=== PATIENT | male | born 1935 | race Caucasian/White ===

== ENCOUNTER 2023-11-13 06:24 | Inpatient (IN) | payer OTHER, SELFPAY ==
--- NOTE | 2023-07-17 09:32 | CM ---
Addendum entered by Connie Yan 10/09/23 09:57:
Patient's surgery date has been changed to 11/13/23. Spoke with patient via telephone. Reintroduced role of Orthopedic Navigator and confirmed information previously obtained for case management assessment. Also discussed orthopedic program and post
surgical plans. Reviewed anticipated length of stay and that goal is for him to return home at discharge. Patient is in agreement with tentative plan and states that his daughter will stay with him when he goes home. He continues to state that he
will need VN services.
Original Note:
Patient is scheduled for an elective L TKR on 08/21/23. Spoke with patient prior to surgery via telephone. Patient had a R TKR at in 2019. Reintroduced role of Orthopedic Navigator. Patient reports that he lives alone in a two story home. There
are four steps to enter (bilateral rails) and a flight of steps to the second floor (bilateral rails also). There is a powder room on the data entry representative. He currently functions independently and uses a cane. He also has a rolling walker and shower
seat. He has had VN services through VN. PCP is Dr. Reymundo Nichols.
Discussed orthopedic program and post surgical plans. Reviewed anticipated length of stay and that goal is for him to return home at discharge. Also reviewed outpatient PT. Patient is in agreement with tentative plan but will not have transportation
for outpatient PT and will need VN services. He states that his daughter will likely stay with him initially.
Patient will complete online education.
Plan: Orthopedic Navigator will remain available to assist with the care of patient and will reassess discharge needs after surgery.
[2023-07-30 11:04] VITALS: BMI 32.6
[2023-07-30 12:11] LABS: Hematocrit 34.6 % (39.0-52.0); Hemoglobin 11.6 g/dL (13.0-18.0); Mean Corp Hgb Conc. 33.5 g/dL (33.0-37.0); Mean Corpuscular Volume 104.5 fL (80.0-94.0); Mean Platelet Volume 8.9 fL (7.4-10.4); Platelet Count 119 10^3/uL (130-400); Red Blood Cell Count 3.31 10^6/uL (4.70-6.10); Red Cell Dist. Width 14.4 % (11.5-14.5); White Blood Cell Count 4.4 10^3/uL (4.8-10.8)
[2023-07-30 12:13] LABS: ALT (SGPT) 22 U/L (0-50); AST (SGOT) 30 U/L (17-59); Albumin 4.2 g/dl (3.5-5.0); Alkaline Phosphatase 46 U/L (38-126); Blood Urea Nitrogen 20 mg/dl (9-20); Calcium 9.5 mg/dl (8.4-10.2); Carbon Dioxide 26 mmol/L (22-30); Chloride 106 mmol/L (98-107); Estimated Creatinine Clearance 60 ml/min; Glomerular Filtration Rate 57.4; Glucose 89 mg/dl (70-99); Potassium 5.1 mmol/L (3.5-5.1); Sodium 140 mmol/L (135-145); Total Bilirubin 1.5 mg/dl (0.2-1.3); Total Protein 7.5 g/dl (6.3-8.2)
[2023-07-30 12:56] LABS: Glycohemoglobin (HgbA1c) 5.4 % (4.0-5.6)
[2023-07-30 13:26] VITALS: BMI 32.6
[2023-10-21 13:33] VITALS: BMI 32.9
[2023-10-21 14:32] LABS: Hematocrit 36.9 % (39.0-52.0); Hemoglobin 12.3 g/dL (13.0-18.0); Mean Corp Hgb Conc. 33.3 g/dL (33.0-37.0); Mean Corpuscular Hgb 34.3 pg (27.0-31.0); Mean Corpuscular Volume 102.8 fL (80.0-94.0); Mean Platelet Volume 9.1 fL (7.4-10.4); Platelet Count 142 10^3/uL (130-400); Red Blood Cell Count 3.59 10^6/uL (4.70-6.10); Red Cell Dist. Width 13.9 % (11.5-14.5); White Blood Cell Count 5.4 10^3/uL (4.8-10.8)
[2023-10-21 14:45] LABS: ALT (SGPT) 23 U/L (0-50); AST (SGOT) 34 U/L (17-59); Albumin 4.3 g/dl (3.5-5.0); Alkaline Phosphatase 49 U/L (38-126); Blood Urea Nitrogen 25 mg/dl (9-20); Calcium 10.3 mg/dl (8.4-10.2); Carbon Dioxide 25 mmol/L (22-30); Chloride 103 mmol/L (98-107); Estimated Creatinine Clearance 60 ml/min; Glucose 87 mg/dl (70-99); Sodium 134 mmol/L (135-145); Total Protein 7.5 g/dl (6.3-8.2); eGFR 58.89
--- NOTE | 2023-10-21 15:28 | HPS.HSE ---
Family Physician
-
Family Physician: Reymundo Nichols
Chief Complaint
-
Advanced primary osteoarthritis of the left knee.
History of Present Illness
The patient is an 88-year-old male presenting today for advanced primary osteoarthritis of the left knee. The patient previously underwent a rather uncomplicated right total knee arthroplasty in September [address] Christos Danielson. He
returns to [facility] today with complaints of significant left knee pain associated with his osteoarthritis. He notes that his current left knee pain is greatly interfering with his activities of daily living and is overall impacting his
quality of life. He has tried and failed multiple conservative treatment measures in the past for his left knee pain. These conservative treatment measures include physical therapy, self therapeutic exercises, activity modification, attempted weight
loss, medical management with Tylenol, bracing, and the application of ice and/or heat. Recent x-ray findings of the left knee demonstrated [id number] medial compartment osteoarthritis. He was determined to be in need of a left total knee
arthroplasty. He was originally scheduled to undergo this procedure in late July 2023; however, it was postponed due to aspiration pneumonia. He has been cleared by pulmonology at this time. He denies any current complaints today such as chest
pain, shortness of breath, palpitations, nausea, vomiting, diarrhea, lightheadedness, dizziness, cough, sore throat, or fever.
Medical History
Past Medical History
Past Medical History: Reports Other
Additional Past Medical History:
1. Osteoarthritis, status post right total knee arthroplasty, 09/2018, by Dr. Christos Danielson.
2. Hypertension.
3. Hyperlipidemia.
4. Coronary artery calcifications on chest CT.
5. Aorta atherosclerosis.
6. Paroxysmal atrial fibrillation/atrial flutter, oral anticoagulation with Eliquis.
7. First degree AV block.
8. Mild-moderate valvular disease.
9. Mild pulmonary hypertension.
10. Venous varicosities, status post remote bilateral vein stripping.
11. Chronic peripheral edema.
12. Chronic interstitial fibrosis.
13. Right lower lobe pulmonary nodule, stable on serial imaging.
14. Aspiration pneumonia 08/20/2023.
15. Chronic dyspnea on exertion.
16. Chronic kidney disease stage 3.
17. GERD.
18. Mild dysphagia secondary to esophageal stricture.
19. Redundant colon.
20. Colon polyps.
21. Bilateral renal cysts.
22. Pancreatic cyst.
23. 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
24. Balance difficulties.
25. Peripheral neuropathy.
26. Multilevel degenerative disc disease.
27. BPH with difficult urination.
28. Multifactorial anemia.
29. Psoriatic arthritis.
30. Primary hyperparathyroidism.
31. Gout.
32. Anxiety.
33. Depression.
34. Chronic postnasal drip.
35. Bilateral dry eyes.
36. Osteopenia.
37. Hearing impairment bilaterally.
38. MRSA positive nasal screen pre-operatively.
39. Mild hyponatremia.
40. Mild hypercalcemia.
41. Prediabetes, A1c 5.8.
42. Obesity, BMI 32.9.
Past Surgical History: Reports Other
Additional Past Surgical History:
1. Right total knee arthroplasty, 09/2018, by Dr. Christos Danielson.
2. Right elbow surgery.
3. Left foot 4th metatarsal shaving.
4. Left foot excision of bone and soft tissue.
5. Varicose vein stripping bilaterally.
6. Umbilical hernia repair.
7. Laparoscopic cholecystectomy.
8. ERCP, bile stone extraction, and sphincterotomy.
9. Varicocele surgery.
10. Sinus surgery.
11. Bilateral cataract extraction.
12. Tonsillectomy.
13. Colonoscopy.
14. Endoscopy.
Social History
Tobacco: Non-smoker
Alcohol: Occasional
Living: Alone (in a 2 story home. His daughter, Estephanie, will be staying with him post-operatively. )
Family History
Family History: Not pertinent
Allergies / Home Medications
Allergy/Medication List:
Home medications:
1. Acetaminophen 650 mg p.o. twice a day as needed.
2. Allopurinol 100 mg p.o. daily.
3. Ascorbic Acid 1000 mg p.o. daily.
4. Atorvastatin 80 mg p.o. every evening.
5. Cholecalciferol 1000 units p.o. daily.
6. Vitamin B12 500 mcg p.o. daily.
7. Eliquis 5 mg p.o. twice a day.
8. Escitalopram Oxalate 10 mg p.o. every evening.
9. Ferrous Sulfate 325 mg p.o. every evening.
10. Finasteride 5 mg p.o. every evening.
11. Flonase 1 spray intranasal daily as needed.
12. Lisinopril 10 mg p.o. daily.
13. Loratadine 10 mg p.o. daily.
14. Montelukast 10 mg p.o. every evening.
15. Pantoprazole 40 mg p.o. daily.
16. Prolia 1 injection every 6 months.
17. Tamsulosin 0.4 mg p.o. twice a day.
18. Super B complex 1 tab p.o. daily.
�
Allergies: Meperidine.
Review of Systems
-
A 12 point ROS was completed and negative except as noted: Yes
Physical Exam
Vital Signs
Blood pressure 118/77. Heart rate 94. Respirations 18. Pulse ox 96% on room air.
Height 6 feet, 2 inches. Weight 116.1 kg. BMI 32.9.
Physical Exam
General: Well Developed, Well Nourished and No Apparent Distress
HEENT: NormoCephalic, Moist mucous membranes, Atraumatic and PERRLA
Respiratory: Crackles (Chronic, bibasilar)
Cardiac: Irregular Rhythm and Murmur (2/6 systolic )
GI: Soft, Non Tender, Non Distended and Other (Obese. )
Musculoskeletal: Normal Gait & Station (Left knee: positive effusion. Range of motion 0-120. Varus alignment. Severe pain with flexion. Tenderness along the medial joint line. Right knee: range of motion 0-130. Well-healed incision. No pain with
passive motion of bilateral hips.) and Other
Skin: Warm, Dry and Other (Psoriatic plaque noted at right ankle. )
Neuro: AO x 3 and Nonfocal/grossly intact
Laboratory Results
-
10/21/23 13:39
10/21/23 13:39
Laboratory Results
Total Bilirubin 1.5 mg/dl (0.2-1.3) H 07/30/23 10:40
AST 34 U/L (17-59) 10/21/23 13:39
ALT 23 U/L (0-50) 10/21/23 13:39
Alkaline Phosphatase 49 U/L (38-126) 10/21/23 13:39
Hemoglobin A1c 5.8.
MRSA nasal screen positive. The patient was started on nasal Mupirocin ointment pre-operatively.
EKG provided by Cardiology.
Echocardiogram 08/21/2023: Normal left ventricular chamber size. Mild concentric left ventricular hypertrophy. Normal left ventricular systolic function. Normal regional wall motion. Left ventricular ejection fraction is 60-65% by Sanchez's method
of discs. Diastolic function not assessed. Moderately dilated right ventricle. Probably normal right ventricular function. Focally calcified anterior mitral leaflet. Mitral valve opens normally. Mild to moderate mitral regurgitation. Trileaflet
aortic valve. Aortic valve opens normally. Mild aortic regurgitation. Moderate tricuspid regurgitation.� Estimated pulmonary artery pressure of 35 mmHg, assuming a right atrial pressure of 8 mmHg. Ascending aorta is mildly dilated, 4.0 cm.
Impression/Plan
-
CLEARANCES:
1. Primary Medical, Dr. Reymundo Nichols - cleared.
� � Primary medical phone number: [phone].
2. Cardiology, Dr. Sandra Shields - cleared at moderate risk.
3. Pulmonary, DAVID Moore - cleared at moderate risk.
4. Dental - cleared.
�
IMPRESSION/PLAN:
1. Advanced primary osteoarthritis of the left knee in need of a left total knee arthroplasty by Dr. Christos Danielson on 11/13/2023. The benefits and risks of the procedure have been explained to the patient. The patient understands these risks and
wishes to proceed.
2. DVT prophylaxis: Eliquis at modified dosing with bilateral venous compression devices. The patient was made aware to hold his home Eliquis three days prior to his upcoming procedure. We will resume his home dosing of Eliquis on post-operative day
3 as long as he remains hemodynamically stable. Plasma flow devices were highly encouraged to be used in the outpatient setting upon discharge.
3. Paroxysmal atrial fibrillation/atrial flutter: The patient will be monitored on telemetry post-operatively.
4. Balance difficulties: The patient will be placed on fall precautions post-surgery.
5. BPH with difficult urination: We will monitor voiding after his procedure. He was advised to continue his home Flomax and Finasteride lucia-operatively.
6. Multifactorial anemia: We will monitor the patient's hemoglobin during admission. His home Ferrous Sulfate and Vitamin B12 will be continued lucia-operatively.
7. MRSA positive nasal screen - We will include IV Vancomycin in addition to IV Ancef lucia-operatively for joint prophylaxis. Nasal Mupirocin has been started pre-operatively. We will advise the patient to continue Mupirocin twice a day for 2 weeks
post-surgery as his incision heals.
Patient's home phone number: [phone].
Patient's cell phone number: [phone].
Patient's contact (Estephanie Jim - Daughter): [phone].
[2023-10-21 15:35] LABS: Total Bilirubin 1.2 mg/dl (0.2-1.3)
[2023-10-21 16:42] VITALS: BMI 32.9
[2023-10-22 10:20] LABS: Glycohemoglobin (HgbA1c) 5.8 % (4.0-5.6)
[2023-11-13] VITALS (12 sets, daily range): BP systolic 99–157; BP diastolic 64–103; PULSE 104–139; O2SAT 98; BMI 32.9
[2023-11-13] MEDS: CELEBREX 200 MG PO (09:14)
[2023-11-13] MEDS: TYLENOL 650 MG PO ×3 (09:15→21:41)
--- NOTE | 2023-11-13 09:34 | PTCARENOTE ---
Patient has CKD stage 3 per H & P. IVF changed to NSS per Dr. Danielson order. Will monitor patient.
[2023-11-13] MEDS: VANCOCIN 300 ML IV (11:30)
[2023-11-13] MEDS: VANCOCIN 300 MG IV (11:30)
[2023-11-13] MEDS: NSS 1000 IV ×2 (11:32→14:36)
[2023-11-13] MEDS: DILAUDID 0.25 MG IV ×3 (14:21→14:42)
--- NOTE | 2023-11-13 14:38 | W.PN.UPDATE ---
Update Note
Progress Note Update
L knee OA s/p L TKA w/ Dr Danielson 11/13/23
- status post right total knee arthroplasty, 09/2018, by Dr. Christos Danielson.
DVT prophylaxis - Eliquis at modified dosing, b/l venous foot pumps
- Eliquis home dosing to be resumed POD 3 if hemodynamically stable
HTN - + parameters - monitor BP
PAF/a flutter and 1st degree AV block - monitor on tele
- Resume Eliquis as stated above
Chronic interstitial fibrosis
Right lower lobe pulmonary nodule, stable on serial imaging
Aspiration pneumonia 08/20/2023
Chronic dyspnea on exertion
- Monitor O2
- IS
- Start Prednisone taper
- Aspiration precautions
Chronic kidney disease stage 3 - minimize nephrotoxins as able
GERD - resume Protonix
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
Balance difficulties - on fall precautions
Peripheral neuropathy - consider Gabapentin or Lyrica
BPH with difficult urination - monitor voids
- Continue home Flomax BID and Finasteride
- Bladder scans/straight cath as needed
Multifactorial anemia - continue iron, vit B12
- Non-invasive hgb in AM
MRSA positive nasal screen pre-operatively - added IV Vanco in addition to IV Ancef lucia-op for joint prophylaxis
- Continue nasal Mupirocin for 2 weeks as incision heals
Hyperlipidemia
Coronary artery calcifications on chest CT
Aorta atherosclerosis
Mild-moderate valvular disease
Mild pulmonary hypertension
Venous varicosities, status post remote bilateral vein stripping
Chronic peripheral edema
Mild dysphagia secondary to esophageal stricture
Redundant colon
Colon polyps
Bilateral renal cysts
Pancreatic cyst
Multilevel degenerative disc disease
Psoriatic arthritis
Primary hyperparathyroidism
Gout
Anxiety
Depression
Chronic postnasal drip
Bilateral dry eyes
Osteopenia
Hearing impairment bilaterally
Mild hyponatremia
Mild hypercalcemia
Prediabetes, A1c 5.8.
Obesity, BMI 32.9
[2023-11-13] MEDS: PROTONIX PO (17:46)
[2023-11-13] MEDS: VITAMIN B-12 500 MCG PO (18:08)
[2023-11-13] MEDS: SINGULAIR 10 MG PO (18:10)
[2023-11-13] MEDS: ZYLOPRIM 100 MG PO (18:10)
[2023-11-13] MEDS: FEOSOL 325 MG PO (18:10)
[2023-11-13] MEDS: LIPITOR 80 MG PO (18:10)
[2023-11-13] MEDS: LEXAPRO 10 MG PO (18:10)
[2023-11-13] MEDS: PROSCAR 5 MG PO (18:10)
[2023-11-13] MEDS: ROXICODONE 10 MG PO (18:20)
[2023-11-13] MEDS: SENOKOT 17.1999999999999993 MG PO (21:39)
[2023-11-13] MEDS: ELIQUIS 2.5 MG PO (21:40)
[2023-11-13] MEDS: ANCEF 5 IV (21:44)
[2023-11-13] MEDS: ROXICODONE 5 MG PO (22:03)
[2023-11-13] MEDS: COLACE 100 MG PO (22:05)
[2023-11-13] MEDS: VANCOCIN 200 IV (22:11)
[2023-11-13] MEDS: FLOMAX 0.400000000000000022 MG PO (22:17)
[2023-11-13] MEDS: BACTROBAN 2% OINTMENT 1 APPLIC NASAL (22:26)
[2023-11-14] VITALS (9 sets, daily range): BP systolic 97–116; BP diastolic 56–79; PULSE 99–150; O2SAT 91–95; BMI 33.0
[2023-11-14] MEDS: TYLENOL 650 MG PO ×5 (00:02→20:42)
[2023-11-14] MEDS: ANCEF 5 IV (03:34)
[2023-11-14] MEDS: ROXICODONE 5 MG PO ×3 (03:44→15:01)
--- NOTE | 2023-11-14 04:25 | PTCARENOTE ---
Addendum entered by Nini Acosta RN 11/14/23 04:34:
Patient unable to void more than 150cc, bladder scanner +for 775cc, st cath done for 900cc at 0030.
Original Note:
Patient AAOX3, patient OOB to standing position, assist x2. Patient weak and slightly unsteady after standing for 5-10mins in attempt to void. patient moving Lt leg appropriately after receiving pain medication.
[2023-11-14] MEDS: NSS 1000 IV (06:15)
[2023-11-14] MEDS: BACTROBAN 2% OINTMENT 1 APPLIC NASAL ×2 (08:00→20:43)
[2023-11-14] MEDS: COLACE 100 MG PO ×2 (08:01→20:42)
[2023-11-14] MEDS: DELTASONE 40 MG PO (08:01)
[2023-11-14] MEDS: FLOMAX 0.400000000000000022 MG PO ×2 (08:03→20:42)
[2023-11-14] MEDS: PROTONIX 40 MG PO (08:03)
[2023-11-14] MEDS: ELIQUIS 2.5 MG PO ×2 (08:03→20:41)
[2023-11-14] MEDS: VITAMIN B-12 500 MCG PO (08:04)
[2023-11-14] MEDS: SENOKOT 17.1999999999999993 MG PO ×2 (08:04→20:42)
[2023-11-14] MEDS: ZYLOPRIM 100 MG PO (08:07)
--- NOTE | 2023-11-14 08:51 | CM ---
Addendum entered by Connie Yan 11/14/23 13:43:
Met with patient and daughter at bedside. Explained that patient will not be discharged today. Reviewed VN services and daughter confirms that she and her will be staying with patient.
Addendum entered by Connie Yan 11/14/23 11:10:
Patient is not medically cleared for discharge. VN updated and start of care changed to 11/16.
Original Note:
Reviewed chart and held rounds with PT, OT and nursing. Patient admitted as planned for elective L TKR. Met with patient at bedside. Confirmed information previously obtained for assessment. Also discussed discharge plans. The plan is for patient to
return home at discharge. His daughter will be staying with him upon discharge. Reviewed VN services including start of care (tentatively 11/15), services to be ordered (PT, SN) and frequency/duration of services. Options list provided and PAC data
reviewed. Patient selects VN.
Patient has a rolling walker, shower seat and a cane at home.
VN referral was completed and sent to [facility] through [employer] with request for start of care on 11/15. Confirmation received of their ability to accept case. repair clerk to fax discharge instructions to [facility] when complete.
Patient will use [facility] for discharge prescriptions
--- NOTE | 2023-11-14 12:25 | W.PN.ORTHO ---
Today's Communication / Plan
-
D/c when clinically stable.
Assessment
.
Distal Motor Intact: Yes
Dressing:
Clean, dry and intact.
Assessment:
L knee OA s/p L TKA w/ Dr Danielson 11/13/23
- status post right total knee arthroplasty, 09/2018, by Dr. Christos Danielson.
DVT prophylaxis - Eliquis at modified dosing, b/l venous foot pumps
- Eliquis home dosing to be resumed POD 3 if hemodynamically stable
PAF/a flutter and 1st degree AV block - monitor on tele
- HRs 90s at rest - 140s w/ ambulation/therapy
- Per review of records, previous Amiodarone stopped in 2019 d/t fear of pulmonary toxicity. Pt also has a h/o sinus bradycardia, making me cautious to order a BB right away
- Consult cardio for further recs
- Continue Eliquis as stated above
BPH with difficult urination - urinary retention post-op requiring straight cath
- Continue home Flomax BID and Finasteride
- Continue bladder scans/straight cath as needed
- Consider burkett w/ voiding trial upon d/c should pt not urinate by later today
HTN - + parameters - monitor BP
Chronic interstitial fibrosis
Right lower lobe pulmonary nodule, stable on serial imaging
Aspiration pneumonia 08/20/2023
Chronic dyspnea on exertion
- Monitor O2
- IS
- Continue Prednisone taper (just started POD 1)
- Aspiration precautions
Chronic kidney disease stage 3 - minimize nephrotoxins as able
GERD - resume Protonix
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
Balance difficulties - on fall precautions
Peripheral neuropathy - consider Gabapentin or Lyrica
Multifactorial anemia - continue iron, vit B12
- Non-invasive hgb 12.1 POD 1
- Dressing C/D/I
MRSA positive nasal screen pre-operatively - added IV Vanco in addition to IV Ancef lucia-op for joint prophylaxis
- Continue nasal Mupirocin for 2 weeks as incision heals
Hyperlipidemia
Coronary artery calcifications on chest CT
Aorta atherosclerosis
Mild-moderate valvular disease
Mild pulmonary hypertension
Venous varicosities, status post remote bilateral vein stripping
Chronic peripheral edema
Mild dysphagia secondary to esophageal stricture
Redundant colon
Colon polyps
Bilateral renal cysts
Pancreatic cyst
Multilevel degenerative disc disease
Psoriatic arthritis
Primary hyperparathyroidism
Gout
Anxiety
Depression
Chronic postnasal drip
Bilateral dry eyes
Osteopenia
Hearing impairment bilaterally
Mild hyponatremia
Mild hypercalcemia
Prediabetes, A1c 5.8.
Obesity, BMI 32.9
Plan
.
Surgery / Date: Michelle GONG w/ Dr Danielson 11/13/23
DVT Prophylaxis: Other (Xarelto at modified dosing )
Activity:
Out of bed.
PT/OT
Discharge Plan: Home w/ VN
Subjective
.
.:
Patient resting comfortably in bed this AM.
Acute on chronic urinary retention from underlying BPH.
Notably in a fib/a flutter w/ HR ranging from 90s-140s w/ therapy.
Vital Signs and Labs
.
Vital Signs and Labs:
Lab Results
10/21/23 13:39
10/21/23 13:39
Temp Pulse Resp BP Pulse Ox
97.5 F 96 14 113/65 94
11/14/23 07:07 11/14/23 08:07 11/14/23 07:07 11/14/23 08:07 11/14/23 08:10
Non-invasive Hgb result: 12.1
Physical Exam
-
HEENT: No pallor, cyanosis, or jaundice. Throat clear. Extremely RAMONA.
NECK: Supple. No JVD.
RESPIRATORY: Lungs clear to auscultation.
CVS: Irregular irregular.
ABDOMEN: Soft, non-tender. No distension. Obese.
EXTREMITIES: Mild post-op L knee edema. Strength equal, no calf pain with palpation/dorsiflexion. Calves soft.
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 No focal deficits. testing director grossly intact
[2023-11-14] MEDS: TOPROL XL 25 MG PO (12:43)
--- NOTE | 2023-11-14 14:48 | W.PN.CARDCBS ---
Addendum entered and electronically signed by Aaron Kwan DO 11/14/23 18:10:
I saw and examined the patient.
The Certified Adapted Physical Educator's note was reviewed and I agree with the note.
Comment:
Plan:
Add low dose Toprol for better rate control
He had been on amiodarone in the past for rate control but was current concerned about potential side effects.
Monitor blood pressures. Hold outpatient lisinopril to give room for blood pressure.
Continue Eliquis per Ortho 2.5 twice daily with increase to 5 mg twice daily once okay with Ortho. Would resume Eliquis at 5 mg twice daily as soon as possible given history of CVA.
Continue postoperative orthopedic care.
Discussed with nursing
Outpatient cardiac follow-up
Original Note:
Today's Communication / Plan
-
Add low-dose Toprol and IV Lopressor as needed
Follow on telemetry
Hold outpatient lisinopril
Follow blood pressures
Eliquis 2.5 mg twice daily per Ortho for now
Continue postop care
Impression / Plan
-
*Please refer to office note dated 09/09/23 with addendums 10/10/23 and 11/07/23*
Primary Manager Of Revenue: Dr. Shields
Assessment:
Status post left TKA 11/13/2023
Postoperative pain
Persistent atrial fibrillation, now with transient elevation in HR
History of atrial flutter
Chronic anticoagulation with Eliquis
History of stroke in 2018
Interstitial lung disease
Chronic mild anemia
GERD
BPH
Primary hyperparathyroidism
Coronary artery calcifications noted by imaging
08/21/2023: EF 60 to 65%, mild concentric LVH, moderately dilated right ventricle, mild to moderate MR, mild AR, moderate TR, PAP 35 mmHg mild dilation of ascending aorta, 4.0 cm
Plan:
-Status post left TKA 11/13/2023
-Cardiology consulted as patient with history of persistent atrial fibrillation, noted to have some transient elevation in heart rates particularly with ambulation today, however at times also at rest. Patient complaining of significant pain, and
appears to be very anxious about this.
-He was not on rate controlling medications as an outpatient, and is noted to have a history of first-degree AV block and bradycardia in the past.
-Will add low-dose Toprol 25 mg daily and follow closely on telemetry. IV Lopressor as needed also ordered
-due to low BPs, hold OP lisinopril for now
-Continue postoperative care
-Half dose Eliquis 2.5mg BID for now per Ortho
-d/w nursing
Progress Note - Manager Of Revenue
Subjective
Date of Service: November 14, 2023
Patient reports significant left knee pain. Denies chest pain, shortness of breath, palpitations
Objective
Labs:
10/21/23 13:39
10/21/23 13:39
Labs
Hgb 12.3 g/dL (13.0-18.0) L 10/21/23 13:39
Hct 36.9 % (39.0-52.0) L 10/21/23 13:39
Plt Count 142 10^3/uL (130-400) 10/21/23 13:39
Sodium 134 mmol/L (135-145) L 10/21/23 13:39
Potassium 5.0 mmol/L (3.5-5.1) 10/21/23 13:39
BUN 25 mg/dl (9-20) H 10/21/23 13:39
Creatinine 1.2 mg/dL (0.7-1.3) 10/21/23 13:39
Glucose 87 mg/dl (70-99) 10/21/23 13:39
Vital Signs and I&O:
Vital Signs
Temp Pulse Resp BP Pulse Ox
98.3 F 143 14 96/62 94
11/14/23 12:13 11/14/23 12:43 11/14/23 12:13 11/14/23 12:43 11/14/23 12:13
Vital Signs
Temp Pulse Resp BP Pulse Ox
98.3 F 143 14 96/62 94
11/14/23 12:13 11/14/23 12:43 11/14/23 12:13 11/14/23 12:43 11/14/23 12:13
Intake & Output
11/12/23 11/13/23 11/14/23 11/15/23
07:59 07:59 07:59 07:59
Intake Total 2820 / 2820
Output Total 1060 / 1060
Balance 1760 / 1760
Physical Exam
Physical Exam
GEN: No distress, awake, alert, oriented x3. sitting in chair
HEENT: supple, anicteric, mmm, eomi
LUNGS: CTA b/L, no wheezes/rales
CV: Irreg, S1/S2, no murmur
ABD: soft, BS+, NT/ND
EXT: No cyanosis, clubbing. 1+ edema of LLE with dressing c/d/i. CINTIA stocking in place. no evidence of acute bleeding at knee site
NEURO: Gross non-focal
SKIN: Warm, pink, dry. No rash
[2023-11-14] MEDS: TYLENOL PO (16:52)
[2023-11-14] MEDS: LIPITOR 80 MG PO (17:50)
[2023-11-14] MEDS: FEOSOL 325 MG PO (17:50)
[2023-11-14] MEDS: PROSCAR 5 MG PO (17:50)
[2023-11-14] MEDS: SINGULAIR 10 MG PO (17:50)
[2023-11-14] MEDS: LEXAPRO 10 MG PO (17:51)
--- NOTE | 2023-11-14 20:45 | PTCARENOTE ---
Pt sitting in chair, pt weak and needing assist of 2 with walker to ambulate to bed. Upon sitting on side of bed pt became dizzy and lightheaded. Pt assisted to laying position. PT briefly unresponsive, BP 83/57, HR 68 on the monitor. Within 2
minutes pt back to talking a mile a minute and BP117/73, HR in the 80's-90's in Afib on the monitor. PT denies any further dizziness/lightheadedness at this time. Will continue to monitor.
[2023-11-15] VITALS (10 sets, daily range): BP systolic 87–125; BP diastolic 53–87; PULSE 71–104; O2SAT 95–99; BMI 32.8
[2023-11-15] MEDS: TYLENOL PO (00:05)
[2023-11-15] MEDS: TYLENOL 650 MG PO ×6 (04:38→23:37)
--- NOTE | 2023-11-15 08:24 | CM ---
Addendum entered by Connie Yan 11/15/23 15:06:
Beds also offered at [facility] and [facility].
Addendum entered by Connie Yan 11/15/23 12:44:
Spoke with Mallory at [facility]. They will have a bed for patient on Saturday, 11/17 if he needs SNF. Patient updated and confirms that this is his facility of choice. He will update his daughter.
Addendum entered by Connie Yan 11/15/23 12:16:
Call placed to daughter. Update provided. Discussed possible need for SNF. Also discussed options and PAC data. She confirms that [facility] is first choice. But is also agreeable to referrals being sent to other [place] SNF's: [facility]
and [facility]. Updated patient as to conversation with his daughter and he agrees with referrals to these facilities.
Referral and PASRR sent to [facility] and [facility].
Addendum entered by Connie Yan 11/15/23 11:49:
Patient is not medically cleared for discharge. He was unable to fully participate with PT today due to blood pressure issues. Met with patient at bedside. Explained that he will not be discharged today and discussed possible need for SNF. If SNF is
needed, patient is agreeable and would like to go to [facility] (he has been there in the past). Told patient that his functional status will continue to be monitored to determine most appropriate discharge plan.
Referral and completed PASRR were sent through [facility] to [facility]. Will await response with availability.
Precert will be required if SNF is needed when patient is medically cleared and able to participate with therapy.
Original Note:
Reviewed chart and held rounds with PT, OT and nursing. Met with patient at bedside. Discussed discharge plans. The plan is for patient to return home at discharge. His daughter and son-in-law will be staying with him upon discharge. Reviewed [facility]N
services including start of care (currently 11/16), services ordered (PT, SN) and frequency/duration of services. Patient continues to select [facility].
Patient has a rolling walker, shower seat and a cane at home.
message clerk to fax discharge instructions to [facility] when complete.
Patient will use [place] pharmacy for discharge prescriptions
[2023-11-15 08:33] LABS: Hematocrit 29.6 % (39.0-52.0)
[2023-11-15] MEDS: BACTROBAN 2% OINTMENT 1 APPLIC NASAL ×2 (08:46→20:56)
[2023-11-15] MEDS: VITAMIN D3 (cholecalciferol) 25 MCG PO (08:47)
[2023-11-15] MEDS: COLACE 100 MG PO ×2 (08:47→20:55)
[2023-11-15] MEDS: PROTONIX 40 MG PO (08:47)
[2023-11-15] MEDS: VITAMIN B-12 500 MCG PO (08:47)
[2023-11-15] MEDS: SENOKOT 17.1999999999999993 MG PO ×2 (08:47→20:56)
[2023-11-15] MEDS: FLOMAX 0.400000000000000022 MG PO ×2 (08:48→20:55)
[2023-11-15] MEDS: TOPROL XL 25 MG PO (08:48)
[2023-11-15] MEDS: ELIQUIS 2.5 MG PO ×2 (08:48→20:56)
[2023-11-15] MEDS: ZYLOPRIM 100 MG PO (08:49)
[2023-11-15] MEDS: DELTASONE 40 MG PO (08:49)
[2023-11-15] MEDS: ROXICODONE 5 MG PO (08:53)
--- NOTE | 2023-11-15 09:08 | W.PN.ORTHO ---
Today's Communication / Plan
-
Monitor orthostatics.
Await further cardio recs re: a fib.
Work w/ PT and OT as able.
D/c possible for later today if clinically stable.
Assessment
.
Distal Motor Intact: Yes
Dressing:
Small area of old incisional bleeding towards top of dressing.
Assessment:
L knee OA s/p L TKA w/ Dr Danielson 11/13/23
- status post right total knee arthroplasty, 09/2018, by Dr. Christos Danielson.
DVT prophylaxis - Eliquis at modified dosing, b/l venous foot pumps
- Eliquis home dosing to be resumed POD 3 if hemodynamically stable
Symptomatic orthostasis - will give small NSS bolus/1 hr and reassess orthostatics
- Minimize narcotics as able to prevent further BP drops
PAF/a flutter and 1st degree AV block - monitor on tele
- HRs 90s at rest - 140s w/ ambulation/therapy POD 1
- Per review of records, previous Amiodarone stopped in 2019 d/t fear of pulmonary toxicity. Pt also has a h/o sinus bradycardia.
- Appreciate cardio for further recs. Did start on daily Toprol Xl 25 mg. Thankfully Lopressor prn not needed. Await finalized recs.
- Continue Eliquis as stated above
BPH with difficult urination - urinary retention POD 1 requiring straight cath
- Continue home Flomax BID and Finasteride
- Continue bladder scans/straight cath as needed
- Voiding w/ measures above by POD 2
HTN - + parameters/Lisinopril stopped d/t newly added Toprol Xl - continue to monitor BP
Chronic interstitial fibrosis
Right lower lobe pulmonary nodule, stable on serial imaging
Aspiration pneumonia 08/20/2023
Chronic dyspnea on exertion
- O2 stable on RA
- Continue IS
- Continue Prednisone taper (just started POD 1)
- Aspiration precautions
Chronic kidney disease stage 3 - continue to minimize nephrotoxins as able
GERD - resumed Protonix
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
Balance difficulties - on fall precautions
Peripheral neuropathy - consider Gabapentin or Lyrica
Multifactorial anemia - continue iron, vit B12
- H&H 10.0 POD 1 (pre-op 12.3)
MRSA positive nasal screen pre-operatively - added IV Vanco in addition to IV Ancef lucia-op for joint prophylaxis
- Continue nasal Mupirocin for 2 weeks as incision heals
Hyperlipidemia
Coronary artery calcifications on chest CT
Aorta atherosclerosis
Mild-moderate valvular disease
Mild pulmonary hypertension
Venous varicosities, status post remote bilateral vein stripping
Chronic peripheral edema
Mild dysphagia secondary to esophageal stricture
Redundant colon
Colon polyps
Bilateral renal cysts
Pancreatic cyst
Multilevel degenerative disc disease
Psoriatic arthritis
Primary hyperparathyroidism
Gout
Anxiety
Depression
Chronic postnasal drip
Bilateral dry eyes
Osteopenia
Hearing impairment bilaterally
Mild hyponatremia
Mild hypercalcemia
Prediabetes, A1c 5.8.
Obesity, BMI 32.9
Plan
.
Surgery / Date: L TKA w/ Dr Danielson 11/13/23
DVT Prophylaxis: Other (Eliquis at modified dosing )
Activity:
Out of bed.
PT/OT
Discharge Plan: Home w/ VN
Subjective
.
.:
Patient resting comfortably in bed this AM.
Symptomatic orthostasis noted overnight and into this AM.
Urinary retention resolved.
HRs notably improved w/ addition of low dose Toprol Xl yesterday.
Vital Signs and Labs
.
Vital Signs and Labs:
Lab Results
11/15/23 08:07
10/21/23 13:39
Temp Pulse Resp BP Pulse Ox
98.2 F 91 18 122/71 98
11/15/23 07:36 11/15/23 08:48 11/15/23 07:36 11/15/23 08:48 11/15/23 07:36
Non-invasive Hgb result: 12.1
Physical Exam
-
HEENT: No pallor, cyanosis, or jaundice. Throat clear.
NECK: Supple. No JVD.
RESPIRATORY: Lungs clear to auscultation.
CVS: Irregular irregular.
ABDOMEN: Soft, non-tender. No distension. Obese.
EXTREMITIES: Mild post-surgical L knee edema. Strength equal, no calf pain with palpation/dorsiflexion. Calves soft.
DEBIT AGENT: AOx3. No focal deficits. strawhat sizer grossly intact
[2023-11-15] MEDS: NSS 250 IV (09:32)
[2023-11-15] MEDS: NSS 500 IV (12:00)
[2023-11-15] MEDS: ProAmatine 5 MG PO ×2 (14:03→17:18)
[2023-11-15] MEDS: LIDOCAINE 4% PATCH 2 PATCH TOPICAL (14:04)
--- NOTE | 2023-11-15 15:25 | W.PN.CARDCBS ---
Addendum entered and electronically signed by Tomi Nicholson MD 11/15/23 20:18:
Patient with syncope earlier today while standing, postop day 1, now feels better offers no complaints
Allergies: Demerol
Outpatient medications atorvastatin 80 mg a day, Eliquis 5 mg twice daily, escitalopram, Proscar, lisinopril 10 mg a day,
Current medications apixaban resumed, metoprolol ER 12.5 mg twice daily, now on midodrine 5 mg daily
PMH/PSH/FH/SH: Reviewed
: ROS negative
Current blood pressure 124/64, pulse 80s
Head neck exam unremarkable, lungs clear, irregular rate and rhythm, JVD okay, abdomen benign extremities without edema, incision intact left knee, neuro nonfocal
Hemoglobin today's 10
Assessment:
Status post left TKA 11/13/2023
Postoperative pain
Persistent atrial fibrillation, now with transient elevation in HR
History of atrial flutter
Chronic anticoagulation with Eliquis
History of stroke in 2018
Interstitial lung disease
Chronic mild anemia
GERD
BPH
Primary hyperparathyroidism
Coronary artery calcifications noted by imaging
08/21/2023: EF 60 to 65%, mild concentric LVH, moderately dilated right ventricle, mild to moderate MR, mild AR, moderate TR, PAP 35 mmHg mild dilation of ascending aorta, 4.0 cm
Plan:
Despite hypotension today with syncope, he looks well. Agree with IV fluid and reduction in metoprolol. Continue midodrine for now. Continue to hold lisinopril.
Presuming he remains stable, no objections to transfer to [facility] tomorrow.
Original Note:
Today's Communication / Plan
-
Decrease Toprol dose to 12.5 mg daily
Follow on telemetry
IV fluid and midodrine as ordered for now
Follow blood pressure trends
Back to full dose anticoagulation when okay per Ortho
Impression / Plan
-
*Please refer to office note dated 09/09/23 with addendums 10/10/23 and 11/07/23*
Primary Commission Broker: Dr. Shields
Assessment:
Status post left TKA 11/13/2023
Postoperative pain
Persistent atrial fibrillation, now with transient elevation in HR
History of atrial flutter
Chronic anticoagulation with Eliquis
History of stroke in 2018
Interstitial lung disease
Chronic mild anemia
GERD
BPH
Primary hyperparathyroidism
Coronary artery calcifications noted by imaging
08/21/2023: EF 60 to 65%, mild concentric LVH, moderately dilated right ventricle, mild to moderate MR, mild AR, moderate TR, PAP 35 mmHg mild dilation of ascending aorta, 4.0 cm
Plan:
-Status post left TKA 11/13/2023
-Heart rates much improved today on review of telemetry with addition of Toprol 25 mg daily. Patient also with several brief pauses all less than 2.5 seconds, asymptomatic.
-He had episode of syncope and hypotension earlier today with standing. He was being given IV fluids, and was started on midodrine
-his BP was low to start however did not drop with standing by review of ortho VS. continue CINTIA stockings
-Will plan to decrease Toprol dose to 12.5 mg daily. Follow on telemetry. Outpatient lisinopril remains on hold
-Currently on half dose Eliquis 2.5 mg twice daily. Resume full dosing as soon as okay per Ortho
-hgb 10.0
-Continue pain control, PT OT
-d/w physical therapy
Progress Note - Commission Broker
Subjective
Date of Service: November 15, 2023
No palpitations or lightheadedness at present
Objective
Labs:
11/15/23 08:07
10/21/23 13:39
Labs
Hgb 10.0 g/dL (13.0-18.0) L 11/15/23 08:07
Hct 29.6 % (39.0-52.0) L 11/15/23 08:07
Plt Count 142 10^3/uL (130-400) 10/21/23 13:39
Sodium 134 mmol/L (135-145) L 10/21/23 13:39
Potassium 5.0 mmol/L (3.5-5.1) 10/21/23 13:39
BUN 25 mg/dl (9-20) H 10/21/23 13:39
Creatinine 1.2 mg/dL (0.7-1.3) 10/21/23 13:39
Glucose 87 mg/dl (70-99) 10/21/23 13:39
Vital Signs and I&O:
Vital Signs
Temp Pulse Resp BP Pulse Ox
98.0 F 73 16 109/76 97
11/15/23 12:20 11/15/23 12:20 11/15/23 12:20 11/15/23 14:03 11/15/23 12:20
Vital Signs
Temp Pulse Resp BP Pulse Ox
98.0 F 73 16 109/76 97
11/15/23 12:20 11/15/23 12:20 11/15/23 12:20 11/15/23 14:03 11/15/23 12:20
Intake & Output
11/13/23 11/14/23 11/15/23 11/16/23
07:59 07:59 07:59 07:59
Intake Total 2820 / 2820 1380 / 1380
Output Total 1060 / 1060 1100 / 1100
Balance 1760 / 1760 280 / 280
Physical Exam
Physical Exam
GEN: No distress, awake, alert, oriented x3
HEENT: supple, anicteric, mmm, eomi
LUNGS: CTA B/L, no wheezes/rales
CV: Irreg, S1/S2, no murmur
ABD: soft, BS+, NT/ND
EXT: No cyanosis, clubbing, edema
NEURO: Gross non-focal
SKIN: Warm, pink, dry. No rash. CINTIA stockings B/L. L knee dressing c/d/i
[2023-11-15] MEDS: FEOSOL 325 MG PO (17:17)
[2023-11-15] MEDS: SINGULAIR 10 MG PO (17:17)
[2023-11-15] MEDS: LEXAPRO 10 MG PO (17:17)
[2023-11-15] MEDS: LIPITOR 80 MG PO (17:18)
[2023-11-15] MEDS: PROSCAR 5 MG PO (17:19)
[2023-11-16] VITALS (10 sets, daily range): BP systolic 115–145; BP diastolic 66–87; PULSE 94–125; BMI 33.3
[2023-11-16] MEDS: TYLENOL PO ×2 (03:58→12:30)
[2023-11-16] MEDS: DELTASONE 30 MG PO (09:07)
[2023-11-16] MEDS: COLACE 100 MG PO ×2 (09:07→21:15)
[2023-11-16] MEDS: VITAMIN B-12 500 MCG PO (09:10)
[2023-11-16] MEDS: ELIQUIS 5 MG PO ×2 (09:10→21:10)
[2023-11-16] MEDS: VITAMIN D3 (cholecalciferol) 25 MCG PO (09:10)
[2023-11-16] MEDS: PROTONIX 40 MG PO (09:11)
[2023-11-16] MEDS: SENOKOT 17.1999999999999993 MG PO ×2 (09:11→21:10)
[2023-11-16] MEDS: ZYLOPRIM 100 MG PO (09:11)
[2023-11-16] MEDS: TYLENOL 650 MG PO ×3 (09:11→21:11)
[2023-11-16] MEDS: LIDOCAINE 4% PATCH 2 PATCH TOPICAL (09:12)
[2023-11-16] MEDS: TOPROL XL 12.5 MG PO (09:14)
[2023-11-16] MEDS: ProAmatine 5 MG PO (09:14)
[2023-11-16] MEDS: FLOMAX 0.400000000000000022 MG PO ×2 (09:14→21:10)
--- NOTE | 2023-11-16 09:20 | W.PN.CARDCBS ---
Today's Communication / Plan
-
Clinically improved.
Will discharge on Toprol 12.5 mg daily and stop lisinopril
Would not discharge on midodrine.
Okay for discharge from cardiology standpoint
Impression / Plan
-
*Please refer to office note dated 09/09/23 with addendums 10/10/23 and 11/07/23*
Primary Motor Overhauler: Dr. Shields
Assessment:
Status post left TKA 11/13/2023
Postoperative pain
Persistent atrial fibrillation, now with transient elevation in HR
History of atrial flutter
Chronic anticoagulation with Eliquis
History of stroke in 2018
Interstitial lung disease
Chronic mild anemia
GERD
BPH
Primary hyperparathyroidism
Coronary artery calcifications noted by imaging
08/21/2023: EF 60 to 65%, mild concentric LVH, moderately dilated right ventricle, mild to moderate MR, mild AR, moderate TR, PAP 35 mmHg mild dilation of ascending aorta, 4.0 cm
Plan:
-Status post left TKA 11/13/2023
-Telemetry is stable. Blood pressure is also acceptable with no further episodes of dizziness or syncope. Will discharge on Toprol 12.5 mg daily and would hold lisinopril upon discharge.
-Okay to discontinue midodrine upon discharge
-Currently on half dose Eliquis 2.5 mg twice daily. Resume full dosing as soon as okay per Ortho
-hgb 10.0
-Continue pain control, PT OT
-Okay for discharge.
Progress Note - Motor Overhauler
Subjective
Date of Service: November 16, 2023
Feels better and blood pressures improved. No further episodes of syncope
Objective
Labs:
11/15/23 08:07
10/21/23 13:39
Labs
Hgb 10.0 g/dL (13.0-18.0) L 11/15/23 08:07
Hct 29.6 % (39.0-52.0) L 11/15/23 08:07
Plt Count 142 10^3/uL (130-400) 10/21/23 13:39
Sodium 134 mmol/L (135-145) L 10/21/23 13:39
Potassium 5.0 mmol/L (3.5-5.1) 10/21/23 13:39
BUN 25 mg/dl (9-20) H 10/21/23 13:39
Creatinine 1.2 mg/dL (0.7-1.3) 10/21/23 13:39
Glucose 87 mg/dl (70-99) 10/21/23 13:39
Vital Signs and I&O:
Vital Signs
Temp Pulse Resp BP Pulse Ox
98.6 F 101 14 125/84 98
11/16/23 07:00 11/16/23 09:14 11/16/23 07:00 11/16/23 09:14 11/16/23 07:00
Vital Signs
Temp Pulse Resp BP Pulse Ox
98.6 F 101 14 125/84 98
11/16/23 07:00 11/16/23 09:14 11/16/23 07:00 11/16/23 09:14 11/16/23 07:00
Intake & Output
11/14/23 11/15/23 11/16/23 11/17/23
06:59 06:59 06:59 06:59
Intake Total 2820 / 2820 1380 / 1380 1650 / 1650
Output Total 1060 / 1060 1100 / 1100 1865 / 1865
Balance 1760 / 1760 280 / 280 -215 / -215
Physical Exam
Physical Exam
GEN: No distress, awake, Ox3
HEENT: supple, anicteric, mmm
LUNGS: CTA, no wheezes/rales
CV: Reg, S1/S2, 1/6 syst LSB, no gallop
ABD: soft, BS+, NT/ND
EXT: No edema
NEURO: Gross non-focal
SKIN: dressing intact
--- NOTE | 2023-11-16 09:37 | W.PN.ORTHO ---
Today's Communication / Plan
-
-Pain controlled on current regimen
-Diet: regular
-DVT ppx; TEDS, venous pumps, Eliquis
-Monitor orthostatics, improved
-Cardiology following, appreciate assistance
-PT/OT/DC planning; planned for SNF/ARF likely tomorrow to [facility].
Assessment
.
Distal Motor Intact: Yes
Dressing:
Clean, dry and intact. Mild central strikethrough not progressed
Assessment:
Assessment:
L knee OA s/p L TKA w/ Dr Danielson 11/13/23
- status post left total knee arthroplasty, 09/2018, by Dr. Christos Danielson.
DVT prophylaxis - Eliquis at modified dosing, b/l venous foot pumps
- Eliquis home dosing resumed
Symptomatic orthostasis -
-improved with fluids/cardiology med changes
HTN, PAF/a flutter and 1st degree AV block - monitor on tele
- cardiology following with med changes- appreciate assistance with care for the patient
BPH with difficult urination - urinary retention POD 1 requiring straight cath
- Continue home Flomax BID and Finasteride
- Continue bladder scans/straight cath as needed
- Voiding w/ measures above by POD 2
Chronic interstitial fibrosis
Right lower lobe pulmonary nodule, stable on serial imaging
Aspiration pneumonia 08/20/2023
Chronic dyspnea on exertion
- O2 stable on RA
- Continue IS
- Continue Prednisone taper (just started POD 1)
- Aspiration precautions
Chronic kidney disease stage 3 - continue to minimize nephrotoxins as able
GERD - resumed Protonix
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
Balance difficulties - on fall precautions
Peripheral neuropathy - consider Gabapentin or Lyrica
Multifactorial anemia - continue iron, vit B12
- H&H 10.0 POD 1 (pre-op 12.3)
MRSA positive nasal screen pre-operatively - added IV Vanco in addition to IV Ancef lucia-op for joint prophylaxis
- Continue nasal Mupirocin for 2 weeks as incision heals
Epistaxis
-will order nasal spray to moisten mucosa, c/w home meds.
Plan
.
Surgery / Date: L TKA w/ Dr Danielson 11/13/23
Activity:
Out of bed.
PT/OT
Subjective
.
.:
Patient resting comfortably. Reports some epistaxis which is better controlled at home with humidifiers
Vital Signs and Labs
.
Vital Signs and Labs:
Lab Results
11/15/23 08:07
10/21/23 13:39
Temp Pulse Resp BP Pulse Ox
98.6 F 101 14 125/84 98
11/16/23 07:00 11/16/23 09:14 11/16/23 07:00 11/16/23 09:14 11/16/23 07:00
Non-invasive Hgb result: 12.1
Physical Exam
-
LLE: mild central strikethrough, borders intact; NVI L3-S1
[2023-11-16] MEDS: ProAmatine PO ×2 (12:30→17:00)
--- NOTE | 2023-11-16 16:45 | PTCARENOTE ---
orthostatic VS not completed at 1600.
pt was OOB in chair most of the afternoon and had just returned to bed. he refused to get out of bed again to complete VS. pt denied dizziness or feeling lightheaded when assisted to return to bed. Will observe
[2023-11-16] MEDS: PROSCAR 5 MG PO (18:02)
[2023-11-16] MEDS: LIPITOR 80 MG PO (18:02)
[2023-11-16] MEDS: SINGULAIR 10 MG PO (18:03)
[2023-11-16] MEDS: LEXAPRO 10 MG PO (18:03)
[2023-11-16] MEDS: FEOSOL 325 MG PO (18:03)
[2023-11-17] VITALS (9 sets, daily range): BP systolic 101–175; BP diastolic 61–97; PULSE 82–118; O2SAT 96
[2023-11-17] MEDS: TYLENOL 650 MG PO ×6 (00:34→20:19)
[2023-11-17] MEDS: DELTASONE 30 MG PO (08:18)
[2023-11-17] MEDS: COLACE 100 MG PO ×2 (08:18→20:20)
[2023-11-17] MEDS: LIDOCAINE 4% PATCH 2 PATCH TOPICAL (08:19)
[2023-11-17] MEDS: FLOMAX 0.400000000000000022 MG PO ×2 (08:19→20:25)
[2023-11-17] MEDS: ELIQUIS 5 MG PO ×2 (08:19→20:20)
[2023-11-17] MEDS: SENOKOT 17.1999999999999993 MG PO ×2 (08:20→20:19)
[2023-11-17] MEDS: ProAmatine 5 MG PO ×2 (08:20→12:50)
[2023-11-17] MEDS: TOPROL XL 12.5 MG PO (08:20)
[2023-11-17] MEDS: PROTONIX 40 MG PO (08:20)
[2023-11-17] MEDS: VITAMIN B-12 500 MCG PO (08:20)
[2023-11-17] MEDS: ZYLOPRIM 100 MG PO (08:21)
[2023-11-17] MEDS: VITAMIN D3 (cholecalciferol) 25 MCG PO (08:21)
--- NOTE | 2023-11-17 09:51 | CM ---
Patient picked [facility] for SNF at [facility]
As per care port [facility] can accept him.
Temp 100.7 in am.
PT and OT said SNF at [facility].
Pt will need auth with [facility] per choice [facility].
PLAN When medically stable dc to [facility] after auth
--- NOTE | 2023-11-17 09:51 | W.PN.ORTHO ---
Today's Communication / Plan
-
-Pain controlled on current regimen
-Diet: regular
-DVT ppx; TEDS, venous pumps, Eliquis
-Monitor orthostatics, improved
-Cardiology following, appreciate assistance
-PT/OT/DC planning; planned for SNF/ARF [facility] but pending authorization
Assessment
.
Distal Motor Intact: Yes
Dressing:
Clean, dry and intact.
Assessment:
L knee OA s/p L TKA w/ Dr Danielson 11/13/23
- status post left total knee arthroplasty, 09/2018, by Dr. Christos Danielson.
DVT prophylaxis - Eliquis at modified dosing, b/l venous foot pumps
- Eliquis home dosing resumed
Symptomatic orthostasis -
-improved with fluids/cardiology med changes
HTN, PAF/a flutter and 1st degree AV block - monitor on tele
- cardiology following with med changes- appreciate assistance with care for the patient
BPH with difficult urination - urinary retention POD 1 requiring straight cath
- Continue home Flomax BID and Finasteride
- Continue bladder scans/straight cath as needed
- Voiding w/ measures above by POD 2
Chronic interstitial fibrosis
Right lower lobe pulmonary nodule, stable on serial imaging
Aspiration pneumonia 08/20/2023
Chronic dyspnea on exertion
- O2 stable on RA
- Continue IS
- Continue Prednisone taper (just started POD 1)
- Aspiration precautions
Chronic kidney disease stage 3 - continue to minimize nephrotoxins as able
GERD - resumed Protonix
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
Balance difficulties - on fall precautions
Peripheral neuropathy - consider Gabapentin or Lyrica
Multifactorial anemia - continue iron, vit B12
- H&H 10.0 POD 1 (pre-op 12.3)
MRSA positive nasal screen pre-operatively - added IV Vanco in addition to IV Ancef lucia-op for joint prophylaxis
- Continue nasal Mupirocin for 2 weeks as incision heals
Epistaxis
-will order nasal spray to moisten mucosa, c/w home meds.
Plan
.
Surgery / Date: L TKA w/ Dr Danielson 11/13/23
Activity:
Out of bed.
PT/OT
Subjective
.
.:
Patient resting comfortably. Pending auth for ARF/SNF
Vital Signs and Labs
.
Vital Signs and Labs:
Lab Results
11/15/23 08:07
10/21/23 13:39
Temp Pulse Resp BP Pulse Ox
97.8 F 86 16 117/71 98
11/17/23 07:07 11/17/23 07:07 11/17/23 07:07 11/17/23 08:20 11/17/23 08:15
Non-invasive Hgb result: 10.8
[2023-11-17] MEDS: ULTRAM 50 MG PO (11:30)
[2023-11-17] MEDS: FEOSOL 325 MG PO (18:15)
[2023-11-17] MEDS: LEXAPRO 10 MG PO (18:15)
[2023-11-17] MEDS: ProAmatine PO (18:15)
[2023-11-17] MEDS: PROSCAR 5 MG PO (18:15)
[2023-11-17] MEDS: SINGULAIR 10 MG PO (18:15)
[2023-11-17] MEDS: LIPITOR 80 MG PO (18:15)
[2023-11-17] MEDS: TYLENOL PO (23:59)
[2023-11-18] MEDS: TYLENOL PO (04:09)
[2023-11-18 07:25] VITALS: BP 164/97
[2023-11-18] MEDS: OCEAN, SALINE MIST 2 SPRAYS NASAL (07:49)
[2023-11-18] MEDS: ULTRAM 50 MG PO (07:50)
[2023-11-18] MEDS: VITAMIN B-12 500 MCG PO (07:51)
[2023-11-18] MEDS: SENOKOT 17.1999999999999993 MG PO (07:51)
[2023-11-18] MEDS: ProAmatine 5 MG PO (07:51)
[2023-11-18] MEDS: TYLENOL 650 MG PO (07:51)
[2023-11-18] MEDS: VITAMIN D3 (cholecalciferol) 25 MCG PO (07:51)
[2023-11-18] MEDS: ZYLOPRIM 100 MG PO (07:54)
[2023-11-18] MEDS: ELIQUIS 5 MG PO (07:54)
[2023-11-18] MEDS: FLOMAX 0.400000000000000022 MG PO (07:54)
[2023-11-18] MEDS: TOPROL XL 12.5 MG PO (07:54)
[2023-11-18] MEDS: PROTONIX 40 MG PO (07:54)
[2023-11-18] MEDS: DELTASONE 20 MG PO (07:54)
[2023-11-18] MEDS: COLACE 100 MG PO (07:55)
[2023-11-18] MEDS: LIDOCAINE 4% PATCH 2 PATCH TOPICAL (07:55)
--- NOTE | 2023-11-18 08:28 | CM ---
Addendum entered by Connie Yan 11/18/23 09:56:
Spoke with [facility] at [facility]. She confirmed their ability to accept patient today. Syed Ryan will be attending ( ).
Report: [phone]

Call placed to [facility]; spoke with Omaira. Clinical provided and authorization was received for transfer to [facility], 5 days skilled level of care, next review date 11/21; auth #[id number]. This information was given to [facility] at [facility].
Transport form completed. food sales clerk to set up wheel chair van transport; cost reviewed with daughter and she is agreeable to paying for service.
Original Note:
Reviewed chart and discussed with RN. Patient is for likely discharge to SNF today. Met with patient and spoke with his daughter, Estephanie. Discussed likely discharge today. Reviewed accepting facilities and PAC data: [facility], [facility] and
[facility]. Also updated that no beds are available at [facility]. They continue to select [facility].
[place] Text sent to [facility] in admissions at [facility]. Will await response and proceed with precert.
--- NOTE | 2023-11-18 09:29 | W.PN.ORTHO ---
Today's Communication / Plan
-
d/c
Assessment
.
Distal Motor Intact: Yes
Dressing:
Clean, dry and intact.
Assessment:
Pain-adjust meds
PAF-increase Eliquis to 5mg bid, Toprol 12.5mg daily added for rate control--Lisinopriol d/c per cardiology-BP stable
Plan
.
Surgery / Date: Michelle GONG w/ Dr Danielson 11/13/23
DVT Prophylaxis: Other (Eliquis)
Activity:
Out of bed.
PT/OT
Discharge Plan: SNF
Discharge Information:
d/c
Subjective
.
.:
Patient resting comfortably.
Vital Signs and Labs
.
Vital Signs and Labs:
Lab Results
11/15/23 08:07
10/21/23 13:39
Temp Pulse Resp BP Pulse Ox
97.9 F 87 16 164/97 95
11/18/23 07:25 11/18/23 07:25 11/18/23 07:25 11/18/23 07:25 11/18/23 08:02
Non-invasive Hgb result: 10.1
Physical Exam
-
HEENT: No pallor, cyanosis, or jaundice. Throat clear.
NECK: Supple. No JVD.
RESPIRATORY: Lungs clear to auscultation.
CVS: irregular, tachy.� No murmur, rub or gallop.
ABDOMEN: Soft, non-tender. No distension. BS+/normal.
EXTREMITIES: strength equal, no calf pain with palpation
AD COMPOSITOR: AOx3. No focal deficits. lump inspector grossly intact
[2023-11-18 09:34] VITALS: BP 127/68; PULSE 87; O2SAT 98
--- NOTE | 2023-11-18 09:44 | W.DS.TRANS ---
DC Summary - Supervisor Type Disk Quality Control
-
Discharge Instructions:
Sleep Apnea Risk Intermediate
Discharge Diagnosis/Procedures L knee OA s/p L TKA w/ Dr Danielson 11/13/23
Diet Other diet,As tolerated
Additional Diets Diabetic carb controlled x1 week for wound
healing/infection prevention; then resume
regular diet.
Activity As tolerated,With Walker
Driving Restrictions No driving
Bathing Restrictions OK to Shower
Other Services PT,VN,OT
Wound Care Dressing to be removed 1 week post-surgery.
Specialty Instructions Weigh Daily
Instructions:
Stand-Alone Forms: Total Hip/Knee Replacement D/C
Changes to Home Medications: Yes
Discharge Medications:
DC Medications w/original date entered in [employer]
allopurinol 100 mg tablet 100 mg PO DAILY Gout 09/17/18
escitalopram oxalate 10 mg tablet 10 mg PO QPM Depression 09/17/18
tamsulosin 0.4 mg capsule 0.4 mg PO BID Urinary issue 09/17/18
vitamin B complex-folic acid 0.4 mg tablet (Super B Maxi Complex) 1 tab PO DAILY Supplement ##0 09/17/18
cholecalciferol (vitamin D3) 25 mcg (1,000 unit) tablet 1,000 units PO DAILY Supplement 02/22/21
cyanocobalamin (vitamin B-12) 1,000 mcg tablet 500 mcg PO DAILY Supplement 02/22/21
denosumab 60 mg/mL subcutaneous syringe (Prolia) 60 mg SC [id number] OSTEOPOROSIS 02/22/21
montelukast 10 mg tablet 10 mg PO QPM Allergies 02/22/21
ferrous sulfate 325 mg (65 mg iron) tablet (FeroSul) 325 mg PO QPM Supplement 10/03/21
fluticasone propionate 50 mcg/actuation nasal spray,suspension 1 spray intranasal BIDPRN PRN nasal congestion 07/24/23
pantoprazole 40 mg tablet,delayed release 40 mg PO DAILY 07/24/23
apixaban 5 mg tablet (Eliquis) 5 mg PO BID Blood clot prevention/tx #0 tabs 08/22/23
atorvastatin 80 mg tablet 80 mg PO QPM High cholesterol #0 tabs 08/22/23
ascorbic acid (vitamin C) 1 g PO DAILY 10/21/23
finasteride 5 mg tablet 5 mg PO QPM 10/21/23
acetaminophen 325 mg tablet 650 mg PO Q4HWA #0 tabs 11/15/23
docusate sodium 100 mg capsule 100 mg PO BID #30 caps 11/15/23
prochlorperazine maleate 5 mg tablet 5 mg PO Q8H PRN nausea and vomiting #15 tabs 11/15/23
sennosides 8.6 mg tablet (Senna Lax) 17.2 mg PO BID #30 tabs 11/15/23
gabapentin 300 mg capsule 300 mg PO HS sleep/pain #10 caps 11/18/23
magnesium hydroxide 400 mg/5 mL oral suspension (Milk of Magnesia) 30 ml PO HS PRN Constipation #1 mL 11/18/23
metoprolol succinate 25 mg tablet,extended release 24 hr (Toprol XL) 12.5 mg PO DAILY #30 tabs 11/18/23
oxycodone 5 mg tablet 5 - 10 mg PO Q6HPRN PRN 1 tab moderate-2 tabs severe pain #30 tabs 11/18/23
prednisone 10 mg tablet 40 mg PO TAPER #10 tabs 11/18/23
tramadol 50 mg tablet 50 mg PO BID PRN ongoing therapy #20 tabs 11/18/23
Home Medication Changes
prochlorperazine maleate 5 mg tablet 5 mg PO Q8H PRN nausea and vomiting #15 tabs 11/15/23
sennosides 8.6 mg tablet (Senna Lax) 17.2 mg PO BID #30 tabs 11/15/23
gabapentin 300 mg capsule 300 mg PO HS sleep/pain #10 caps 11/18/23
metoprolol succinate 25 mg tablet,extended release 24 hr (Toprol XL) 12.5 mg PO DAILY #30 tabs 11/18/23
oxycodone 5 mg tablet 5 - 10 mg PO Q6HPRN PRN 1 tab moderate-2 tabs severe pain #30 tabs 11/18/23
prednisone 10 mg tablet 40 mg PO TAPER #10 tabs 11/18/23
tramadol 50 mg tablet 50 mg PO BID PRN ongoing therapy #20 tabs 11/18/23
Pending Results: No
== END 2023-11-18 12:42 | DRG 470 ==
LOC: 2 SOUTH 06:24
PROVIDERS: ADMITTING PHYSICIAN Orthopaedic Surgery; FAMILY PHYSICIAN Internal Medicine; REFERRING PHYSICIAN Physician Assistant
PROC: 0SRD0J9 Replacement of Left Knee Joint with Synthetic Substitute, Cemented, Open Approach (ICD-10-PCS; 2023-11-13)
DX: M17.12 Unilateral primary osteoarthritis, left knee (principal); I48.19 Other persistent atrial fibrillation; I48.92 Unspecified atrial flutter; J84.9 Interstitial pulmonary disease, unspecified; Q43.8 Other specified congenital malformations of intestine; K86.2 Cyst of pancreas; R17 Unspecified jaundice; E87.1 Hypo-osmolality and hyponatremia; Z96.651 Presence of right artificial knee joint; N18.30 Chronic kidney disease, stage 3 unspecified; I12.9 Hypertensive chronic kidney disease with stage 1 through stage 4 chronic kidney disease, or unspecified chronic kidney disease; E78.5 Hyperlipidemia, unspecified; R91.1 Solitary pulmonary nodule; K21.9 Gastro-esophageal reflux disease without esophagitis; K22.2 Esophageal obstruction; N28.1 Cyst of kidney, acquired; D64.9 Anemia, unspecified; L40.50 Arthropathic psoriasis, unspecified; M10.9 Gout, unspecified; F41.9 Anxiety disorder, unspecified; F32.A Depression, unspecified; R09.82 Postnasal drip; M85.80 Other specified disorders of bone density and structure, unspecified site; H91.93 Unspecified hearing loss, bilateral; E66.9 Obesity, unspecified; D69.6 Thrombocytopenia, unspecified; D72.819 Decreased white blood cell count, unspecified; N40.0 Benign prostatic hyperplasia without lower urinary tract symptoms; I25.10 Atherosclerotic heart disease of native coronary artery without angina pectoris; R55 Syncope and collapse; R33.9 Retention of urine, unspecified; I70.0 Atherosclerosis of aorta; I44.0 Atrioventricular block, first degree; I27.20 Pulmonary hypertension, unspecified; G62.9 Polyneuropathy, unspecified; E21.0 Primary hyperparathyroidism; R73.03 Prediabetes; Z86.73 Personal history of transient ischemic attack (TIA), and cerebral infarction without residual deficits; Z86.010 Personal history of colon polyps; Z22.322 Carrier or suspected carrier of Methicillin resistant Staphylococcus aureus; Z68.32 Body mass index [BMI] 32.0-32.9, adult
CPT/HCPCS: 36415; 73560; 80053; 83036; 85014; 85018; 85027; 86850; 86900; 86901; 87070; 87147; 93005; 97110; 97116; 97162; 97167; 97530; 97535; C1713; C1776

== ENCOUNTER → 2023-11-25 18:34 | Outpatient (REF) | payer BC, OTHER, SELFPAY ==
[2023-11-25 19:22] LABS: % Basophils 0.1 % (0-2); % Eosinophils 2.4 % (0-6); % Immature Granulocytes 1.4 % (0-0.5); % Lymphocytes 15.4 % (20.5-51.1); % Monocytes 12.4 % (1.7-9.3); % Neutrophils 68.3 % (42.2-75.2); Absolute Eosinophils 0.2 10^3/uL (0-0.7); Absolute Immature Granulocytes 0.1 10^3/uL (0-0.05); Absolute Lymphocytes 1.5 10^3/uL (1.2-3.4); Absolute Monocytes 1.2 10^3/uL (0.1-0.6); Absolute Neutrophils 6.5 10^3/uL (1.4-6.5); Hematocrit 26.8 % (39.0-52.0); Hemoglobin 8.8 g/dL (13.0-18.0); Mean Corp Hgb Conc. 32.8 g/dL (33.0-37.0); Mean Corpuscular Hgb 34.4 pg (27.0-31.0); Mean Corpuscular Volume 104.7 fL (80.0-94.0); Mean Platelet Volume 8.7 fL (7.4-10.4); Nucleated Red Blood Cells % 0 % (-); Platelet Count 259 10^3/uL (130-400); Red Blood Cell Count 2.56 10^6/uL (4.70-6.10); Red Cell Dist. Width 15.3 % (11.5-14.5); White Blood Cell Count 9.5 10^3/uL (4.8-10.8)
== END ==
LOC: OLABP 18:34
PROVIDERS: ATTENDING PHYSICIAN Family Medicine
DX: D64.9 Anemia, unspecified (principal); N18.32 Chronic kidney disease, stage 3b
CPT/HCPCS: 36415; 85025

== ENCOUNTER → 2023-11-29 13:10 | Outpatient (REF) | payer OTHER, SELFPAY | LOC: RAD 13:10 | PROVIDERS: ATTENDING PHYSICIAN Nurse Practitioner Family; FAMILY PHYSICIAN Internal Medicine | DX: Z96.652 Presence of left artificial knee joint (principal); M79.605 Pain in left leg | CPT/HCPCS: 93971 ==

== ENCOUNTER 2023-12-02 21:14 | Inpatient (IN) | payer OTHER, SELFPAY ==
[2023-12-02] VITALS (7 sets, daily range): BP systolic 127–163; BP diastolic 64–91
[2023-12-02 16:19] LABS: % Basophils 0.7 % (0-2); % Eosinophils 2.5 % (0-6); % Immature Granulocytes 0.5 % (0-0.5); % Lymphocytes 13.3 % (20.5-51.1); Absolute Eosinophils 0.2 10^3/uL (0-0.7); Absolute Lymphocytes 0.8 10^3/uL (1.2-3.4); Absolute Monocytes 0.8 10^3/uL (0.1-0.6); Absolute Neutrophils 4.3 10^3/uL (1.4-6.5); Hematocrit 26.4 % (39.0-52.0); Hemoglobin 8.7 g/dL (13.0-18.0); Mean Corpuscular Hgb 34.3 pg (27.0-31.0); Mean Corpuscular Volume 103.9 fL (80.0-94.0); Mean Platelet Volume 8.3 fL (7.4-10.4); Nucleated Red Blood Cells % 0 % (-); Platelet Count 227 10^3/uL (130-400); Red Blood Cell Count 2.54 10^6/uL (4.70-6.10); Red Cell Dist. Width 15.2 % (11.5-14.5); White Blood Cell Count 6.1 10^3/uL (4.8-10.8)
[2023-12-02 16:30] LABS: INR 1.44; PT 17.4 Sec (11.4-14.6)
[2023-12-02 16:36] LABS: ALT (SGPT) 17 U/L (0-50); AST (SGOT) 29 U/L (17-59); Albumin 3.2 g/dl (3.5-5.0); Alkaline Phosphatase 65 U/L (38-126); Blood Urea Nitrogen 33 mg/dl (9-20); Carbon Dioxide 26 mmol/L (22-30); Chloride 97 mmol/L (98-107); Glucose 120 mg/dl (70-99); Potassium 4.7 mmol/L (3.5-5.1); Sodium 131 mmol/L (135-145); Total Bilirubin 2.7 mg/dl (0.2-1.3); Total Protein 6.5 g/dl (6.3-8.2); eGFR > 60.00
--- NOTE | 2023-12-02 19:17 | ED.GENMED ---
History of Present Illness
General
Chief Complaint: Rectal Bleeding
Source: patient and family
Exam Limitations: none
Time Seen by Provider: 12/02/23 18:25
Travel History
Have you had any contact with someone who has COVID-19?: No
Do you have any symptoms of coronavirus? Fever > 100 degrees, chills, cough, shortness of breath, sore throat, loss of taste or smell, muscle aches, or headache?: No
History of Present Illness
History of Present Illness:
This is a 88 year old male that is brought in by family with c/o low Hgb. States that the PCP told him to come to the ER as his hgb is trending down and that the patient also had a bloody stool last night. Patient states that it was bright red
blood. States that he is occasionally SOB. Denies any fever, chills, chest pain, abd pain, nausea, vomiting, diarrhea, headache, dizziness, urinary burning.
Past History
Past History
ED Past Medical History: Arrthythmia (Atrial fib), CVA (TIA), GERD, HTN, Hypercholesterolemia, Psychiatric (Anxiety, Depression) and Other (Back pain, PNA, Peptic ulcer, Gout, Sinusitis)
ED Past Surgical History: Cholecystectomy, Orthopedic (Right second toe amputation, Bilateral foot surgery with plates, Right knee replacement, Left knee replacement), Tonsilectomy and Other ( varicocele, vein stripping right and left, cellulitis,
umbilical hernia, Nasal surgery, Cataracts with lens implants, )
Social History
Tobacco: Non-smoker
Alcohol: None
Personal:
Living: with family (Daughter)
Review of Systems
Review of Systems
All Other Systems: ROS reviewed and negative except as documented in HPI and ROS
Constitutional: Reports no symptoms; Denies fever or chills
EENT: Reports no symptoms
Respiratory: Reports trouble breathing; Denies cough
Cardiac: Reports no symptoms; Denies chest pain
ABD/GI: Reports no symptoms; Denies abdominal pain, nausea, vomiting or diarrhea
: Reports no symptoms; Denies dysuria, frequency or urgency
Musculoskeletal: Reports no symptoms
Skin: Reports other (Redness left knee)
Neurological: Reports no symptoms; Denies dizzy or headache
Psychiatric: Reports no symptoms
Phy Exam
General Physical Exam
General Presentation: other (Very sleepy, Arouses easily)
General age: appears stated age
General Skin: warm, dry and pale
General Habitus: debilitated and elderly
General Mental: alert
General Hydration: appears well hydrated
ENT Exam
ENT Exam: TM's normal, pharynx normal and neck supple
Eye Exam
Eye Exam: EOMI
Cardiovascular Exam
Cardiovascular Exam: normal peripheral pulses and irregularly irregular
Pulmonary Exam
Pulmonary Exam: lungs clear, no respiratory distress, no rales, chest non tender, no crackles, no rhonchi, no wheezing and no cough
Gastrointestinal Exam
Gastrointestinal Exam: normal bowel sounds, non tender, soft, no organomegaly, no pulsatile mass, non distended and other (stool brown hem negative)
Musculoskeletal Exam
Musculoskeletal Exam: edema (Bilateral lower legs Pitting +2, ) and other (lmited ROM left leg due to recent knee replacement)
Skin Exam
Skin Exam: warm/dry, pallor and redness (Of the left knee and left with increased warmth. )
Psychiatric Exam
Psychiatric Exam: normal mood/affect
Course
Orders/Labs/Results
Orders:
Orders
12/02/23 Dinner
Clear Liquid
At Your Request: Full Participation
12/02/23 16:11
Type+Screen Urgent
Complete Blood Count/With Diff Urgent
Comprehensive Metabolic Panel Urgent
PT/INR [Prothrombin Time] Urgent
12/02/23 19:29
Piperacillin/Tazo 3.375 Gram [Zosyn] 3.375 gram in 50 ml IV NOW
Vancomycin 1 Gram/200 ml [Vancocin] 1 gram in 200 ml IV NOW
12/02/23 19:30
Lactic Acid Urgent
Blood Culture Q30M
RITA Source: Blood/Venous
Specimen Description:
Blood Culture Q30M
RITA Source: Blood/Venous
Specimen Description:
12/02/23 20:51
Admit/Transfer Patient As Directed
Co-Sign Provider:
Level of Care: Inpatient admission
Assign to:: Telemetry
Physician / Group: olamide powell
Diagnosis: symptomatic anemia concer gi bleed vspost op anemia, leg edema post op
Reason for Telemetry: Arrhythmia
Date to Stop Telemetry: 12/05/23
Time to Stop Telemetry: 11:00
Reason for Hospitalization: symptomatic anemia concer gi bleed vspost op anemia, leg edema post op
Expected length of stay greater than two midnights?: Yes
ELOS- Estimated Length of Stay in days: 4
I certify the patient meets the requirements for IP care: Yes
Code Status As Directed
Resuscitation Status: Full Code
12/02/23 20:57
Heparin Protocol- PTT Orders As Directed
PTT per Heparin protocol: -Obtain CBC and baseline PTT - if not already collected.
-Obtain PTT 6 hours from start of infusion. Then, every 6 hours until 2 consecutive
PTT's are therapeutic. Then, PTT Daily.
-With each rate change, obtain PTT every 6 hours until 2 consecutive PTT's are
therapeutic. Then, PTT Daily.
Notify MD As Directed
Notify physician if: PTT is greater than or equal to 200.
12/02/23 21:00
B12 [Vitamin B12] Urgent
Ferritin Urgent
Folate Urgent
Iron Urgent
PTH [Intact PTH Includes Calcium] Urgent
TIBC [Total Iron Binding] Urgent
Heparin 86855 Units/250 ml 25,000 units in 250 ml IV PER PROTOCOL
Weight to be used for heparin protocol in kilograms (kg):: 120
Protocol:: DVT/PE
PTT Goal Range to be used:: PTT 73 to 111 seconds
Order type:: Initial
INITIAL Infusion Dose (UNITS/KG/hr) & then follow protocol:: 18 units/kg/hr
Infusion Dose in UNITS/hr & then follow protocol (UNITS/hr):: 2,000
INFUSION RATE in mL/hr & then follow protocol (mL/hr):: 20
For DVT/PE algorithm, re-bolus for low PTT?: Yes
PTT less than or equal to 64 seconds:: Re-bolus 80 units/kg (max 10,000units). Increase by 500 units/hr
(+ 5mL/hr)
PTT 64.1 to 72.9 seconds:: Re-bolus 40 units/kg (max 5,000 units). Increase by 200 units/hr
(+ 2mL/hr)
PTT 73 to 111 seconds:: Target Range. No change in rate.
PTT 111.1 to 130.9 seconds:: Decrease rate by 200 units/hr (- 2 mL/hr)
PTT 131 to 199.9 seconds:: HOLD for 1 hr. Then decrease by 400 units/hr (- 4mL/hr)
PTT greater than or equal to 200 seconds:: HOLD for 2 hrs & Notify Provider. Then decrease by 500 units/hr
(- 5mL/hr)
Lab follow-up:: Each change, PTT q6h until 2 consecutive are therapeutic. Then
PTT daily.
12/02/23 21:05
Complete Blood Count/No Diff Urgent
Comment: Obtain baseline before beginning heparin infusion if not already collected
PTT Urgent
Comment: Obtain baseline before beginning heparin infusion if not already collected
12/02/23 21:11
Bladder Scan As Directed
Follow Bladder Retention/Intermittent Cath Algorithm?: Yes
PRN if no void in __ hours: 6
Frequency: Per Retention Algorithm
If Bladder Scan Result >: 400
then:: Straight cath
12/02/23 21:12
Heparin 9,600 units IV PRN PRN
Straight Cath As Directed
Frequency: Per Retention Algorithm
Additional Instructions: straight cath as needed per acute urinary retention algorithm for 24 hrs
Additional Instructions: for bladder scan greater than 400 mL
12/02/23 21:14
Heparin 4,800 units IV PRN PRN
12/02/23 21:47
Urinalysis Reflex To Culture Routine
Date Specimen was Collected: 12/02/23
Time Specimen was Collected: 21:17
12/02/23 22:00
Flush (0.9% Sodium Chloride) [Flush (Nss)] See Dose Instructions IV PER PROTOCOL
12/02/23 22:42
Budesonide [Pulmicort] 0.5 mg INH R BIDPRN PRN
Gabapentin [Neurontin] 300 mg PO HS
Oxycodone [Roxicodone] 5 mg PO DAILYPRN PRN
Tramadol HCl [Ultram] 50 mg PO BIDPRN PRN
12/02/23 22:42
VTE Contraindication Routine
VTE Mechanical Device Contraindication: Medical Contraindication
Pharmocologic Contraindication: Medical Contraindication
Comment: pt on eliquis
Activity As Directed
Activity Level: With Assistance
Intake/ Output As Directed
Frequency: Per unit guidelines
Vital Signs As Directed
Frequency: Per unit guidelines
Weight As Directed
Frequency: Daily
Ot Eval And Treat Routine
Pt Eval And Treat Routine
Activity Level: As Tolerated
12/02/23 22:54
Sodium Chloride [Villalba, Saline Mist] 0 sprays NASAL BIDPRN PRN
12/03/23 Breakfast
NPO
Allow oral meds: Yes
Allow clear liquids: No
NPO with Ice Chips: No
Complete Blood Count/With Diff IN AM
Comprehensive Metabolic Panel IN AM
12/03/23 08:00
Allopurinol [Zyloprim] 100 mg PO DAILY
Cholecalciferol (Vitamin D3) [VITAMIN D3 (cholecalciferol)] 25 mcg PO DAILY
Cyanocobalamin [Vitamin B-12] 500 mcg PO DAILY
Lisinopril [Zestril] 10 mg PO DAILY
Metoprolol Xl [Toprol Xl] 12.5 mg PO DAILY
Pantoprazole [Protonix IV] 40 mg IV BID
Tamsulosin [Flomax] 0.4 mg PO BID
Vitamin B Complex with C [B COMPLEX w/VITAMIN C] 1 caplet PO DAILY
12/03/23 18:00
Atorvastatin [Lipitor] 80 mg PO QPM
Escitalopram Oxalate [Lexapro] 10 mg PO QPM
Ferrous Sulfate [Feosol] 325 mg PO QPM
Finasteride [Proscar] 5 mg PO QPM
Montelukast Sodium [Singulair] 10 mg PO QPM
12/04/23 06:00
Complete Blood Count/No Diff Q2D
Comment: Notify MD if platelet count is <130,000 or decreases by 50% from baseline
Complete Blood Count/With Diff IN AM
Comprehensive Metabolic Panel IN AM
12/05/23 06:00
Complete Blood Count/With Diff IN AM
Comprehensive Metabolic Panel IN AM
12/05/23 11:00
DC Protocol for Telemetry ONCE
12/06/23 06:00
Complete Blood Count/No Diff Q2D
Comment: Notify MD if platelet count is <130,000 or decreases by 50% from baseline
Complete Blood Count/With Diff IN AM
Comprehensive Metabolic Panel IN AM
12/08/23 06:00
Complete Blood Count/No Diff Q2D
Comment: Notify MD if platelet count is <130,000 or decreases by 50% from baseline
12/10/23 06:00
Complete Blood Count/No Diff Q2D
Comment: Notify MD if platelet count is <130,000 or decreases by 50% from baseline
12/12/23 06:00
Complete Blood Count/No Diff Q2D
Comment: Notify MD if platelet count is <130,000 or decreases by 50% from baseline
12/14/23 06:00
Complete Blood Count/No Diff Q2D
Comment: Notify MD if platelet count is <130,000 or decreases by 50% from baseline
12/16/23 06:00
Complete Blood Count/No Diff Q2D
Comment: Notify MD if platelet count is <130,000 or decreases by 50% from baseline
12/18/23 06:00
Complete Blood Count/No Diff Q2D
Comment: Notify MD if platelet count is <130,000 or decreases by 50% from baseline
Abnormal Lab Results
12/02/23 12/02/23 12/02/23
16:11 21:00 21:05
RBC 2.54 L 10^6/uL 2.40 L 10^6/uL
(4.70-6.10) (4.70-6.10)
Hgb 8.7 L g/dL 8.2 L g/dL
(13.0-18.0) (13.0-18.0)
Hct 26.4 L % 24.4 L %
(39.0-52.0) (39.0-52.0)
MCV 103.9 H fL 101.7 H fL
(80.0-94.0) (80.0-94.0)
MCH 34.3 H pg 34.2 H pg
(27.0-31.0) (27.0-31.0)
RDW 15.2 H % 15.3 H %
(11.5-14.5) (11.5-14.5)
Absolute Lymphs (auto) 0.8 L 10^3/uL
(1.2-3.4)
Absolute Monos (auto) 0.8 H 10^3/uL
(0.1-0.6)
Lymphocytes % 13.3 L %
(20.5-51.1)
Monocytes % 13.0 H %
(1.7-9.3)
PT 17.4 H Sec
(11.4-14.6)
Sodium 131 L mmol/L
(135-145)
Chloride 97 L mmol/L
(98-107)
BUN 33 H mg/dl
(9-20)
Glucose 120 H mg/dl
(70-99)
Calcium 11.0 H mg/dl 10.9 H mg/dl
(8.4-10.2) (8.4-10.2)
% Saturation 19 L %
(20-50)
Total Bilirubin 2.7 H mg/dl
(0.2-1.3)
Albumin 3.2 L g/dl
(3.5-5.0)
12/02/23 21:05
12/02/23 16:11
H/H low trending down but consistent with prior labs, Anemia, PT 17.4 with INR 1.44, Sodium slightly low. Dehydration. Glucose nonfasting. Calcium slightly elevated. Total kandace elevated. Albumin. Slightly low. Urine negative for infection
Vital Signs
Initial and Last Documented VS:
Initial Vital Signs
Temp Pulse Resp BP Pulse Ox
98.0 F 85 16 138/64 95
12/02/23 15:59 12/02/23 15:59 12/02/23 15:59 12/02/23 15:59 12/02/23 15:59
Last Documented Vital Signs
Temp Pulse Resp BP Pulse Ox
98.0 F 73 19 116/57 96
12/02/23 15:59 12/03/23 01:15 12/03/23 01:15 12/03/23 01:00 12/03/23 01:15
MDM/Problems Addressed
Differential Diagnosis Includes:
Cellulitis left knee, Rectal bleeding
MDM/Problems Addressed:
This is a 88 year old male that comes in with c/o low hgb according to daughters. States that he had a blood stool last night that was bright red. Then today the PCP told them his Hgb is going down and that he needed to come to the hospital.
Patient states that he is SOB with activity. Patient is pale and his left knee is also red and warm. Daughter states that he was to be in [facility] for 2 weeks and they sent him home after one. States that he has been sleeping in a recliner as he
can't go up the steps and they don't have a hospital bed.
Wlll get labs. Explained to family with the redness of the left knee there is concern for cellulitis. Also his Hgb is going down but this goes along with his anemia. At this time patient does not need a transfusion. Will admit patient for IV
antibiotics.
Chronic conditions affecting care: Other (ON Eliquis due to Atrial fib)
Acute Exacerbation and/or Progression of Chronic Illness: Other (Left knee surgery, Cellulitis)
*Pulse Oximetry
Patient hypoxic: no
*EKG
Interpreted by ED Provider?: NA
Rate: EKG- N/A
*[facility] Worker Interpretation
Rate: normal
Heart Rate: 86
Rhythm: sinus
*Critical Care Note
Total Time (30-74mins, 75-104mins- exclusive of procedures): Not Applicable
ED Attending Note
-
Portions of this chart may have been created with voice recognition software.� Occasional wrong word or��sound alike� substitutions may have occurred due to the inherent limitations of voice recognition software.
Discharge Plan
Departure
Patient Disposition: Admit
Date of Disposition: 12/02/23
Time of Disposition: 19:33
Admit to: Med/Surg
Presentation/result/management discussed w/ accepting MD/DO: Hospitalist
Patient with high blood pressure during this ER visit?: No
Covid-19: Not Applicable
Discharge Problem:
Cellulitis of knee, left, Anemia
Interventions
Interventions:
*ED COVID-19 Vaccine History Last Done: 12/02/23 15:59
RI-Vtzpuh-Xcpqraogoh Assessment Last Done: 12/02/23 18:36
ED- Cardiac Assessment Last Done: 12/02/23 18:36
ED- Pulmonary Assessment Last Done: 12/02/23 18:36
[2023-12-02] MEDS: ZOSYN 50 IV (19:40)
[2023-12-02] MEDS: VANCOCIN 200 IV (19:44)
--- NOTE | 2023-12-02 19:51 | HPS.HSE ---
Addendum entered and electronically signed by Parish Wong MD 12/02/23 21:21:
Patient seen and examined independently with DIRECTOR OF MATERIALS MANAGEMENT.� 88-year-old male with past medical history of atrial fibrillation on Eliquis, CVA, diastolic heart failure, hypertension, GERD, hypercholesteremia, anxiety/depression, gout, CKD 3, BPH,
hyperparathyroidism, internal hemorrhoids� who recently underwent left knee replacement on 11/13 here with episode of dark stool yesterday with bright red blood yesterday and worsening anemia.
Patient recently returned home from [facility] 6 days ago.� He has not been very mobile there.� Eliquis was also held postoperatively and unclear when this was restarted.
Patient had bilateral lower extremity edema after his recent surgery with ecchymosis of the left upper thigh, erythema, swelling and pain of the left calf up to the knee.� He had ultrasound 3 days ago showing gastrocnemius DVT in the left leg likely
due to suspension of Eliquis in the setting of recent left knee replacement.�
Patient also had some urinary retention after the surgery requiring Joseph catheter.� He has also been constipated after the surgery as well.\\
Labs show sodium of 130 from 134 and hypocalcemia with corrected calcium 11.6.� Hemoglobin is trended down from 12.3 prior to surgery down to 8.7.
1) Progressive anemia likely multifactorial from postoperative blood losses/ecchymosis of left upper thigh and possible upper GI bleeding.� Will stop Eliquis and start heparin drip without bolus.� Clear liquid diet, n.p.o. past midnight, IV
Protonix, GI consulted.� Ortho also consulted as well.� Hemoccult negative.� Check iron studies and B12/folate.
2) Left lower extremity DVT secondary to recent immobility/recent knee surgery and interruption of Eliquis.� Hold Eliquis due to concern for GI bleeding.� Start heparin drip without bolus.� If anticoagulation cannot be resumed as per GI, patient may
require IVC filter.
3) bilateral lower extremity likely due to decreased mobility/postoperative swelling of the left lower extremity.� Patient received vancomycin and Zosyn for cellulitis of left lower extremity although suspect this is secondary to DVT rather than
infection.
4) Hypercalcemia suspected due to hyperparathyroidism.� Check PTH.� Cannot give fluids due to edema/history of heart failure
5) hyponatremia secondary to SIADH.� Daughter was concerned for decreased urine output.� Possible urinary retention after surgery.� Check bladder scan protocol.� Fluid restriction 40 ounces.�
Original Note:
Family Physician
-
Family Physician: Reymundo Nichols
Chief Complaint
-
Constipation, blood in stool, bilateral leg edema
History of Present Illness
88-year-old male status post left knee replacement November 13, [address] Ndiaye who complains of constipation with large amount formed dark brown-black stool last night with bright red blood rounds, bilateral leg edema left greater than right
with increased erythema and warmth over the past 6 days while at home. He went to [facility] rehab postsurgery then came home 6 days ago where he has been sleeping in a recliner due to not being able to get upstairs to a bedroom. His legs have
been predominantly in a dependent position during the day. He he denies fever, chills, chest pain, palpitations, shortness of breath, cough, abdominal pain, nausea, vomiting, diarrhea, indigestion. He was seen 3 days ago as an outpatient and was
found to have a left gastrinomas DVT in his left leg. He is currently on Eliquis for paroxysmal A-fib he did stop this prior to surgery and is unsure what date he resumed.
He has PMH iron deficiency anemia, B12 anemia, chronic pain, CKD stage IIIb, HTN, HLD, chronic C HF with preserved EF, A-fib, paroxysmal atrial flutter, GERD, BPH, anxiety, depression, osteoporosis, gout, seasonal allergies.MRSA positive nasal
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
Medical History
Past Medical History
Past Medical History: Reports Other
Additional Past Medical History:
1. Osteoarthritis, status post right total knee arthroplasty, 09/2018, by Dr. Christos Ndiaye.
2. Hypertension.
3. Hyperlipidemia.
4. Coronary artery calcifications on chest CT.
5. Aorta atherosclerosis.
6. Paroxysmal atrial fibrillation/atrial flutter, oral anticoagulation with Eliquis.
7. First degree AV block.
8. Mild-moderate valvular disease.
9. Mild pulmonary hypertension.
10. Venous varicosities, status post remote bilateral vein stripping.
11. Chronic peripheral edema.
12. Chronic interstitial fibrosis.
13. Right lower lobe pulmonary nodule, stable on serial imaging.
14. Aspiration pneumonia 08/20/2023.
15. Chronic dyspnea on exertion.
16. Chronic kidney disease stage 3.
17. GERD.
18. Mild dysphagia secondary to esophageal stricture.
19. Redundant colon.
20. Colon polyps.
21. Bilateral renal cysts.
22. Pancreatic cyst.
23. 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
24. Balance difficulties.
25. Peripheral neuropathy.
26. Multilevel degenerative disc disease.
27. BPH with difficult urination.
28. Multifactorial anemia.
29. Psoriatic arthritis.
30. Primary hyperparathyroidism.
31. Gout.
32. Anxiety.
33. Depression.
34. Chronic postnasal drip.
35. Bilateral dry eyes.
36. Osteopenia.
37. Hearing impairment bilaterally.
38. MRSA positive nasal screen pre-operatively.
39. Mild hyponatremia.
40. Mild hypercalcemia.
41. Prediabetes, A1c 5.8.
42. Obesity, BMI 32.9.
Past Surgical History: Reports Other
Additional Past Surgical History:
1. Right total knee arthroplasty, 09/2018, by Dr. Christos Ndiaye.
2. Right elbow surgery.
3. Left foot 4th metatarsal shaving.
4. Left foot excision of bone and soft tissue.
5. Varicose vein stripping bilaterally.
6. Umbilical hernia repair.
7. Laparoscopic cholecystectomy.
8. ERCP, bile stone extraction, and sphincterotomy.
9. Varicocele surgery.
10. Sinus surgery.
11. Bilateral cataract extraction.
12. Tonsillectomy.
13. Colonoscopy.
14. Endoscopy.
Social History
Tobacco: Non-smoker
Alcohol: Occasional
Living: Alone (in a 2 story home. His daughter, Estephanie, will be staying with him post-operatively. )
Family History
Family History: Not pertinent
Allergies / Home Medications
Allergies reflects when Allergies were last updated in [facility].
Home Medications with original date entered in [facility]
Allergy/Medication List:
Home medications:
1. Acetaminophen 650 mg p.o. twice a day as needed.
2. Allopurinol 100 mg p.o. daily.
3. Ascorbic Acid 1000 mg p.o. daily.
4. Atorvastatin 80 mg p.o. every evening.
5. Cholecalciferol 1000 units p.o. daily.
6. Vitamin B12 500 mcg p.o. daily.
7. Eliquis 5 mg p.o. twice a day.
8. Escitalopram Oxalate 10 mg p.o. every evening.
9. Ferrous Sulfate 325 mg p.o. every evening.
10. Finasteride 5 mg p.o. every evening.
11. Flonase 1 spray intranasal daily as needed.
12. Lisinopril 10 mg p.o. daily.
13. Loratadine 10 mg p.o. daily.
14. Montelukast 10 mg p.o. every evening.
15. Pantoprazole 40 mg p.o. daily.
16. Prolia 1 injection every 6 months.
17. Tamsulosin 0.4 mg p.o. twice a day.
18. Super B complex 1 tab p.o. daily.
�
Allergies: Meperidine.
Review of Systems
-
History Source: Patient and Family (daughter)
A 12 point ROS was completed and negative except as noted: Yes
Constitutional: Denies Fever, Fatigue or Chills
EENT: Denies Sore Throat or Runny Nose
Respiratory: Denies Cough or Trouble Breathing
Cardiac: Denies Chest Pain, Diaphoresis, Palpitations or Syncope
Abdomen/GI: Reports Constipated and Black Stools; Denies Abdominal Pain, Nausea, Vomiting or Diarrhea
: Denies Dysuria, Frequency, Flank Pain, Incontinence or Difficulty Voiding
Musculoskeletal: Reports Edema (left knee ,leg); Denies Joint Pain
Skin: Denies Itching
Neurological: Denies Dizzy or Headache
Endocrine: Reports No Symptoms
Hematologic/Lymphatic: Reports No Symptoms
Psych: Reports Calm
Physical Exam
Vital Signs
Vital Signs
Temp Pulse Resp BP Pulse Ox
98.0 F 94 21 137/91 98
12/02/23 15:59 12/02/23 19:45 12/02/23 19:45 12/02/23 19:00 12/02/23 19:45
Physical Exam
General: Comfortable, Conversant and Other (pale); No Pain or Fever
HEENT: NormoCephalic, Anicteric, PERRLA, [place] Conjunctivae and No Ptosis
Respiratory: Clear; No Wheezes, Rales or Rhonchi
Cardiac: S1/S2, Regular Rhythm and Peripheral Edema (bilat +2); No Murmur, Rub or Gallop
Breast: Deferred by me
GI: Soft, Non Tender, Non Distended, Normal Bowel Sounds and No Hepatosplenomegaly
Rectal: Hem Negative
Genito-urinary: Deferred by me
Musculoskeletal: No Clubbing, No Cyanosis, Edema, Left Lower Extremity (+2-3 knee to foot) and Edema, Right Lower Extremity (+2 ); No Edema, Left Upper Extremity or Edema, Right Upper Extremity
Skin: Warm and Dry; No Rash or Jaundice
Neuro: AO x 3; No Cranial Nerves Intact, No Sensory Deficits, Slurred Speech, Facial Droop or Tremors
Laboratory Results
-
12/02/23 16:11
12/02/23 16:11
Laboratory Results
PT 17.4 Sec (11.4-14.6) H 12/02/23 16:11
INR 1.44 12/02/23 16:11
Total Bilirubin 2.7 mg/dl (0.2-1.3) H 12/02/23 16:11
AST 29 U/L (17-59) 12/02/23 16:11
ALT 17 U/L (0-50) 12/02/23 16:11
Alkaline Phosphatase 65 U/L (38-126) 12/02/23 16:11
Impression/Plan
-
Impression/plan:
Admit to Tele
#Left leg DVT gastrocnemius dx 11/29/23 s/p Left knee replacement /immobility
-HOLD eliquis due to concern gi bleed
will give heparin gtt NO bolus
will need Gi eval to resume eliquis or will require filter
#Post op leg edema( multifactorial post knee replacement, immobility possible infection)
#Chronic pain post op Left knee replacement 11/13/[address] ndiaye
#MRSA positive nasal screen preop
- Consult [facility]
-Continue Tylenol as needed, oxycodone 5 mg daily as needed severe pain for med rec
-Patient given IV vancomycin IV Zosyn in ER will hold on further ABX given afebrile and no WBC count will have Ortho eval
#Symptomatic Anemia macrocytic- concern for GI bleed vs post op blood loss
#Iron deficiency anemia
Hgb 8.7 was 8.8 2023November 02
type and screen obtain blood consent
-Heme negative stool in ER
-Check B12, folate, iron panel
-Continue ferrous sulfate and vitamin B12
-IV PPI
-clear liquid tonight then NPO after midnight
prior colo 2016: internal hemorrhoids
#Hypercalcemia/Hyperparathyroidism hx
-Serum calcium 11, corrected calcium 11.6
check Pth
- cannot give Iv fluids given fluid overload, anemia
#BPH
- bladder scan
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
-Continue Flomax 0.4 mg twice daily, finasteride 5 mg every afternoon
#Chronic dysphagia
#Hx aspiration pneumonia 08/20/2023
#Hx gallstones with ercp in
- on mechn soft with pills with applesauce
-must sit upright 30 degrees to sleep
#GERD
-IV Protonix 40 mg daily
#CKD stage IIIb
Creat 1
- follow bmp
#HTN�benign
-Continue lisinopril 10 mg daily, Toprol-XL 12.5 mg daily
#Chronic diastolic CHF preserved EF
I/O, daily weights
prior Ef 54%
#A-fib/atrial flutter paroxysmal
- HOLD Eliquis 5 mg twice daily
#HLD
-Continue atorvastatin 80 mg every afternoon
#Anxiety/depression
-Continue Lexapro 10 mg every afternoon
#Osteoporosis
-Patient on Prolia 60 mg every 6 months
#Gout
-Continue allopurinol 100 mg daily
#Seasonal allergies
Continue montelukast 10 mg every afternoon
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
cont statin
# Peripheral neuropathy chronic
DVT prophylaxis
Patient with current DVT left lower gastrinomas muscle
Will hold Eliquis given anemia concern for GI bleed and use IV heparin drip
Full code per patient with daughter present at bedside
[2023-12-02 21:10] LABS: Hematocrit 24.4 % (39.0-52.0); Hemoglobin 8.2 g/dL (13.0-18.0); Mean Corp Hgb Conc. 33.6 g/dL (33.0-37.0); Mean Corpuscular Hgb 34.2 pg (27.0-31.0); Mean Corpuscular Volume 101.7 fL (80.0-94.0); Mean Platelet Volume 8.1 fL (7.4-10.4); Platelet Count 213 10^3/uL (130-400); Red Cell Dist. Width 15.3 % (11.5-14.5)
[2023-12-02 21:31] LABS: APTT 32.1 Sec (23.4-35.0)
[2023-12-02 21:34] LABS: Calcium 10.9 mg/dl (8.4-10.2); Iron 50 ug/dl (49-181)
--- NOTE | 2023-12-02 21:40 | W.PN.UPDATE ---
Update Note
Progress Note Update
hgb 8.7 > 8.2 in 5 hours
- will STOP heparin gtt
- Iv ppi bid
- consult GI if unable to restart eliquis will need Filter placed
[2023-12-02 21:49] LABS: Percent Saturation 19 % (20-50); Total Iron Binding Capacity 263 ug/dl (261-462)
[2023-12-02 21:55] LABS: Urine Albumin Negative (Neg - Trace); Urine Bilirubin Negative (Negative); Urine Character Clear (Clear); Urine Color Yellow; Urine Glucose Negative (Negative); Urine Ketone Negative (Negative); Urine Leukocyte Negative (Negative); Urine Nitrite Negative (Negative); Urine Occult Blood Negative (Negative); Urine Specific Gravity 1.015 (<1.030); Urine Urobilinogen Negative (Neg - 1+)
[2023-12-02 22:53] LABS: Folate 18.3 ng/ml (2.76-20); Vitamin B12 849 pg/ml (239-931)
[2023-12-02] MEDS: NEURONTIN 300 MG PO (23:49)
[2023-12-03] VITALS (25 sets, daily range): BP systolic 92–137; BP diastolic 52–80; PULSE 75; O2SAT 97
[2023-12-03 06:48] LABS: % Basophils 0.4 % (0-2); % Eosinophils 3.4 % (0-6); % Immature Granulocytes 0.4 % (0-0.5); % Lymphocytes 24.4 % (20.5-51.1); % Monocytes 16.9 % (1.7-9.3); % Neutrophils 54.5 % (42.2-75.2); Absolute Eosinophils 0.2 10^3/uL (0-0.7); Absolute Lymphocytes 1.1 10^3/uL (1.2-3.4); Absolute Monocytes 0.8 10^3/uL (0.1-0.6); Absolute Neutrophils 2.5 10^3/uL (1.4-6.5); Hematocrit 24.2 % (39.0-52.0); Mean Corp Hgb Conc. 33.1 g/dL (33.0-37.0); Mean Platelet Volume 8.3 fL (7.4-10.4); Nucleated Red Blood Cells % 0 % (-); Platelet Count 219 10^3/uL (130-400); Red Blood Cell Count 2.35 10^6/uL (4.70-6.10); Red Cell Dist. Width 15.3 % (11.5-14.5); White Blood Cell Count 4.7 10^3/uL (4.8-10.8)
[2023-12-03 07:18] LABS: ALT (SGPT) 14 U/L (0-50); AST (SGOT) 24 U/L (17-59); Albumin 2.9 g/dl (3.5-5.0); Alkaline Phosphatase 62 U/L (38-126); Blood Urea Nitrogen 26 mg/dl (9-20); Calcium 10.7 mg/dl (8.4-10.2); Carbon Dioxide 27 mmol/L (22-30); Chloride 100 mmol/L (98-107); Estimated Creatinine Clearance 68 ml/min; Glucose 95 mg/dl (70-99); Potassium 4.8 mmol/L (3.5-5.1); Sodium 132 mmol/L (135-145); Total Bilirubin 2.7 mg/dl (0.2-1.3); eGFR > 60.00
--- NOTE | 2023-12-03 08:08 | W.PN.HOSP.TC ---
Today's Communication/Plan
-
see bold
Assessment / Plan
Assessment / Plan
HPI: 88-year-old male with past medical history of atrial fibrillation on Eliquis, CVA, diastolic heart failure, hypertension, GERD, hypercholesteremia, anxiety/depression, gout, CKD 3, BPH, hyperparathyroidism, internal hemorrhoids� who recently
underwent left knee replacement on 11/13 here with episode of dark stool yesterday with bright red blood yesterday and worsening anemia. Patient recently returned home from [facility] 6 days ago.� He has not been very mobile there.� Eliquis was
also held postoperatively and unclear when this was restarted. Patient had bilateral lower extremity edema after his recent surgery with ecchymosis of the left upper thigh, erythema, swelling and pain of the left calf up to the knee.� He had
ultrasound 3 days ago showing gastrocnemius DVT in the left leg likely due to suspension of Eliquis in the setting of recent left knee replacement.�Patient also had some urinary retention after the surgery requiring Joseph catheter.� He has also been
constipated after the surgery as well. Labs show sodium of 130 from 134 and hypercalcemia with corrected calcium 11.6.� Hemoglobin is trended down from 12.3 prior to surgery down to 8.7.
#Progressive anemia
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
Likely multifactorial from postoperative blood losses/ecchymosis of left upper thigh and possible upper GI bleeding
Off Eliquis, heparin drip discontinued when hemoglobin dropped from 8.7 to 8.2 on 12/01
Appreciate GI input, recommend pantoprazole 40 mg IV twice daily, clear liquid diet
Hgb 8.0 today, continue to trend
Transfuse for hemoglobin less than 7.0
#Acute left lower extremity DVT
Secondary to recent immobility/recent knee surgery and interruption of Eliquis
Off Eliquis, heparin drip discontinued when hemoglobin dropped from 8.7 to 8.2 on 12/01
If anticoagulation cannot be resumed as per GI, patient may require IVC filter
#Paroxysmal atrial fibrillation
Hold Eliquis, continue metoprolol for rate control
#Transient hypotension
Blood pressure dropped to 92/63
Currently improved at 114/66
Stop lisinopril, monitor off IVFs (history of CHF)
#Hypercalcemia
PTH normal at 43.1
Cannot give fluids due to edema/history of heart failure
Continue to monitor
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 Danielson
Appreciate orthopedic surgery input, healing well
No signs or symptoms of cellulitis
#Hyponatremia secondary to SIADH
Daughter was concerned for decreased urine output
Possible urinary retention after surgery
Bladder scan protocol, continue fluid restriction, trend sodium
#Chronic dysphagia
Needs mechanical soft diet with pills in applesauce
#Stage III Kidney disease
Trend creatinine
DVT prophylaxis�SCDs
Full code
Total time spent to see the patient on the floor, examine the patient, review data and lab results, discuss treatment plan with patient, nursing staff around 51 minutes.
Physical Exam
General: Chronically ill-appearing, no acute distress
HEENT: Normocephalic, Atraumatic, EOMI, MMM
Respiratory: Clear to Auscultation bilaterally
Cardiac: Normal S1/S2, irregularly irregular
GI: Soft, Nontender, Nondistended, Normal Bowel Sounds
Extremities: No Clubbing, Cyanosis
Bilateral lower extremity edema noted
Musculoskeletal: Left knee incision is clean, dry, intact
Neuro: Nonfocal/Grossly Intact
Psych: Calm, Cooperative
Derm: Pale
Anticipated Discharge: > 48 hours
Subjective/Interval History
-
Date of Service: December 03, 2023
No black stools since admission. No fever, no N/V, no knee pain. No LH/dizziness.
Objective Data
-
Labs:
Laboratory Results
12/02/23 12/02/23 12/03/23
21:00 21:05 05:59
WBC 6.0 4.7 L
Hgb 8.2 L 8.0 L
Hct 24.4 L 24.2 L
Plt Count 213 219
APTT 32.1
Sodium 132 L
Potassium 4.8
Chloride 100
Carbon Dioxide 27
BUN 26 H
Creatinine 1.1
Glucose 95
Calcium 10.9 H 10.7 H
Total Bilirubin 2.7 H
AST 24
ALT 14
Alkaline Phosphatase 62
Vital Signs:
Vital Signs
Temp Pulse Resp BP Pulse Ox
97.5 F 80 16 108/55 94
12/03/23 07:00 12/03/23 07:00 12/03/23 07:00 12/03/23 05:00 12/03/23 07:00
I&O
12/02/23 12/03/23 12/04/23
06:59 06:59 06:59
Output Total 850 / 850
Balance -850 / -850
--- NOTE | 2023-12-03 08:13 | W.PN.UPDATE ---
Update Note
Progress Note Update
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 Danielson. Postoperatively left knee seems to be doing well. He was on Eliquis postoperatively for atrial fibrillation and DVT prophylactics. November 29, 2023 ultrasound did reveal left
gastrocnemius vein occlusive clot. Unfortunately he has been dealing with some GI issues and potential GI bleed which precipitated admission today. Eliquis has stopped and he is switched to heparin. Fortunately he is afebrile, WBC 4.7 but
hemoglobin 8.0. Left leg has extensive ecchymosis. Left knee incision is clean, dry and intact. Passive range of motion 0-100 degrees without pain. Generalized edema noted in his lower extremity without pain. Distal neurovascular was intact.
Patient's left knee looks good. He does have extensive edema and ecchymosis. I do not believe that he has a cellulitis in this leg. Continue with formal physical therapy as soon as medically possible.
[2023-12-03] MEDS: FLOMAX 0.400000000000000022 MG PO ×2 (08:27→20:26)
[2023-12-03] MEDS: VITAMIN D3 (cholecalciferol) 25 MCG PO (08:27)
[2023-12-03] MEDS: B COMPLEX w/VITAMIN C 1 CAPLET PO (08:27)
[2023-12-03] MEDS: VITAMIN B-12 500 MCG PO (08:28)
[2023-12-03] MEDS: NSS (PRESERVATIVE FREE) 10 ML IV ×2 (08:29→20:26)
[2023-12-03] MEDS: ZYLOPRIM 100 MG PO (08:30)
[2023-12-03] MEDS: PROTONIX IV 40 MG IV ×2 (08:30→20:26)
[2023-12-03] MEDS: TOPROL XL 12.5 MG PO (08:30)
[2023-12-03 08:31] LABS: Direct Bilirubin 0.2 mg/dl (0.0-0.4)
--- NOTE | 2023-12-03 08:47 | CON.GI ---
Addendum entered and electronically signed by Giselle Da Silva DO 12/04/23 08:45:
Ignore correction - Eliquis was correct
Addendum entered and electronically signed by Giselle Da Silva, 12/04/23 08:43:
correction: Xarelto - not Eliquis
Addendum entered and electronically signed by Giselle Da Silva DO 12/03/23 16:14:
Patient seen and examined independently of [employer] SYSTEM SUPERVISOR. I agree with her note with my additions below.
Mr. 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 However patient has had black
stools for roughly 2 years that have been formed with some constipation on oxycodone he was placed on senna and then has had 1 urgent stool daily.
He has chronic phlegm, some mild dysphagia and states he had an EGD with likely dilation at [facility] in 2021 after an abnormal esophagram. Unclear of his medications but his medication list states a PPI. He is coming from [facility]. His hemoglobin
on 11/15/2023 after surgery was 10 and today it is 8.0. His BUN is 26, his creatinine is 1.1. Total bilirubin 2.7 mainly indirect. He denies any significant GERD, nausea, vomiting, abdominal pain. States has been bloated for years.
# Hemodynamically stable GI bleed with a drop in hemoglobin over the past 2 weeks since his knee surgery
-- Eliquis has been on hold his last dose on 12/02/23
-- Will do EGD tomorrow
-- Currently on PPI twice daily
-- hold oral iron
-- No current indication for transfusion
-- Not taking NSAIDs
-- History of dysphagia with suspected dilation at [facility] in 2021
Original Note:
Consultation
-
Date/Time Consultation Requested: 12/01/202116
Date/Time Consultation Performed: 12/03/23829
Requesting Provider: DAVID Moreno
Performing Provider: Dr. Da Silva/DAVID Kern
Reason for Consultation: GI bleed
Medical History
Chief Complaint / HPI
Chief Complaint: GI bleed
History of Present Illness:
88-year-old male with past medical history of atrial fibrillation, CVA, CHF, GERD, hypertension, hyperlipidemia, CKD, hyperparathyroidism, anemia on iron the past 2 years, with recent left knee replacement on October and left leg DVT
currently on Eliquis. Last dose was yesterday a.m. who presents to the emergency room from [facility] with blood within his stool. Asked to evaluate for the same. Patient states that he has had some constipation since his left knee surgery. He is
on oxycodone for this. He also has some immobility. He also has dark stools for the past 2 years as he has been on iron. He states that he was told that he had blood found in his stool and he was sent to the emergency room. He does not know the
color of the stool that he was sent to the emergency room for. It was noted in the ER records that there was black hard stool as well as red blood. Report from ER nursing staff states that there was dark stool last evening. This was not
documented however. Patient denies any current GI complaints. He does have a history of oropharyngeal dysphagia in the past. He states that if he chews well eats small bites and lubricates his esophagus before and after he has no issues. He make
sure not to eat a cookie crumbs as it does make him cough. This has occurred since his CVA. Patient currently denies any fevers, chills, nausea, vomiting, hematochezia, dysphagia or odynophagia. He denies any early satiety or unintentional weight
loss.
Past Medical History
Past Medical History: Arrhythmias (Afib/Alfutter, 1 degree AV block), CHF, CVA (left parietal CVA with right hemiparesis), GERD, HTN, Hypercholesterolemia, Psychiatric (anxiety/depression, ) and Other (BPH, CKD, macrocytic anemia, CBD stone s/p
ERCP, ILD, Gout, hyponatremia, hypercalcemia, hyperparathyroidism, aspiration PNA 07/2023)
Past Surgical History: Cholecystectomy and Orthopedic (lft knee replacement)
Social History
Tobacco: Non-Smoker
Alcohol: None
Drug: None
Personal:
Living: Assisted Living
Employment: Retired
Family History
Family History: Other (No fam hx GI malignancy or IBD)
Allergies / Home Medications
Allergy/AdvReac Type Severity Reaction Status Date / Time
meperidine Allergy oversedation,passed Verified 12/02/23 16:03
out
Medication Instructions Recorded
allopurinol 100 mg tablet 100 mg PO DAILY Gout 09/17/18
escitalopram oxalate 10 mg tablet 10 mg PO QPM Depression 09/17/18
tamsulosin 0.4 mg capsule 0.4 mg PO BID Urinary issue 09/17/18
denosumab 60 mg/mL subcutaneous 60 mg SC [id number] OSTEOPOROSIS 02/22/21
syringe (Prolia)
montelukast 10 mg tablet 10 mg PO QPM Allergies 02/22/21
ferrous sulfate 325 mg (65 mg 325 mg PO QPM Supplement 10/03/21
iron) tablet (FeroSul)
pantoprazole 40 mg tablet,delayed 40 mg PO DAILY 07/24/23
release
apixaban 5 mg tablet (Eliquis) 5 mg PO BID Blood clot 08/22/23
prevention/tx #0 tabs
atorvastatin 80 mg tablet 80 mg PO QPM High cholesterol #0 08/22/23
tabs
finasteride 5 mg tablet 5 mg PO QPM 10/21/23
gabapentin 300 mg capsule 300 mg PO HS sleep/pain #10 caps 11/18/23
metoprolol succinate 25 mg 12.5 mg PO DAILY #30 tabs 11/18/23
tablet,extended release 24 hr
(Toprol XL)
tramadol 50 mg tablet 50 mg PO BID PRN ongoing therapy 11/18/23
#20 tabs
acetaminophen 325 mg tablet 650 mg PO Q4HPRN PRN mild pain 12/02/23
budesonide 0.5 mg/2 mL suspension 0.5 mg inhalation R BIDPRN PRN sob 12/02/23
for nebulization
cholecalciferol (vitamin D3) 25 25 mcg PO DAILY 12/02/23
mcg (1,000 unit) tablet
cyanocobalamin (vitamin B-12) 500 500 mcg PO DAILY 12/02/23
mcg tablet
lisinopril 10 mg tablet 10 mg PO DAILY 12/02/23
oxycodone 5 mg tablet 5 mg PO DAILYPRN PRN severe pain 12/02/23
sodium chloride 0.65 % nasal spray 1 spray intranasal BIDPRN PRN dry 12/02/23
aerosol nares
vitamin B complex 1 tab PO DAILY 12/02/23
Review of Systems
-
All other systems: A 12 pt ROS was Negative except as stated above in HPI
Vital Signs
Temp Pulse Resp BP Pulse Ox
97.5 F 82 16 110/70 94
12/03/23 07:00 12/03/23 08:30 12/03/23 07:00 12/03/23 08:30 12/03/23 07:00
Physical Exam
Exam
General: No Apparent Distress
HEENT: Anicteric
Respiratory: Clear (Anterior)
Cardiac: Irregular Rhythm
GI: Soft, Non Tender, Non Distended and Normal Bowel Sounds
Rectal: Other (Rectal exam OB negative per ER)
Musculoskeletal: Edema (Left knee edematous, ecchymosis of the left thigh)
Skin: Warm and Dry
Neuro: AO x 3
Psych: Calm
Results
WBC 4.7 10^3/uL (4.8-10.8) L 12/03/23 05:59
Hgb 8.0 g/dL (13.0-18.0) L 12/03/23 05:59
Hct 24.2 % (39.0-52.0) L 12/03/23 05:59
MCV 103.0 fL (80.0-94.0) H 12/03/23 05:59
Plt Count 219 10^3/uL (130-400) 12/03/23 05:59
Absolute Neuts (auto) 2.5 10^3/uL (1.4-6.5) 12/03/23 05:59
PT 17.4 Sec (11.4-14.6) H 12/02/23 16:11
INR 1.44 12/02/23 16:11
APTT 32.1 Sec (23.4-35.0) 12/02/23 21:05
Sodium 132 mmol/L (135-145) L 12/03/23 05:59
Potassium 4.8 mmol/L (3.5-5.1) 12/03/23 05:59
Chloride 100 mmol/L (98-107) 12/03/23 05:59
Carbon Dioxide 27 mmol/L (22-30) 12/03/23 05:59
BUN 26 mg/dl (9-20) H 12/03/23 05:59
Creatinine 1.1 mg/dL (0.7-1.3) 12/03/23 05:59
Calcium 10.7 mg/dl (8.4-10.2) H 12/03/23 05:59
Total Bilirubin 2.7 mg/dl (0.2-1.3) H 12/03/23 05:59
AST 24 U/L (17-59) 12/03/23 05:59
ALT 14 U/L (0-50) 12/03/23 05:59
Alkaline Phosphatase 62 U/L (38-126) 12/03/23 05:59
Diagnostic Image Results:
11/29/2023 ultrasound peripheral venous left lower extremity:
IMPRESSION: There is occlusive deep venous thrombosis in the left gastrocnemius vein
Prior GI Procedures:
--Followed with Dr. Mcfadden in the past.
EGD: June 2016: Normal, irregular Z-line.� Path negative for Owens's, H. pylori, EOE
Colonoscopy:�June 2016: Nonbleeding internal hemorrhoids, normal colon
ERCP 09/2021: �� � � - The major papilla appeared normal.
�� � � � � � � � � � � - Choledocholithiasis was found. Complete removal was
�� � � � � � � � � � � accomplished by 10 mm biliary sphincterotomy and
�� � � � � � � � � � � extraction with 11.5 mm balloon. The balloon was able
�� � � � � � � � � � � to be passed through the sphincterotomy site.
�� � � � � � � � � � � - Did not appreciate filling of the common bile duct
�� � � � � � � � � � � on pressure cholangiogram
Double contrast Esophagram 10/30/2021:
IMPRESSION:
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 This may be a postinflammatory stricture or a malignant stricture. Endoscopy is recommended for further evaluation.
Small amount of laryngeal penetration occurred during the exam.
Mild impression upon the posterior cervical esophageal wall secondary to prominent osteophytes at C6/7
In accordance with Act 112, known as the Patient Test Results Information Act, a letter will be sent to the patient which notifies the patient that a significant abnormality may exist. � The letter will be sent within approximately 20 days of the
date the results were sent to the ordering health care practitioner.
Fluoroscopy time: 2 minutes, 13 seconds
Number of fluoroscopic images: 58
Electronically signed by Sandro Cowan MD 10/30/2021 5:03 PM
Assessment / Plan
-
88-year-old male with past medical history of atrial fibrillation, CVA, CHF, GERD, hypertension, hyperlipidemia, CKD, hyperparathyroidism, anemia on iron the past 2 years, with recent left knee replacement on October and left leg DVT
currently on Eliquis. Last dose was yesterday a.m. who presents to the emergency room from [facility] with blood within his stool. Patient currently on Eliquis. Last dose was 12/02/2023 am. Patient also on pantoprazole 40 mg daily. Hemoglobin was
8.8 on 11/25/2023. When he presented yesterday his hemoglobin was 8.7 and currently this a.m. is 8.0. No significant signs of bleeding since arrival. Vital signs have remained stable. Patient is on oral iron with chronic dark stools. Stool is
negative for occult blood in the emergency room.
Impression:
GI bleed on anticoagulation
-There were signs of red blood also concerns for dark blood as well. Could be secondary to hemorrhoids, stercoral colitis, diverticulosis, or UGIB.
A-fib on anticoagulation/DVT left leg
-Last dose Eliquis 12/02/2023 morning
Anemia
-Multifactorial, in setting of recent left knee replacement. Hgb was 8.8 post op from baseline 10.0
GERD
-Patient on Pantoprazole 40 mg daily
Plan:
-Continue Pantoprazole 40 mg IV BID
-Okay for clear liquids, no reds
-Watch Hgb
-Discussed with RN, need to document any and all stools or signs of bleeding and let GI know
-Patient will have dark stools as still on oral iron here
-Endoscopic evaluation to be discussed.
Data Reviewed
-
Old Records: Reviewed
-
-
Thank you for consultation and allowing me to participate in the patient's care. Please call the production cost estimator GI physician during the after hours with any questions or concerns.
[2023-12-03 09:01] LABS: Intact PTH 43.1 pg/ml (13.6-85.8)
--- NOTE | 2023-12-03 09:42 | VNURNOTE ---
Patient is current with [facility] since 11/26 w/SN/PT/OT, will monitor progress and plan at discharge.
[2023-12-03] MEDS: PROSCAR 5 MG PO (17:44)
[2023-12-03] MEDS: LEXAPRO 10 MG PO (17:44)
[2023-12-03] MEDS: FEOSOL 325 MG PO (17:45)
[2023-12-03] MEDS: SINGULAIR 10 MG PO (17:45)
[2023-12-03] MEDS: LIPITOR 80 MG PO (17:45)
[2023-12-03] MEDS: FLUSH (NSS) 2 FLUSH IV (20:30)
[2023-12-03] MEDS: NEURONTIN 300 MG PO (21:35)
[2023-12-03] MEDS: NON-FORMULARY ITEM 2 SPRAY NASAL ×2 (21:35)
[2023-12-03] MEDS: ROXICODONE 5 MG PO (22:24)
[2023-12-04 06:00] VITALS: BMI 30.8
[2023-12-04 06:00] LABS: Hemoglobin 7.6 g/dL (13.0-18.0); Mean Corpuscular Hgb 33.9 pg (27.0-31.0); Mean Corpuscular Volume 102.7 fL (80.0-94.0); Mean Platelet Volume 8.3 fL (7.4-10.4); Platelet Count 201 10^3/uL (130-400); Red Blood Cell Count 2.24 10^6/uL (4.70-6.10); Red Cell Dist. Width 15.4 % (11.5-14.5); White Blood Cell Count 4.4 10^3/uL (4.8-10.8)
[2023-12-04 06:26] LABS: Blood Urea Nitrogen 20 mg/dl (9-20); Calcium 10.2 mg/dl (8.4-10.2); Carbon Dioxide 30 mmol/L (22-30); Chloride 102 mmol/L (98-107); Estimated Creatinine Clearance 67 ml/min; Glucose 93 mg/dl (70-99); Magnesium 2.1 mg/dl (1.6-2.3); Phosphorus 3.4 mg/dl (2.5-4.5); Potassium 4.8 mmol/L (3.5-5.1); Sodium 131 mmol/L (135-145); eGFR > 60.00
[2023-12-04 07:00] VITALS: BP 100/61
--- NOTE | 2023-12-04 09:08 | W.PN.HOSP.TC ---
Today's Communication/Plan
-
For colonoscopy tomorrow
Assessment / Plan
Assessment / Plan
HPI: 88-year-old male with past medical history of atrial fibrillation on Eliquis, CVA, diastolic heart failure, hypertension, GERD, hypercholesteremia, anxiety/depression, gout, CKD 3, BPH, hyperparathyroidism, internal hemorrhoids� who recently
underwent left knee replacement on 11/13 here with episode of dark stool yesterday with bright red blood yesterday and worsening anemia. Patient recently returned home from [facility] 6 days ago.� He has not been very mobile there.� Eliquis was
also held postoperatively and unclear when this was restarted. Patient had bilateral lower extremity edema after his recent surgery with ecchymosis of the left upper thigh, erythema, swelling and pain of the left calf up to the knee.� He had
ultrasound 3 days ago showing gastrocnemius DVT in the left leg likely due to suspension of Eliquis in the setting of recent left knee replacement.�Patient also had some urinary retention after the surgery requiring Joseph catheter.� He has also been
constipated after the surgery as well. Labs show sodium of 130 from 134 and hypercalcemia with corrected calcium 11.6.� Hemoglobin is trended down from 12.3 prior to surgery down to 8.7.
#Progressive anemia
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
Likely multifactorial from postoperative blood losses/ecchymosis of left upper thigh and possible upper GI bleeding
Off Eliquis, heparin drip discontinued when hemoglobin dropped from 8.7 to 8.2 on 12/01
Appreciate GI input, recommend pantoprazole 40 mg IV twice daily
12/03 EGD shows 2 cm hiatal hernia, nonobstructing Schatzki ring, normal stomach, normal duodenum
GI recommends colonoscopy tomorrow
Hgb 7.9 today, was 8.0, continue to trend
Transfuse for hemoglobin less than 7.0
PT rec HH
#Acute left lower extremity DVT
Secondary to recent immobility/recent knee surgery and interruption of Eliquis
Off Eliquis, heparin drip discontinued when hemoglobin dropped from 8.7 to 8.2 on 12/01
If anticoagulation cannot be resumed as per GI, patient may require IVC filter
#Paroxysmal atrial fibrillation
Hold Eliquis, continue metoprolol for rate control
#Transient hypotension
Resolved after stopping lisinopril
Continue to monitor off of IV fluids (history of CHF)
#Hypercalcemia
PTH normal at 43.1
Unclear etiology, resolved
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 Danielson
Appreciate orthopedic surgery input, healing well
No signs or symptoms of cellulitis
#Acute urinary retention
Likely due to immobility and constipation
Patient required straight cath x 2
Continue bladder scan protocol, Flomax 0.4 mg twice a day, treat constipation, PT
#Hyponatremia secondary to SIADH
Sodium improved at 131 today, continue fluid restriction, monitor sodium
#Chronic dysphagia
Needs mechanical soft diet with pills in applesauce when able
#Stage III Kidney disease
Creatinine stable at 1.1
DVT prophylaxis�SCDs
Full code
Total time spent to see the patient on the floor, examine the patient, review data and lab results, discuss treatment plan with patient, nursing staff around 52 minutes.
Physical Exam
General: Chronically ill-appearing, no acute distress
HEENT: Normocephalic, Atraumatic, EOMI, MMM
Respiratory: Clear to Auscultation bilaterally
Cardiac: Normal S1/S2, irregularly irregular
GI: Soft, Nontender, Nondistended, Normal Bowel Sounds
Extremities: No Clubbing, Cyanosis
Bilateral lower extremity edema noted, left greater than right
Musculoskeletal: Left knee incision is clean, dry, intact
Neuro: Nonfocal/Grossly Intact
Psych: Calm, Cooperative
Derm: Pale
Anticipated Discharge: > 48 hours
Subjective/Interval History
-
Date of Service: December 04, 2023
No black or bloody stools. Denies weakness. No chest pain, no shortness of breath. No lightheadedness, no dizziness.
Objective Data
-
Labs:
Laboratory Results
12/04/23
05:42
WBC 4.4 L
Hgb 7.6 L
Hct 23.0 L
Plt Count 201
Sodium 131 L
Potassium 4.8
Chloride 102
Carbon Dioxide 30
BUN 20
Creatinine 1.1
Glucose 93
Calcium 10.2
Vital Signs:
Vital Signs
Temp Pulse Resp BP Pulse Ox
98.6 F 66 18 100/61 96
12/04/23 07:00 12/04/23 07:00 12/04/23 07:00 12/04/23 07:00 12/04/23 07:00
I&O
12/03/23 12/04/23 12/05/23
06:59 06:59 06:59
Output Total 850 / 850 3000 / 3000
Balance -850 / -850 -3000 / -3000
[2023-12-04 10:45] VITALS: BP 104/65; BP_SYST 18
[2023-12-04 11:00] VITALS: BP 115/69; BP_SYST 18
[2023-12-04] MEDS: NON-FORMULARY ITEM 1 SPRAY NASAL (11:17)
[2023-12-04] MEDS: VITAMIN D3 (cholecalciferol) 25 MCG PO (11:18)
[2023-12-04] MEDS: VITAMIN B-12 500 MCG PO (11:18)
[2023-12-04] MEDS: B COMPLEX w/VITAMIN C 1 CAPLET PO (11:18)
[2023-12-04] MEDS: FLOMAX 0.400000000000000022 MG PO ×2 (11:18→20:59)
[2023-12-04] MEDS: NSS (PRESERVATIVE FREE) 10 ML IV ×2 (11:19→20:58)
[2023-12-04] MEDS: TOPROL XL 12.5 MG PO (11:19)
[2023-12-04] MEDS: PROTONIX IV 40 MG IV ×2 (11:19→20:59)
[2023-12-04] MEDS: ZYLOPRIM 100 MG PO (11:20)
[2023-12-04] MEDS: NON-FORMULARY ITEM 2 SPRAY NASAL ×3 (11:29→21:00)
[2023-12-04 13:47] LABS: Hemoglobin 7.9 g/dL (13.0-18.0)
[2023-12-04 15:00] VITALS: BP 112/62
[2023-12-04] MEDS: NULYTELY SOLUTION 4 LITERS PO (15:13)
--- NOTE | 2023-12-04 15:47 | CM ---
CM met with pt and his daughter at bedside
Recently d/c'ed from [facility]
Pt lives alone in a 2 story home. Family lives nearby and involved
DME in home - [employer] rolling walker
SNF - [facility] in past
Home Care - [facility] in past
Has had care takers fro [facility] in past
PCP - Dr Reymundo Nichols
Pharm - [facility]
Will have ride at d/c
Pending PT/OT recs
Plan - anticipate snf vs HH when medically stable
[2023-12-04] MEDS: PROSCAR 5 MG PO (17:02)
[2023-12-04] MEDS: LIPITOR 80 MG PO (17:02)
[2023-12-04] MEDS: LEXAPRO 10 MG PO (17:02)
[2023-12-04] MEDS: FEOSOL 325 MG PO (17:02)
[2023-12-04] MEDS: SINGULAIR 10 MG PO (17:02)
[2023-12-04 20:05] VITALS: BP 130/70
[2023-12-04] MEDS: ROXICODONE 5 MG PO (20:59)
[2023-12-04] MEDS: NEURONTIN 300 MG PO (20:59)
[2023-12-04] MEDS: FLUSH (NSS) 2 FLUSH IV (21:03)
[2023-12-04 23:00] VITALS: BP 117/72
[2023-12-05] VITALS (12 sets, daily range): BP systolic 13–135; BP diastolic 50–82; BMI 30.4
[2023-12-05 05:57] LABS: Hematocrit 23.3 % (39.0-52.0); Hemoglobin 7.7 g/dL (13.0-18.0); Mean Corpuscular Hgb 34.1 pg (27.0-31.0); Mean Corpuscular Volume 103.1 fL (80.0-94.0); Mean Platelet Volume 8.4 fL (7.4-10.4); Platelet Count 189 10^3/uL (130-400); Red Blood Cell Count 2.26 10^6/uL (4.70-6.10); Red Cell Dist. Width 15.3 % (11.5-14.5); White Blood Cell Count 4.5 10^3/uL (4.8-10.8)
[2023-12-05 06:30] LABS: Blood Urea Nitrogen 17 mg/dl (9-20); Carbon Dioxide 28 mmol/L (22-30); Chloride 101 mmol/L (98-107); Estimated Creatinine Clearance 73 ml/min; Glucose 99 mg/dl (70-99); Phosphorus 3.5 mg/dl (2.5-4.5); Potassium 4.6 mmol/L (3.5-5.1); Sodium 128 mmol/L (135-145); eGFR > 60.00
[2023-12-05] MEDS: NON-FORMULARY ITEM 2 SPRAY NASAL ×2 (07:46→07:47)
--- NOTE | 2023-12-05 08:46 | W.PN.HOSP.TC ---
Today's Communication/Plan
-
See bold
Assessment / Plan
Assessment / Plan
HPI: 88-year-old male with past medical history of atrial fibrillation on Eliquis, CVA, diastolic heart failure, hypertension, GERD, hypercholesteremia, anxiety/depression, gout, CKD 3, BPH, hyperparathyroidism, internal hemorrhoids� who recently
underwent left knee replacement on 11/13 here with episode of dark stool yesterday with bright red blood yesterday and worsening anemia. Patient recently returned home from [facility] 6 days ago.� He has not been very mobile there.� Eliquis was
also held postoperatively and unclear when this was restarted. Patient had bilateral lower extremity edema after his recent surgery with ecchymosis of the left upper thigh, erythema, swelling and pain of the left calf up to the knee.� He had
ultrasound 3 days ago showing gastrocnemius DVT in the left leg likely due to suspension of Eliquis in the setting of recent left knee replacement.�Patient also had some urinary retention after the surgery requiring Joseph catheter.� He has also been
constipated after the surgery as well. Labs show sodium of 130 from 134 and hypercalcemia with corrected calcium 11.6.� Hemoglobin is trended down from 12.3 prior to surgery down to 8.7.
#Progressive anemia
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
Likely multifactorial from postoperative blood losses/ecchymosis of left upper thigh and possible upper GI bleeding
Off Eliquis, heparin drip discontinued when hemoglobin dropped from 8.7 to 8.2 on 12/01
Appreciate GI input, recommend pantoprazole 40 mg IV twice daily
12/03 EGD shows 2 cm hiatal hernia, nonobstructing Schatzki ring, normal stomach, normal duodenum
12/04 colonoscopy shows 15 mm polyp at the appendiceal orifice
GI recommends transfusing 1 unit of blood, follow-up with Dr. Cedeno in the office for polypectomy
Hgb 7.7 today, was 7.7 was 8.0, continue to trend
Transfuse 1 unit of packed red blood cells
Trial of Eliquis today, if he bleeds or his hemoglobin drops, will need IVC filter on Saturday
PT rec HH
#Acute left lower extremity DVT
Secondary to recent immobility/recent knee surgery and interruption of Eliquis
Off Eliquis, heparin drip discontinued when hemoglobin dropped from 8.7 to 8.2 on 12/01
Trial of Eliquis today, if he bleeds or his hemoglobin drops, will need IVC filter on Saturday
#Paroxysmal atrial fibrillation
Trial of Eliquis today, if he bleeds or his hemoglobin drops, will need IVC filter on Saturday
Continue metoprolol for rate control
#Acute urinary retention
Patient has required straight cath x 3, last episode overnight draining 800 cc of urine
Continue Flomax 0.5 mg twice a day, insert Joseph 12/04
Follow-up with Dr. Grimaldo/urology in the office for void trial
#Transient hypotension
Resolved after stopping lisinopril
Continue to monitor off of IV fluids (history of CHF)
#Hypercalcemia
PTH normal at 43.1
Unclear etiology, resolved
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 Danielson
Appreciate orthopedic surgery input, healing well
No signs or symptoms of cellulitis
#Hyponatremia secondary to SIADH
Sodium worse today at 128, was 131 today
Give IV Lasix, continue fluid restriction, monitor sodium
#Chronic dysphagia
Needs mechanical soft diet with pills in applesauce when able
#Stage III Kidney disease
Creatinine stable at 1.1
DVT prophylaxis�eliquis
Full code
Total time spent to see the patient on the floor, examine the patient, review data and lab results, discuss treatment plan with patient, nursing staff around 55 minutes.
Physical Exam
General: Chronically ill-appearing, no acute distress
HEENT: Normocephalic, Atraumatic, EOMI, MMM
Respiratory: Clear to Auscultation bilaterally
Cardiac: Normal S1/S2, irregularly irregular
GI: Soft, Nontender, Nondistended, Normal Bowel Sounds
Extremities: No Clubbing, Cyanosis
Bilateral lower extremity edema noted, left greater than right
Musculoskeletal: Left knee incision is clean, dry, intact
Neuro: Nonfocal/Grossly Intact
Psych: Calm, Cooperative
Derm: Pale
Anticipated Discharge: > 48 hours
Subjective/Interval History
-
Date of Service: December 05, 2023
No black or bloody stools. Denies worsening weakness. No shortness of breath, no chest pain.
Objective Data
-
Labs:
Laboratory Results
12/05/23
05:47
WBC 4.5 L
Hgb 7.7 L
Hct 23.3 L
Plt Count 189
Sodium 128 L
Potassium 4.6
Chloride 101
Carbon Dioxide 28
BUN 17
Creatinine 1.0
Glucose 99
Calcium 10.0
Vital Signs:
Vital Signs
Temp Pulse Resp BP Pulse Ox
98.4 F 81 18 105/67 96
12/05/23 07:00 12/05/23 07:00 12/05/23 07:00 12/05/23 07:00 12/05/23 07:00
I&O
12/04/23 12/05/23 12/06/23
06:59 06:59 06:59
Intake Total 4000 / 4000
Output Total 3000 / 3000 2650 / 2650
Balance -3000 / -3000 1350 / 1350
[2023-12-05 09:48] LABS: Osmolality Serum 276 mOsm/kg (275-300)
[2023-12-05 10:24] LABS: Cortisol, Random 10.9 ug/dl; TSH Reflex To Free T4 0.84 uIU/ml (0.47-4.68)
[2023-12-05] MEDS: NSS (PRESERVATIVE FREE) 10 ML IV (11:29)
[2023-12-05] MEDS: ZYLOPRIM 100 MG PO (11:29)
[2023-12-05] MEDS: TOPROL XL 12.5 MG PO (11:29)
[2023-12-05] MEDS: LASIX 40 MG IV (11:29)
[2023-12-05] MEDS: FLOMAX 0.400000000000000022 MG PO ×2 (11:29→20:54)
[2023-12-05] MEDS: VITAMIN B-12 500 MCG PO (11:29)
[2023-12-05] MEDS: B COMPLEX w/VITAMIN C 1 CAPLET PO (11:29)
[2023-12-05] MEDS: PROTONIX IV 40 MG IV (11:30)
[2023-12-05] MEDS: VITAMIN D3 (cholecalciferol) 25 MCG PO (11:30)
[2023-12-05 13:30] LABS: Osmolality Urine 402 mOsm/kg (300-900)
[2023-12-05 13:39] LABS: Urine Sodium 124 mmol/L (30-90)
[2023-12-05] MEDS: ELIQUIS 5 MG PO ×2 (15:06→20:54)
[2023-12-05] MEDS: LIPITOR 80 MG PO (17:14)
[2023-12-05] MEDS: PROSCAR 5 MG PO (17:14)
[2023-12-05] MEDS: FEOSOL 325 MG PO (17:15)
[2023-12-05] MEDS: SINGULAIR 10 MG PO (17:15)
[2023-12-05] MEDS: PROTONIX 40 MG PO (20:54)
[2023-12-05] MEDS: NON-FORMULARY ITEM 1 SPRAY NASAL ×2 (20:54)
[2023-12-05] MEDS: NEURONTIN 300 MG PO (20:54)
[2023-12-06 06:00] VITALS: BMI 29.9
[2023-12-06 06:11] LABS: Hematocrit 24.9 % (39.0-52.0); Mean Corp Hgb Conc. 32.1 g/dL (33.0-37.0); Mean Corpuscular Hgb 32.9 pg (27.0-31.0); Mean Corpuscular Volume 102.5 fL (80.0-94.0); Mean Platelet Volume 8.7 fL (7.4-10.4); Platelet Count 201 10^3/uL (130-400); Red Blood Cell Count 2.43 10^6/uL (4.70-6.10); Red Cell Dist. Width 16.6 % (11.5-14.5)
[2023-12-06 06:35] LABS: Blood Urea Nitrogen 22 mg/dl (9-20); Calcium 9.8 mg/dl (8.4-10.2); Carbon Dioxide 29 mmol/L (22-30); Chloride 100 mmol/L (98-107); Estimated Creatinine Clearance 54 ml/min; Glucose 101 mg/dl (70-99); Potassium 4.2 mmol/L (3.5-5.1); Sodium 130 mmol/L (135-145); eGFR 58.89
[2023-12-06 07:46] VITALS: BP 110/74
[2023-12-06] MEDS: VITAMIN D3 (cholecalciferol) 25 MCG PO (08:06)
[2023-12-06] MEDS: TOPROL XL 12.5 MG PO (08:06)
[2023-12-06] MEDS: ZYLOPRIM 100 MG PO (08:06)
[2023-12-06] MEDS: VITAMIN B-12 500 MCG PO (08:07)
[2023-12-06] MEDS: B COMPLEX w/VITAMIN C 1 CAPLET PO (08:07)
[2023-12-06] MEDS: NON-FORMULARY ITEM 1 SPRAY NASAL ×2 (08:07)
[2023-12-06] MEDS: FLOMAX 0.400000000000000022 MG PO ×2 (08:07→19:39)
[2023-12-06] MEDS: PROTONIX 40 MG PO ×2 (08:07→19:39)
[2023-12-06] MEDS: ELIQUIS 5 MG PO ×2 (08:07→19:39)
--- NOTE | 2023-12-06 08:44 | W.PN.HOSP.TC ---
Today's Communication/Plan
-
Monitor hemoglobin on Eliquis
Assessment / Plan
Assessment / Plan
HPI: 88-year-old male with past medical history of atrial fibrillation on Eliquis, CVA, diastolic heart failure, hypertension, GERD, hypercholesteremia, anxiety/depression, gout, CKD 3, BPH, hyperparathyroidism, internal hemorrhoids� who recently
underwent left knee replacement on 11/13 here with episode of dark stool yesterday with bright red blood yesterday and worsening anemia. Patient recently returned home from [facility] 6 days ago.� He has not been very mobile there.� Eliquis was
also held postoperatively and unclear when this was restarted. Patient had bilateral lower extremity edema after his recent surgery with ecchymosis of the left upper thigh, erythema, swelling and pain of the left calf up to the knee.� He had
ultrasound 3 days ago showing gastrocnemius DVT in the left leg likely due to suspension of Eliquis in the setting of recent left knee replacement.�Patient also had some urinary retention after the surgery requiring Joseph catheter.� He has also been
constipated after the surgery as well. Labs show sodium of 130 from 134 and hypercalcemia with corrected calcium 11.6.� Hemoglobin is trended down from 12.3 prior to surgery down to 8.7.
#Progressive anemia
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
Likely multifactorial from postoperative blood losses/ecchymosis of left upper thigh and possible upper GI bleeding
Appreciate GI input, recommend pantoprazole 40 mg po twice daily
12/03 EGD shows 2 cm hiatal hernia, nonobstructing Schatzki ring, normal stomach, normal duodenum
12/04 colonoscopy shows 15 mm polyp at the appendiceal orifice
Follow-up with Dr. Cedeno in the office for polypectomy
Status post 1 unit of packed red blood cells on 12/04, hemoglobin 8.0 today, was 7.7
Eliquis resumed 12/04, monitor Hgb
If he bleeds or his hemoglobin drops, will need IVC filter on Saturday
PT rec HH
#Acute left lower extremity DVT
Secondary to recent immobility/recent knee surgery and interruption of Eliquis
Eliquis resumed 12/04, if he bleeds or his hemoglobin drops, will need IVC filter on Saturday
#Paroxysmal atrial fibrillation
Eliquis resumed 12/04, if he bleeds or his hemoglobin drops, will need IVC filter on Saturday
Continue metoprolol for rate control
#Acute urinary retention
Patient has required straight cath x 3, last episode overnight draining 800 cc of urine
Continue Flomax 0.5 mg twice a day, insert Joseph 12/04
Follow-up with Dr. Grimaldo/urology in the office for void trial
#Transient hypotension
Resolved after stopping lisinopril
Continue to monitor off of IV fluids (history of CHF)
#Hypercalcemia
PTH normal at 43.1
Unclear etiology, resolved
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 Danielson
Appreciate orthopedic surgery input, healing well
No signs or symptoms of cellulitis
#Hyponatremia secondary to SIADH
Sodium improved at 130, was 128, was 131
S/p IV Lasix, continue fluid restriction, monitor sodium
#Chronic dysphagia
Needs mechanical soft diet with pills in applesauce when able
#Stage III Kidney disease
Creatinine stable at 1.1
DVT prophylaxis�eliquis
Full code
Physical Exam
General: Chronically ill-appearing, no acute distress
HEENT: Normocephalic, Atraumatic, EOMI, MMM
Respiratory: Clear to Auscultation bilaterally
Cardiac: Normal S1/S2, irregularly irregular
GI: Soft, Nontender, Nondistended, Normal Bowel Sounds
Extremities: No Clubbing, Cyanosis
Bilateral lower extremity edema noted, left greater than right
Musculoskeletal: Left knee incision is clean, dry, intact
Neuro: Nonfocal/Grossly Intact
Psych: Calm, Cooperative
Derm: Pale
Anticipated Discharge: 24 - 48 hours
Subjective/Interval History
-
Date of Service: December 06, 2023
Patient reports not feeling any different after receiving a unit of blood. He has not had a bowel movement. No chest pain, no shortness of breath.
Objective Data
-
Labs:
Laboratory Results
12/06/23
05:13
WBC 5.0
Hgb 8.0 L
Hct 24.9 L
Plt Count 201
Sodium 130 L
Potassium 4.2
Chloride 100
Carbon Dioxide 29
BUN 22 H
Creatinine 1.2
Glucose 101 H
Calcium 9.8
Vital Signs:
Vital Signs
Temp Pulse Resp BP Pulse Ox
98.1 F 95 16 110/74 95
12/06/23 07:46 12/06/23 08:06 12/06/23 07:46 12/06/23 08:06 12/06/23 07:46
I&O
12/05/23 12/06/23 12/07/23
06:59 06:59 06:59
Intake Total 4000 / 4000 1210 / 1210
Output Total 2650 / 2650 1850 / 1850
Balance 1350 / 1350 -640 / -640
--- NOTE | 2023-12-06 10:11 | W.PN.GI.CBS2 ---
Addendum entered and electronically signed by Cayden Caruso MD 12/06/23 16:10:
I saw and examined the patient.
The MANAGER OF [employer] or PA's note was reviewed and I agree with the note.
Comment: No complaints. No BMs
REC:
Told pt to see Dr Cedeno after d/c 01/19 to set up colonoscopy to remove appendiceal polyp
No source found for bleed. Monitor for now. If further bleeding, consider capsule endoscopy next
Will sign off. Please call back if needed
Original Note:
Today's Communication / Plan
-
As per note
Assessment / Plan
-
88-year-old male with past medical history of atrial fibrillation, CVA, CHF, GERD, hypertension, hyperlipidemia, CKD, hyperparathyroidism, anemia on iron the past 2 years, with recent left knee replacement on October and left leg DVT
currently on Eliquis. Last dose was yesterday a.m. who presents to the emergency room from [facility] with blood within his stool. Patient currently on Eliquis. Last dose was 12/02/2023 am. Patient also on pantoprazole 40 mg daily. Hemoglobin was
8.8 on 11/25/2023. When he presented yesterday his hemoglobin was 8.7 and currently this a.m. is 8.0. No significant signs of bleeding since arrival. Vital signs have remained stable. Patient is on oral iron with chronic dark stools. Stool is
negative for occult blood in the emergency room.
Colonoscopy 12/05/23 ([facility])
No blood or any polyps that look like the source of
�� � � � � � � � � � � bleeding. No source on EGD either.
�� � � � � � � � � � � - Hemorrhoids found on perianal exam.
�� � � � � � � � � � � - Multiple polyps in the entire colon. Resection not
�� � � � � � � � � � � attempted.
�� � � � � � � � � � � - One 15 mm polyp at the appendiceal orifice.
�� � � � � � � � � � � Resection not attempted.
�� � � � � � � � � � � - No specimens collected.
EGD 12/04/23 ([facility])
- 2 cm hiatal hernia.
�� � � � � � � � � � � - Non-obstructing Schatzki ring.
�� � � � � � � � � � � - Normal stomach.
�� � � � � � � � � � � - Normal examined duodenum.
�� � � � � � � � � � � - No specimens collected.
Impression:
GI bleed on anticoagulation
-There were signs of red blood also concerns for dark blood as well. Could be secondary to hemorrhoids, stercoral colitis, diverticulosis, or UGIB.
A-fib on anticoagulation/DVT left leg
-Last dose Eliquis 12/02/2023 morning
Anemia
-Multifactorial, in setting of recent left knee replacement. Hgb was 8.8 post op from baseline 10.0
GERD
-Patient on Pantoprazole 40 mg daily
Plan:
-�Continue solid diet as per [employer] recommendations
- Continue Pantoprazole
-Patient on oral iron currently
-Eliquis has been restarted 12/05/23
- Repeat colonoscopy at appointment to be scheduled since he is in relatively good health.
- He will need to meet with Dr. Cedeno in our office to discuss ahead of time - Dr. Cedeno to remove due to it's size and location.
�- The reason to remove the polyp at the appendiceal orifice is not due to bleeding but to prevent colon cancer in this otherwise, relatively healthy 88yoM.
- If rebleeds to consider outpatient VCE
-Follow up with Dr. Cedeno on 01/20/24 at 11:45
Subjective
Subjective
Date of Service: December 06, 2023
Patient without any GI complaints. No bleeding. Stools light brown. Hgb stable. Tolerating solid diet. Colonoscopy with multiple polyps and polyps at appendiceal orifice. None removed during procedure.He will need to meet with Dr. Cedeno in our office
to discuss ahead of time to remove due to it's size and location. Appt made 01/20/24 at 11:45. Discussed with patient.
Objective
Data Reviewed
Laboratory Data:
Laboratory Results
12/06/23 05:13
12/06/23 05:13
Laboratory Results
PT 17.4 Sec (11.4-14.6) H 12/02/23 16:11
INR 1.44 12/02/23 16:11
APTT 32.1 Sec (23.4-35.0) 12/02/23 21:05
Phosphorus 3.5 mg/dl (2.5-4.5) 12/05/23 05:47
Magnesium 2.0 mg/dl (1.6-2.3) 12/05/23 05:47
Total Bilirubin 2.7 mg/dl (0.2-1.3) H 12/03/23 05:59
AST 24 U/L (17-59) 12/03/23 05:59
ALT 14 U/L (0-50) 12/03/23 05:59
Alkaline Phosphatase 62 U/L (38-126) 12/03/23 05:59
Vital Signs and I&O:
Vital Signs
Temp Pulse Resp BP Pulse Ox
98.1 F 95 16 110/74 95
12/06/23 07:46 12/06/23 08:06 12/06/23 07:46 12/06/23 08:06 12/06/23 07:46
I&O
12/05/23 12/06/23 12/07/23
06:59 06:59 06:59
Intake Total 4000 / 4000 1210 / 1210
Output Total 2650 / 2650 1850 / 1850
Balance 1350 / 1350 -640 / -640
Physical Exam
Physical Exam
HEENT: Moist mucous membranes
Cardiology: Irregular Rate/Rhythm
Pulmonary: Clear
GI: Soft, Distended, Non Distended and Non Tender
Neuro: Non Focal
[2023-12-06 11:15] VITALS: BP 113/59; PULSE 103; O2SAT 98
[2023-12-06] MEDS: ROXICODONE 5 MG PO (14:47)
[2023-12-06 15:57] VITALS: BP 121/70
[2023-12-06 16:10] VITALS: BP 121/70; PULSE 85; O2SAT 99
--- NOTE | 2023-12-06 16:40 | CM ---
PT recs - SNF vs HH
Spoke with pt daughter Estephanie
Obtained snf choices - sent in care port
Plan - snf - tbd when medically ready
[2023-12-06] MEDS: ULTRAM 50 MG PO (17:21)
[2023-12-06] MEDS: SINGULAIR 10 MG PO (17:21)
[2023-12-06] MEDS: PROSCAR 5 MG PO (17:21)
[2023-12-06] MEDS: LIPITOR 80 MG PO (17:22)
[2023-12-06] MEDS: FEOSOL 325 MG PO (17:22)
[2023-12-06] MEDS: NON-FORMULARY ITEM 2 SPRAY NASAL ×2 (19:37→19:38)
[2023-12-06] MEDS: NEURONTIN 300 MG PO (21:32)
[2023-12-06 22:56] VITALS: BMI 29.9
[2023-12-06 23:40] VITALS: BP 101/52
[2023-12-07 05:58] VITALS: BMI 29.9
[2023-12-07 07:37] LABS: Carbon Dioxide 28 mmol/L (22-30); Estimated Creatinine Clearance 54 ml/min; Glucose 100 mg/dl (70-99); eGFR 58.89
[2023-12-07 07:47] LABS: Blood Urea Nitrogen 26 mg/dl (9-20); Calcium 10.2 mg/dl (8.4-10.2); Chloride 97 mmol/L (98-107); Potassium 4.2 mmol/L (3.5-5.1); Sodium 132 mmol/L (135-145)
[2023-12-07 07:50] VITALS: BP 112/57
[2023-12-07 08:00] VITALS: BMI 29.9
--- NOTE | 2023-12-07 08:11 | W.PN.HOSP.TC ---
Today's Communication/Plan
-
see bold
Assessment / Plan
Assessment / Plan
HPI: 88-year-old male with past medical history of atrial fibrillation on Eliquis, CVA, diastolic heart failure, hypertension, GERD, hypercholesteremia, anxiety/depression, gout, CKD 3, BPH, hyperparathyroidism, internal hemorrhoids� who recently
underwent left knee replacement on 11/13 here with episode of dark stool yesterday with bright red blood yesterday and worsening anemia. Patient recently returned home from [facility] days ago.� He has not been very mobile there.� Eliquis was
also held postoperatively and unclear when this was restarted. Patient had bilateral lower extremity edema after his recent surgery with ecchymosis of the left upper thigh, erythema, swelling and pain of the left calf up to the knee.� He had
ultrasound 3 days ago showing gastrocnemius DVT in the left leg likely due to suspension of Eliquis in the setting of recent left knee replacement.�Patient also had some urinary retention after the surgery requiring Joseph catheter.� He has also been
constipated after the surgery as well. Labs show sodium of 130 from 134 and hypercalcemia with corrected calcium 11.6.� Hemoglobin is trended down from 12.3 prior to surgery down to 8.7.
#Progressive anemia
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
Likely multifactorial from postoperative blood losses/ecchymosis of left upper thigh and possible upper GI bleeding
Appreciate GI input, recommend pantoprazole 40 mg po twice daily
12/03 EGD shows 2 cm hiatal hernia, nonobstructing Schatzki ring, normal stomach, normal duodenum
12/04 colonoscopy shows 15 mm polyp at the appendiceal orifice
Follow-up with Dr. Cedeno in the office for polypectomy
Hemoglobin 8.2 today, was 8.0, status post 1 unit of packed red blood cells on 12/04, was 7.7
Eliquis resumed 12/04, monitor Hgb
If he bleeds or his hemoglobin drops, he will need IVC filter on Saturday
Family wishes him to go to short-term rehab
#Acute left lower extremity DVT
Secondary to recent immobility/recent knee surgery and interruption of Eliquis
Eliquis resumed 12/04, if he bleeds or his hemoglobin drops, will need IVC filter on Saturday
#Paroxysmal atrial fibrillation
Eliquis resumed 12/04, if he bleeds or his hemoglobin drops, will need IVC filter on Saturday
Continue metoprolol for rate control
#Acute urinary retention
Patient has required straight cath x 3, last episode overnight draining 800 cc of urine
Continue Flomax 0.5 mg twice a day, insert Joseph 12/04
Follow-up with Dr. Grimaldo/urology in the office for void trial
#Transient hypotension
Resolved after stopping lisinopril
Continue to monitor off of IV fluids (history of CHF)
#Hypercalcemia
PTH normal at 43.1
Unclear etiology, resolved
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 Danielson
Appreciate orthopedic surgery input, healing well
No signs or symptoms of cellulitis
#Hyponatremia secondary to SIADH
Sodium improved at 132, was 130, was 128, was 131
S/p IV Lasix, continue fluid restriction, monitor sodium
#Chronic dysphagia
Needs mechanical soft diet with pills in applesauce when able
#Stage III Kidney disease
Creatinine stable
DVT prophylaxis�eliquis
Full code
Physical Exam
General: Chronically ill-appearing, no acute distress
HEENT: Normocephalic, Atraumatic, EOMI, MMM
Respiratory: Clear to Auscultation bilaterally
Cardiac: Normal S1/S2, irregularly irregular
GI: Soft, Nontender, Nondistended, Normal Bowel Sounds
Extremities: No Clubbing, Cyanosis
Bilateral lower extremity edema noted, left greater than right
Musculoskeletal: Left knee incision is clean, dry, intact
Neuro: Nonfocal/Grossly Intact
Psych: Calm, Cooperative
Derm: Pale
Anticipated Discharge: 24 - 48 hours
Subjective/Interval History
-
Date of Service: December 07, 2023
No black or bloody stools. No bowel movement. No chest pain, no shortness of breath, no palpitations. No fever, no nausea, no vomiting.
Objective Data
-
Labs:
Laboratory Results
12/07/23
06:28
WBC Pending
Hgb Pending
Hct Pending
Plt Count Pending
Sodium 132 L
Potassium 4.2
Chloride 97 L
Carbon Dioxide 28
BUN 26 H
Creatinine 1.2
Glucose 100 H
Calcium 10.2
Vital Signs:
Vital Signs
Temp Pulse Resp BP Pulse Ox
97.9 F 79 16 112/57 97
12/07/23 07:50 12/07/23 07:50 12/07/23 07:50 12/07/23 07:50 12/07/23 07:50
I&O
12/06/23 12/07/23 12/08/23
06:59 06:59 06:59
Intake Total 1210 / 1210 900 / 900
Output Total 1850 / 1850 500 / 500
Balance -640 / -640 400 / 400
[2023-12-07] MEDS: ELIQUIS 5 MG PO ×2 (08:26→19:59)
[2023-12-07] MEDS: B COMPLEX w/VITAMIN C 1 CAPLET PO (08:27)
[2023-12-07] MEDS: PROTONIX 40 MG PO ×2 (08:28→19:59)
[2023-12-07] MEDS: NON-FORMULARY ITEM 1 SPRAY NASAL ×4 (08:28→20:01)
[2023-12-07] MEDS: VITAMIN D3 (cholecalciferol) 25 MCG PO (08:28)
[2023-12-07] MEDS: TOPROL XL 12.5 MG PO (08:28)
[2023-12-07] MEDS: FLOMAX 0.400000000000000022 MG PO ×2 (08:28→19:59)
[2023-12-07] MEDS: VITAMIN B-12 500 MCG PO (08:35)
[2023-12-07] MEDS: ZYLOPRIM 100 MG PO (08:37)
[2023-12-07] MEDS: NON-FORMULARY ITEM NASAL (08:37)
[2023-12-07 09:29] LABS: Hematocrit 25.8 % (39.0-52.0); Hemoglobin 8.2 g/dL (13.0-18.0); Mean Corp Hgb Conc. 31.8 g/dL (33.0-37.0); Mean Corpuscular Hgb 33.2 pg (27.0-31.0); Mean Corpuscular Volume 104.5 fL (80.0-94.0); Mean Platelet Volume 8.8 fL (7.4-10.4); Platelet Count 225 10^3/uL (130-400); Red Blood Cell Count 2.47 10^6/uL (4.70-6.10); Red Cell Dist. Width 16.2 % (11.5-14.5); White Blood Cell Count 5.4 10^3/uL (4.8-10.8)
[2023-12-07] MEDS: SENOKOT-S 2 TABLET PO ×2 (11:45→19:59)
[2023-12-07] MEDS: MIRALAX 17 GRAMS PO (11:45)
[2023-12-07] MEDS: LIPITOR 80 MG PO (17:49)
[2023-12-07] MEDS: FEOSOL 325 MG PO (17:49)
[2023-12-07] MEDS: SINGULAIR 10 MG PO (17:49)
[2023-12-07] MEDS: PROSCAR 5 MG PO (17:49)
--- NOTE | 2023-12-07 21:36 | CON.ONC ---
Impression
Impression
POSTOP VTE LLE -- expected event in context of withholding meds in face of surgery with inability to fully participate in rehab due to swelling and pain w/ prolonged immobilization as he was not reloaded post procedurew complicated by lack of
movement due to pain/swelling
Anemia likely chrnic intermittent blood loss with concommitant inflammatory component --- trends of anemia predate surgery by 6 years during prior R TKR/gout/left foot wound with documented iron deficiency in 2017 and 2019
Plan
Plan
Ferritin levels now >100 indicating adequate iron stores-- though multiple polyps found with this admission c/w source for slow losses though episode of overt blood not clear. nonetheless the low burden clot expected wtih type of surgery and off
meds needed approach -- would continue same and follow wit repeat Doppler RLE within the month.
Patient History
History of Present Illness
88yo WM examined and interviewed earlier today upon consultation request for appropriate AC therapy. He has been on Eliquis for several years as cardioembolic prophylaxis due to afib. He is admitted with symptomatic anemia following outpt labs
noting same with hx of BRBPR night prior to admission. On 11/13/2023 he underwent left total knee arthroplasty w/o need for transfusion w/ preop HGB dropping from 12g/dl to 10gm/dl without need for pRBCs. He was reinitiated on Eliquis first postop
day with his maintenance dose therapy.
He was transferred to [facility] rehab though was unable to aggressively engage PT. On his 16th postop day he underwent Doppler US LLE for edema noting occlusive thrombus of the left gastrocnemius vein for complaints of LLE swelling.
Outpt labs performed 2 weeks postop noted 2 gram drop in HGB that on repeat 1 week later dropped an additional 0.6g/dl prompting admission with episode of melena. He received split dose pRBC 12/05/2023 with stabilization of HGB 8g/dl range.
Patient Medication
Medication Instructions Recorded Confirmed Last Taken Type
allopurinol 100 mg tablet 100 mg PO DAILY Gout 09/17/18 12/02/23 12/02/23 History
escitalopram oxalate 10 mg tablet 10 mg PO QPM Depression 09/17/18 12/02/23 12/01/23 History
tamsulosin 0.4 mg capsule 0.4 mg PO BID Urinary issue 09/17/18 12/02/23 12/02/23 History
denosumab 60 mg/mL subcutaneous 60 mg SC [id number] OSTEOPOROSIS 02/22/21 12/02/23 06/16/23 History
syringe (Prolia)
montelukast 10 mg tablet 10 mg PO QPM Allergies 02/22/21 12/02/23 12/01/23 History
ferrous sulfate 325 mg (65 mg 325 mg PO QPM Supplement 10/03/21 12/02/23 12/01/23 History
iron) tablet (FeroSul)
pantoprazole 40 mg tablet,delayed 40 mg PO DAILY Gastrointestinal 07/24/23 12/02/23 12/02/23 History
release Issue
apixaban 5 mg tablet (Eliquis) 5 mg PO BID Blood clot 08/22/23 12/02/23 12/02/23 Rx
prevention/tx #0 tabs
atorvastatin 80 mg tablet 80 mg PO QPM High cholesterol #0 08/22/23 12/02/23 12/01/23 Rx
tabs
finasteride 5 mg tablet 5 mg PO QPM Urinary Issue 10/21/23 12/02/23 12/01/23 History
gabapentin 300 mg capsule 300 mg PO HS sleep/pain #10 caps 11/18/23 12/02/23 11/30/23 Rx
metoprolol succinate 25 mg 12.5 mg PO DAILY #30 tabs 11/18/23 12/02/23 12/02/23 Rx
tablet,extended release 24 hr
(Toprol XL)
tramadol 50 mg tablet 50 mg PO BID PRN ongoing therapy 11/18/23 12/02/23 11/30/23 Rx
#20 tabs
acetaminophen 325 mg tablet 650 mg PO Q4HPRN PRN mild pain 03/08/1612/02/23 12/02/23 History
budesonide 0.5 mg/2 mL suspension 0.5 mg inhalation R BIDPRN PRN sob 12/02/23 12/02/23 Unknown History
for nebulization
cholecalciferol (vitamin D3) 25 25 mcg PO DAILY Supplement 12/02/23 12/02/23 12/02/23 History
mcg (1,000 unit) tablet
cyanocobalamin (vitamin B-12) 500 500 mcg PO DAILY Supplement 12/02/23 12/02/23 12/02/23 History
mcg tablet
lisinopril 10 mg tablet 10 mg PO DAILY Blood Pressure 12/02/23 12/02/23 12/02/23 History
oxycodone 5 mg tablet 5 mg PO DAILYPRN PRN severe pain 12/02/23 12/02/23 12/02/23 History
sodium chloride 0.65 % nasal spray 1 spray intranasal BIDPRN PRN dry 12/02/23 12/02/23 12/01/23 History
aerosol nares
vitamin B complex 1 tab PO DAILY Supplement 12/02/23 12/02/23 12/02/23 History
azelastine 137 mcg (0.1 %) nasal 1 spray intranasal BID Allergies 12/03/23 12/03/23 Unknown History
spray aerosol
fluticasone propionate 50 1 spray intranasal BID Allergies 12/03/23 12/03/23 Unknown History
mcg/actuation nasal
spray,suspension
Active Medications
Generic Name Dose Route Start Last Admin
Trade Name Freq PRN Reason Stop Dose Admin
Allopurinol 100 mg 12/03/23 08:00 12/07/23 08:37
Allopurinol 100 Mg Tablet PO 12/31/23 07:59 100 mg
DAILY PERRY Administration
Apixaban 5 mg 12/05/23 14:05 12/07/23 19:59
Apixaban (Eliquis) 5 Mg Tablet PO 01/02/24 14:04 5 mg
BID PERRY Administration
Atorvastatin Calcium 80 mg 12/03/23 18:00 12/07/23 17:49
Atorvastatin (Lipitor) 80 Mg Tablet PO 12/31/23 17:59 80 mg
QPM PERRY Administration
Cholecalciferol 25 mcg 12/03/23 08:00 12/07/23 08:28
Cholecalciferol (Vitamin D3) 25 Mcg Tablet (1,000 Units) PO 12/31/23 07:59 25 mcg
DAILY PERRY Administration
Cyanocobalamin 500 mcg 12/03/23 08:00 12/07/23 08:35
Cyanocobalamin 1,000 Mcg Tablet PO 12/31/23 07:59 500 mcg
DAILY PERRY Administration
Escitalopram Oxalate 10 mg 12/03/23 18:00 12/04/23 17:02
Escitalopram 10 Mg Tablet PO 12/31/23 17:59 10 mg
QPM PERRY Administration
Ferrous Sulfate 325 mg 12/03/23 18:00 12/07/23 17:49
Ferrous Sulfate 325 Mg Tablet PO 12/31/23 17:59 325 mg
QPM PERRY Administration
Finasteride 5 mg 12/03/23 18:00 12/07/23 17:49
Finasteride 5 Mg Tablet PO 12/31/23 17:59 5 mg
QPM PERRY Administration
Gabapentin 300 mg 12/02/23 22:42 12/06/23 21:32
Gabapentin 300 Mg Capsule PO 12/30/23 22:41 300 mg
HS PERRY Administration
Metoprolol Succinate 12.5 mg 12/03/23 08:00 12/07/23 08:28
Metoprolol 12.5 Mg Extended Release Dose (1/2 Of 25 Mg Xl Tablet) PO 12/31/23 07:59 12.5 mg
DAILY PERRY Administration
Montelukast Sodium 10 mg 12/03/23 18:00 12/07/23 17:49
Montelukast Sodium 10 Mg Tablet PO 12/31/23 17:59 10 mg
QPM PERRY Administration
Fluticasone 0 spray 12/03/23 20:30 12/07/23 20:01
Propionate 50 Mcg/ NASAL 12/31/23 20:29 1 spray
[place] 1 [place] Each BID PERRY Administration
Nostril Bid
Azelastine 137 Mcg ( 0 spray 12/03/23 20:30 12/07/23 20:00
0.1 %) 1 [place] Each NASAL 12/31/23 20:29 1 spray
Nostril Bid BID PERRY Administration
Oxycodone HCl 5 mg 12/02/23 22:42 12/06/23 14:47
Oxycodone 5 Mg Regular Release Tablet PO 12/16/23 22:41 5 mg
DAILYPRN PRN Administration
severe pain
Pantoprazole Sodium 40 mg 12/05/23 20:00 12/07/23 19:59
Pantoprazole 40 Mg Delayed Release Tablet PO 01/02/24 19:59 40 mg
BID PERRY Administration
Polyethylene Glycol 17 grams 12/07/23 09:20 12/07/23 11:45
Polyethylene Glycol Powder 17 Grams Packet PO 01/04/24 09:19 17 grams
DAILY PERRY Administration
Senna/Docusate Sodium 2 tablet 12/07/23 09:20 12/07/23 19:59
Docusate W/Senna (Reina-Colace) Tablet PO 01/04/24 09:19 2 tablet
BID PERRY Administration
Sodium Chloride 0 flush 12/02/23 22:00 12/04/23 21:03
Sodium Chloride 0.9% (Flush) Syringe IV 12/30/23 21:59 2 flush
PER PROTOCOL PERRY Administration
Sodium Chloride 0 sprays 12/02/23 22:54
Sodium Chloride 0.65% Nasal [place] 45 Ml Bottle NASAL 12/30/23 22:53
BIDPRN PRN
dry nares
Tamsulosin HCl 0.4 mg 12/03/23 08:00 12/07/23 19:59
Tamsulosin 0.4 Mg Capsule PO 12/31/23 07:59 0.4 mg
BID PERRY Administration
Tramadol HCl 50 mg 12/02/23 22:42 12/06/23 17:21
Tramadol Hcl 50 Mg Tablet PO 12/30/23 22:41 50 mg
BIDPRN PRN Administration
ongoing therapy
Vitamin B Complex/Vitamin C 1 caplet 12/03/23 08:00 12/07/23 08:27
Vitamin B Complex With Vitamin C Caplet PO 12/31/23 07:59 1 caplet
DAILY PERRY Administration
Review of Systems
-
History Source: Patient
All Other Systems: Reviewed and Negative (other than fatigue and left knee postop pain/swelling)
Physical Exam
-
General: Well Nourished
HEENT: Moist Mucous Membranes
Cardiology: Normal Sinus Rhythm
Pulmonary: Clear
GI: Soft and Normal Bowel Sounds
Musculoskeletal: Edema, Right Lower Extrem and Edema, Left Lower Extrem
Extremities: Pulses Present
Neurology: Non Focal
Labs
Lab Results
WBC 5.4 10^3/uL (4.8-10.8) 12/07/23 06:28
RBC 2.47 10^6/uL (4.70-6.10) L 12/07/23 06:28
Hgb 8.2 g/dL (13.0-18.0) L 12/07/23 06:28
Hct 25.8 % (39.0-52.0) L 12/07/23 06:28
MCV 104.5 fL (80.0-94.0) H 12/07/23 06:28
MCH 33.2 pg (27.0-31.0) H 12/07/23 06:28
MCHC 31.8 g/dL (33.0-37.0) L 12/07/23 06:28
RDW 16.2 % (11.5-14.5) H 12/07/23 06:28
Plt Count 225 10^3/uL (130-400) 12/07/23 06:28
MPV 8.8 fL (7.4-10.4) 12/07/23 06:28
Abs Immat Gran (auto) 0.0 10^3/uL (0-0.05) 12/03/23 05:59
Absolute Neuts (auto) 2.5 10^3/uL (1.4-6.5) 12/03/23 05:59
Absolute Lymphs (auto) 1.1 10^3/uL (1.2-3.4) L 12/03/23 05:59
Absolute Monos (auto) 0.8 10^3/uL (0.1-0.6) H 12/03/23 05:59
Absolute Eos (auto) 0.2 10^3/uL (0-0.7) 12/03/23 05:59
Absolute Basos (auto) 0.0 10^3/uL (0-0.2) 12/03/23 05:59
Immature Gran % 0.4 % (0-0.5) 12/03/23 05:59
Neutrophils % 54.5 % (42.2-75.2) 12/03/23 05:59
Lymphocytes % 24.4 % (20.5-51.1) 12/03/23 05:59
Monocytes % 16.9 % (1.7-9.3) H 12/03/23 05:59
Eosinophils % 3.4 % (0-6) 12/03/23 05:59
Basophils % 0.4 % (0-2) 12/03/23 05:59
Creatinine 1.2 mg/dL (0.7-1.3) 12/07/23 06:28
Vital Signs
Vital Signs
Temp Pulse Resp BP Pulse Ox
97.9 F 79 16 112/57 97
12/07/23 07:50 12/07/23 07:50 12/07/23 07:50 12/07/23 07:50 12/07/23 07:50
[2023-12-07] MEDS: NEURONTIN 300 MG PO (21:52)
[2023-12-07 23:30] VITALS: BP 102/57
[2023-12-08 06:00] VITALS: BMI 29.7
[2023-12-08 07:28] LABS: Hematocrit 26.4 % (39.0-52.0); Hemoglobin 8.4 g/dL (13.0-18.0); Mean Corp Hgb Conc. 31.8 g/dL (33.0-37.0); Mean Corpuscular Hgb 33.1 pg (27.0-31.0); Mean Corpuscular Volume 103.9 fL (80.0-94.0); Mean Platelet Volume 8.9 fL (7.4-10.4); Platelet Count 225 10^3/uL (130-400); Red Blood Cell Count 2.54 10^6/uL (4.70-6.10); Red Cell Dist. Width 15.7 % (11.5-14.5); White Blood Cell Count 5.7 10^3/uL (4.8-10.8)
[2023-12-08 07:58] VITALS: BP 124/63
--- NOTE | 2023-12-08 08:04 | W.PN.HOSP.TC ---
Today's Communication/Plan
-
see bold
Assessment / Plan
Assessment / Plan
HPI: 88-year-old male with past medical history of atrial fibrillation on Eliquis, CVA, diastolic heart failure, hypertension, GERD, hypercholesteremia, anxiety/depression, gout, CKD 3, BPH, hyperparathyroidism, internal hemorrhoids� who recently
underwent left knee replacement on 11/13 here with episode of dark stool yesterday with bright red blood yesterday and worsening anemia. [facility]� He has not been very mobile there.� Eliquis was
also held postoperatively and unclear when this was restarted. Patient had bilateral lower extremity edema after his recent surgery with ecchymosis of the left upper thigh, erythema, swelling and pain of the left calf up to the knee.� He had
ultrasound 3 days ago showing gastrocnemius DVT in the left leg likely due to suspension of Eliquis in the setting of recent left knee replacement.�Patient also had some urinary retention after the surgery requiring Joseph catheter.� He has also been
constipated after the surgery as well. Labs show sodium of 130 from 134 and hypercalcemia with corrected calcium 11.6.� Hemoglobin is trended down from 12.3 prior to surgery down to 8.7.
#Progressive anemia
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
Likely multifactorial from postoperative blood losses/ecchymosis of left upper thigh and possible upper GI bleeding
Appreciate GI input, recommend pantoprazole 40 mg po twice daily
12/03 EGD shows 2 cm hiatal hernia, nonobstructing Schatzki ring, normal stomach, normal duodenum
12/04 colonoscopy shows 15 mm polyp at the appendiceal orifice
Follow-up with Dr. Cedeno in the office for polypectomy
Hemoglobin 8.4 today, was 8.2, was 8.0, status post 1 unit of packed red blood cells on 12/04, was 7.7
Eliquis resumed 12/04, monitor Hgb
If he bleeds or his hemoglobin drops, he will need IVC filter
So far he has been tolerating the Eliquis without any drop in hemoglobin
Family wishes him to go to short-term rehab, patient lives with his daughter
No BM since bowel prep on 12/04, give laxatives so he can have a stool
#Acute left lower extremity DVT
Secondary to recent immobility/recent knee surgery and interruption of Eliquis
Eliquis resumed 12/04, if he bleeds or his hemoglobin drops, will need IVC filter
Appreciate hematology input, recommend repeat left lower extremity Dopplers in 1 month
#Paroxysmal atrial fibrillation
#History of atrial flutter
Eliquis resumed 12/04, if he bleeds or his hemoglobin drops, will need IVC filter
Continue metoprolol for rate control
#Acute urinary retention
#BPH with chronic urinary difficulty
Patient has required straight cath x 3, last episode overnight draining 800 cc of urine
Continue Flomax 0.5 mg twice a day, insert Joseph 12/04
Follow-up with Dr. Grimaldo/urology in the office for void trial
#Transient hypotension
Resolved after stopping lisinopril
Continue to monitor off of IV fluids (history of CHF)
#Hypercalcemia
PTH normal at 43.1
Unclear etiology, resolved
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 Danielson
Appreciate orthopedic surgery input, healing well
No signs or symptoms of cellulitis
#Hyponatremia secondary to SIADH
Sodium improved at 131, was 132, was 130, was 128, was 131
S/p IV Lasix, continue fluid restriction, monitor sodium
#Chronic dysphagia secondary to esophageal stricture
Needs mechanical soft diet with pills in applesauce
#Stage III Kidney disease
Creatinine stable
#History of stroke in 2018, without residual deficits
#Interstitial lung disease
DVT prophylaxis�eliquis
Full code
Updated daughter on phone 12/06
Total time spent to see the patient on the floor, examine the patient, review data and lab results, discuss treatment plan with patient, nursing staff around 50 minutes.
Physical Exam
General: Chronically ill-appearing, no acute distress
HEENT: Normocephalic, Atraumatic, EOMI, MMM
Respiratory: Clear to Auscultation bilaterally
Cardiac: Normal S1/S2, irregularly irregular
GI: Soft, Nontender, Nondistended, Normal Bowel Sounds
Extremities: No Clubbing, Cyanosis
Bilateral lower extremity edema noted, left greater than right
Musculoskeletal: Left knee incision is clean, dry, intact
Neuro: Nonfocal/Grossly Intact
Psych: Calm, Cooperative
Derm: Pale
Anticipated Discharge: 24 - 48 hours
Subjective/Interval History
-
Date of Service: December 07, 2023
No bowel movement yet. No chest pain, no shortness of breath. No nausea, no vomiting.
Objective Data
-
Labs:
Laboratory Results
12/07/23
06:28
WBC 5.4
Hgb 8.2 L
Hct 25.8 L
Plt Count 225
Sodium 132 L
Potassium 4.2
Chloride 97 L
Carbon Dioxide 28
BUN 26 H
Creatinine 1.2
Glucose 100 H
Calcium 10.2
Vital Signs:
Vital Signs
Temp Pulse Resp BP Pulse Ox
97.9 F 79 16 112/57 97
12/07/23 07:50 12/07/23 07:50 12/07/23 07:50 12/07/23 07:50 12/07/23 07:50
I&O
12/06/23 12/07/23 12/08/23
06:59 06:59 06:59
Intake Total 1210 / 1210 900 / 900
Output Total 1850 / 1850 500 / 500
Balance -640 / -640 400 / 400
[2023-12-08] MEDS: B COMPLEX w/VITAMIN C 1 CAPLET PO (08:07)
[2023-12-08] MEDS: ZYLOPRIM 100 MG PO (08:07)
[2023-12-08] MEDS: SENOKOT-S 2 TABLET PO ×2 (08:07→21:00)
[2023-12-08] MEDS: TOPROL XL 12.5 MG PO (08:07)
[2023-12-08] MEDS: VITAMIN D3 (cholecalciferol) 25 MCG PO (08:07)
[2023-12-08] MEDS: ELIQUIS 5 MG PO ×2 (08:07→20:59)
[2023-12-08] MEDS: PROTONIX 40 MG PO ×2 (08:07→20:59)
[2023-12-08] MEDS: FLOMAX 0.400000000000000022 MG PO ×2 (08:07→20:59)
[2023-12-08] MEDS: MIRALAX 17 GRAMS PO (08:07)
[2023-12-08] MEDS: VITAMIN B-12 500 MCG PO (08:07)
[2023-12-08 08:08] LABS: Blood Urea Nitrogen 22 mg/dl (9-20); Calcium 10.2 mg/dl (8.4-10.2); Carbon Dioxide 28 mmol/L (22-30); Chloride 96 mmol/L (98-107); Estimated Creatinine Clearance 59 ml/min; Glucose 99 mg/dl (70-99); Potassium 4.3 mmol/L (3.5-5.1); Sodium 131 mmol/L (135-145); eGFR > 60.00
[2023-12-08] MEDS: NON-FORMULARY ITEM 2 SPRAY NASAL ×4 (08:08→21:02)
[2023-12-08] MEDS: TYLENOL 1000 MG PO (10:17)
[2023-12-08 15:16] VITALS: BP 118/70; PULSE 80; O2SAT 98
[2023-12-08 15:38] VITALS: BP 118/70
[2023-12-08] MEDS: PROSCAR 5 MG PO (17:08)
[2023-12-08] MEDS: LIPITOR 80 MG PO (17:08)
[2023-12-08] MEDS: SINGULAIR 10 MG PO (17:08)
[2023-12-08] MEDS: FEOSOL 325 MG PO (17:08)
[2023-12-08] MEDS: NEURONTIN 300 MG PO (21:00)
[2023-12-08 23:30] VITALS: BP 96/52
[2023-12-09 06:00] VITALS: BMI 29.3
--- NOTE | 2023-12-09 06:36 | W.PN.HOSP.TC ---
Today's Communication/Plan
-
monitor Calcium
cont Eliquis
monitor H&H, Sodium
PT/OT
Cont bowel regimen
pain control
AM Vit D level
Assessment / Plan
Assessment / Plan
Physical Exam
General: Chronically ill-appearing, no acute distress
HEENT: Normocephalic, Atraumatic, EOMI, MMM
Respiratory: Clear to Auscultation bilaterally
Cardiac: Normal S1/S2, irregularly irregular
GI: Soft, Nontender, Nondistended, Normal Bowel Sounds
Extremities: No Clubbing, Cyanosis Bilateral lower extremity edema noted, left greater than right
Musculoskeletal: Left knee incision is clean, dry, intact
Neuro: AWake Alert Conversant
Psych: Calm, Cooperative
HPI: 88-year-old male with past medical history of atrial fibrillation on Eliquis, CVA, diastolic heart failure, hypertension, GERD, hypercholesteremia, anxiety/depression, gout, CKD 3, BPH, hyperparathyroidism, internal hemorrhoids� who recently
underwent left knee replacement on 11/13 here with episode of dark stool yesterday with bright red blood yesterday and worsening anemia. Patient recently returned [facility].� He has not been very mobile there.� Eliquis was
also held postoperatively and unclear when this was restarted. Patient had bilateral lower extremity edema after his recent surgery with ecchymosis of the left upper thigh, erythema, swelling and pain of the left calf up to the knee.� He had
ultrasound 3 days ago showing gastrocnemius DVT in the left leg likely due to suspension of Eliquis in the setting of recent left knee replacement.�Patient also had some urinary retention after the surgery requiring Joseph catheter.� He has also been
constipated after the surgery as well. Labs show sodium of 130 from 134 and hypercalcemia with corrected calcium 11.6.� Hemoglobin is trended down from 12.3 prior to surgery down to 8.7.
#Progressive anemia
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
Likely multifactorial from postoperative blood losses/ecchymosis of left upper thigh and possible upper GI bleeding
Appreciate GI input, recommend pantoprazole 40 mg po twice daily
12/03 EGD shows 2 cm hiatal hernia, nonobstructing Schatzki ring, normal stomach, normal duodenum
12/04 colonoscopy shows 15 mm polyp at the appendiceal orifice
Follow-up with Dr. Cedeno in the office for polypectomy
Received 1PRBC for hgb 7.7 12/04
Eliquis resumed 12/04,
H&H remains stable consistently >8.0 since 12/04
If he bleeds or his hemoglobin drops, he will need IVC filter
So far he has been tolerating the Eliquis without any drop in hemoglobin
Family wishes him to go to short-term rehab, patient lives with his daughter, patient in agreement w/ rehab discharge planning
Constipation
resolved, cont bowel regimen
#Acute left lower extremity DVT
Secondary to recent immobility/recent knee surgery and interruption of Eliquis
Eliquis resumed 12/04, if he bleeds or his hemoglobin drops, will need IVC filter
Appreciate hematology input, recommend repeat left lower extremity Dopplers in 1 month
#Paroxysmal atrial fibrillation
#History of atrial flutter
Eliquis resumed 12/04, if he bleeds or his hemoglobin drops, will need IVC filter
Continue metoprolol for rate control
#Acute urinary retention
#BPH with chronic urinary difficulty
Patient has required straight cath x 3, last episode overnight draining 800 cc of urine
Continue Flomax 0.5 mg twice a day, insert Joseph 12/04
Follow-up with Dr. Grimaldo/urology in the office for void trial
#Transient hypotension
Resolved after stopping lisinopril
Continue to monitor off of IV fluids (history of CHF)
#Mild Hypercalcemia
PTH non-suppressed
reported hx hyperparathyroidism
Follow up AM Vit D lvl
outpatient endocrine follow up recommended
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 Vikoren
Appreciate orthopedic surgery input, healing well
No signs or symptoms of cellulitis
#Hyponatremia secondary to SIADH
S/p IV Lasix, continue fluid restriction, monitor sodium
stable/improved 130s
#Chronic dysphagia secondary to esophageal stricture
Needs mechanical soft diet with pills in applesauce
#Stage III Kidney disease
Creatinine stable
#History of stroke in 2018, without residual deficits
#Interstitial lung disease
DVT prophylaxis�eliquis
Full code
Total time spent to see the patient on the floor, examine the patient, review data and lab results, discuss treatment plan with patient, nursing staff around 52 minutes.
Anticipated Discharge: 24 - 48 hours
Subjective/Interval History
-
Date of Service: December 09, 2023
Seen and examined at bedside in no acute distress resting comfortably in bed. Reports pain well controlled at rest.
Objective Data
-
Labs:
Laboratory Results
12/09/23
05:41
WBC Pending
Hgb Pending
Hct Pending
Plt Count Pending
Sodium Pending
Potassium Pending
Chloride Pending
Carbon Dioxide Pending
BUN Pending
Creatinine Pending
Glucose Pending
Calcium Pending
Vital Signs:
Vital Signs
Temp Pulse Resp BP Pulse Ox
99.9 F 84 16 96/52 96
12/08/23 23:30 12/08/23 23:30 12/08/23 23:30 12/08/23 23:30 12/08/23 23:30
I&O
12/07/23 12/08/23 12/09/23
06:59 06:59 06:59
Intake Total 900 / 900 1500 / 1500 900 / 900
Output Total 500 / 500 1250 / 1250 1850 / 1850
Balance 400 / 400 250 / 250 -950 / -950
[2023-12-09 06:45] LABS: Hematocrit 27.5 % (39.0-52.0); Hemoglobin 8.8 g/dL (13.0-18.0); Mean Corpuscular Hgb 33.1 pg (27.0-31.0); Mean Corpuscular Volume 103.4 fL (80.0-94.0); Mean Platelet Volume 8.8 fL (7.4-10.4); Platelet Count 224 10^3/uL (130-400); Red Blood Cell Count 2.66 10^6/uL (4.70-6.10); Red Cell Dist. Width 15.4 % (11.5-14.5); White Blood Cell Count 4.5 10^3/uL (4.8-10.8)
[2023-12-09 07:00] VITALS: BP 113/71
[2023-12-09 07:07] LABS: Blood Urea Nitrogen 26 mg/dl (9-20); Calcium 10.5 mg/dl (8.4-10.2); Carbon Dioxide 28 mmol/L (22-30); Chloride 97 mmol/L (98-107); Estimated Creatinine Clearance 59 ml/min; Glucose 104 mg/dl (70-99); Potassium 4.7 mmol/L (3.5-5.1); Sodium 130 mmol/L (135-145); eGFR > 60.00
[2023-12-09] MEDS: FLOMAX 0.400000000000000022 MG PO ×2 (08:10→20:43)
[2023-12-09] MEDS: B COMPLEX w/VITAMIN C 1 CAPLET PO (08:10)
[2023-12-09] MEDS: TOPROL XL 12.5 MG PO (08:10)
[2023-12-09] MEDS: MIRALAX 17 GRAMS PO (08:10)
[2023-12-09] MEDS: VITAMIN D3 (cholecalciferol) 25 MCG PO (08:11)
[2023-12-09] MEDS: ZYLOPRIM 100 MG PO (08:11)
[2023-12-09] MEDS: VITAMIN B-12 500 MCG PO (08:11)
[2023-12-09] MEDS: PROTONIX 40 MG PO ×2 (08:12→20:45)
[2023-12-09] MEDS: ELIQUIS 5 MG PO ×2 (08:12→20:43)
[2023-12-09] MEDS: SENOKOT-S 2 TABLET PO ×2 (08:12→20:44)
--- NOTE | 2023-12-09 09:26 | W.PN.ONC ---
Addendum entered and electronically signed by Arlene Hoyt DO 12/09/23 11:14:
The FLUE GAS ANALYST or PA's note was reviewed and I agree with the assessment and plan.
Original Note:
Today's Communication / Plan
-
12/08 Hgb 8.8, Hct 27.5
s/p 1unit PRBCs
Transfuse as needed to maintain Hgb >7
Continue Eliquis, resumed 12/04
Monitor H/H closely, monitor for bleeding
Additional labs pending
Adequate iron stores
Pain management/supportive care
Continue physical therapy
Follow up GI as scheduled
Repeat Doppler RLE outpatient within the month
Planning for SNF
Impression
Impression
Left TKA w/ Dr. Danielson 11/13/23
Postoperative LLE VTE
Anemia of chronic disease
Intermittent blood loss w/ inflammatory component
Hx iron deficiency
Subjective/Objective
Subjective/Objective
Patient is comfortable in bed, eating breakfast. He is eager to continue to work with PT/OT. Denies pain at rest.
Vital Signs:
Vital Signs
Temp Pulse Resp BP Pulse Ox
97.8 F 79 16 113/71 97
12/09/23 07:00 12/09/23 07:00 12/09/23 07:00 12/09/23 07:00 12/09/23 07:00
physical exam
aaox3, pleasant, pallor
HRR, lungs clear/poor effort
+3 LLE, discoloration, ecchymosis
knee incision, CDI. dry skin
Lab Results:
Laboratory Data
WBC 4.5 10^3/uL (4.8-10.8) L 12/09/23 05:41
Hgb 8.8 g/dL (13.0-18.0) L 12/09/23 05:41
Plt Count 224 10^3/uL (130-400) 12/09/23 05:41
PT 17.4 Sec (11.4-14.6) H 12/02/23 16:11
INR 1.44 12/02/23 16:11
APTT 32.1 Sec (23.4-35.0) 12/02/23 21:05
eGFR > 60.00 12/09/23 05:41
11/29/23 PV US: There is occlusive deep venous thrombosis in the left gastrocnemius vein
12/04/23 CXR: Interval resolution of right lower lung pneumonia since radiograph of August 20, 2023.Increased reticular markings within the lower lungs, which is likely from interstitial fibrosis, when correlating with previous CT of the chest.
Orders
Orders
Orders From Last 24 Hours
12/09/23 09:25
Haptoglobin [S] Routine
LDH Routine
Reticulocyte Count Urgent
[2023-12-09 10:09] LABS: Reticulocyte Count 3.3 % (0.4-2.8)
[2023-12-09 10:47] LABS: LDH 249 U/L (120-246)
[2023-12-09] MEDS: NON-FORMULARY ITEM 1 SPRAY NASAL ×4 (10:53→20:47)
[2023-12-09 15:00] VITALS: BP 100/56
--- NOTE | 2023-12-09 16:06 | CM ---
CM following for d/c planning
Choices obtained and sent
[facility] - received referral - waiting on response
[facility] - has no beds at this time
CM will continue to follow
Plan - d/c to snf when medically stable - tbd
[2023-12-09] MEDS: FEOSOL 325 MG PO (17:47)
[2023-12-09] MEDS: PROSCAR 5 MG PO (17:47)
[2023-12-09] MEDS: LIPITOR 80 MG PO (17:47)
[2023-12-09] MEDS: SINGULAIR 10 MG PO (17:48)
[2023-12-09] MEDS: TYLENOL 1000 MG PO (18:09)
[2023-12-09] MEDS: OCEAN, SALINE MIST 50 SPRAYS NASAL (20:44)
[2023-12-09] MEDS: NEURONTIN 300 MG PO (21:18)
[2023-12-09 23:52] VITALS: BP 125/67
[2023-12-10 05:38] LABS: Hematocrit 27.4 % (39.0-52.0); Hemoglobin 8.8 g/dL (13.0-18.0); Mean Corp Hgb Conc. 32.1 g/dL (33.0-37.0); Mean Corpuscular Volume 102.6 fL (80.0-94.0); Mean Platelet Volume 8.6 fL (7.4-10.4); Platelet Count 232 10^3/uL (130-400); Red Blood Cell Count 2.67 10^6/uL (4.70-6.10); Red Cell Dist. Width 15.3 % (11.5-14.5); White Blood Cell Count 4.1 10^3/uL (4.8-10.8)
[2023-12-10 06:00] VITALS: BMI 28.8
[2023-12-10 06:14] LABS: ALT (SGPT) 15 U/L (0-50); AST (SGOT) 28 U/L (17-59); Albumin 2.8 g/dl (3.5-5.0); Alkaline Phosphatase 73 U/L (38-126); Blood Urea Nitrogen 29 mg/dl (9-20); Calcium 10.9 mg/dl (8.4-10.2); Carbon Dioxide 30 mmol/L (22-30); Chloride 98 mmol/L (98-107); Direct Bilirubin 0.2 mg/dl (0.0-0.4); Estimated Creatinine Clearance 54 ml/min; Glucose 105 mg/dl (70-99); Potassium 4.8 mmol/L (3.5-5.1); Sodium 133 mmol/L (135-145); Total Bilirubin 1.8 mg/dl (0.2-1.3); eGFR 58.89
[2023-12-10 06:21] LABS: Vitamin D, 25-OH*** 32.3 ng/mL (30-80)
[2023-12-10 07:00] VITALS: BP 103/69
--- NOTE | 2023-12-10 07:58 | W.PN.HOSP.TC ---
Today's Communication/Plan
-
fluid restriction relaxed to 50 oz, cont monitoring Na and Ca
cont Eliquis monitor H&H
PT/OT
Cont bowel regimen
pain control
Medically stable for discharge to SNF rehab pending placement
Assessment / Plan
Assessment / Plan
Physical Exam
General: Chronically ill-appearing, no acute distress
HEENT: Normocephalic, Atraumatic, EOMI, MMM
Respiratory: Clear to Auscultation bilaterally
Cardiac: Normal S1/S2, irregularly irregular
GI: Soft, Nontender, Nondistended, Normal Bowel Sounds
Extremities: No Clubbing, Cyanosis Bilateral lower extremity edema noted, left greater than right
Musculoskeletal: Left knee incision is clean, dry, intact
Neuro: AWake Alert Conversant
Psych: Calm, Cooperative
HPI: 88-year-old male with past medical history of atrial fibrillation on Eliquis, CVA, diastolic heart failure, hypertension, GERD, hypercholesteremia, anxiety/depression, gout, CKD 3, BPH, hyperparathyroidism, internal hemorrhoids� who recently
underwent left knee replacement on 11/13 here with episode of dark stool yesterday with bright red blood yesterday and worsening anemia. [facility].� He has not been very mobile there.� Eliquis was
also held postoperatively and unclear when this was restarted. Patient had bilateral lower extremity edema after his recent surgery with ecchymosis of the left upper thigh, erythema, swelling and pain of the left calf up to the knee.� He had
ultrasound 3 days ago showing gastrocnemius DVT in the left leg likely due to suspension of Eliquis in the setting of recent left knee replacement.�Patient also had some urinary retention after the surgery requiring Joseph catheter.� He has also been
constipated after the surgery as well. Labs show sodium of 130 from 134 and hypercalcemia with corrected calcium 11.6.� Hemoglobin is trended down from 12.3 prior to surgery down to 8.7.
#Progressive anemia
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
Likely multifactorial from postoperative blood losses/ecchymosis of left upper thigh and possible upper GI bleeding
Appreciate GI input, recommend pantoprazole 40 mg po twice daily
12/03 EGD shows 2 cm hiatal hernia, nonobstructing Schatzki ring, normal stomach, normal duodenum
12/04 colonoscopy shows 15 mm polyp at the appendiceal orifice
Follow-up with Dr. Cedeno in the office for polypectomy
Received 1PRBC for hgb 7.7 12/04
Eliquis resumed 12/04,
H&H remains stable consistently >8.0 since 12/04
If he bleeds or his hemoglobin drops, he will need IVC filter
So far he has been tolerating the Eliquis without any drop in hemoglobin
Constipation
resolved, cont bowel regimen
#Acute left lower extremity DVT
Secondary to recent immobility/recent knee surgery and interruption of Eliquis
Eliquis resumed 12/04, if he bleeds or his hemoglobin drops, will need IVC filter
Appreciate hematology input, recommend repeat left lower extremity Dopplers in 1 month
#Paroxysmal atrial fibrillation
#History of atrial flutter
Eliquis resumed 12/04, if he bleeds or his hemoglobin drops, will need IVC filter
Continue metoprolol for rate control
#Acute urinary retention
#BPH with chronic urinary difficulty
Patient has required straight cath x 3, last episode overnight draining 800 cc of urine
Continue Flomax 0.5 mg twice a day, Joseph inserted 12/04
Trial of void prior to discharge
Outpt Follow-up with Dr. Grimaldo/urology
#Transient hypotension
Resolved after stopping lisinopril
Continue to monitor off of IV fluids (history of CHF)
#Mild Hypercalcemia
PTH non-suppressed
reported hx hyperparathyroidism
Vit D lvl wnl
cont outpt follow up with patient's Well Digger Dr Shepherd
fluid restriction relaxed to 50 oz
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 Danielson
Appreciate orthopedic surgery input, healing well
No signs or symptoms of cellulitis
#Hyponatremia secondary to SIADH
S/p IV Lasix, continue fluid restriction, monitor sodium
stable/improved 130s
fluid restriction relaxed from 48 oz to 50 oz
#Chronic dysphagia secondary to esophageal stricture
Needs mechanical soft diet with pills in applesauce
#Stage III Kidney disease
Creatinine stable
#History of stroke in 2018, without residual deficits
#Interstitial lung disease
DVT prophylaxis�eliquis
Full code
discussed with patient, his daughter Leah, and son-in-law
Total time spent to see the patient on the floor, examine the patient, review data and lab results, discuss treatment plan with patient, nursing staff around 51 minutes.
Anticipated Discharge: 24 - 48 hours
Subjective/Interval History
-
Date of Service: December 10, 2023
no acute distress sitting up comfortably in chair. Reports feeling well. Daughter Leah and Son-in-Law present during evaluation.
Objective Data
-
Labs:
Laboratory Results
12/10/23
05:15
WBC 4.1 L
Hgb 8.8 L
Hct 27.4 L
Plt Count 232
Sodium 133 L
Potassium 4.8
Chloride 98
Carbon Dioxide 30
BUN 29 H
Creatinine 1.2
Glucose 105 H
Calcium 10.9 H
Total Bilirubin 1.8 H
AST 28
ALT 15
Alkaline Phosphatase 73
Vital Signs:
Vital Signs
Temp Pulse Resp BP Pulse Ox
98.4 F 74 18 103/69 97
12/10/23 07:00 12/10/23 07:00 12/10/23 07:00 12/10/23 07:00 12/10/23 07:00
I&O
12/09/23 12/10/23 12/11/23
06:59 06:59 06:59
Intake Total 900 / 900 900 / 900
Output Total 1850 / 1850 1600 / 1600
Balance -950 / -950 -700 / -700
[2023-12-10] MEDS: VITAMIN B-12 500 MCG PO (08:27)
[2023-12-10] MEDS: FLOMAX 0.400000000000000022 MG PO ×2 (08:28→20:11)
[2023-12-10] MEDS: SENOKOT-S 2 TABLET PO ×2 (08:28→20:11)
[2023-12-10] MEDS: B COMPLEX w/VITAMIN C 1 CAPLET PO (08:28)
[2023-12-10] MEDS: ZYLOPRIM 100 MG PO (08:29)
[2023-12-10] MEDS: ELIQUIS 5 MG PO ×2 (08:29→20:11)
[2023-12-10] MEDS: MIRALAX 17 GRAMS PO (08:29)
[2023-12-10] MEDS: TOPROL XL 12.5 MG PO (08:29)
[2023-12-10] MEDS: PROTONIX 40 MG PO ×2 (08:29→20:11)
[2023-12-10] MEDS: VITAMIN D3 (cholecalciferol) 25 MCG PO (08:29)
[2023-12-10] MEDS: OCEAN, SALINE MIST 1 SPRAYS NASAL (08:32)
[2023-12-10] MEDS: NON-FORMULARY ITEM 1 SPRAY NASAL ×4 (08:33→20:15)
[2023-12-10 13:41] LABS: Haptoglobin 242 mg/dL (30-200)
[2023-12-10 14:48] VITALS: BP 116/67
[2023-12-10 14:55] VITALS: BP 117/78; PULSE 95; O2SAT 98
[2023-12-10] MEDS: PROSCAR 5 MG PO (17:19)
[2023-12-10] MEDS: FEOSOL 325 MG PO (17:19)
[2023-12-10] MEDS: SINGULAIR 10 MG PO (17:19)
[2023-12-10] MEDS: LIPITOR 80 MG PO (17:19)
[2023-12-10] MEDS: FLUSH (NSS) 1 FLUSH IV (20:16)
[2023-12-10] MEDS: NEURONTIN 300 MG PO (22:25)
[2023-12-11 00:10] VITALS: BP 104/54
[2023-12-11 04:28] VITALS: BMI 28.6
[2023-12-11 05:49] LABS: Hematocrit 26.3 % (39.0-52.0); Hemoglobin 8.6 g/dL (13.0-18.0); Mean Corp Hgb Conc. 32.7 g/dL (33.0-37.0); Mean Corpuscular Hgb 33.1 pg (27.0-31.0); Mean Corpuscular Volume 101.2 fL (80.0-94.0); Mean Platelet Volume 8.5 fL (7.4-10.4); Platelet Count 239 10^3/uL (130-400)
[2023-12-11 06:27] LABS: Blood Urea Nitrogen 28 mg/dl (9-20); Calcium 10.8 mg/dl (8.4-10.2); Carbon Dioxide 29 mmol/L (22-30); Chloride 97 mmol/L (98-107); Estimated Creatinine Clearance 59 ml/min; Glucose 100 mg/dl (70-99); Magnesium 2.2 mg/dl (1.6-2.3); Phosphorus 3.7 mg/dl (2.5-4.5); Potassium 4.4 mmol/L (3.5-5.1); Sodium 132 mmol/L (135-145); eGFR > 60.00
--- NOTE | 2023-12-11 07:11 | W.PN.HOSP.TC ---
Today's Communication/Plan
-
Relaxation Fluid restriction 60 oz
Joseph discontinued, trial of void
discharge planning SNF rehab
Cont Monitoring Na, Calcium, H&H
Assessment / Plan
Assessment / Plan
Physical Exam
General: Chronically ill-appearing, no acute distress
HEENT: Normocephalic, Atraumatic, EOMI, MMM
Respiratory: Clear to Auscultation bilaterally
Cardiac: Normal S1/S2, irregularly irregular
GI: Soft, Nontender, Nondistended, Normal Bowel Sounds
Extremities: No Clubbing, Cyanosis Bilateral lower extremity edema noted, left greater than right
Musculoskeletal: Left knee incision is clean, dry, intact
Neuro: AWake Alert Conversant
Psych: Calm, Cooperative
HPI: 88-year-old male with past medical history of atrial fibrillation on Eliquis, CVA, diastolic heart failure, hypertension, GERD, hypercholesteremia, anxiety/depression, gout, CKD 3, BPH, hyperparathyroidism, internal hemorrhoids� who recently
underwent left knee replacement on 11/13 here with episode of dark stool yesterday with bright red blood yesterday and worsening anemia. Patient recently returned home from [facility] [place] [facility].� He has not been very mobile there.� Eliquis was
also held postoperatively and unclear when this was restarted. Patient had bilateral lower extremity edema after his recent surgery with ecchymosis of the left upper thigh, erythema, swelling and pain of the left calf up to the knee.� He had
ultrasound 3 days ago showing gastrocnemius DVT in the left leg likely due to suspension of Eliquis in the setting of recent left knee replacement.�Patient also had some urinary retention after the surgery requiring Joseph catheter.� He has also been
constipated after the surgery as well. Labs show sodium of 130 from 134 and hypercalcemia with corrected calcium 11.6.� Hemoglobin is trended down from 12.3 prior to surgery down to 8.7.
#Progressive anemia
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
Likely multifactorial from postoperative blood losses/ecchymosis of left upper thigh and possible upper GI bleeding
Appreciate GI input, recommend pantoprazole 40 mg po twice daily
12/03 EGD shows 2 cm hiatal hernia, nonobstructing Schatzki ring, normal stomach, normal duodenum
12/04 colonoscopy shows 15 mm polyp at the appendiceal orifice
Follow-up with Dr. Cedeno in the office for polypectomy
Received 1PRBC for hgb 7.7 12/04
Eliquis resumed 12/04,
H&H remains stable consistently >8.0 since 12/04
If he bleeds or his hemoglobin drops, he will need IVC filter
So far he has been tolerating the Eliquis without any drop in hemoglobin
Constipation
resolved, cont bowel regimen
#Acute left lower extremity DVT
Secondary to recent immobility/recent knee surgery and interruption of Eliquis
Eliquis resumed 12/04, if he bleeds or his hemoglobin drops, will need IVC filter
Appreciate hematology input, recommend repeat left lower extremity Dopplers in 1 month
#Paroxysmal atrial fibrillation
#History of atrial flutter
Eliquis resumed 12/04, if he bleeds or his hemoglobin drops, will need IVC filter
Continue metoprolol for rate control
#Acute urinary retention
#BPH with chronic urinary difficulty
Patient had required straight cath x 3, last episode overnight draining 800 cc of urine
Continue Flomax 0.5 mg twice a day, Joseph inserted 12/04
Trial of void started 12/10 Joseph discontinued
Outpt Follow-up with Dr. Grimaldo/urology
#Transient hypotension
Resolved after stopping lisinopril
Continue to monitor off of IV fluids (history of CHF)
#Mild Hypercalcemia
PTH non-suppressed
reported hx hyperparathyroidism
Vit D lvl wnl
cont outpt follow up with patient's Concentrator Operator Dr Shepherd
fluid restriction relaxed to 60 oz
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 Danielson
Appreciate orthopedic surgery input, healing well
No signs or symptoms of cellulitis
#Hyponatremia secondary to SIADH
S/p IV Lasix, continue fluid restriction, monitor sodium
stable/improved 130s
fluid restriction relaxed from 48 oz to 50 oz, then 60 oz
#Reported Chronic dysphagia secondary to esophageal stricture
#Non-obstructing Schatzki noted on EGD
mechanical soft diet with pills in applesauce
speech eval
#Stage III Kidney disease
Creatinine stable
#History of stroke in 2018, without residual deficits
#Interstitial lung disease
DVT prophylaxis�eliquis
Full code
discussed with patient and his daughter Ondina
Total time spent to see the patient on the floor, examine the patient, review data and lab results, discuss treatment plan with patient, nursing staff around 55 minutes.
Anticipated Discharge: 24 - 48 hours
Subjective/Interval History
-
Date of Service: December 11, 2023
No acute distress. Joseph discontinued trial of void, no urine output noted so far however no significant retention noted on bladder scan either. Patient otherwise reports feeling well.
Objective Data
-
Labs:
Laboratory Results
12/11/23
05:29
WBC 4.0 L
Hgb 8.6 L
Hct 26.3 L
Plt Count 239
Sodium 132 L
Potassium 4.4
Chloride 97 L
Carbon Dioxide 29
BUN 28 H
Creatinine 1.1
Glucose 100 H
Calcium 10.8 H
Vital Signs:
Vital Signs
Temp Pulse Resp BP Pulse Ox
99.3 F 93 18 104/54 95
12/11/23 00:10 12/11/23 00:10 12/11/23 00:10 12/11/23 00:10 12/11/23 00:10
I&O
12/10/23 12/11/23 12/12/23
06:59 06:59 06:59
Intake Total 900 / 900 680 / 680
Output Total 1600 / 1600 1500 / 1500
Balance -700 / -700 -820 / -820
[2023-12-11 07:30] VITALS: BP 118/71
[2023-12-11] MEDS: B COMPLEX w/VITAMIN C 1 CAPLET PO (08:19)
[2023-12-11] MEDS: TOPROL XL 12.5 MG PO (08:19)
[2023-12-11] MEDS: FLOMAX 0.400000000000000022 MG PO ×2 (08:19→21:09)
[2023-12-11] MEDS: VITAMIN B-12 500 MCG PO (08:19)
[2023-12-11] MEDS: ELIQUIS 5 MG PO ×2 (08:20→21:08)
[2023-12-11] MEDS: PROTONIX 40 MG PO ×2 (08:20→21:09)
[2023-12-11] MEDS: SENOKOT-S 2 TABLET PO ×2 (08:21→21:09)
[2023-12-11] MEDS: MIRALAX 17 GRAMS PO (08:21)
[2023-12-11] MEDS: ZYLOPRIM 100 MG PO (08:21)
[2023-12-11] MEDS: VITAMIN D3 (cholecalciferol) 25 MCG PO (08:21)
[2023-12-11] MEDS: DESENEX/MITRAZOL/ZEASORB 1 APPLIC TOPICAL ×2 (08:22→21:13)
[2023-12-11] MEDS: NON-FORMULARY ITEM 1 SPRAY NASAL ×4 (08:24→21:13)
[2023-12-11] MEDS: TYLENOL 1000 MG PO (10:36)
--- NOTE | 2023-12-11 15:23 | CM ---
CM following for d/c planning
Pt for snf at d/c - May be ready tomorrow
Currently no bed available at [facility] may have bed in AM for availability
Plan - snf at d/c - will need auth
[2023-12-11 15:41] VITALS: BP 102/56
[2023-12-11 15:51] VITALS: BP 101/61; BP 102/56; BP 125/61; PULSE 68; O2SAT 98
[2023-12-11] MEDS: PROSCAR 5 MG PO (17:31)
[2023-12-11] MEDS: FEOSOL 325 MG PO (17:31)
[2023-12-11] MEDS: SINGULAIR 10 MG PO (17:31)
[2023-12-11] MEDS: LIPITOR 80 MG PO (17:31)
--- NOTE | 2023-12-11 18:29 | PTCARENOTE ---
Pt. Joseph discontinued at 1100. Pt. unable to urinate after multiple attempts in the urinal and bedside commode. Bladder scanned pt. at 1700, pt. has 136 ml in his bladder. notified, no action taken. Will continue to follow bladder scan straight
cath procedure
[2023-12-11] MEDS: NEURONTIN 300 MG PO (21:09)
[2023-12-11 23:45] VITALS: BP 140/77
[2023-12-12 05:33] LABS: Hematocrit 27.1 % (39.0-52.0); Mean Corp Hgb Conc. 33.2 g/dL (33.0-37.0); Mean Corpuscular Hgb 33.2 pg (27.0-31.0); Mean Platelet Volume 8.5 fL (7.4-10.4); Platelet Count 242 10^3/uL (130-400); Red Blood Cell Count 2.71 10^6/uL (4.70-6.10); White Blood Cell Count 4.1 10^3/uL (4.8-10.8)
[2023-12-12 06:00] VITALS: BMI 28.6
[2023-12-12 06:19] LABS: Blood Urea Nitrogen 27 mg/dl (9-20); Carbon Dioxide 31 mmol/L (22-30); Chloride 98 mmol/L (98-107); Estimated Creatinine Clearance 54 ml/min; Glucose 103 mg/dl (70-99); Magnesium 2.3 mg/dl (1.6-2.3); Phosphorus 3.9 mg/dl (2.5-4.5); Potassium 4.6 mmol/L (3.5-5.1); Sodium 134 mmol/L (135-145); eGFR 58.89
[2023-12-12] MEDS: TYLENOL 1000 MG PO ×2 (06:43→18:26)
--- NOTE | 2023-12-12 07:16 | PTCARENOTE ---
Patient voiding 10-400ml through the night with bladder scan<400 until this am. Bladder scan 450ml after 100ml void. Straight cath for 700ml.
--- NOTE | 2023-12-12 07:22 | W.PN.HOSP.TC ---
Today's Communication/Plan
-
Joseph re-inserted failed trial of void significant retention 700 cc noted on morning cath
Lasix Pamidronate as per Nephro
cont monitoring Na Ca, H&H
cont Eliquis
PT
Assessment / Plan
Assessment / Plan
Physical Exam
General: Chronically ill-appearing, no acute distress
HEENT: Normocephalic, Atraumatic, EOMI, MMM
Respiratory: Clear to Auscultation bilaterally
Cardiac: Normal S1/S2, irregularly irregular
GI: Soft, Nontender, Nondistended, Normal Bowel Sounds
Extremities: No Clubbing, Cyanosis Lower ext edema improved
Musculoskeletal: Left knee incision is clean, dry, intact
Neuro: AWake Alert Conversant
Psych: Calm, Cooperative
HPI: 88-year-old male with past medical history of atrial fibrillation on Eliquis, CVA, diastolic heart failure, hypertension, GERD, hypercholesteremia, anxiety/depression, gout, CKD 3, BPH, hyperparathyroidism, internal hemorrhoids� who recently
underwent left knee replacement on 11/13 here with episode of dark stool yesterday with bright red blood yesterday and worsening anemia. Patient recently returned home from [facility] ago.� He has not been very mobile there.� Eliquis was
also held postoperatively and unclear when this was restarted. Patient had bilateral lower extremity edema after his recent surgery with ecchymosis of the left upper thigh, erythema, swelling and pain of the left calf up to the knee.� He had
ultrasound 3 days ago showing gastrocnemius DVT in the left leg likely due to suspension of Eliquis in the setting of recent left knee replacement.�Patient also had some urinary retention after the surgery requiring Joseph catheter.� He has also been
constipated after the surgery as well. Labs show sodium of 130 from 134 and hypercalcemia with corrected calcium 11.6.� Hemoglobin is trended down from 12.3 prior to surgery down to 8.7.
#Progressive anemia
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
Likely multifactorial from postoperative blood losses/ecchymosis of left upper thigh and possible upper GI bleeding
Appreciate GI input, recommend pantoprazole 40 mg po twice daily
12/03 EGD shows 2 cm hiatal hernia, nonobstructing Schatzki ring, normal stomach, normal duodenum
12/04 colonoscopy shows 15 mm polyp at the appendiceal orifice
Follow-up with Dr. Cedeno in the office for polypectomy
Received 1PRBC for hgb 7.7 12/04
Eliquis resumed 12/04,
H&H remains stable consistently >8.0 since 12/04
If he bleeds or his hemoglobin drops, he will need IVC filter
So far he has been tolerating the Eliquis without any drop in hemoglobin
Constipation
resolved, cont bowel regimen
#Acute left lower extremity DVT
Secondary to recent immobility/recent knee surgery and interruption of Eliquis
Eliquis resumed 12/04, if he bleeds or his hemoglobin drops, will need IVC filter
Appreciate hematology input, recommend repeat left lower extremity Dopplers in 1 month
#Paroxysmal atrial fibrillation
#History of atrial flutter
Eliquis resumed 12/04, if he bleeds or significant drop Hgb, will need IVC filter
Continue metoprolol for rate control
#Acute urinary retention
#BPH with chronic urinary difficulty
Patient had required straight cath x 3, last episode overnight draining 800 cc of urine
Continue Flomax 0.5 mg twice a day, Joseph inserted 12/04
Trial of void attempted 12/10 unfortunately failed, Joseph since re-inserted
Outpt Follow-up with Dr. Grimaldo/urology
#Transient hypotension
Resolved after stopping lisinopril
Continue to monitor off of IV fluids (history of CHF)
#Mild Hypercalcemia
PTH non-suppressed
reported hx hyperparathyroidism
Vit D lvl wnl
fluid restriction relaxed to 60 oz
Nephro eval appreciated Lasix started, low dose pamidronate given 12/11, Vit D supplementation discontinued.
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 Danielson
Appreciate orthopedic surgery input, healing well
No signs or symptoms of cellulitis
#Hyponatremia secondary to SIADH
S/p IV Lasix, continue fluid restriction, monitor sodium
stable/improved 130s
fluid restriction relaxed from 48 oz to 50 oz, then 60 oz
#Reported Chronic dysphagia secondary to esophageal stricture
#Non-obstructing Schatzki noted on EGD
mechanical soft diet with pills in applesauce
speech eval appreciated diet since advanced to Regular no need to crush meds
#Stage III Kidney disease
Creatinine stable
#History of stroke in 2018, without residual deficits
#Interstitial lung disease
DVT prophylaxis�eliquis
Full code
Total time spent to see the patient on the floor, examine the patient, review data and lab results, discuss treatment plan with patient, nursing staff around 56 minutes.
Anticipated Discharge: 24 - 48 hours
Subjective/Interval History
-
Date of Service: December 12, 2023
unfortunately failed trial of void with significant retention noted in morning, cath yieled 700 cc. Joseph since re=inserted. Otherwise no acute distress sitting up comfortably in bed. Overall reports feeling welll.
Objective Data
-
Labs:
Laboratory Results
12/12/23
05:23
WBC 4.1 L
Hgb 9.0 L
Hct 27.1 L
Plt Count 242
Sodium 134 L
Potassium 4.6
Chloride 98
Carbon Dioxide 31 H
BUN 27 H
Creatinine 1.2
Glucose 103 H
Calcium 11.0 H
Vital Signs:
Vital Signs
Temp Pulse Resp BP Pulse Ox
97.6 F 70 20 140/77 95
12/11/23 23:45 12/11/23 23:45 12/11/23 23:45 12/11/23 23:45 12/11/23 23:45
I&O
12/11/23 12/12/23 12/13/23
06:59 06:59 06:59
Intake Total 680 / 680 330 / 330
Output Total 1500 / 1500 1340 / 1340 700 / 700
Balance -820 / -820 -1010 / -1010 -700 / -700
[2023-12-12 07:46] VITALS: BP 109/60
[2023-12-12] MEDS: FLOMAX 0.400000000000000022 MG PO ×2 (07:49→20:51)
[2023-12-12] MEDS: TOPROL XL 12.5 MG PO (07:49)
[2023-12-12] MEDS: VITAMIN B-12 500 MCG PO (07:49)
[2023-12-12] MEDS: ZYLOPRIM 100 MG PO (07:49)
[2023-12-12] MEDS: PROTONIX 40 MG PO ×2 (07:49→20:52)
[2023-12-12] MEDS: B COMPLEX w/VITAMIN C 1 CAPLET PO (07:49)
[2023-12-12] MEDS: VITAMIN D3 (cholecalciferol) 25 MCG PO (07:49)
[2023-12-12] MEDS: ELIQUIS 5 MG PO ×2 (07:50→20:52)
[2023-12-12] MEDS: SENOKOT-S 2 TABLET PO ×2 (07:50→20:51)
[2023-12-12] MEDS: MIRALAX 17 GRAMS PO (07:50)
[2023-12-12] MEDS: NON-FORMULARY ITEM 1 SPRAY NASAL ×4 (07:56→20:53)
[2023-12-12] MEDS: DESENEX/MITRAZOL/ZEASORB 1 APPLIC TOPICAL ×2 (07:57→21:09)
--- NOTE | 2023-12-12 09:29 | W.PN.ONC ---
Today's Communication / Plan
-
12/11 Hgb 9.0, Hct 27.1 (stable)
s/p 1unit PRBCs
Transfuse as needed to maintain Hgb >7
Continue Eliquis, resumed 12/04, no evidence of bleeding
Adequate iron stores
Pain management/supportive care
Continue physical therapy
Follow up GI as scheduled
CBC weekly upon discharge. If he bleeds or Hgb drops, consider IVC filter.
Repeat Doppler US outpatient within the month. Hgb remains stable on Eliquis.
Planning for SNF when bed available.
Impression
Impression
Left TKA w/ Dr. Danielson 11/13/23
Postoperative LLE VTE
Anemia of chronic disease
Intermittent blood loss w/ inflammatory component
Hx iron deficiency
Subjective/Objective
Subjective/Objective
Vital Signs:
Vital Signs
Temp Pulse Resp BP Pulse Ox
98.4 F 71 17 109/60 96
12/12/23 07:46 12/12/23 07:46 12/12/23 07:46 12/12/23 07:46 12/12/23 07:46
physical exam unchanged.
Lab Results:
Laboratory Data
WBC 4.1 10^3/uL (4.8-10.8) L 12/12/23 05:23
Hgb 9.0 g/dL (13.0-18.0) L 12/12/23 05:23
Plt Count 242 10^3/uL (130-400) 12/12/23 05:23
PT 17.4 Sec (11.4-14.6) H 12/02/23 16:11
INR 1.44 12/02/23 16:11
APTT 32.1 Sec (23.4-35.0) 12/02/23 21:05
eGFR 58.89 12/12/23 05:23
--- NOTE | 2023-12-12 09:49 | PTOTSP ---
ST Acute Care Evaluation
Pt presents with fairly functional oropharyngeal parameters for safe PO intake of all solids and liquids. Pt with known hx of mild esophageal dysphagia 2/2 non-obstructing schatzki ring, confirmed with endoscopy during this admission.
Recommendations:
- Diet upgrade to REGULAR SOLIDS and THIN LIQUIDS with meds whole in puree.
- Aspiration and GERD precautions - small bites/sips, alternate bites/sips.
- ST to sign off; please re-consult if needed.
[2023-12-12 15:35] VITALS: BP 102/55
--- NOTE | 2023-12-12 15:42 | W.CON.NEPH ---
Medical History
-
History of Present Illness:
88-year-old male with past medical history of atrial fibrillation on Eliquis, CVA, primary hyperparathyroidism with out meds, diastolic heart failure not on diuretics, hypertension on ACEI and BB, GERD on PPI, hypercholesteremia, anxiety/depression,
gout, CKD 3 baseline cr 1.1-1.3, BPH on Flomax, internal hemorrhoids� who recently underwent left knee replacement on 11/13 presented with GIB. Patient had bilateral lower extremity edema after his recent surgery with ecchymosis of the left upper
thigh, erythema, swelling and pain of the left calf up to the knee.� He had ultrasound 3 days ago showing gastrocnemius DVT in the left leg likely due to suspension of Eliquis in the setting of recent left knee replacement.�Patient also had some
urinary retention after the surgery requiring Joseph catheter.� He has also been constipated after the surgery as well. He underwent EGD and C scope with out source of bleeding and remains on AC. On admit soidum was 131 now better at 134, cr stable
at baseline however calcium is trending high slowly now at almost 12 when corrected for alb. He is with persistent anemia and followed by hematology.
He offers no cp or sob, no abd pain or diarrhea. No n/v.
Past Medical History
1. Osteoarthritis, status post right total knee arthroplasty, 09/2018, by Dr. Christos Danielson.
2. Hypertension.
3. Hyperlipidemia.
4. Coronary artery calcifications on chest CT.
5. Aorta atherosclerosis.
6. Paroxysmal atrial fibrillation/atrial flutter, oral anticoagulation with Eliquis.
7. First degree AV block.
8. Mild-moderate valvular disease.
9. Mild pulmonary hypertension.
10. Venous varicosities, status post remote bilateral vein stripping.
11. Chronic peripheral edema.
12. Chronic interstitial fibrosis.
13. Right lower lobe pulmonary nodule, stable on serial imaging.
14. Aspiration pneumonia 08/20/2023.
15. Chronic dyspnea on exertion.
16. Chronic kidney disease stage 3.
17. GERD.
18. Mild dysphagia secondary to esophageal stricture.
19. Redundant colon.
20. Colon polyps.
21. Bilateral renal cysts.
22. Pancreatic cyst.
23. 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
24. Balance difficulties.
25. Peripheral neuropathy.
26. Multilevel degenerative disc disease.
27. BPH with difficult urination.
28. Multifactorial anemia.
29. Psoriatic arthritis.
30. Primary hyperparathyroidism.
31. Gout.
32. Anxiety.
33. Depression.
34. Chronic postnasal drip.
35. Bilateral dry eyes.
36. Osteopenia.
37. Hearing impairment bilaterally.
38. MRSA positive nasal screen pre-operatively.
39. Mild hyponatremia.
40. Mild hypercalcemia.
41. Prediabetes, A1c 5.8.
42. Obesity, BMI 32.9.
PSH:
1. Right total knee arthroplasty, 09/2018, by Dr. Christos Danielson.
2. Right elbow surgery.
3. Left foot 4th metatarsal shaving.
4. Left foot excision of bone and soft tissue.
5. Varicose vein stripping bilaterally.
6. Umbilical hernia repair.
7. Laparoscopic cholecystectomy.
8. ERCP, bile stone extraction, and sphincterotomy.
9. Varicocele surgery.
10. Sinus surgery.
11. Bilateral cataract extraction.
12. Tonsillectomy.
13. Colonoscopy.
14. Endoscopy.
Past Surgical History: None and Other
Social History
Tobacco: Non-Smoker
Alcohol: Occasional
Living: Alone
Family History
Family History: Not Pertinent
Allergies / Home Medications
Allergy/AdvReac Type Severity Reaction Status Date / Time
meperidine Allergy oversedation,passed Verified 12/02/23 16:03
out
Medication Instructions Recorded Confirmed Type
allopurinol 100 mg tablet 100 mg PO DAILY Gout 09/17/18 12/02/23 History
escitalopram oxalate 10 mg tablet 10 mg PO QPM Depression 09/17/18 12/02/23 History
tamsulosin 0.4 mg capsule 0.4 mg PO BID Urinary issue 09/17/18 12/02/23 History
denosumab 60 mg/mL subcutaneous 60 mg SC [id number] OSTEOPOROSIS 02/22/21 12/02/23 History
syringe (Prolia)
montelukast 10 mg tablet 10 mg PO QPM Allergies 02/22/21 12/02/23 History
ferrous sulfate 325 mg (65 mg 325 mg PO QPM Supplement 10/03/21 12/02/23 History
iron) tablet (FeroSul)
pantoprazole 40 mg tablet,delayed 40 mg PO DAILY Gastrointestinal 07/24/23 12/02/23 History
release Issue
apixaban 5 mg tablet (Eliquis) 5 mg PO BID Blood clot 08/22/23 12/02/23 Rx
prevention/tx #0 tabs
atorvastatin 80 mg tablet 80 mg PO QPM High cholesterol #0 08/22/23 12/02/23 Rx
tabs
finasteride 5 mg tablet 5 mg PO QPM Urinary Issue 10/21/23 12/02/23 History
gabapentin 300 mg capsule 300 mg PO HS sleep/pain #10 caps 11/18/23 12/02/23 Rx
metoprolol succinate 25 mg 12.5 mg PO DAILY #30 tabs 11/18/23 12/02/23 Rx
tablet,extended release 24 hr
(Toprol XL)
tramadol 50 mg tablet 50 mg PO BID PRN ongoing therapy 11/18/23 12/02/23 Rx
#20 tabs
acetaminophen 325 mg tablet 650 mg PO Q4HPRN PRN mild pain 12/02/23 12/02/23 History
budesonide 0.5 mg/2 mL suspension 0.5 mg inhalation R BIDPRN PRN sob 12/02/23 12/02/23 History
for nebulization
cholecalciferol (vitamin D3) 25 25 mcg PO DAILY Supplement 12/02/23 12/02/23 History
mcg (1,000 unit) tablet
cyanocobalamin (vitamin B-12) 500 500 mcg PO DAILY Supplement 12/02/23 12/02/23 History
mcg tablet
lisinopril 10 mg tablet 10 mg PO DAILY Blood Pressure 12/02/23 12/02/23 History
oxycodone 5 mg tablet 5 mg PO DAILYPRN PRN severe pain 12/02/23 12/02/23 History
sodium chloride 0.65 % nasal spray 1 spray intranasal BIDPRN PRN dry 12/02/23 12/02/23 History
aerosol nares
vitamin B complex 1 tab PO DAILY Supplement 12/02/23 12/02/23 History
azelastine 137 mcg (0.1 %) nasal 1 spray intranasal BID Allergies 12/03/23 12/03/23 History
spray aerosol
fluticasone propionate 50 1 spray intranasal BID Allergies 12/03/23 12/03/23 History
mcg/actuation nasal
spray,suspension
CXR 12/04/23:
IMPRESSION:
Interval resolution of right lower lung pneumonia since radiograph of August 20, 2023.
Increased reticular markings within the lower lungs, which is likely from interstitial fibrosis, when correlating with previous CT of the chest.
Review of Systems
-
All other systems: Negative unless noted
Physical Exam
Vital Signs
Vital Signs
Temp Pulse Resp BP Pulse Ox
97.7 F 87 16 102/55 96
12/12/23 15:35 12/12/23 15:35 12/12/23 15:35 12/12/23 15:35 12/12/23 15:35
Lab Results
WBC 4.1 10^3/uL (4.8-10.8) L 12/12/23 05:23
RBC 2.71 10^6/uL (4.70-6.10) L 12/12/23 05:23
Hgb 9.0 g/dL (13.0-18.0) L 12/12/23 05:23
Hct 27.1 % (39.0-52.0) L 12/12/23 05:23
Plt Count 242 10^3/uL (130-400) 12/12/23 05:23
Sodium 134 mmol/L (135-145) L 12/12/23 05:23
Potassium 4.6 mmol/L (3.5-5.1) 12/12/23 05:23
Chloride 98 mmol/L (98-107) 12/12/23 05:23
Carbon Dioxide 31 mmol/L (22-30) H 12/12/23 05:23
BUN 27 mg/dl (9-20) H 12/12/23 05:23
Creatinine 1.2 mg/dL (0.7-1.3) 12/12/23 05:23
eGFR 58.89 12/12/23 05:23
Glucose 103 mg/dl (70-99) H 12/12/23 05:23
Calcium 11.0 mg/dl (8.4-10.2) H 12/12/23 05:23
Phosphorus 3.9 mg/dl (2.5-4.5) 12/12/23 05:23
Albumin 2.8 g/dl (3.5-5.0) L 12/10/23 05:15
CXR 12/04/23:
IMPRESSION:
Interval resolution of right lower lung pneumonia since radiograph of August 20, 2023.
Increased reticular markings within the lower lungs, which is likely from interstitial fibrosis, when correlating with previous CT of the chest.
Physical Exam
General: Awake, Alert and Oriented
HEENT: EOMI and Anicteric
Respiratory: Clear, Normal Excursion and Nonlabored Respirations
Cardiac: S1/S2 and Regular Rate/Rhythm
Abdomen: Soft and Nontender
Musculoskeletal: No Cyanosis and Edema (2+)
Skin: No Rash
Neuro: Nonfocal/Grossly Intact
Psych: Mood/afflect pleasant, Insight/judgement good and Appropriate
Assessment/Plan
-
IMP:
Hypercalcemia
Primary hyperparathyroidism
Progressive anemia
CKD 3a
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
Acute left lower extremity DVT
Paroxysmal atrial fibrillation
History of atrial flutter
Acute urinary retention
BPH with chronic urinary difficulty
Transient hypotension-Resolved after stopping lisinopril
Mild hyponatremia
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 Danielson
Reported Chronic dysphagia secondary to esophageal stricture
Non-obstructing Schatzki noted on EGD
History of stroke in 2018, without residual deficits
Interstitial lung disease
Plan:
A/w GIB, now worsening hypercalcemia, elevated PTH
known hyperparathyroidism and follows Dr Shepherd a while ago and not any rx
corrected calcium is 12, given his edema and hyponatremia-will start lasix 20mg daily
hyponatremia multifactorial-FR 48 ounces/day as much as possible
stable renal function
avoid vit D or calcium meds, vit D level normal
low dose pamidronate tomorrow , may need sensipar out pt
BPs are soft, holding ACEI
d/w pt , he will need f/u with ENdo after d/c
Data Reviewed
-
Radiology: Report Reviewed by me
Labs: Labs Reviewed by me and Discussed with Patient
[2023-12-12 17:10] VITALS: BP 105/63; PULSE 87
[2023-12-12] MEDS: PROSCAR 5 MG PO (18:26)
[2023-12-12] MEDS: FEOSOL 325 MG PO (18:26)
[2023-12-12] MEDS: LIPITOR 80 MG PO (18:26)
[2023-12-12] MEDS: AREDIA 260 MG IV (18:27)
[2023-12-12] MEDS: SINGULAIR 10 MG PO (18:41)
[2023-12-12 23:11] VITALS: BP 106/62
[2023-12-12] MEDS: NEURONTIN 300 MG PO (23:16)
[2023-12-13 05:52] LABS: Hematocrit 28.9 % (39.0-52.0); Hemoglobin 9.1 g/dL (13.0-18.0); Mean Corp Hgb Conc. 31.5 g/dL (33.0-37.0); Mean Corpuscular Hgb 32.5 pg (27.0-31.0); Mean Corpuscular Volume 103.2 fL (80.0-94.0); Mean Platelet Volume 8.7 fL (7.4-10.4); Platelet Count 265 10^3/uL (130-400); White Blood Cell Count 4.5 10^3/uL (4.8-10.8)
[2023-12-13 06:00] VITALS: BMI 29.0
[2023-12-13 06:21] LABS: Blood Urea Nitrogen 29 mg/dl (9-20); Calcium 10.7 mg/dl (8.4-10.2); Carbon Dioxide 30 mmol/L (22-30); Chloride 100 mmol/L (98-107); Estimated Creatinine Clearance 54 ml/min; Glucose 99 mg/dl (70-99); Magnesium 2.2 mg/dl (1.6-2.3); Potassium 4.6 mmol/L (3.5-5.1); Sodium 135 mmol/L (135-145); eGFR 58.89
[2023-12-13 07:00] VITALS: BP 122/68
--- NOTE | 2023-12-13 07:52 | W.PN.HOSP.TC ---
Today's Communication/Plan
-
Hypercalcemia mgmt as per Nephro Endocrine
cont monitoring Na Ca
PT
discharge planning SNF rehab
Assessment / Plan
Assessment / Plan
Physical Exam
General: Chronically ill-appearing, no acute distress
HEENT: Normocephalic, Atraumatic, EOMI, MMM
Respiratory: Clear to Auscultation bilaterally
Cardiac: Normal S1/S2, irregularly irregular
GI: Soft, Nontender, Nondistended, Normal Bowel Sounds
Extremities: No Clubbing, Cyanosis Lower ext edema improved
Musculoskeletal: Left knee incision is clean, dry, intact
Neuro: AWake Alert Conversant
Psych: Calm, Cooperative
HPI: 88-year-old male with past medical history of atrial fibrillation on Eliquis, CVA, diastolic heart failure, hypertension, GERD, hypercholesteremia, anxiety/depression, gout, CKD 3, BPH, hyperparathyroidism, internal hemorrhoids� who recently
underwent left knee replacement on 11/13 here with episode of dark stool yesterday with bright red blood yesterday and worsening anemia. Patient recently returned home from [facility] rehab 6 days ago.� He has not been very mobile there.� Eliquis was
also held postoperatively and unclear when this was restarted. Patient had bilateral lower extremity edema after his recent surgery with ecchymosis of the left upper thigh, erythema, swelling and pain of the left calf up to the knee.� He had
ultrasound 3 days ago showing gastrocnemius DVT in the left leg likely due to suspension of Eliquis in the setting of recent left knee replacement.�Patient also had some urinary retention after the surgery requiring Joseph catheter.� He has also been
constipated after the surgery as well. Labs show sodium of 130 from 134 and hypercalcemia with corrected calcium 11.6.� Hemoglobin is trended down from 12.3 prior to surgery down to 8.7.
#Progressive anemia
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
Likely multifactorial from postoperative blood losses/ecchymosis of left upper thigh and possible upper GI bleeding
Appreciate GI input, recommend pantoprazole 40 mg po twice daily
12/03 EGD shows 2 cm hiatal hernia, nonobstructing Schatzki ring, normal stomach, normal duodenum
12/04 colonoscopy shows 15 mm polyp at the appendiceal orifice
Follow-up with Dr. Cedeno in the office for polypectomy
Received 1PRBC for hgb 7.7 12/04
Eliquis resumed 12/04,
H&H remains stable consistently >8.0 since 12/04
If he bleeds or his hemoglobin drops, he will need IVC filter
So far he has been tolerating the Eliquis without any drop in hemoglobin
Constipation
resolved, cont bowel regimen
#Acute left lower extremity DVT
Secondary to recent immobility/recent knee surgery and interruption of Eliquis
Eliquis resumed 12/04, if he bleeds or his hemoglobin drops, will need IVC filter
Appreciate hematology input, recommend repeat left lower extremity Dopplers in 1 month
#Paroxysmal atrial fibrillation
#History of atrial flutter
Eliquis resumed 12/04, if he bleeds or significant drop Hgb, will need IVC filter
Continue metoprolol for rate control
#Acute urinary retention
#BPH with chronic urinary difficulty
Patient had required straight cath x 3, last episode overnight draining 800 cc of urine
Continue Flomax 0.5 mg twice a day, Joseph inserted 12/04
Trial of void attempted 12/10 unfortunately failed, Joseph since re-inserted
Outpt Follow-up with Dr. Grimaldo/urology
#Transient hypotension
Resolved after stopping lisinopril
Continue to monitor off of IV fluids (history of CHF)
#Mild Hypercalcemia
PTH non-suppressed
reported hx hyperparathyroidism
Vit D lvl wnl
fluid restriction relaxed to 60 oz
Nephro eval appreciated Lasix started, low dose pamidronate given 12/11, Vit D supplementation discontinued.
Endocrine eval appreciated
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 Danielson
Appreciate orthopedic surgery input, healing well
No signs or symptoms of cellulitis
#Hyponatremia secondary to SIADH
S/p IV Lasix, continue fluid restriction, monitor sodium
stable/improved 130s
fluid restriction relaxed from 48 oz to 50 oz, then 60 oz
#Reported Chronic dysphagia secondary to esophageal stricture
#Non-obstructing Schatzki noted on EGD
mechanical soft diet with pills in applesauce
speech eval appreciated diet since advanced to Regular no need to crush meds
#Stage III Kidney disease
Creatinine stable
#History of stroke in 2018, without residual deficits
#Interstitial lung disease
DVT prophylaxis�eliquis
Full code
discussed with patient's daughter Ondina
Total time spent to see the patient on the floor, examine the patient, review data and lab results, discuss treatment plan with patient, nursing staff around 56 minutes.
Anticipated Discharge: 24 - 48 hours
Subjective/Interval History
-
Date of Service: December 13, 2023
No acute distress. reports overall feeling well.
Objective Data
-
Labs:
Laboratory Results
12/13/23
05:36
WBC 4.5 L
Hgb 9.1 L
Hct 28.9 L
Plt Count 265
Sodium 135
Potassium 4.6
Chloride 100
Carbon Dioxide 30
BUN 29 H
Creatinine 1.2
Glucose 99
Calcium 10.7 H
Vital Signs:
Vital Signs
Temp Pulse Resp BP Pulse Ox
98.5 F 86 17 106/62 97
12/12/23 23:11 12/12/23 23:11 12/12/23 23:11 12/12/23 23:11 12/12/23 23:11
I&O
12/12/23 12/13/23 12/14/23
06:59 06:59 06:59
Intake Total 330 / 330 670 / 670
Output Total 1340 / 1340 1685 / 1685
Balance -1010 / -1010 -1015 / -1015
[2023-12-13] MEDS: VITAMIN B-12 500 MCG PO (09:43)
[2023-12-13] MEDS: B COMPLEX w/VITAMIN C 1 CAPLET PO (09:43)
[2023-12-13] MEDS: PROTONIX 40 MG PO ×2 (09:43→20:42)
[2023-12-13] MEDS: TOPROL XL 12.5 MG PO (09:44)
[2023-12-13] MEDS: SENOKOT-S 2 TABLET PO ×2 (09:44→20:42)
[2023-12-13] MEDS: ZYLOPRIM 100 MG PO (09:44)
[2023-12-13] MEDS: LASIX 20 MG PO (09:44)
[2023-12-13] MEDS: ELIQUIS 5 MG PO ×2 (09:44→20:41)
[2023-12-13] MEDS: MIRALAX 17 GRAMS PO (09:44)
[2023-12-13] MEDS: FLOMAX 0.400000000000000022 MG PO ×2 (09:44→20:41)
[2023-12-13] MEDS: NON-FORMULARY ITEM 1 SPRAY NASAL ×4 (09:45→20:42)
[2023-12-13] MEDS: DESENEX/MITRAZOL/ZEASORB 1 APPLIC TOPICAL ×2 (09:46→20:44)
--- NOTE | 2023-12-13 12:06 | W.PN.NEPH.PH ---
Today's Communication / Plan
-
follow up ionized calcium
Assessment/Plan
-
IMP:
Hypercalcemia
Primary hyperparathyroidism
Progressive anemia
CKD 3a
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
Acute left lower extremity DVT
Paroxysmal atrial fibrillation
History of atrial flutter
Acute urinary retention
BPH with chronic urinary difficulty
Transient hypotension-Resolved after stopping lisinopril
Mild hyponatremia
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 Danielson
Reported Chronic dysphagia secondary to esophageal stricture
Non-obstructing Schatzki noted on EGD
History of stroke in 2018, without residual deficits
Interstitial lung disease
Plan:
A/w GIB, now worsening hypercalcemia, elevated PTH
known hyperparathyroidism and follows Dr Shepherd a while ago and not any rx
serum calcium is 10.7 , given his edema and hyponatremia-will lasix 20mg daily
hyponatremia multifactorial-FR 48 ounces/day as much as possible
stable renal function
avoid vit D or calcium meds, vit D level normal
low dose pamidronate tomorrow , may need sensipar out pt
BPs are soft, holding ACEI
d/w pt , he will need f/u with [facility] after d/c
-
-
Date of Service: December 13, 2023
CC / HPI / ROS
-
Chief Complaint:
Hypercalcemia
History of Present Illness:
bp stable off leobardo
hypercalcemia at 10.7
sodium at 135
creatinine stable at baseline 1.2
Review of Systems:
non oliguric
no chest pain or sob
Labs
-
Labs:
WBC 4.5 10^3/uL (4.8-10.8) L 12/13/23 05:36
RBC 2.80 10^6/uL (4.70-6.10) L 12/13/23 05:36
Hgb 9.1 g/dL (13.0-18.0) L 12/13/23 05:36
Hct 28.9 % (39.0-52.0) L 12/13/23 05:36
Plt Count 265 10^3/uL (130-400) 12/13/23 05:36
Sodium 135 mmol/L (135-145) 12/13/23 05:36
Potassium 4.6 mmol/L (3.5-5.1) 12/13/23 05:36
Chloride 100 mmol/L (98-107) 12/13/23 05:36
Carbon Dioxide 30 mmol/L (22-30) 12/13/23 05:36
BUN 29 mg/dl (9-20) H 12/13/23 05:36
Creatinine 1.2 mg/dL (0.7-1.3) 12/13/23 05:36
eGFR 58.89 12/13/23 05:36
Glucose 99 mg/dl (70-99) 12/13/23 05:36
Calcium 10.7 mg/dl (8.4-10.2) H 12/13/23 05:36
Phosphorus 4.0 mg/dl (2.5-4.5) 12/13/23 05:36
Albumin 2.8 g/dl (3.5-5.0) L 12/10/23 05:15
Physical Exam
-
Vital Signs:
Vital Signs
Temp Pulse Resp BP Pulse Ox
97.4 F 71 18 122/68 98
12/13/23 07:00 12/13/23 07:00 12/13/23 07:00 12/13/23 07:00 12/13/23 07:00
Cardiovascular:: Regular rate and rhythm
Respiratory:: Bilateral: CTA
Lung Excursion:: Normal
Abdomen:: Nontender
Bowel Sounds:: Normal
Extremity Edema:: +1: Bilateral:
Joseph Catheter: Yes
--- NOTE | 2023-12-13 12:10 | CM ---
Addendum entered by Ruby Weinberg 12/13/23 15:28:
Spoke with pts daughter. Updated regarding acceptance to facilities. Obtained more choices. Referrals sent in [facility].
Plan - snf (TBD) when medically ready
Original Note:
CM following for d/c panning
Pt for SNF on d/c. [facility] has bed today
Per Dr Contreras pt not ready for d/c today
Pt will need auth
Plan - SNF when medically ready. Facility TBD based on bed availability
--- NOTE | 2023-12-13 14:34 | CON.MD ---
Consultation - Medical
-
88 y.o. WM with recent right TKA, DVT, GI bleed on anticoagulation. History of mild hypercalcemia here with corrected calcium of close to 12 in the setting of GI bleed. Currently on Prolia through [facility] for osteoporosis. PTH elevated in the past but
normal now and with higher calcium than at baseline. Working diagnosis has been primary hyperparathyroidism, but scans previously negative, and we did not feel it appropriate for him to proceed to surgical exploration, as his osteoporosis was being
treated and calcium levels had been adequately controlled. We appreciate nephrology input, patient has already received a dose of IV pamidronate , which will help to lower this over the next 2-3 days. The effect should persist for up to 3 months,
and calcium should be monitored in this setting. He will need follow up with us in January with labs. When the calcium begins drifting upward again, then repeat bisphosphonate infusion vs. a low dose of daily cinacalcet should work well to control this
condition. Thank you and please call with questions.
[2023-12-13 15:00] VITALS: BP 109/64
[2023-12-13 17:04] VITALS: BP 109/73; PULSE 82; O2SAT 98
[2023-12-13] MEDS: LIPITOR 80 MG PO (18:40)
[2023-12-13] MEDS: PROSCAR 5 MG PO (18:40)
[2023-12-13] MEDS: FEOSOL 325 MG PO (18:41)
[2023-12-13] MEDS: SINGULAIR 10 MG PO (18:41)
[2023-12-13] MEDS: TYLENOL 1000 MG PO (18:43)
[2023-12-13] MEDS: NEURONTIN 300 MG PO (20:42)
[2023-12-13 23:00] VITALS: BP 109/60
[2023-12-14 05:48] LABS: Ionized Calcium 1.45 mMOL/L (1.15-1.33)
[2023-12-14 06:00] VITALS: BMI 29.3
[2023-12-14 06:50] LABS: Blood Urea Nitrogen 28 mg/dl (9-20); Calcium 10.5 mg/dl (8.4-10.2); Carbon Dioxide 30 mmol/L (22-30); Chloride 98 mmol/L (98-107); Estimated Creatinine Clearance 54 ml/min; Glucose 95 mg/dl (70-99); Potassium 4.9 mmol/L (3.5-5.1); Sodium 134 mmol/L (135-145); eGFR 58.89
[2023-12-14 07:00] VITALS: BP 112/67
--- NOTE | 2023-12-14 07:16 | W.PN.HOSP.TC ---
Today's Communication/Plan
-
Hypercalcemia mgmt as per [facility]
cont monitoring Na Ca
PT
discharge planning SNF rehab
Assessment / Plan
Assessment / Plan
Physical Exam
General: Chronically ill-appearing, no acute distress
HEENT: Normocephalic, Atraumatic, EOMI, MMM
Respiratory: Clear to Auscultation bilaterally
Cardiac: Normal S1/S2, irregularly irregular
GI: Soft, Nontender, Nondistended, Normal Bowel Sounds
Extremities: No Clubbing, Cyanosis Lower ext edema improved
Musculoskeletal: Left knee incision is clean, dry, intact
Neuro: AWake Alert Conversant
Psych: Calm, Cooperative
HPI: 88-year-old male with past medical history of atrial fibrillation on Eliquis, CVA, diastolic heart failure, hypertension, GERD, hypercholesteremia, anxiety/depression, gout, CKD 3, BPH, hyperparathyroidism, internal hemorrhoids� who recently
underwent left knee replacement on 11/13 here with episode of dark stool yesterday with bright red blood yesterday and worsening anemia. Patient recently returned home from [facility] rehab 6 days ago.� He has not been very mobile there.� Eliquis was
also held postoperatively and unclear when this was restarted. Patient had bilateral lower extremity edema after his recent surgery with ecchymosis of the left upper thigh, erythema, swelling and pain of the left calf up to the knee.� He had
ultrasound 3 days ago showing gastrocnemius DVT in the left leg likely due to suspension of Eliquis in the setting of recent left knee replacement.�Patient also had some urinary retention after the surgery requiring Joseph catheter.� He has also been
constipated after the surgery as well. Labs show sodium of 130 from 134 and hypercalcemia with corrected calcium 11.6.� Hemoglobin is trended down from 12.3 prior to surgery down to 8.7.
#Progressive anemia
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
Likely multifactorial from postoperative blood losses/ecchymosis of left upper thigh and possible upper GI bleeding
Appreciate GI input, recommend pantoprazole 40 mg po twice daily
12/03 EGD shows 2 cm hiatal hernia, nonobstructing Schatzki ring, normal stomach, normal duodenum
12/04 colonoscopy shows 15 mm polyp at the appendiceal orifice
Follow-up with Dr. Cedeno in the office for polypectomy
Received 1PRBC for hgb 7.7 12/04
Eliquis resumed 12/04,
H&H remains stable consistently >8.0 since 12/04
If he bleeds or his hemoglobin drops, he will need IVC filter
So far he has been tolerating the Eliquis without any drop in hemoglobin
Constipation
resolved, cont bowel regimen
#Acute left lower extremity DVT
Secondary to recent immobility/recent knee surgery and interruption of Eliquis
Eliquis resumed 12/04, if he bleeds or his hemoglobin drops, will need IVC filter
Appreciate hematology input, recommend repeat left lower extremity Dopplers in 1 month
#Paroxysmal atrial fibrillation
#History of atrial flutter
Eliquis resumed 12/04, if he bleeds or significant drop Hgb, will need IVC filter
Continue metoprolol for rate control
#Acute urinary retention
#BPH with chronic urinary difficulty
Patient had required straight cath x 3, last episode overnight draining 800 cc of urine
Continue Flomax 0.5 mg twice a day, Joseph inserted 12/04
Trial of void attempted 12/10 unfortunately failed, Joseph since re-inserted
Outpt Follow-up with Dr. Grimaldo/urology
#Transient hypotension
Resolved after stopping lisinopril
Continue to monitor off of IV fluids (history of CHF)
#Mild Hypercalcemia
PTH non-suppressed
reported hx hyperparathyroidism
Vit D lvl wnl
fluid restriction relaxed to 60 oz
Nephro eval appreciated Lasix started, low dose pamidronate given 12/11, Vit D supplementation discontinued.
Endocrine eval appreciated
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 Danielson
Appreciate orthopedic surgery input, healing well
No signs or symptoms of cellulitis
#Hyponatremia secondary to SIADH
S/p IV Lasix, continue fluid restriction, monitor sodium
stable/improved 130s
fluid restriction relaxed from 48 oz to 50 oz, then 60 oz
Home lexapro on hold since 12/03 d/t hyponatremia, likely can discontinue on discharge, medication appears unnecessary at this time.
#Reported Chronic dysphagia secondary to esophageal stricture
#Non-obstructing Schatzki noted on EGD
mechanical soft diet with pills in applesauce
speech eval appreciated diet since advanced to Regular no need to crush meds
#Stage III Kidney disease
Creatinine stable
#History of stroke in 2018, without residual deficits
#Interstitial lung disease
DVT prophylaxis�eliquis
Full code
discussed with patient's daughter Ondina
Total time spent to see the patient on the floor, examine the patient, review data and lab results, discuss treatment plan with patient, nursing staff around 50 minutes.
Anticipated Discharge: 24 - 48 hours
Subjective/Interval History
-
Date of Service: December 14, 2023
no acute distress sitting up comfortably in bed. denies new acute issues at this time. reports overall feeling well.
Objective Data
-
Labs:
Laboratory Results
12/14/23
05:42
Sodium 134 L
Potassium 4.9
Chloride 98
Carbon Dioxide 30
BUN 28 H
Creatinine 1.2
Glucose 95
Calcium 10.5 H
Vital Signs:
Vital Signs
Temp Pulse Resp BP Pulse Ox
98.9 F 83 16 109/60 97
12/13/23 23:00 12/13/23 23:00 12/13/23 23:00 12/13/23 23:00 12/13/23 23:00
I&O
03/22/24 03/23/24 03/24/24
06:59 06:59 06:59
Intake Total 670 / 670 960 / 960
Output Total 1685 / 1685 1500 / 1500
Balance -1015 / -1015 -540 / -540
[2023-12-14] MEDS: MIRALAX 17 GRAMS PO (09:05)
[2023-12-14] MEDS: FLOMAX 0.400000000000000022 MG PO ×2 (09:05→20:39)
[2023-12-14] MEDS: SENOKOT-S 2 TABLET PO ×2 (09:05→20:39)
[2023-12-14] MEDS: ELIQUIS 5 MG PO ×2 (09:06→20:39)
[2023-12-14] MEDS: TOPROL XL 12.5 MG PO (09:06)
[2023-12-14] MEDS: LASIX 20 MG PO (09:06)
[2023-12-14] MEDS: B COMPLEX w/VITAMIN C 1 CAPLET PO (09:06)
[2023-12-14] MEDS: PROTONIX 40 MG PO ×2 (09:06→20:39)
[2023-12-14] MEDS: ZYLOPRIM 100 MG PO (09:09)
[2023-12-14] MEDS: VITAMIN B-12 500 MCG PO (09:09)
[2023-12-14] MEDS: NON-FORMULARY ITEM 1 SPRAY NASAL ×4 (09:13→20:41)
[2023-12-14] MEDS: DESENEX/MITRAZOL/ZEASORB 1 APPLIC TOPICAL ×2 (09:16→20:48)
--- NOTE | 2023-12-14 13:36 | W.PN.NEPH.PH ---
Today's Communication / Plan
-
Follow BMP
Maintain Lasix
Endocrine consult reviewed
Assessment/Plan
-
IMP:
Hypercalcemia
Primary hyperparathyroidism
Progressive anemia
CKD 3a
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
Acute left lower extremity DVT
Paroxysmal atrial fibrillation
History of atrial flutter
Acute urinary retention
BPH with chronic urinary difficulty
Transient hypotension-Resolved after stopping lisinopril
Mild hyponatremia
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 Danielson
Reported Chronic dysphagia secondary to esophageal stricture
Non-obstructing Schatzki noted on EGD
History of stroke in 2018, without residual deficits
Interstitial lung disease
Plan:
A/w GIB, now worsening hypercalcemia, elevated PTH
known hyperparathyroidism and follows Dr Shepherd a while ago and not any rx
serum calcium is 10.5 with ionized calcium 1.45,
hyponatremia multifactorial-FR 48 ounces/day as much as possible , maintain lasix 20mg daily
stable renal function
avoid vit D or calcium meds, vit D level normal
low dose pamidronate tomorrow , may need sensipar out pt
BPs are soft, holding ACEI
d/w pt , he will need f/u with [facility] after d/c
-
-
Date of Service: December 14, 2023
CC / HPI / ROS
-
Chief Complaint:
Hypercalcemia
History of Present Illness:
bp stable off leobardo
hypercalcemia at 10.5 with ionized calcium of 1.45
sodium at 134
creatinine stable at baseline 1.2
Review of Systems:
non oliguric
no chest pain or sob
Labs
-
Labs:
WBC 4.5 10^3/uL (4.8-10.8) L 12/13/23 05:36
RBC 2.80 10^6/uL (4.70-6.10) L 12/13/23 05:36
Hgb 9.1 g/dL (13.0-18.0) L 12/13/23 05:36
Hct 28.9 % (39.0-52.0) L 12/13/23 05:36
Plt Count 265 10^3/uL (130-400) 12/13/23 05:36
Sodium 134 mmol/L (135-145) L 12/14/23 05:42
Potassium 4.9 mmol/L (3.5-5.1) 12/14/23 05:42
Chloride 98 mmol/L (98-107) 12/14/23 05:42
Carbon Dioxide 30 mmol/L (22-30) 12/14/23 05:42
BUN 28 mg/dl (9-20) H 12/14/23 05:42
Creatinine 1.2 mg/dL (0.7-1.3) 12/14/23 05:42
eGFR 58.89 12/14/23 05:42
Glucose 95 mg/dl (70-99) 12/14/23 05:42
Calcium 10.5 mg/dl (8.4-10.2) H 12/14/23 05:42
Phosphorus 4.0 mg/dl (2.5-4.5) 12/13/23 05:36
Albumin 2.8 g/dl (3.5-5.0) L 12/10/23 05:15
Physical Exam
-
Vital Signs:
Vital Signs
Temp Pulse Resp BP Pulse Ox
98.3 F 83 16 112/67 96
12/14/23 07:00 12/14/23 07:00 12/14/23 07:00 12/14/23 07:00 12/14/23 07:00
Cardiovascular:: Regular rate and rhythm
Respiratory:: Bilateral: Coarse
Lung Excursion:: Normal
Abdomen:: Nontender
Bowel Sounds:: Normal
Extremity Edema:: None: Bilateral:
Joseph Catheter: No
[2023-12-14 15:00] VITALS: BP 111/56
[2023-12-14] MEDS: SINGULAIR 10 MG PO (17:20)
[2023-12-14] MEDS: FEOSOL 325 MG PO (17:20)
[2023-12-14] MEDS: PROSCAR 5 MG PO (17:20)
[2023-12-14] MEDS: LIPITOR 80 MG PO (17:20)
[2023-12-14] MEDS: NEURONTIN 300 MG PO (20:39)
[2023-12-14] MEDS: TYLENOL 1000 MG PO (22:11)
[2023-12-14 23:00] VITALS: BP 102/57
[2023-12-15 06:00] VITALS: BMI 29.2
[2023-12-15 06:22] LABS: Blood Urea Nitrogen 27 mg/dl (9-20); Calcium 10.2 mg/dl (8.4-10.2); Carbon Dioxide 31 mmol/L (22-30); Chloride 98 mmol/L (98-107); Estimated Creatinine Clearance 50 ml/min; Glucose 93 mg/dl (70-99); Potassium 4.7 mmol/L (3.5-5.1); Sodium 134 mmol/L (135-145)
--- NOTE | 2023-12-15 06:57 | W.PN.HOSP.TC ---
Today's Communication/Plan
-
Monitor Calcium
discharge planning SNF rehab
Assessment / Plan
Assessment / Plan
Physical Exam
General: Chronically ill-appearing, no acute distress
HEENT: Normocephalic, Atraumatic, EOMI, MMM
Respiratory: Clear to Auscultation bilaterally
Cardiac: Normal S1/S2, irregularly irregular
GI: Soft, Nontender, Nondistended, Normal Bowel Sounds
: Joseph in place, clear yellow urine noted
Extremities: No Clubbing, Cyanosis Lower ext edema improved
Musculoskeletal: Left knee incision is clean, dry, intact
Neuro: AWake Alert Conversant
Psych: Calm, Cooperative
HPI: 88-year-old male with past medical history of atrial fibrillation on Eliquis, CVA, diastolic heart failure, hypertension, GERD, hypercholesteremia, anxiety/depression, gout, CKD 3, BPH, hyperparathyroidism, internal hemorrhoids� who recently
underwent left knee replacement on 11/13 here with episode of dark stool yesterday with bright red blood yesterday and worsening anemia. Patient recently returned home from [facility] rehab 6 days ago.� He has not been very mobile there.� Eliquis was
also held postoperatively and unclear when this was restarted. Patient had bilateral lower extremity edema after his recent surgery with ecchymosis of the left upper thigh, erythema, swelling and pain of the left calf up to the knee.� He had
ultrasound 3 days ago showing gastrocnemius DVT in the left leg likely due to suspension of Eliquis in the setting of recent left knee replacement.�Patient also had some urinary retention after the surgery requiring Joseph catheter.� He has also been
constipated after the surgery as well. Labs show sodium of 130 from 134 and hypercalcemia with corrected calcium 11.6.� Hemoglobin is trended down from 12.3 prior to surgery down to 8.7.
#Progressive anemia
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
Likely multifactorial from postoperative blood losses/ecchymosis of left upper thigh and possible upper GI bleeding
Appreciate GI input, recommend pantoprazole 40 mg po twice daily
3/13 EGD shows 2 cm hiatal hernia, nonobstructing Schatzki ring, normal stomach, normal duodenum
12/04 colonoscopy shows 15 mm polyp at the appendiceal orifice
Follow-up with Dr. Cedeno in the office for polypectomy
Received 1PRBC for hgb 7.7 12/04
Eliquis resumed 12/04,
H&H remains stable consistently >8.0 since 12/04
If he bleeds or his hemoglobin drops, he will need IVC filter
So far he has been tolerating the Eliquis without any drop in hemoglobin
Constipation
resolved, cont bowel regimen
#Acute left lower extremity DVT
Secondary to recent immobility/recent knee surgery and interruption of Eliquis
Eliquis resumed 12/04, if he bleeds or his hemoglobin drops, will need IVC filter
Appreciate hematology input, recommend repeat left lower extremity Dopplers in 1 month
#Paroxysmal atrial fibrillation
#History of atrial flutter
Eliquis resumed 12/04, if he bleeds or significant drop Hgb, will need IVC filter
Continue metoprolol for rate control
#Acute urinary retention
#BPH with chronic urinary difficulty
Patient had required straight cath x 3, last episode overnight draining 800 cc of urine
Continue Flomax 0.5 mg twice a day, Joseph inserted 12/04
Trial of void attempted 12/10 unfortunately failed, Joseph since re-inserted
Patient to keep Joseph on discharge and follow Outpt Dr. Grimaldo/urology for eventual repeat trial of void
#Transient hypotension
Resolved after stopping lisinopril
Continue to monitor off of IV fluids (history of CHF)
#Mild Hypercalcemia
PTH non-suppressed
reported hx hyperparathyroidism
Vit D lvl wnl
fluid restriction relaxed to 60 oz
Nephro eval appreciated Lasix started, low dose pamidronate given 12/11, Vit D supplementation discontinued.
Endocrine eval appreciated
Hypercalcemia resolving
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 Danielson
Appreciate orthopedic surgery input, healing well
No signs or symptoms of cellulitis
#Hyponatremia secondary to SIADH
S/p IV Lasix, continue fluid restriction, monitor sodium
stable/improved 130s
fluid restriction relaxed from 48 oz to 50 oz, then 60 oz
Home lexapro on hold since 12/03 d/t hyponatremia, likely can discontinue on discharge, medication appears unnecessary at this time.
#Reported Chronic dysphagia secondary to esophageal stricture
#Non-obstructing Schatzki noted on EGD
mechanical soft diet with pills in applesauce
speech eval appreciated diet since advanced to Regular no need to crush meds
#Stage III Kidney disease
Creatinine stable
#History of stroke in 2018, without residual deficits
#Interstitial lung disease
DVT prophylaxis�eliquis
Full code
Total time spent to see the patient on the floor, examine the patient, review data and lab results, discuss treatment plan with patient, nursing staff around 50 minutes.
Anticipated Discharge: 24 - 48 hours
Subjective/Interval History
-
Date of Service: December 15, 2023
No acute distress. reports feeling well. No new acute issues
Objective Data
-
Labs:
Laboratory Results
12/15/23
05:47
Sodium 134 L
Potassium 4.7
Chloride 98
Carbon Dioxide 31 H
BUN 27 H
Creatinine 1.3
Glucose 93
Calcium 10.2
Vital Signs:
Vital Signs
Temp Pulse Resp BP Pulse Ox
99.7 F 85 22 102/57 96
12/14/23 23:46 12/14/23 23:00 12/14/23 23:00 12/14/23 23:00 12/14/23 23:00
I&O
12/13/23 12/14/23 12/15/23
06:59 06:59 06:59
Intake Total 670 / 670 960 / 960 2160 / 2160
Output Total 1685 / 1685 1500 / 1500 1450 / 1450
Balance -1015 / -1015 -540 / -540 710 / 710
[2023-12-15 07:00] VITALS: BP 114/76
[2023-12-15] MEDS: ZYLOPRIM 100 MG PO (08:33)
[2023-12-15] MEDS: PROTONIX 40 MG PO ×2 (08:33→20:04)
[2023-12-15] MEDS: FLOMAX 0.400000000000000022 MG PO ×2 (08:33→20:04)
[2023-12-15] MEDS: B COMPLEX w/VITAMIN C 1 CAPLET PO (08:33)
[2023-12-15] MEDS: LASIX 20 MG PO (08:33)
[2023-12-15] MEDS: NON-FORMULARY ITEM 1 SPRAY NASAL ×4 (08:33→20:06)
[2023-12-15] MEDS: VITAMIN B-12 500 MCG PO (08:34)
[2023-12-15] MEDS: SENOKOT-S PO (08:34)
[2023-12-15] MEDS: TOPROL XL 12.5 MG PO (08:34)
[2023-12-15] MEDS: ELIQUIS 5 MG PO ×2 (08:37→20:04)
[2023-12-15] MEDS: MIRALAX PO (10:26)
[2023-12-15] MEDS: DESENEX/MITRAZOL/ZEASORB 1 APPLIC TOPICAL ×2 (11:00→20:05)
--- NOTE | 2023-12-15 12:19 | W.PN.NEPH.PH ---
Today's Communication / Plan
-
Observe
Holding ARRON
Follow serum calcium level
Assessment/Plan
-
IMP:
Hypercalcemia
Primary hyperparathyroidism
Progressive anemia
CKD 3a
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
Acute left lower extremity DVT
Paroxysmal atrial fibrillation
History of atrial flutter
Acute urinary retention
BPH with chronic urinary difficulty
Transient hypotension-Resolved after stopping lisinopril
Mild hyponatremia
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 Danielson
Reported Chronic dysphagia secondary to esophageal stricture
Non-obstructing Schatzki noted on EGD
History of stroke in 2018, without residual deficits
Interstitial lung disease
Plan:
A/w GIB, now worsening hypercalcemia, elevated PTH
known hyperparathyroidism and follows Dr Shepherd a while ago and not any rx
serum calcium is 10.2 with ionized calcium 1.4
hyponatremia multifactorial-FR 48 ounces/day as much as possible , maintain lasix 20mg daily, sodium stable at 134
stable renal function
avoiding vit D or calcium meds, vit D level normal
Status post pamidronate , may need sensipar out pt
BPs are soft, holding ACEI
d/w pt , he will need f/u with EN[facility] after d/c
-
-
Date of Service: December 15, 2023
CC / HPI / ROS
-
Chief Complaint:
Hypercalcemia
History of Present Illness:
bp stable off arron
hypercalcemia at 10.2 with ionized calcium of 1.4
sodium at 134
creatinine stable at baseline 1.3
Review of Systems:
non oliguric
no chest pain or sob
Labs
-
Labs:
WBC 4.5 10^3/uL (4.8-10.8) L 12/13/23 05:36
RBC 2.80 10^6/uL (4.70-6.10) L 12/13/23 05:36
Hgb 9.1 g/dL (13.0-18.0) L 12/13/23 05:36
Hct 28.9 % (39.0-52.0) L 12/13/23 05:36
Plt Count 265 10^3/uL (130-400) 12/13/23 05:36
Sodium 134 mmol/L (135-145) L 12/15/23 05:47
Potassium 4.7 mmol/L (3.5-5.1) 12/15/23 05:47
Chloride 98 mmol/L (98-107) 12/15/23 05:47
Carbon Dioxide 31 mmol/L (22-30) H 12/15/23 05:47
BUN 27 mg/dl (9-20) H 12/15/23 05:47
Creatinine 1.3 mg/dL (0.7-1.3) 12/15/23 05:47
eGFR 53.50 12/15/23 05:47
Glucose 93 mg/dl (70-99) 12/15/23 05:47
Calcium 10.2 mg/dl (8.4-10.2) 12/15/23 05:47
Phosphorus 4.0 mg/dl (2.5-4.5) 12/13/23 05:36
Albumin 2.8 g/dl (3.5-5.0) L 12/10/23 05:15
Physical Exam
-
Vital Signs:
Vital Signs
Temp Pulse Resp BP Pulse Ox
97.9 F 73 20 114/76 98
12/15/23 07:00 12/15/23 08:34 12/15/23 07:00 12/15/23 08:34 12/15/23 07:00
Cardiovascular:: Regular rate and rhythm
Respiratory:: Bilateral: Coarse
Lung Excursion:: Normal
Abdomen:: Nontender and Soft
Bowel Sounds:: Normal
Extremity Edema:: None: Bilateral:
Joseph Catheter: Yes
[2023-12-15 15:00] VITALS: BP 123/58
[2023-12-15] MEDS: LIPITOR 80 MG PO (17:08)
[2023-12-15] MEDS: PROSCAR 5 MG PO (17:08)
[2023-12-15] MEDS: FEOSOL 325 MG PO (17:08)
[2023-12-15] MEDS: SINGULAIR 10 MG PO (17:10)
--- NOTE | 2023-12-15 18:51 | PTCARENOTE ---
Pt encouraged to be out of bed in chair for meals and to walk into the bathroom . Pt walks with stiff and unsteady gait, needing to rest after standing for more than 2 minutes.
[2023-12-15] MEDS: SENOKOT-S 2 TABLET PO (20:04)
[2023-12-15] MEDS: NEURONTIN 300 MG PO (21:09)
[2023-12-15 23:45] VITALS: BP 90/53
[2023-12-16 02:44] VITALS: BP 108/70
[2023-12-16 06:23] LABS: Hematocrit 28.4 % (39.0-52.0); Mean Corp Hgb Conc. 31.7 g/dL (33.0-37.0); Mean Corpuscular Hgb 32.6 pg (27.0-31.0); Mean Corpuscular Volume 102.9 fL (80.0-94.0); Mean Platelet Volume 8.7 fL (7.4-10.4); Platelet Count 243 10^3/uL (130-400); Red Blood Cell Count 2.76 10^6/uL (4.70-6.10); Red Cell Dist. Width 15.5 % (11.5-14.5); White Blood Cell Count 4.1 10^3/uL (4.8-10.8)
[2023-12-16 06:50] LABS: Blood Urea Nitrogen 26 mg/dl (9-20); Calcium 9.5 mg/dl (8.4-10.2); Carbon Dioxide 28 mmol/L (22-30); Chloride 101 mmol/L (98-107); Estimated Creatinine Clearance 50 ml/min; Glucose 91 mg/dl (70-99); Potassium 4.4 mmol/L (3.5-5.1); Sodium 132 mmol/L (135-145)
[2023-12-16 07:55] VITALS: BP 126/67
[2023-12-16] MEDS: SENOKOT-S 2 TABLET PO ×2 (08:25→19:31)
[2023-12-16] MEDS: ZYLOPRIM 100 MG PO (08:25)
[2023-12-16] MEDS: ELIQUIS 5 MG PO ×2 (08:26→19:31)
[2023-12-16] MEDS: B COMPLEX w/VITAMIN C 1 CAPLET PO (08:26)
[2023-12-16] MEDS: FLOMAX 0.400000000000000022 MG PO ×2 (08:26→19:39)
[2023-12-16] MEDS: LASIX 20 MG PO (08:26)
[2023-12-16] MEDS: PROTONIX 40 MG PO ×2 (08:26→19:31)
[2023-12-16] MEDS: TOPROL XL 12.5 MG PO (08:26)
[2023-12-16] MEDS: NON-FORMULARY ITEM 1 SPRAY NASAL ×4 (08:33→20:03)
[2023-12-16] MEDS: DESENEX/MITRAZOL/ZEASORB 1 APPLIC TOPICAL ×2 (08:33→19:33)
[2023-12-16] MEDS: MIRALAX PO (08:35)
[2023-12-16] MEDS: VITAMIN B-12 500 MCG PO (08:45)
--- NOTE | 2023-12-16 09:16 | W.PN.HOSP.TC ---
Today's Communication/Plan
-
Discharge to short-term rehab tomorrow
Assessment / Plan
Assessment / Plan
HPI: 88-year-old male with past medical history of atrial fibrillation on Eliquis, CVA, diastolic heart failure, hypertension, GERD, hypercholesteremia, anxiety/depression, gout, CKD 3, BPH, hyperparathyroidism, internal hemorrhoids� who recently
underwent left knee replacement on 11/13 here with episode of dark stool yesterday with bright red blood yesterday and worsening anemia. [facility].� He has not been very mobile there.� Eliquis was
also held postoperatively and unclear when this was restarted. Patient had bilateral lower extremity edema after his recent surgery with ecchymosis of the left upper thigh, erythema, swelling and pain of the left calf up to the knee.� He had
ultrasound 3 days ago showing gastrocnemius DVT in the left leg likely due to suspension of Eliquis in the setting of recent left knee replacement.�Patient also had some urinary retention after the surgery requiring Joseph catheter.� He has also been
constipated after the surgery as well. Labs show sodium of 130 from 134 and hypercalcemia with corrected calcium 11.6.� Hemoglobin is trended down from 12.3 prior to surgery down to 8.7.
#Progressive anemia
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
Likely multifactorial from postoperative blood losses/ecchymosis of left upper thigh and possible upper GI bleeding
Appreciate GI input, recommend pantoprazole 40 mg po twice daily
12/03 EGD shows 2 cm hiatal hernia, nonobstructing Schatzki ring, normal stomach, normal duodenum
12/04 colonoscopy shows 15 mm polyp at the appendiceal orifice
Follow-up with Dr. Cedeno in the office for polypectomy
Received 1PRBC for hgb 7.7 12/04
Eliquis resumed 12/04, H&H remains stable consistently >8.0 since 12/04
No IVC filter needed, if hemoglobin continues to be stable after resuming Eliquis
#Constipation
Resolved, continue bowel regimen
#Acute left lower extremity DVT
Secondary to recent immobility/recent knee surgery and interruption of Eliquis
Eliquis resumed 12/04, no IVC filter needed, if hemoglobin continues to be stable after resuming Eliquis
Appreciate hematology input, recommend repeat left lower extremity Dopplers in 1 month
#Paroxysmal atrial fibrillation
#History of atrial flutter
Eliquis resumed 12/04
Continue metoprolol for rate control
#Acute urinary retention
#BPH with chronic urinary difficulty
Patient had required straight cath x 3, last episode draining 800 cc of urine
Continue Flomax 0.5 mg twice a day, Joseph inserted 12/04
Trial of void attempted 12/10 unfortunately failed, Joseph since re-inserted
Patient to keep Joseph on discharge and follow Outpt Dr. Grimaldo/urology for eventual repeat trial of void
#Transient hypotension
Resolved after stopping lisinopril
Continue to monitor off of IV fluids (history of CHF)
#Mild Hypercalcemia
#Hyponatremia secondary to SIADH
#History of hyperparathyroidism
PTH non-suppressed, reported hx hyperparathyroidism, Vit D lvl wnl
Fluid restriction relaxed to 60 oz
Nephro eval appreciated Lasix started, low dose pamidronate given 12/11, Vit D supplementation discontinued.
Endocrine eval appreciated
Hypercalcemia resolved, hyponatremia improved
Home lexapro on hold since 12/03 d/t hyponatremia, likely can discontinue on discharge, medication appears unnecessary at this time.
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 Danielson
Appreciate orthopedic surgery input, healing well
No signs or symptoms of cellulitis
#Reported Chronic dysphagia secondary to esophageal stricture
#Non-obstructing Schamilanaki noted on EGD
previously required mechanical soft diet with pills in applesauce
speech eval appreciated diet since advanced to Regular no need to crush meds
#Stage III Kidney disease
Creatinine stable
#History of stroke in 2018, without residual deficits
#Interstitial lung disease
DVT prophylaxis�eliquis
Full code
Physical Exam
General: Chronically ill-appearing, no acute distress
HEENT: Normocephalic, Atraumatic, EOMI, MMM
Respiratory: Clear to Auscultation bilaterally
Cardiac: Normal S1/S2, irregularly irregular
GI: Soft, Nontender, Nondistended, Normal Bowel Sounds
: Joseph in place, clear yellow urine noted
Extremities: No Clubbing, Cyanosis Lower ext edema improved
Musculoskeletal: Left knee incision is clean, dry, intact
Neuro: AWake Alert Conversant
Psych: Calm, Cooperative
Anticipated Discharge: Within 24 hours
Subjective/Interval History
-
Date of Service: December 16, 2023
No acute events. Patient denies chest pain, shortness of breath, problems breathing. No fever. No nausea, no vomiting.
Objective Data
-
Labs:
Laboratory Results
12/16/23
05:41
WBC 4.1 L
Hgb 9.0 L
Hct 28.4 L
Plt Count 243
Sodium 132 L
Potassium 4.4
Chloride 101
Carbon Dioxide 28
BUN 26 H
Creatinine 1.3
Glucose 91
Calcium 9.5
Vital Signs:
Vital Signs
Temp Pulse Resp BP Pulse Ox
98.3 F 87 17 126/67 96
12/16/23 07:55 12/16/23 07:55 12/16/23 07:55 12/16/23 07:55 12/16/23 07:55
I&O
12/15/23 12/16/23 12/17/23
06:59 06:59 06:59
Intake Total 2160 / 2160 1640 / 1640
Output Total 1450 / 1450 1850 / 1850
Balance 710 / 710 -210 / -210
[2023-12-16 10:00] VITALS: BMI 28.6
--- NOTE | 2023-12-16 11:26 | W.PN.NEPH.PH ---
Today's Communication / Plan
-
follow BMP
Assessment/Plan
-
IMP:
Hypercalcemia
Primary hyperparathyroidism
Progressive anemia
CKD 3a
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
Acute left lower extremity DVT
Paroxysmal atrial fibrillation
History of atrial flutter
Acute urinary retention
BPH with chronic urinary difficulty
Transient hypotension-Resolved after stopping lisinopril
Mild hyponatremia
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 Danielson
Reported Chronic dysphagia secondary to esophageal stricture
Non-obstructing Schatzki noted on EGD
History of stroke in 2018, without residual deficits
Interstitial lung disease
Plan:
-follow BMP
-OP f/u with endocrionolgy
-continue lasix po
-no ACEI for now
-d/c planning
-
-
Date of Service: December 16, 2023
CC / HPI / ROS
-
Chief Complaint:
Hypercalcemia
History of Present Illness:
bp stable off leobardo
hypercalcemia down to 9.5
sodium at 132
creatinine stable at baseline 1.3
Review of Systems:
non oliguric
no chest pain or sob
Labs
-
Labs:
WBC 4.1 10^3/uL (4.8-10.8) L 12/16/23 05:41
RBC 2.76 10^6/uL (4.70-6.10) L 12/16/23 05:41
Hgb 9.0 g/dL (13.0-18.0) L 12/16/23 05:41
Hct 28.4 % (39.0-52.0) L 12/16/23 05:41
Plt Count 243 10^3/uL (130-400) 12/16/23 05:41
Sodium 132 mmol/L (135-145) L 12/16/23 05:41
Potassium 4.4 mmol/L (3.5-5.1) 12/16/23 05:41
Chloride 101 mmol/L (98-107) 12/16/23 05:41
Carbon Dioxide 28 mmol/L (22-30) 12/16/23 05:41
BUN 26 mg/dl (9-20) H 12/16/23 05:41
Creatinine 1.3 mg/dL (0.7-1.3) 12/16/23 05:41
eGFR 53.50 12/16/23 05:41
Glucose 91 mg/dl (70-99) 12/16/23 05:41
Calcium 9.5 mg/dl (8.4-10.2) 12/16/23 05:41
Phosphorus 4.0 mg/dl (2.5-4.5) 12/13/23 05:36
Albumin 2.8 g/dl (3.5-5.0) L 12/10/23 05:15
Physical Exam
-
Vital Signs:
Vital Signs
Temp Pulse Resp BP Pulse Ox
98.3 F 87 17 126/67 96
12/16/23 07:55 12/16/23 07:55 12/16/23 07:55 12/16/23 07:55 12/16/23 07:55
Cardiovascular:: Regular rate and rhythm
Respiratory:: Bilateral: Coarse
Lung Excursion:: Normal
Abdomen:: Nontender and Soft
Bowel Sounds:: Normal
Extremity Edema:: None: Bilateral:
--- NOTE | 2023-12-16 12:25 | CM ---
Addendum entered by Ruby Weinberg 12/16/23 16:02:
Called [phone] to obtain auth
Spoke with Raffaele [phone]
Auth # [id number]
approved for 7 days
next review 12/22 call [phone], opt 5
Called Kamini at [facility] - given auth #
requested transport after 2:30PM and current Covid testing
R - [phone]
- [phone]
Original Note:
CM following for d/c planning
Pt ready for d/c - for snf
Spoke with Kamini at [facility] - can accept tomorrow
Spoke with pts daughter Estephanie - agreed with snf
Will obtain auth for [facility] SNF
Plan - transfer to [facility] SNF tomorrow
[2023-12-16 14:24] VITALS: BP 106/57; PULSE 89; O2SAT 97
[2023-12-16 14:40] VITALS: BP 106/57; PULSE 89; O2SAT 97
[2023-12-16 15:37] VITALS: BP 106/57
[2023-12-16] MEDS: FEOSOL 325 MG PO (17:13)
[2023-12-16] MEDS: PROSCAR 5 MG PO (17:13)
[2023-12-16] MEDS: LIPITOR 80 MG PO (17:13)
[2023-12-16] MEDS: SINGULAIR 10 MG PO (17:13)
[2023-12-16] MEDS: NEURONTIN 300 MG PO (22:40)
[2023-12-16 23:35] VITALS: BP 113/59
[2023-12-17 06:00] VITALS: BMI 28.1
[2023-12-17 06:34] LABS: Hematocrit 28.8 % (39.0-52.0); Hemoglobin 9.2 g/dL (13.0-18.0); Mean Corp Hgb Conc. 31.9 g/dL (33.0-37.0); Mean Corpuscular Hgb 32.7 pg (27.0-31.0); Mean Corpuscular Volume 102.5 fL (80.0-94.0); Mean Platelet Volume 8.7 fL (7.4-10.4); Platelet Count 238 10^3/uL (130-400); Red Blood Cell Count 2.81 10^6/uL (4.70-6.10); Red Cell Dist. Width 15.1 % (11.5-14.5); White Blood Cell Count 4.3 10^3/uL (4.8-10.8)
[2023-12-17 06:44] LABS: COVID-19 Antigen Positive (Negative)
[2023-12-17 06:57] LABS: Blood Urea Nitrogen 26 mg/dl (9-20); Calcium 9.2 mg/dl (8.4-10.2); Carbon Dioxide 27 mmol/L (22-30); Chloride 101 mmol/L (98-107); Estimated Creatinine Clearance 54 ml/min; Glucose 89 mg/dl (70-99); Potassium 4.3 mmol/L (3.5-5.1); Sodium 131 mmol/L (135-145); eGFR 58.89
[2023-12-17 07:00] VITALS: BP 121/64
--- NOTE | 2023-12-17 08:00 | W.PN.HOSP.TC ---
Today's Communication/Plan
-
Medically stable for discharge to short-term rehab today
Assessment / Plan
Assessment / Plan
HPI: 88-year-old male with past medical history of atrial fibrillation on Eliquis, CVA, diastolic heart failure, hypertension, GERD, hypercholesteremia, anxiety/depression, gout, CKD 3, BPH, hyperparathyroidism, internal hemorrhoids� who recently
underwent left knee replacement on 11/13 here with episode of dark stool yesterday with bright red blood yesterday and worsening anemia. Patient recently [facility].� He has not been very mobile there.� Eliquis was
also held postoperatively and unclear when this was restarted. Patient had bilateral lower extremity edema after his recent surgery with ecchymosis of the left upper thigh, erythema, swelling and pain of the left calf up to the knee.� He had
ultrasound 3 days ago showing gastrocnemius DVT in the left leg likely due to suspension of Eliquis in the setting of recent left knee replacement.�Patient also had some urinary retention after the surgery requiring Joseph catheter.� He has also been
constipated after the surgery as well. Labs show sodium of 130 from 134 and hypercalcemia with corrected calcium 11.6.� Hemoglobin is trended down from 12.3 prior to surgery down to 8.7.
#Progressive anemia
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
Likely multifactorial from postoperative blood losses/ecchymosis of left upper thigh and possible upper GI bleeding
Appreciate GI input, recommend pantoprazole 40 mg po twice daily
12/03 EGD shows 2 cm hiatal hernia, nonobstructing Schatzki ring, normal stomach, normal duodenum
12/04 colonoscopy shows 15 mm polyp at the appendiceal orifice
Follow-up with Dr. Cedeno in the office for polypectomy
Received 1PRBC for hgb 7.7 12/04
Eliquis resumed 12/04, H&H remains stable consistently >8.0 since 12/04
No IVC filter needed, hemoglobin continues to be stable after resuming Eliquis -9.2 today on the day of discharge
#Incidental asymptomatic coronavirus infection
Positive on 12/16 for screening for SNF placement
No fever, no respiratory symptoms, he has had multiple COVID vaccinations
Will need 10 days of isolation through 12/26/23
#Constipation
Resolved, continue bowel regimen
#Acute left lower extremity DVT
Secondary to recent immobility/recent knee surgery and interruption of Eliquis
Eliquis resumed 12/04, no IVC filter needed, hemoglobin continues to be stable after resuming Eliquis
Appreciate hematology input, recommend repeat left lower extremity Dopplers in 1 month
#Paroxysmal atrial fibrillation
#History of atrial flutter
Eliquis resumed 12/04
Continue metoprolol for rate control
#Acute urinary retention
#BPH with chronic urinary difficulty
Patient had required straight cath x 3, last episode draining 800 cc of urine
Continue Flomax 0.5 mg twice a day, Joseph inserted 12/04
Trial of void attempted 12/10 unfortunately failed, Joseph since re-inserted
Patient to keep Joseph on discharge and follow Outpt Dr. Grimaldo/urology for eventual repeat trial of void
#Transient hypotension
Resolved after stopping lisinopril
Continue to monitor off of IV fluids (history of CHF)
#Mild Hypercalcemia
#Hyponatremia secondary to SIADH
#History of hyperparathyroidism
PTH non-suppressed, reported hx hyperparathyroidism, Vit D lvl wnl
Sodium 131 today, will discharge him on 48 ounce fluid restriction, instead of 16 ounce
Nephro eval appreciated Lasix started, low dose pamidronate given 12/11, Vit D supplementation discontinued.
Endocrine eval appreciated
Hypercalcemia resolved, hyponatremia improved
Home lexapro on hold since 12/03 d/t hyponatremia, likely can discontinue on discharge, medication appears unnecessary at this time.
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 Danielson
Appreciate orthopedic surgery input, healing well
No signs or symptoms of cellulitis
#Reported Chronic dysphagia secondary to esophageal stricture
#Non-obstructing Schatzki noted on EGD
previously required mechanical soft diet with pills in applesauce
speech eval appreciated diet since advanced to Regular no need to crush meds
#Stage III Kidney disease
Creatinine stable
#History of stroke in 2018, without residual deficits
#Interstitial lung disease
DVT prophylaxis�eliquis
Full code
Updated daughter on phone 12/16
Physical Exam
General: Chronically ill-appearing, no acute distress
HEENT: Normocephalic, Atraumatic, EOMI, MMM
Respiratory: Clear to Auscultation bilaterally
Cardiac: Normal S1/S2, irregularly irregular
GI: Soft, Nontender, Nondistended, Normal Bowel Sounds
: Joseph in place, clear yellow urine noted
Extremities: No Clubbing, Cyanosis Lower ext edema improved
Musculoskeletal: Left knee incision is clean, dry, intact
Neuro: Awake Alert Conversant
Psych: Calm, Cooperative
Anticipated Discharge: Today
Subjective/Interval History
-
Date of Service: December 17, 2023
Patient denies shortness of breath, denies cough. No fever. No nausea, no vomiting.
Objective Data
-
Labs:
Laboratory Results
12/17/23
05:41
WBC 4.3 L
Hgb 9.2 L
Hct 28.8 L
Plt Count 238
Sodium 131 L
Potassium 4.3
Chloride 101
Carbon Dioxide 27
BUN 26 H
Creatinine 1.2
Glucose 89
Calcium 9.2
Vital Signs:
Vital Signs
Temp Pulse Resp BP Pulse Ox
98.5 F 80 16 121/64 98
12/17/23 07:00 12/17/23 07:00 12/17/23 07:00 12/17/23 07:00 12/17/23 07:00
I&O
12/16/23 12/17/23 12/18/23
06:59 06:59 06:59
Intake Total 1640 / 1640 1620 / 1620
Output Total 1850 / 1850 1300 / 1300
Balance -210 / -210 320 / 320
[2023-12-17] MEDS: MIRALAX 17 GRAMS PO (09:32)
[2023-12-17] MEDS: VITAMIN B-12 500 MCG PO (09:33)
[2023-12-17] MEDS: SENOKOT-S 2 TABLET PO (09:33)
[2023-12-17] MEDS: TOPROL XL 12.5 MG PO (09:34)
[2023-12-17] MEDS: ZYLOPRIM 100 MG PO (09:34)
[2023-12-17] MEDS: FLOMAX 0.400000000000000022 MG PO (09:35)
[2023-12-17] MEDS: LASIX 20 MG PO (09:35)
[2023-12-17] MEDS: B COMPLEX w/VITAMIN C 1 CAPLET PO (09:35)
[2023-12-17] MEDS: PROTONIX 40 MG PO (09:35)
[2023-12-17] MEDS: ELIQUIS 5 MG PO (09:35)
[2023-12-17] MEDS: DESENEX/MITRAZOL/ZEASORB 1 APPLIC TOPICAL (09:40)
[2023-12-17] MEDS: NON-FORMULARY ITEM 1 SPRAY NASAL ×2 (09:42→10:24)
[2023-12-17] MEDS: OCEAN, SALINE MIST 1 SPRAYS NASAL (09:42)
--- NOTE | 2023-12-17 10:24 | CM ---
Addendum entered by Ruby Weinberg 12/17/23 10:44:
Spoke with pts daughter Estephanie
She would like to transport pt to [facility]
Discussed covid precautions
Discussed IMM
Original Note:
Case Management following for d/c planning
Pt accepted to [facility] for SNF - auth obtained
Tested + for covid - spoke with Kamini at [facility], made aware
Received call back from Kamini - can accept pt
Team made aware - facility can accept with + covid
Plan - Transfer to [facility] SNF when medically stable
R - [phone]
- [phone]
--- NOTE | 2023-12-17 12:24 | W.DCSUMMARY ---
Discharge Summary
Discharge Data
Date of Admission: 12/02/23
Date of Discharge: 12/17/23
-
Pending Results: No
Hospital Course
Discharge diagnosis:
Progressive anemia
Chronic blood loss anemia exacerbated by Eliquis use
Incidental asymptomatic coronavirus infection
Large colon polyp
Constipation
Acute left lower extremity deep vein thrombosis
Paroxysmal atrial fibrillation on Eliquis
Acute urinary retention requiring Joseph
Benign prostatic hypertrophy with chronic urinary difficulty
Transient hypotension
Mild hypercalcemia
History of hyperparathyroidism
Hyponatremia
Status post left knee replacement on November 13, [address] Danielson
Stage III chronic kidney disease
History of stroke
Interstitial lung disease
Consults: GI, orthopedic surgery, oncology, nephrology, endocrinology
Procedures:
12/04/23 EGD shows 2 cm hiatal hernia, nonobstructing Schatzki ring, normal stomach, normal duodenum
12/05/23 colonoscopy shows 15 mm polyp at the appendiceal orifice
Hospital course:
88-year-old male with a past medical history of paroxysmal atrial fibrillation on Eliquis, recent acute left lower extremity DVT, recent left knee replacement on 11/13/2023, BPH, stroke, stage III chronic kidney disease, and interstitial lung disease
was admitted for worsening anemia and dark stools concerning for GI blood loss.
Patient's Eliquis was held. He was seen in conjunction with GI, and had endoscopy and colonoscopy, with results above. GI recommends patient sees Dr. Cedeno in the office for excision of his large polyp. Patient was cleared to resume Eliquis as per
GI, since no active bleeding was found. He was resumed on his Eliquis on 12/05/2023.
Patient did receive 1 unit of packed red blood cells on 12/04, his hemoglobin improved to 8.0. He did not have any bleeding on Eliquis, and his hemoglobin was 9.2 on the day of discharge.
Patient was noted to have transient hypotension. His lisinopril was discontinued, and his blood pressure normalized.
Patient's hospital course was complicated by acute urinary retention. He has a history of BPH with chronic urinary difficulty. He is continued on his Flomax and finasteride. He had a Joseph inserted. He failed his void trial. He will be
discharged with a Joseph, he needs to follow-up with his usual urologist in the office in 1-2 weeks for void trial.
Patient also had hyponatremia. His Lexapro was discontinued. He was seen in conjunction with nephrology, and treated with Lasix and fluid restriction. His sodium was 131 on the day of discharge, he will be discharged on a 48 ounce fluid
restriction, as well as the Lasix.
Patient also had hypercalcemia. Patient received IV pamidronate, his hypercalcemia resolved. He was seen in conjunction with endocrinology who states that pamidronate should persist for up to 3 months, and calcium should be monitored in this
setting. He will need follow up with Dr. Shepherd in January with labs. When the calcium begins drifting upward again, then repeat bisphosphonate infusion vs. a low dose of daily cinacalcet should work well to control this condition.
Patient incidentally tested positive for coronavirus on 12/17/2023 for screening for short-term rehab placement. He is asymptomatic, he does not have any fever, cough, or shortness of breath. He needs to isolate for 10 days through 12/26/2023.
Patient's multiple medical conditions have been optimized. He is medically stable for discharge to short-term rehab. He needs to follow-up with GI/Dr. Cedeno for polyp excision, urology/Dr. Grimaldo for void trial, Dr. Danielson for follow-up of his
left knee replacement, and Dr. Shepherd for his hypercalcemia. He also needs to follow-up with his primary care doctor 1 week after he leaves short-term rehab.
Disposition: Short-term rehab
Discharge planning: Required 45 minutes
Discharge Plan
-
Patient Disposition: [facility]NF
Discharge Diagnosis/Procedures: Progressive anemia, asymptomatic coronavirus infection, recent left knee replacement, hyponatremia, acute on chronic urinary retention requiring Joseph placement, hypercalcemia, history of hyperparathyroidism,
transient hypotension, acute left lower extremity deep vein thrombosis, paroxysmal atrial fibrillation on Eliquis
Condition: Good
Diet: Regular and Restrict fluids to 48 oz
Activity: As tolerated
Blood Work: BMP, CBC on 12/19/2023
Other Services: PT and OT
Activity Restrictions/Additional Instructions:
Follow-up with GI, Dr. Cedeno in the office for excision of your large polyp.
You have low sodium, your sodium on the day of discharge is 131.
Continue 48 ounce fluid restriction so your sodium does not get lower.
Your blood counts have been stable on Eliquis, your hemoglobin is 9.2 on the day of discharge.
You have acute on chronic urinary retention, you failed your void trial.
You need to maintain the Joseph upon discharge.
Follow-up with urology in the office for void trial.
You have stage III chronic kidney disease.
Please avoid all wkin-dil-plinwdv aspirin or NSAID medications such as ibuprofen, naproxen, Aleve, Motrin, Advil.
Follow-up with your primary care doctor 1 week after you leave rehab, orthopedic surgery in the office in 2-3 weeks, GI in 3-4 weeks, and urology in 2-3 weeks.
Please follow-up with endocrinology/Dr. Shepherd as needed for your hyperparathyroidism and hypercalcemia.
Referrals:
Renea Shepherd MD [Consulting Staff] - in one to two months
Jaguar Grimaldo MD [Active] - in two to three weeks
Fernando Cedeno MD [Active] - 01/20/24 11:45 am
Christos Danielson MD [Active] - in three to four weeks
Reymundo Nichols DO [Family Provider] - in one week
Prescriptions:
New
polyethylene glycol 3350 [HealthyLax] 17 gram Powder In Packet
17 g PO DAILY Qty: 0 0RF
sennosides-docusate sodium [Stool Softener-Stimulant Laxat] 8.6-50 mg Tablet
2 tab PO BID Qty: 0 0RF
miconazole nitrate [Miconazorb AF] 2 % Powder
1 applic topical BID Qty: 0 0RF
acetaminophen [Tylenol Extra Strength] 500 mg Tablet
1,000 mg PO Q6HPRN PRN (Reason: MILD pain or fever) Qty: 0 0RF
furosemide 20 mg Tablet
20 mg PO DAILY Qty: 0 0RF
Continued
tamsulosin 0.4 MG capsule
0.4 mg PO BID
allopurinol 100 MG tablet
100 mg PO DAILY
escitalopram oxalate 10 MG tablet
10 mg PO QPM
montelukast 10 MG tablet
10 mg PO QPM
Prolia 60 MG/ML syringe
60 mg SC [id number]
ferrous sulfate [FeroSul] 325 MG tablet
325 mg PO QPM
pantoprazole 40 MG tablet,delayed release (DR/EC)
40 mg PO DAILY
finasteride 5 mg Tablet
5 mg PO QPM
metoprolol succinate [Toprol XL] 25 mg tablet extended release 24 hr
12.5 mg PO DAILY Qty: 30 0RF
gabapentin 300 mg capsule
300 mg PO HS Qty: 10 0RF
atorvastatin 80 MG tablet
80 mg PO QPM Qty: 0 0RF
Eliquis 5 MG tablet
5 mg PO BID Qty: 0 0RF
cyanocobalamin (vitamin B-12) 500 mcg Tablet
500 mcg PO DAILY
budesonide 0.5 mg/2 mL Suspension For Nebulization
0.5 mg INHALATION R BIDPRN PRN (Reason: sob)
vitamin B complex Tablet
1 tab PO DAILY
sodium chloride 0.65 % Aerosol,[place]
1 spray INTRANASAL BIDPRN PRN (Reason: dry nares)
cholecalciferol (vitamin D3) 25 mcg (1,000 unit) Tablet
25 mcg PO DAILY
azelastine 137 mcg (0.1 %) Aerosol,[place]
1 spray INTRANASAL BID
fluticasone propionate 50 mcg/actuation [place],Suspension
1 spray INTRANASAL BID
Discontinued
tramadol 50 mg tablet
50 mg PO BID PRN (Reason: ongoing therapy) Qty: 20 0RF
Patient Comments:
12/02/2023, pt. filled this med. on 11/27/2023 for 10 tablets per PDMP.
lisinopril 10 mg Tablet
10 mg PO DAILY
acetaminophen 325 MG tablet
650 mg PO Q4HPRN PRN (Reason: mild pain)
oxycodone 5 mg tablet
5 mg PO DAILYPRN PRN (Reason: severe pain)
Patient Comments:
12/02/2023, pt. filled this med. on 11/27/2023 for 24 tablets per PDMP.
Discharge Orders:
Discharge Patient (As Directed); Ordered 12/17/23
Ordered By: Donnie Moon
Discharge Date and Time
Discharge Date/Time: 12/17/23 16:21
--- NOTE | 2023-12-17 13:11 | W.PN.NEPH.PH ---
Today's Communication / Plan
-
dc planning
Assessment/Plan
-
IMP:
Hypercalcemia
Primary hyperparathyroidism
Progressive anemia
CKD 3a
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
Acute left lower extremity DVT
Paroxysmal atrial fibrillation
History of atrial flutter
Acute urinary retention
BPH with chronic urinary difficulty
Transient hypotension-Resolved after stopping lisinopril
Mild hyponatremia
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 Danielson
Reported Chronic dysphagia secondary to esophageal stricture
Non-obstructing Schatzki noted on EGD
History of stroke in 2018, without residual deficits
Interstitial lung disease
COVID
Plan:
-follow BMP next week
-OP f/u with endocrionolgy
-continue lasix po
-no ACEI for now
-d/c today
-
-
Date of Service: December 17, 2023
CC / HPI / ROS
-
Chief Complaint:
Hypercalcemia
History of Present Illness:
bp stable off acei
hypercalcemia down to 9.2
sodium at 131
creatinine stable at baseline 1.2
Review of Systems:
non oliguric
no chest pain or sob
Labs
-
Labs:
WBC 4.3 10^3/uL (4.8-10.8) L 12/17/23 05:41
RBC 2.81 10^6/uL (4.70-6.10) L 12/17/23 05:41
Hgb 9.2 g/dL (13.0-18.0) L 12/17/23 05:41
Hct 28.8 % (39.0-52.0) L 12/17/23 05:41
Plt Count 238 10^3/uL (130-400) 12/17/23 05:41
Sodium 131 mmol/L (135-145) L 12/17/23 05:41
Potassium 4.3 mmol/L (3.5-5.1) 12/17/23 05:41
Chloride 101 mmol/L (98-107) 12/17/23 05:41
Carbon Dioxide 27 mmol/L (22-30) 12/17/23 05:41
BUN 26 mg/dl (9-20) H 12/17/23 05:41
Creatinine 1.2 mg/dL (0.7-1.3) 12/17/23 05:41
eGFR 58.89 12/17/23 05:41
Glucose 89 mg/dl (70-99) 12/17/23 05:41
Calcium 9.2 mg/dl (8.4-10.2) 12/17/23 05:41
Phosphorus 4.0 mg/dl (2.5-4.5) 12/13/23 05:36
Albumin 2.8 g/dl (3.5-5.0) L 12/10/23 05:15
Physical Exam
-
Vital Signs:
Vital Signs
Temp Pulse Resp BP Pulse Ox
98.5 F 80 16 121/64 98
12/17/23 07:00 12/17/23 07:00 12/17/23 07:00 12/17/23 07:00 12/17/23 07:00
Cardiovascular:: Regular rate and rhythm
Lung Excursion:: Normal
Abdomen:: Nontender and Soft
Bowel Sounds:: Normal
Extremity Edema:: +1: Bilateral:
== END 2023-12-17 16:21 | DRG 813 ==
LOC: 3 WEST ACU 21:14
PROVIDERS: Clinical Nurse Specialist Family Health; Emergency Medicine; Internal Medicine; Nurse Practitioner Family; Specialist; ADMITTING PHYSICIAN Hospitalist; ATTENDING PHYSICIAN Family Medicine; CONSULT PHYSICIAN Internal Medicine; CONSULT PHYSICIAN Internal Medicine Endocrinology, Diabetes & Metabolism; CONSULT PHYSICIAN Internal Medicine Hematology & Oncology; EMERGENCY PHYSICIAN Emergency Medicine; FAMILY PHYSICIAN Internal Medicine
PROC: 0DJD8ZZ Inspection of Lower Intestinal Tract, Via Natural or Artificial Opening Endoscopic (ICD-10-PCS; 2023-12-04)
PROC: 0DJ08ZZ Inspection of Upper Intestinal Tract, Via Natural or Artificial Opening Endoscopic (ICD-10-PCS; 2023-12-04)
PROC: 30233N1 Transfusion of Nonautologous Red Blood Cells into Peripheral Vein, Percutaneous Approach (ICD-10-PCS; 2023-12-05)
DX: D68.32 Hemorrhagic disorder due to extrinsic circulating anticoagulants (principal); U07.1 COVID-19; E22.2 Syndrome of inappropriate secretion of antidiuretic hormone; I13.0 Hypertensive heart and chronic kidney disease with heart failure and stage 1 through stage 4 chronic kidney disease, or unspecified chronic kidney disease; I50.32 Chronic diastolic (congestive) heart failure; L03.116 Cellulitis of left lower limb; I48.92 Unspecified atrial flutter; Q43.8 Other specified congenital malformations of intestine; K86.2 Cyst of pancreas; J84.9 Interstitial pulmonary disease, unspecified; K92.2 Gastrointestinal hemorrhage, unspecified; E78.00 Pure hypercholesterolemia, unspecified; F32.A Depression, unspecified; F41.9 Anxiety disorder, unspecified; K21.9 Gastro-esophageal reflux disease without esophagitis; I48.0 Paroxysmal atrial fibrillation; M54.9 Dorsalgia, unspecified; N40.1 Benign prostatic hyperplasia with lower urinary tract symptoms; R33.8 Other retention of urine; E86.0 Dehydration; M10.9 Gout, unspecified; E21.0 Primary hyperparathyroidism; I82.462 Acute embolism and thrombosis of left calf muscular vein; K59.00 Constipation, unspecified; M19.90 Unspecified osteoarthritis, unspecified site; I25.10 Atherosclerotic heart disease of native coronary artery without angina pectoris; I70.0 Atherosclerosis of aorta; D50.0 Iron deficiency anemia secondary to blood loss (chronic); I44.0 Atrioventricular block, first degree; I27.20 Pulmonary hypertension, unspecified; R91.1 Solitary pulmonary nodule; N28.1 Cyst of kidney, acquired; G62.9 Polyneuropathy, unspecified; L40.50 Arthropathic psoriasis, unspecified; G89.29 Other chronic pain; D50.9 Iron deficiency anemia, unspecified; N18.32 Chronic kidney disease, stage 3b; M81.0 Age-related osteoporosis without current pathological fracture; K44.9 Diaphragmatic hernia without obstruction or gangrene; K22.2 Esophageal obstruction; H91.93 Unspecified hearing loss, bilateral; D12.1 Benign neoplasm of appendix; K63.5 Polyp of colon; R73.03 Prediabetes; E66.9 Obesity, unspecified; Z86.73 Personal history of transient ischemic attack (TIA), and cerebral infarction without residual deficits; Z87.01 Personal history of pneumonia (recurrent); Z87.11 Personal history of peptic ulcer disease; Z96.1 Presence of intraocular lens; Z96.653 Presence of artificial knee joint, bilateral; Z90.49 Acquired absence of other specified parts of digestive tract; Z68.32 Body mass index [BMI] 32.0-32.9, adult
CPT/HCPCS: 71045; 80048; 80053; 81003; 82248; 82306; 82330; 82533; 82607; 82728; 82746; 83010; 83540; 83550; 83605; 83615; 83735; 83930; 83935; 83970; 84100; 84300; 84443; 85018; 85025; 85027; 85045; 85610; 85730; 86850; 86900; 86901; 86920; 87040; 87811; 92610; 96365; 96375; 97110; 97116; 97530; 97535; 99285; J2430; P9016

== ENCOUNTER 2024-04-27 11:54 | Inpatient (IN) | payer OTHER, SELFPAY ==
[2024-04-26] VITALS (12 sets, daily range): BP systolic 105–147; BP diastolic 66–97; BMI 34.5; BMI 33.5
--- NOTE | 2024-04-26 16:50 | ED.GENMED ---
History of Present Illness
General
Chief Complaint: Breathing Problem
Source: patient
Exam Limitations: none
Time Seen by Provider: 04/26/24 16:20
Nursing documentation reviewed up to this point in time: agreed with
History of Present Illness
History of Present Illness:
88-year-old male with past medical history of interstitial lung disease, previous stroke 2018, CKD presenting to the emergency department today with concerns of bilateral lower extremity swelling worsening over the past few weeks also has had
worsening dyspnea on exertion over the past few weeks as well. Family claims that he appears pale as well. Denies any specific chest pain fevers or any symptoms at rest.
Past History
Past History
ED Past Medical History: Arrthythmia (Atrial fib), CVA (TIA), GERD, HTN, Hypercholesterolemia, Psychiatric (Anxiety, Depression) and Other (Back pain, PNA, Peptic ulcer, Gout, Sinusitis)
ED Past Surgical History: Cholecystectomy, Orthopedic (Right second toe amputation, Bilateral foot surgery with plates, Right knee replacement, Left knee replacement), Tonsilectomy and Other ( varicocele, vein stripping right and left, cellulitis,
umbilical hernia, Nasal surgery, Cataracts with lens implants, )
Social History
Tobacco: Non-smoker
Alcohol: None
Personal:
Living: with family (Daughter)
Review of Systems
Review of Systems
Allergies reviewed?: Yes
All Other Systems: ROS reviewed and negative except as documented in HPI and ROS
Phy Exam
Physical Exam
Physical Exam:
GENERAL: Alert , in no apparent distress
EYE: pupils equal and reactive
NECK: Supple, no significant adenopathy.
ENT: o/p clr, mmm.
CARDIAC: Regular rate and rhythm .
LUNGS: Clear breath sounds bilaterally, no acute respiratory distress, no wheezes/rales/rhonchi
ABDOMEN: Soft, without focal tenderness, no r/g, no cvat
NEUROLOGICAL: Alert and oriented, no focal neuro deficits
SKIN: Warm and dry, skin intact.
MUSCULOSKELETAL: Edema to the legs bilaterally distal to the knees +2 pitting no tenderness no redness, well perfused.
PSYCH: Normal and appropriate interaction.
Scores
Heart Failure Risk
Heart Failure Risk Score: Not Applicable
Course
Orders/Labs/Results
Orders:
Orders
04/26/24 16:00
EKG [Electrocardiogram (*1)] Urgent
Reason for Study: Shortness of Breath
EKG- Treatment ONCE
04/26/24 16:20
CR Chest - 2 Views Urgent
Comment:
Reason For Exam: sob
04/26/24 16:41
Complete Blood Count/With Diff Urgent
Comprehensive Metabolic Panel Urgent
Magnesium Urgent
NT-proBNP Urgent
TSH Urgent
Troponin I Urgent
04/26/24 18:39
Furosemide [Lasix] 40 mg IV NOW STA
Abnormal Lab Results
04/26/24
16:41
WBC 4.4 L 10^3/uL
(4.8-10.8)
RBC 3.22 L 10^6/uL
(4.70-6.10)
Hgb 10.9 L g/dL
(13.0-18.0)
Hct 33.4 L %
(39.0-52.0)
MCV 103.7 H fL
(80.0-94.0)
MCH 33.9 H pg
(27.0-31.0)
MCHC 32.6 L g/dL
(33.0-37.0)
RDW 16.2 H %
(11.5-14.5)
Plt Count 105 L 10^3/uL
(130-400)
Absolute Lymphs (auto) 0.9 L 10^3/uL
(1.2-3.4)
Absolute Eos (auto) 1.0 H 10^3/uL
(0-0.7)
Neutrophils % 42.0 L %
(42.2-75.2)
Monocytes % 12.3 H %
(1.7-9.3)
Eosinophils % 23.7 H %
(0-6)
Sodium 134 L mmol/L
(135-145)
Glucose 108 H mg/dl
(70-99)
Calcium 10.5 H mg/dl
(8.4-10.2)
04/26/24 16:41
04/26/24 16:41
Vital Signs
Initial and Last Documented VS:
Initial Vital Signs
Temp Pulse Resp BP Pulse Ox
98.0 F 66 18 138/82 98
04/26/24 15:54 04/26/24 15:54 04/26/24 15:54 04/26/24 15:54 04/26/24 15:54
Last Documented Vital Signs
Temp Pulse Resp BP Pulse Ox
98.0 F 67 21 135/80 98
04/26/24 15:54 04/26/24 20:00 04/26/24 20:00 04/26/24 20:00 04/26/24 20:00
MDM/Problems Addressed
MDM/Problems Addressed:
88-year-old male presenting to the emergency department today with concerns of worsening dyspnea on exertion and leg swelling for the past few weeks. Significant decrease in exercise tolerance. Gets short of breath going to the bathroom more
recently. Upon arrival vital signs are normal asymptomatic at rest. Patient does have significant pitting edema to the lower extremities bilaterally. Patient's BNP elevated to 4500 patient with significant worsening exercise tolerance. Started
on Lasix plan to admit for further diuresis.
*Critical Care Note
Total Time (30-74mins, 75-104mins- exclusive of procedures): Not Applicable
ED Attending Note
-
Portions of this chart may have been created with voice recognition software.� Occasional wrong word or��sound alike� substitutions may have occurred due to the inherent limitations of voice recognition software.
Discharge Plan
Departure
Patient Disposition: Admit
Date of Disposition: 04/26/24
Time of Disposition: 20:05
Admit to: Telemetry
Admit to doctor: Jerod
Presentation/result/management discussed w/ accepting MD/DO: Hospitalist
Patient with high blood pressure during this ER visit?: No
Condition: Good
Covid-19: Not Applicable
Discharge Problem:
Heart failure
Prescriptions:
No Action
tamsulosin 0.4 MG capsule
0.4 mg PO BID
allopurinol 100 MG tablet
100 mg PO DAILY
escitalopram oxalate 10 MG tablet
10 mg PO QPM
montelukast 10 MG tablet
10 mg PO QPM
Prolia 60 MG/ML syringe
60 mg SC [id number]
ferrous sulfate [FeroSul] 325 MG tablet
325 mg PO QPM
pantoprazole 40 MG tablet,delayed release (DR/EC)
40 mg PO DAILY
finasteride 5 mg Tablet
5 mg PO QPM
metoprolol succinate [Toprol XL] 25 mg tablet extended release 24 hr
12.5 mg PO DAILY Qty: 30 0RF
gabapentin 300 mg capsule
300 mg PO HS Qty: 10 0RF
atorvastatin 80 MG tablet
80 mg PO QPM Qty: 0 0RF
Eliquis 5 MG tablet
5 mg PO BID Qty: 0 0RF
cyanocobalamin (vitamin B-12) 500 mcg Tablet
500 mcg PO DAILY
budesonide 0.5 mg/2 mL Suspension For Nebulization
0.5 mg INHALATION R BIDPRN PRN (Reason: sob)
vitamin B complex Tablet
1 tab PO DAILY
sodium chloride 0.65 % Aerosol,Rudyard
1 spray INTRANASAL BIDPRN PRN (Reason: dry nares)
cholecalciferol (vitamin D3) 25 mcg (1,000 unit) Tablet
25 mcg PO DAILY
azelastine 137 mcg (0.1 %) Aerosol,Rudyard
1 spray INTRANASAL BID
fluticasone propionate 50 mcg/actuation Rudyard,Suspension
1 spray INTRANASAL BID
polyethylene glycol 3350 [HealthyLax] 17 gram Powder In Packet
17 g PO DAILY Qty: 0 0RF
sennosides-docusate sodium [Stool Softener-Stimulant Laxat] 8.6-50 mg Tablet
2 tab PO BID Qty: 0 0RF
miconazole nitrate [Miconazorb AF] 2 % Powder
1 applic topical BID Qty: 0 0RF
acetaminophen [Tylenol Extra Strength] 500 mg Tablet
1,000 mg PO Q6HPRN PRN (Reason: MILD pain or fever) Qty: 0 0RF
furosemide 20 mg Tablet
20 mg PO DAILY Qty: 0 0RF
Referrals:
UNKNOWN - PT DOES,NOT KNOW [Family Provider] -
Interventions
Interventions:
*General Assessment Last Done: 04/26/24 15:54
ED- Fall Risk Assessment Last Done: 04/26/24 16:55
*ED COVID-19 Vaccine History Last Done: 04/26/24 15:54
ED- Cardiac Assessment Last Done: 04/26/24 16:55
ED- Pulmonary Assessment Last Done: 04/26/24 16:55
Discharge Date and Time
Print Language: WOLOF
[2024-04-26 17:16] LABS: % Basophils 1.1 % (0-2); % Eosinophils 23.7 % (0-6); % Immature Granulocytes 0.2 % (0-0.5); % Lymphocytes 20.7 % (20.5-51.1); % Monocytes 12.3 % (1.7-9.3); Absolute Basophils 0.1 10^3/uL (0-0.2); Absolute Lymphocytes 0.9 10^3/uL (1.2-3.4); Absolute Monocytes 0.5 10^3/uL (0.1-0.6); Absolute Neutrophils 1.8 10^3/uL (1.4-6.5); Hematocrit 33.4 % (39.0-52.0); Hemoglobin 10.9 g/dL (13.0-18.0); Mean Corp Hgb Conc. 32.6 g/dL (33.0-37.0); Mean Corpuscular Hgb 33.9 pg (27.0-31.0); Mean Corpuscular Volume 103.7 fL (80.0-94.0); Mean Platelet Volume 9.5 fL (7.4-10.4); Nucleated Red Blood Cells % 0 % (-); Platelet Count 105 10^3/uL (130-400); Red Blood Cell Count 3.22 10^6/uL (4.70-6.10); Red Cell Dist. Width 16.2 % (11.5-14.5); White Blood Cell Count 4.4 10^3/uL (4.8-10.8)
[2024-04-26 17:29] LABS: ALT (SGPT) 13 U/L (0-50); AST (SGOT) 25 U/L (17-59); Albumin 3.7 g/dl (3.5-5.0); Blood Urea Nitrogen 20 mg/dl (9-20); Calcium 10.5 mg/dl (8.4-10.2); Carbon Dioxide 25 mmol/L (22-30); Estimated Creatinine Clearance 65 ml/min; Glucose 108 mg/dl (70-99); Potassium 4.7 mmol/L (3.5-5.1); Total Bilirubin 1.3 mg/dl (0.2-1.3); Total Protein 7.1 g/dl (6.3-8.2); eGFR 58.89
[2024-04-26 17:36] LABS: NT-proBNP 4500 pg/ml; Troponin I < 0.012 ng/ml
[2024-04-26 17:38] LABS: Alkaline Phosphatase 81 U/L (38-126); Chloride 104 mmol/L (98-107); Sodium 134 mmol/L (135-145)
[2024-04-26 17:54] LABS: TSH 1.23 uIU/ml (0.47-4.68)
[2024-04-26] MEDS: LASIX 40 MG IV (19:44)
--- NOTE | 2024-04-26 21:14 | HPS.HSE ---
Family Physician
-
Family Physician: NOT KNOW UNKNOWN - PT DOES
Chief Complaint
-
LE swelling
History of Present Illness
The patient is an 88-year-old male with past medical history of paroxysmal atrial fibrillation on Eliquis, recent acute left lower extremity DVT, recent left knee replacement on 11/13/2023, BPH, stroke, stage III chronic kidney disease, and
interstitial lung disease, presenting to the ED due to worsening bilateral LE edema that has been getting worse since early March, currently weeping clear liquid. He also has been getting SMITH, and has to sit down frequently when ambulating from the
car to the house due to sensation that he will pass out/black out. He has not had syncope nor LOC, no DEMARCO, no fevers, no substernal CP, no n/v/d, no dysuria. He is taking OAT for DVT LLE and A.fib history. He's had increasing weight over the past
several weeks but cannot quantify how much weight, stating he's been eating fried foods this past month. He was vacationing in his house in [place] for the month of March, and drove there early March with frequent stops along the way.
Medical History
Past Medical History
Past Medical History: Reports Other
Additional Past Medical History:
1. Osteoarthritis, status post right total knee arthroplasty, 09/2018, by Dr. Christos Danielson.
2. Hypertension.
3. Hyperlipidemia.
4. Coronary artery calcifications on chest CT.
5. Aorta atherosclerosis.
6. Paroxysmal atrial fibrillation/atrial flutter, oral anticoagulation with Eliquis.
7. First degree AV block.
8. Mild-moderate valvular disease.
9. Mild pulmonary hypertension.
10. Venous varicosities, status post remote bilateral vein stripping.
11. Chronic peripheral edema.
12. Chronic interstitial fibrosis.
13. Right lower lobe pulmonary nodule, stable on serial imaging.
14. Aspiration pneumonia 08/20/2023.
15. Chronic dyspnea on exertion.
16. Chronic kidney disease stage 3.
17. GERD.
18. Mild dysphagia secondary to esophageal stricture.
19. Redundant colon.
20. Colon polyps.
21. Bilateral renal cysts.
22. Pancreatic cyst.
23. 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
24. Balance difficulties.
25. Peripheral neuropathy.
26. Multilevel degenerative disc disease.
27. BPH with difficult urination.
28. Multifactorial anemia.
29. Psoriatic arthritis.
30. Primary hyperparathyroidism.
31. Gout.
32. Anxiety.
33. Depression.
34. Chronic postnasal drip.
35. Bilateral dry eyes.
36. Osteopenia.
37. Hearing impairment bilaterally.
38. MRSA positive nasal screen pre-operatively.
39. Mild hyponatremia.
40. Mild hypercalcemia.
41. Prediabetes, A1c 5.8.
42. Obesity, BMI 32.9.
Past Surgical History: Reports Other
Additional Past Surgical History:
1. Right total knee arthroplasty, 09/2018, by Dr. Christos Danielson.
2. Right elbow surgery.
3. Left foot 4th metatarsal shaving.
4. Left foot excision of bone and soft tissue.
5. Varicose vein stripping bilaterally.
6. Umbilical hernia repair.
7. Laparoscopic cholecystectomy.
8. ERCP, bile stone extraction, and sphincterotomy.
9. Varicocele surgery.
10. Sinus surgery.
11. Bilateral cataract extraction.
12. Tonsillectomy.
13. Colonoscopy.
14. Endoscopy.
Social History
Tobacco: Non-smoker
Alcohol: Occasional
Living: Alone (in a 2 story home. His daughter, Estephanie, will be staying with him post-operatively. )
Family History
Family History: Not pertinent
Allergies / Home Medications
Allergies reflects when Allergies were last updated in [facility].
Home Medications with original date entered in [facility]
Allergy/Medication List:
Allergies
Allergy/AdvReac Type Severity Reaction Status Date / Time
meperidine Allergy oversedation,passed Verified 04/26/24 16:01
out
Home Medications
allopurinol 100 mg tablet 100 mg PO DAILY Gout 09/17/18
escitalopram oxalate 10 mg tablet 10 mg PO QPM Depression 09/17/18
tamsulosin 0.4 mg capsule 0.4 mg PO BID Urinary issue 09/17/18
denosumab 60 mg/mL subcutaneous syringe (Prolia) 60 mg SC [id number] OSTEOPOROSIS 02/22/21
montelukast 10 mg tablet 10 mg PO QPM Allergies 02/22/21
ferrous sulfate 325 mg (65 mg iron) tablet (FeroSul) 325 mg PO QPM Supplement 10/03/21
pantoprazole 40 mg tablet,delayed release 40 mg PO DAILY Gastrointestinal Issue 07/24/23
apixaban 5 mg tablet (Eliquis) 5 mg PO BID Blood clot prevention/tx #0 tabs 08/22/23
atorvastatin 80 mg tablet 80 mg PO QPM High cholesterol #0 tabs 08/22/23
finasteride 5 mg tablet 5 mg PO QPM Urinary Issue 10/21/23
gabapentin 300 mg capsule 300 mg PO HS sleep/pain #10 caps 11/18/23
metoprolol succinate 25 mg tablet,extended release 24 hr (Toprol XL) 12.5 mg (1/2 x 25 mg) PO DAILY #30 tabs 11/18/23
budesonide 0.5 mg/2 mL suspension for nebulization 0.5 mg inhalation R BIDPRN PRN sob 12/02/23
cholecalciferol (vitamin D3) 25 mcg (1,000 unit) tablet 25 mcg PO DAILY Supplement 12/02/23
cyanocobalamin (vitamin B-12) 500 mcg tablet 500 mcg PO DAILY Supplement 12/02/23
sodium chloride 0.65 % nasal spray aerosol 1 spray intranasal BIDPRN PRN dry nares 12/02/23
vitamin B complex 1 tab PO DAILY Supplement 12/02/23
azelastine 137 mcg (0.1 %) nasal spray 1 spray intranasal BID Allergies 12/03/23
fluticasone propionate 50 mcg/actuation nasal spray,suspension 1 spray intranasal BID Allergies 12/03/23
acetaminophen 500 mg tablet (Tylenol Extra Strength) 1,000 mg (2 x 500 mg) PO Q6HPRN PRN MILD pain or fever #0 tabs 12/17/23
furosemide 20 mg tablet 20 mg PO DAILY #0 tabs 12/17/23
miconazole nitrate 2 % topical powder (Miconazorb AF) 1 applic topical BID #0 grams 12/17/23
polyethylene glycol 3350 17 gram oral powder packet (HealthyLax) 17 g PO DAILY #0 ea 12/17/23
sennosides 8.6 mg-docusate sodium 50 mg tablet (Stool Softener-Stimulant Laxative) 2 tab PO BID #0 tabs 12/17/23
Review of Systems
-
A 12 point ROS was completed and negative except as noted: Yes
Physical Exam
Vital Signs
Vital Signs
Temp Pulse Resp BP Pulse Ox
98.0 F 67 21 135/80 98
04/26/24 15:54 04/26/24 20:00 04/26/24 20:00 04/26/24 20:00 04/26/24 20:00
Physical Exam
General: Well Developed, Well Nourished, No Apparent Distress, Comfortable and Conversant
HEENT: NormoCephalic, Anicteric and Moist mucous membranes
Respiratory: Clear
Cardiac: S1/S2 and Irregular Rhythm
GI: Soft, Non Tender, Normal Bowel Sounds and Other (distended)
Laboratory Results
-
04/26/24 16:41
04/26/24 16:41
Laboratory Results
Total Bilirubin 1.3 mg/dl (0.2-1.3) 04/26/24 16:41
AST 25 U/L (17-59) 04/26/24 16:41
ALT 13 U/L (0-50) 04/26/24 16:41
Alkaline Phosphatase 81 U/L (38-126) 04/26/24 16:41
Troponin I < 0.012 ng/ml 04/26/24 16:41
Data Reviewed
-
Diagnostic Radiology: Image Personally Visualized and interpreted and Report Reviewed by me (CXR NAD)
Medical Tests (Nuc Med, Echo, EKG etc): Image Personally Visualized and interpreted and Report Reviewed by me
Impression/Plan
-
IMPRESSION: The patient is an 88-year-old male with past medical history of paroxysmal atrial fibrillation on Eliquis, recent acute left lower extremity DVT, recent left knee replacement on 11/13/2023, BPH, stroke, stage III chronic kidney disease,
and interstitial lung disease, presenting to the ED due to worsening bilateral LE edema that has been getting worse since early March, currently weeping clear liquid. He was vacationing in his house in [place] for the month of March, and drove there
early March with frequent stops along the way.
#Acute exacerbation CHF, concern is for acute HFpEF versus valvular disease
-echo on 08/21/23 normal LV size, mild concentric LV, EF 60-65%, dilated RV, moderate TR
-Tele monitoring
-I/O, daily weights
-Cards Consultation for tomorrow
-cont Lasix IV 40 mg BID
-echo
-serial trop, EKG in am
-cont BB, hold parameters
#Extensive b/l LE edema up to thighs, possible right-sided heart failure
-cont IV Lasix BID and Echo pending
-check US b/l LE
#Near Syncope
-check orthostatics
-echo, tele, consider Carotid Dopplers
#Chronic blood loss anemia exacerbated by Eliquis use, stable hgb 10.9
#Thrombocytopenia-platelets 105 (from 238 on 12/16)
-no active bleeding, monitor w repeat labs in am
Chronic medical conditions:
1. Left lower extremity deep vein thrombosis on Eliquis
2. Hypertension.
3. Hyperlipidemia.
4. Coronary artery calcifications on chest CT.
5. Aorta atherosclerosis.
6. Paroxysmal atrial fibrillation/atrial flutter, oral anticoagulation with Eliquis.
7. First degree AV block.
8. Mild-moderate valvular disease.
9. Mild pulmonary hypertension.
10. Venous varicosities, status post remote bilateral vein stripping.
11. Chronic peripheral edema.
12. Chronic interstitial fibrosis.
13. Right lower lobe pulmonary nodule, stable on serial imaging.
14. Aspiration pneumonia 08/20/2023.
15. Chronic dyspnea on exertion.
16. Chronic kidney disease stage 3.
17. GERD.
18. Mild dysphagia secondary to esophageal stricture.
19. Redundant colon.
20. Colon polyps.
21. Bilateral renal cysts.
22. Pancreatic cyst.
23. 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
24. Balance difficulties.
25. Peripheral neuropathy.
26. Multilevel degenerative disc disease.
27. BPH with difficult urination.
28. Multifactorial anemia.
29. Psoriatic arthritis.
30. Primary hyperparathyroidism.
31. Gout.
32. Anxiety.
33. Depression.
34. Chronic postnasal drip.
35. Bilateral dry eyes.
36. Osteopenia.
37. Hearing impairment bilaterally.
38. MRSA positive nasal screen pre-operatively.
39. Mild hyponatremia.
40. Mild hypercalcemia.
41. Prediabetes, A1c 5.8.
42. Obesity, BMI 32.9.
DVT proph-Eliquis
Full Code
[2024-04-26 23:16] LABS: Troponin I < 0.012 ng/ml
[2024-04-26] MEDS: ELIQUIS 5 MG PO (23:30)
[2024-04-26] MEDS: NEURONTIN 300 MG PO (23:30)
[2024-04-27 01:34] VITALS: BMI 33.5
[2024-04-27 03:19] VITALS: BP 128/70
[2024-04-27 06:00] VITALS: BMI 33.2
[2024-04-27 06:33] LABS: Troponin I < 0.012 ng/ml
--- NOTE | 2024-04-27 06:37 | PTCARENOTE ---
Patient received from ED via stretcher. Patient able to ambulate to bed from stretcher with supervision. Patient noted to be mildly SMITH. Resolved without intervention. Patient denies any pain/discomfort. POC reviewed with patient. Room safety and
fall precautions reviewed. Call king with in reach. Care ongoing.
[2024-04-27 07:00] VITALS: BP 120/74
[2024-04-27] MEDS: FLOMAX 0.4 MG PO ×2 (08:23→19:57)
[2024-04-27] MEDS: ZYLOPRIM 100 MG PO (08:23)
[2024-04-27] MEDS: ELIQUIS 5 MG PO ×2 (08:23→19:56)
[2024-04-27] MEDS: TOPROL XL 12.5 MG PO (08:23)
[2024-04-27] MEDS: LASIX 40 MG IV ×2 (08:24→17:46)
--- NOTE | 2024-04-27 09:45 | CON.CAR ---
Addendum entered and electronically signed by Michael Erickson MD 04/27/24 13:29:
I saw and examined the patient.
The PLASTIC CNC MACHINE OPERATOR or PA's note was reviewed and I agree with the note.
Comment: General: Well developed, well nourished in NAD.
Neck: Supple, no JVD, HJR, carotids +2 B/L, no bruits bilaterally.
Heart: Non displaced PMI, RRR, no murmurs, No S3, S4, no rubs.
Lungs: Crackles at the bases bilaterally
Extremities: Severe lower extremity edema with venous stasis
Neuro: Grossly nonfocal, awake, alert and oriented x3.
Ming has a history of hyponatremia, persistent A-fib on chronic Eliquis, CVA in 2018, interstitial lung disease. He presents with acute diastolic CHF. This is likely due to dietary indiscretion. His weight is up 30 pounds since discharge earlier
in 2023. Will attempt to diurese with IV Lasix. Check echocardiogram. Follow sodium while on IV Lasix.
Original Note:
Consultation
Consultation Request
Date/Time Consultation Requested: 04/26/24 at 2237
Date/Time Consultation Performed: 04/27/24 at 0946
Requesting Provider: Dr. Chris
Performing Provider: Dr. Erickson
Reason for Consultation: CHF
Medical History
-
History of Present Illness:
Patient came to [facility] yesterday with increase LE edema and SOB and is now admitted with acute HF with a consultation to cardiology. Patient had a TKA 10/2023 that was complicated by post-op orthostasis and elevated HRs of his persistent Afib. His
lisinopril was stopped and Toprol XL was continued at that time. Eliquis was changed to 2.5 mg BID for the post-op TKA period. Patient was discharged to home and readmitted about 2 weeks later with anemia, LLE DVT and hyponatremia. Patient had
BRBPR at that time and on colonoscopy was found to have a large colon polyp that was not able to be removed. Also during that admission he was seen by hematology and eventually his usual dose of Eliquis 5 mg BID was restarted. He had hyponatremia
that was followed by nephrology and thought to be multifactorial and it was at that time that Lasix and Lexapro were stopped. He was also diagnosed with an LLE DVT at that time. He then saw me in the office for cardiology follow-up on 01/14/24 and
at that point remained in atrial fibrillation which is persistent at this point. Heart rates were controlled with Toprol-XL 12.5 mg daily. He was tolerating his usual dose of Eliquis 5 mg twice daily and the plan was for him to follow-up with "Jonathan"Wilian for polypectomy understanding that we would need to make a plan for holding OAC. We elected not to resume Lasix at that point as he was feeling well. In the interim he was able to travel to his other home in [place] and while there he was
eating differently than he would have eaten at home and said that he was eating a lot of takeout food that was fried. He returned home in the last week and noticed increasing edema to the point where his left leg was weeping. His family took him
to [facility] urgent care yesterday and he was referred to the ER.
PMH:
Hyponatremia
Recent admission for left TKA complicated by persistent Afib with increased HRs and orthostasis 11/13/23 until 11/18/23
Recent admission for anemia, LLE DVT, hyponatremia and COVID 12/02/23 until 12/17/23
Persistent atrial fibrillation
History of atrial flutter
Chronic anticoagulation with Eliquis
History of stroke in 2018
Interstitial lung disease
Chronic mild anemia
GERD
BPH
Primary hyperparathyroidism
Coronary artery calcifications noted by imaging
Past Medical History
Past Medical History: Other (in HPI)
Past Surgical History: Cholecystectomy and Orthopedic
Social History
Tobacco: Non-Smoker
Alcohol: Occasional
Drug: None
Personal:
Living: Alone
Family History
Family History: Cancer and Other (CVA, CHF)
Allergies / Home Medications
Allergy/AdvReac Type Severity Reaction Status Date / Time
meperidine Allergy oversedation,passed Verified 04/26/24 16:01
out
�Medication �Instructions �Recorded �Confirmed �Type
allopurinol 100 mg tablet 100 mg PO DAILY Gout 09/17/18 12/02/23 History
escitalopram oxalate 10 mg tablet 10 mg PO QPM Depression 09/17/18 12/02/23 History
tamsulosin 0.4 mg capsule 0.4 mg PO BID Urinary issue 09/17/18 12/02/23 History
denosumab 60 mg/mL subcutaneous 60 mg SC [id number] OSTEOPOROSIS 02/22/21 12/02/23 History
syringe (Prolia)
montelukast 10 mg tablet 10 mg PO QPM Allergies 02/22/21 12/02/23 History
ferrous sulfate 325 mg (65 mg 325 mg PO QPM Supplement 10/03/21 12/02/23 History
iron) tablet (FeroSul)
pantoprazole 40 mg tablet,delayed 40 mg PO DAILY Gastrointestinal 07/24/23 12/02/23 History
release Issue
apixaban 5 mg tablet (Eliquis) 5 mg PO BID Blood clot 08/22/23 12/02/23 Rx
prevention/tx #0 tabs
atorvastatin 80 mg tablet 80 mg PO QPM High cholesterol #0 08/22/23 12/02/23 Rx
tabs
finasteride 5 mg tablet 5 mg PO QPM Urinary Issue 10/21/23 12/02/23 History
gabapentin 300 mg capsule 300 mg PO HS sleep/pain #10 caps 11/18/23 12/02/23 Rx
metoprolol succinate 25 mg 12.5 mg (1/2 x 25 mg) PO DAILY #30 11/18/23 12/02/23 Rx
tablet,extended release 24 hr tabs
(Toprol XL)
budesonide 0.5 mg/2 mL suspension 0.5 mg inhalation R BIDPRN PRN sob 12/02/23 12/02/23 History
for nebulization
cholecalciferol (vitamin D3) 25 25 mcg PO DAILY Supplement 12/02/23 12/02/23 History
mcg (1,000 unit) tablet
cyanocobalamin (vitamin B-12) 500 500 mcg PO DAILY Supplement 12/02/23 12/02/23 History
mcg tablet
sodium chloride 0.65 % nasal spray 1 spray intranasal BIDPRN PRN dry 12/02/23 12/02/23 History
aerosol nares
vitamin B complex 1 tab PO DAILY Supplement 12/02/23 12/02/23 History
azelastine 137 mcg (0.1 %) nasal 1 spray intranasal BID Allergies 12/03/23 12/03/23 History
spray
fluticasone propionate 50 1 spray intranasal BID Allergies 12/03/23 12/03/23 History
mcg/actuation nasal
spray,suspension
acetaminophen 500 mg tablet 1,000 mg (2 x 500 mg) PO Q6HPRN 12/17/23 Rx
(Tylenol Extra Strength) PRN MILD pain or fever #0 tabs
furosemide 20 mg tablet 20 mg PO DAILY Fluid 04/27/24 History
Retention/Swelling
miconazole nitrate 2 % topical 1 applic topical BID Skin Issues 04/27/24 History
powder (Miconazorb AF)
polyethylene glycol 3350 17 gram 17 g PO DAILY BOwel prep 04/27/24 History
oral powder packet (HealthyLax)
sennosides 8.6 mg-docusate sodium 2 tab PO BID Constipation 04/27/24 History
50 mg tablet (Stool
Softener-Stimulant Laxative)
Review of Systems
-
History Source: Patient
All other systems: Negative unless noted
Physical Exam
Vital Signs
Temp Pulse Resp BP Pulse Ox
97.4 F 17 17 120/74 96
04/27/24 07:00 04/27/24 07:00 04/27/24 07:00 04/27/24 07:00 04/27/24 07:00
GEN: NAD. AAOx3
HEENT: EOMI, MMM
LUNGS: CTA B/L, no wheezes or rales
CV: Reg, S1/S2, 1/6 syst LSB, no gallop
ABD: soft, BS+, NT, D
EXT: +1-2 left worse than right LE edema. No clubbing, cyanosis or lesions B/L
NEURO: Gross non-focal
SKIN: Warm, dry and pink. No rash
Lab Results
04/26/24 16:41
Troponin I < 0.012 ng/ml 04/27/24 06:01
Mzg-A-Fxqhqawfhvt Pept 4500 pg/ml 04/26/24 16:41
Impression / Plan
-
PCP: Dr. Nichols
Primary Softball Umpire: Dr. Shields
Pulm: Dr. Hutchinson
Assessment:
Acute HFpEF
Hyponatremia
Recent admission for left TKA complicated by persistent Afib with increased HRs and orthostasis 11/13/23 until 11/18/23
Recent admission for anemia, LLE DVT, hyponatremia and COVID 12/02/23 until 12/17/23
Persistent atrial fibrillation
History of atrial flutter
Chronic anticoagulation with Eliquis
History of stroke in 2017
Interstitial lung disease
Chronic mild anemia
GERD
BPH
Primary hyperparathyroidism
Coronary artery calcifications noted by imaging
Echo 08/21/23: EF 60 to 65%, mild concentric LVH, moderately dilated right ventricle, mild to moderate MR, mild AR, moderate TR, PAP 35 mmHg mild dilation of ascending aorta, 4.0 cm
Echo 04/27/24: Study pending
Plan:
-Patient came to [facility] yesterday with increase LE edema and SOB and is now admitted with acute HF with a consultation to cardiology. Patient had a TKA 10/2023 that was complicated by post-op orthostasis and elevated HRs of his persistent Afib. His
lisinopril was stopped and Toprol XL was continued at that time. Eliquis was changed to 2.5 mg BID for the post-op TKA period. Patient was discharged to home and readmitted about 2 weeks later with anemia, LLE DVT and hyponatremia. Patient had
BRBPR at that time and on colonoscopy was found to have a large colon polyp that was not able to be removed. Also during that admission he was seen by hematology and eventually his usual dose of Eliquis 5 mg BID was restarted. He had hyponatremia
that was followed by nephrology and thought to be multifactorial and it was at that time that Lasix and Lexapro were stopped. He was also diagnosed with an LLE DVT at that time. He then saw me in the office for cardiology follow-up on 01/14/24 and
at that point remained in atrial fibrillation which is persistent at this point. Heart rates were controlled with Toprol-XL 12.5 mg daily. He was tolerating his usual dose of Eliquis 5 mg twice daily and the plan was for him to follow-up with "Jonathan"Wilian for polypectomy understanding that we would need to make a plan for holding OAC. We elected not to resume Lasix at that point as he was feeling well. In the interim he was able to travel to his other home in [place] and while there he was
eating differently than he would have eaten at home and said that he was eating a lot of takeout food that was fried. He returned home in the last week and noticed increasing edema to the point where his left leg was weeping. His family took him
to [facility] urgent care yesterday and he was referred to the ER.
-Weight at last d/c 12/17/23 was 230 lbs and weight today is 265 lbs. Agree with Lasix 40 mg IV BID diuresis. Patient was not taking Lasix just prior to this admission, but was taking Lasix 20 mg PO daily in the past. Lasix PO was stopped during his
12/02/23 until 12/17/23 admission due to hyponatremia. Patient has also had an increase in salt intake while away for the month of March.
-Follow labs, patient has chronic hyponatremia. Lexapro was also held last admission, but was restarted by PCP 03/12/24 due to recurrent symptoms.
-EF previously preserved. Cont Toprol XL 12.5 mg daily. Lisinopril stopped during 10/2023 admission due to hypotension. Pending echo will need to adjust meds for GDMT.
-Check echo
-Afib is persistent and HRs are controlled on Toprol XL 12.5 mg daily as of now. ECG reviewed by me with Afib and HR in the 70s.
-Cont Eliquis 5 mg BID (age 88, Cre 1.2, wt 120 kg)
-Hgb stable at 10.9
--- NOTE | 2024-04-27 10:48 | W.PN.HOSP.TC ---
Today's Communication/Plan
-
IV Lasix
Wound care consult
Daily weight
Echo
Assessment / Plan
Assessment / Plan
Physical Exam
General: Chronically ill-appearing, no acute distress
HEENT: Normocephalic, Atraumatic, EOMI, MMM
Respiratory: Clear to Auscultation bilaterally
Cardiac: Normal S1/S2, irregularly irregular
GI: Soft, Nontender, Nondistended, Normal Bowel Sounds
Extremities: No Clubbing, Cyanosis Lower ext edema improved
Musculoskeletal: Left knee incision is clean, dry, intact
Neuro: AWake Alert Conversant
Psych: Calm, Cooperative
The patient is an 88-year-old male with past medical history of paroxysmal atrial fibrillation on Eliquis, recent acute left lower extremity DVT, recent left knee replacement on 11/13/2023, BPH, stroke, stage III chronic kidney disease, and
interstitial lung disease, presenting to the ED due to worsening bilateral LE edema that has been getting worse since early March, currently weeping clear liquid. He was vacationing in his house in [place] for the month of March, and drove there early
March with frequent stops along the way.
#Acute on chronic HFpEF
He feels better this morning
Weight was 128 Kg from 104 back in November this year
-echo on 08/21/23 normal LV size, mild concentric LV, EF 60-65%, dilated RV, moderate TR
-Tele monitoring
-I/O, daily weights
-cont Lasix IV 40 mg BID
-echo
-serial trop, EKG in am
-cont BB, hold parameters
- Appreciate cardiology input
# Hyponatremia
Mild
No confusion
#Extensive b/l LE edema up to thighs, possible right-sided heart failure
-cont IV Lasix BID and Echo pending
-check US b/l LE
#Paroxysmal atrial fibrillation
#History of atrial flutter
Eliquis resumed 12/04
Continue metoprolol for rate control
#Near Syncope. Known Transient hypotension
-check orthostatics
-echo, tele,
#Chronic blood loss anemia exacerbated by Eliquis use, stable hgb 10.9
#Thrombocytopenia-platelets 105 (from 238 on 12/16)
-no active bleeding, monitor
#Reported Chronic dysphagia secondary to esophageal stricture
#Non-obstructing Schatzki noted on EGD
previously required mechanical soft diet with pills in applesauce
# known Stage II to IIIa Kidney disease
Creatinine stable
# Gout
c/w Allopurinol
Total time spent to see the patient, examine the patient on the floor, review data and lab results, discuss treatment plan with patient, nursing staff around 55 minutes.
Anticipated Discharge: > 48 hours
Subjective/Interval History
-
Date of Service: April 27, 2024
Denies chest pain or sob while eating breakfast, seems comfortable
Objective Data
-
Labs:
Laboratory Results
04/27/24
10:00
Sodium Pending
Potassium Pending
Chloride Pending
Carbon Dioxide Pending
BUN Pending
Creatinine Pending
Glucose Pending
Calcium Pending
Vital Signs:
Vital Signs
Temp Pulse Resp BP Pulse Ox
97.4 F 17 17 120/74 96
04/27/24 07:00 04/27/24 07:00 04/27/24 07:00 04/27/24 07:00 04/27/24 07:00
I&O
04/26/24 04/27/24 04/28/24
06:59 06:59 06:59
Intake Total 480 / 480
Output Total 1500 / 3650 2150 / 2150
Balance -1500 / -3170 -1670 / -1670
[2024-04-27 10:53] VITALS: BP 127/78
[2024-04-27 11:31] LABS: Blood Urea Nitrogen 20 mg/dl (9-20); Calcium 10.7 mg/dl (8.4-10.2); Carbon Dioxide 29 mmol/L (22-30); Chloride 100 mmol/L (98-107); Estimated Creatinine Clearance 62 ml/min; Glucose 97 mg/dl (70-99); HDL Cholesterol 35 mg/dl; LDL Cholesterol, Calculated 31 mg/dl; Magnesium 1.9 mg/dl (1.6-2.3); Potassium 4.6 mmol/L (3.5-5.1); Sodium 138 mmol/L (135-145); Total Cholesterol 80 mg/dl (50-199); Triglyceride 72 mg/dl (10-149); Very Low Density Lipoprotein 14 mg/dl (0-30); eGFR 58.89
[2024-04-27 14:53] VITALS: BMI 33.2
[2024-04-27 15:15] VITALS: BP 178/64
--- NOTE | 2024-04-27 16:23 | CM ---
CM met with pt at bedside
Pt lives with his daughter and son-in-law in a 2 story home - 5 steps to enter, 14 stairs to bedroom
Needs assist with ADL's at baseline
DME - rolling walker, transport chair, cane, shower chair
SNF - past [facility], [facility]
HH - denies past hx
PCP Dr Reymundo Carvajal
Pharm - [facility]
Discussed POST
Plan - anticipate SNF when medically ready
[2024-04-27] MEDS: LEXAPRO 10 MG PO (17:47)
[2024-04-27] MEDS: LIPITOR 80 MG PO (17:47)
[2024-04-27] MEDS: PROSCAR 5 MG PO (17:47)
[2024-04-27 19:43] VITALS: BP 122/69
[2024-04-27] MEDS: NEURONTIN 300 MG PO (21:18)
[2024-04-27 23:07] VITALS: BP 113/66
[2024-04-28] VITALS (8 sets, daily range): BP systolic 114–142; BP diastolic 63–78; PULSE 50–82; O2SAT 96; BMI 32.3
[2024-04-28] MEDS: ELIQUIS 5 MG PO ×2 (08:03→19:51)
[2024-04-28] MEDS: ZYLOPRIM 100 MG PO (08:03)
[2024-04-28] MEDS: FLOMAX 0.4 MG PO ×2 (08:03→19:51)
[2024-04-28] MEDS: TOPROL XL 12.5 MG PO (08:03)
[2024-04-28] MEDS: LASIX 40 MG IV ×2 (08:04→16:03)
--- NOTE | 2024-04-28 08:50 | PN.CDI ---
Addendum entered and electronically signed by Grady Chris MD 04/28/24 12:44:
Persistent atrial fibrillation
Original Note:
CDI
- -
CDI:
Physician Documentation Request
Admit Date: 04/27/24 11:54
Dear Doctor Dot,
Patient admitted for heart failure.
04/27 Cardiology PN: 'Afib is persistent and HRs are controlled on Toprol XL 12.5 mg daily as of now'
04/27 Hospitalist PN: 'Paroxysmal atrial fibrillation...Eliquis resumed 12/04, Continue metoprolol for rate control'
If possible, please provide further specificity regarding atrial fibrillation, such as:
Persistent atrial fibrillation - episodes of continuous AF that last more than 7 days and do not self-terminate
Paroxysmal atrial fibrillation - terminates spontaneously or with intervention within 7 days of onset
Other - please specify
Use of terms such as suspected, likely, concern for, or probable (associated with a specific diagnosis that is being evaluated, monitored, or treated as if it exists) are acceptable and can be coded in the inpatient setting, when documented at the
time of discharge.
Thank you,
Jasmin Munguia RN, BSN
CDI Specialist
Available via [employer] text
Please use your independent medical judgment in providing your response.
--- NOTE | 2024-04-28 09:29 | W.PN.HOSP.TC ---
Today's Communication/Plan
-
Possible dc in am
PT/OT
Check orthostatic vitals
Assessment / Plan
Assessment / Plan
Physical Exam
General: Chronically ill-appearing, no acute distress
HEENT: Normocephalic, Atraumatic, EOMI, MMM
Respiratory: Clear to Auscultation bilaterally
Cardiac: Normal S1/S2, irregularly irregular
GI: Soft, Nontender, Nondistended, Normal Bowel Sounds
Extremities: No Clubbing, Cyanosis Lower ext edema improved
Musculoskeletal: Left knee incision is clean, dry, intact
Neuro: AWake Alert Conversant
Psych: Calm, Cooperative
The patient is an 88-year-old male with past medical history of paroxysmal atrial fibrillation on Eliquis, recent acute left lower extremity DVT, recent left knee replacement on 11/13/2023, BPH, stroke, stage III chronic kidney disease, and
interstitial lung disease, presenting to the ED due to worsening bilateral LE edema that has been getting worse since early March, currently weeping clear liquid. He was vacationing in his house in [place] for the month of March, and drove there early
March with frequent stops along the way.
#Acute on chronic HFpEF
He feels better, loosing weight, less leg edema
Weight was 128 Kg from 104 back in November this year
-echo on 08/21/23 normal LV size, mild concentric LV, EF 60-65%, dilated RV, moderate TR
-Tele monitoring
-I/O, daily weights
-cont Lasix IV 40 mg BID
-echo 04/27 showed LVEF 60-65%, mild to moderate MR, mild to moderate AR, mild to moderate TR.
-cont BB, hold parameters
- Appreciate cardiology input
# Hyponatremia
Mild
No confusion
#Extensive b/l LE edema up to thighs
-cont IV Lasix BID =
- US : No sonographic evidence for lower extremity venous thrombosis
#Persistent atrial fibrillation
#History of atrial flutter
Eliquis resumed 12/04
Continue metoprolol for rate control
# Hypercalcemia
Will check about dosing of Prolia
#Near Syncope. Known Transient hypotension
-check orthostatics, was not charted, will d/w nursing staff
#Chronic blood loss anemia exacerbated by Eliquis use, stable hgb 10.9
#Thrombocytopenia-platelets 105 (from 238 on 12/16)
-no active bleeding, monitor
#Reported Chronic dysphagia secondary to esophageal stricture
#Non-obstructing Schatzki noted on EGD
previously required mechanical soft diet with pills in applesauce
# known Stage IIIa Kidney disease
Creatinine stable
# Gout
c/w Allopurinol
Total time spent to see the patient, examine the patient on the floor, review data and lab results, discuss treatment plan with patient, nursing staff around 55 minutes.
Anticipated Discharge: Within 24 hours
Subjective/Interval History
-
Date of Service: April 28, 2024
No chest pain
No sob
No fevers
Objective Data
-
Labs:
Laboratory Results
04/28/24
08:07
Sodium Pending
Potassium Pending
Chloride Pending
Carbon Dioxide Pending
BUN Pending
Creatinine Pending
Glucose Pending
Calcium Pending
Vital Signs:
Vital Signs
Temp Pulse Resp BP Pulse Ox
98.3 F 70 16 114/63 96
04/28/24 07:00 04/28/24 08:03 04/28/24 07:00 04/28/24 08:03 04/28/24 07:00
I&O
04/27/24 04/28/24 04/29/24
06:59 06:59 06:59
Intake Total 1620 / 1620
Output Total 1500 / 3650 6550 / 6550
Balance -1500 / -3170 -4930 / -4930
[2024-04-28 09:32] LABS: Blood Urea Nitrogen 25 mg/dl (9-20); Calcium 10.7 mg/dl (8.4-10.2); Carbon Dioxide 30 mmol/L (22-30); Chloride 97 mmol/L (98-107); Estimated Creatinine Clearance 56 ml/min; Glucose 104 mg/dl (70-99); Potassium 4.5 mmol/L (3.5-5.1); Sodium 135 mmol/L (135-145)
--- NOTE | 2024-04-28 10:03 | W.PN.CARDCBS ---
Addendum entered and electronically signed by Michael Erickson MD 04/28/24 14:26:
I saw and examined the patient.
The ROUTING MACHINE OPERATOR or PA's note was reviewed and I agree with the note.
Comment: General: Well developed, well nourished in NAD.
Neck: Supple, no JVD, HJR, carotids +2 B/L, no bruits bilaterally.
Heart: Non displaced PMI, RRR, no murmurs, No S3, S4, no rubs.
Lungs: Scattered rhonchi
Extremities: Moderate lower extremity edema
Neuro: Grossly nonfocal, awake, alert and oriented x3.
Weight is down 7 pounds in past 24 hours. Will continue IV Lasix. Echocardiogram unchanged. Weight is 258 pounds and weight was 230 pounds on discharge in November 2023. Unclear if all of this is CHF but will continue to try and diurese as much as
possible.
Original Note:
Today's Communication / Plan
-
Diet changed to add fluid restriction and maintain salt restriction
Echo stable
Impression / Plan
-
PCP: Dr. Nichols
Primary Manager Analysis: Dr. Shields
Pulm: Dr. Hutchinson
Assessment:
Acute HFpEF
Hyponatremia
Recent admission for left TKA complicated by persistent Afib with increased HRs and orthostasis 11/13/23 until 11/18/23
Recent admission for anemia, LLE DVT, hyponatremia and COVID 12/02/23 until 12/17/23
Persistent atrial fibrillation
History of atrial flutter
Chronic anticoagulation with Eliquis
History of stroke in 2018
Interstitial lung disease
Chronic mild anemia
GERD
BPH
Primary hyperparathyroidism
Coronary artery calcifications noted by imaging
Echo 08/21/23: EF 60 to 65%, mild concentric LVH, moderately dilated right ventricle, mild to moderate MR, mild AR, moderate TR, PAP 35 mmHg mild dilation of ascending aorta, 4.0 cm
Echo 04/27/24: EF 60-65%,, mild to mod MR, mild to mod aortic regurgitation,, mild to mod TR with PAP 43 mmHg, enlarged RV size with normal function, mildly dilated aortic root. 3.9 cm at sinus of Valsalva, ascending aorta is 4.3 cm.
Plan:
-Weight is down 7 lbs overnight and patient reports increased urine output. Dry weight at last d/c 12/17/23 was 230 lbs.
-Cont Lasix 40 mg IV BID. Patient was not taking Lasix just prior to this admission, but was taking Lasix 20 mg PO daily in the past. Lasix PO was stopped during his 12/02/23 until 12/17/23 admission due to hyponatremia.
-Diet changed by me to 2 gram sodium with 48 oz fluid restriction on 04/28/24
-Follow labs, patient has chronic hyponatremia. Lexapro was also held last admission, but was restarted by PCP 03/12/24 due to recurrent symptoms.
-EF preserved by repeat echo this admission.
-Cont Toprol XL 12.5 mg daily.
-Lisinopril stopped during 10/2023 admission due to hypotension.
-Afib is persistent and HRs are controlled on Toprol XL 12.5 mg daily as of now.
-Cont Eliquis 5 mg BID (age 88, Cre 1.2, wt 120 kg)
-Hgb stable at 10.9
HPI: Patient came to [facility] yesterday with increase LE edema and SOB and is now admitted with acute HF with a consultation to cardiology. Patient had a TKA 10/2023 that was complicated by post-op orthostasis and elevated HRs of his persistent Afib. His
lisinopril was stopped and Toprol XL was continued at that time. Eliquis was changed to 2.5 mg BID for the post-op TKA period. Patient was discharged to home and readmitted about 2 weeks later with anemia, LLE DVT and hyponatremia. Patient had
BRBPR at that time and on colonoscopy was found to have a large colon polyp that was not able to be removed. Also during that admission he was seen by hematology and eventually his usual dose of Eliquis 5 mg BID was restarted. He had hyponatremia
that was followed by nephrology and thought to be multifactorial and it was at that time that Lasix and Lexapro were stopped. He was also diagnosed with an LLE DVT at that time. He then saw me in the office for cardiology follow-up on 01/14/24 and
at that point remained in atrial fibrillation which is persistent at this point. Heart rates were controlled with Toprol-XL 12.5 mg daily. He was tolerating his usual dose of Eliquis 5 mg twice daily and the plan was for him to follow-up with "Jonathan"Wilian for polypectomy understanding that we would need to make a plan for holding OAC. We elected not to resume Lasix at that point as he was feeling well. In the interim he was able to travel to his other home in [place] and while there he was
eating differently than he would have eaten at home and said that he was eating a lot of takeout food that was fried. He returned home in the last week and noticed increasing edema to the point where his left leg was weeping. His family took him
to [facility] urgent care yesterday and he was referred to the ER.
Progress Note - Manager Analysis
Subjective
Date of Service: April 28, 2024
He has ongoing bloating and edema
Objective
Labs:
04/26/24 16:41
04/28/24 08:07
Labs
Hgb 10.9 g/dL (13.0-18.0) L 04/26/24 16:41
Hct 33.4 % (39.0-52.0) L 04/26/24 16:41
Plt Count 105 10^3/uL (130-400) L 04/26/24 16:41
Sodium 135 mmol/L (135-145) 04/28/24 08:07
Potassium 4.5 mmol/L (3.5-5.1) 04/28/24 08:07
BUN 25 mg/dl (9-20) H 04/28/24 08:07
Creatinine 1.3 mg/dL (0.7-1.3) 04/28/24 08:07
Glucose 104 mg/dl (70-99) H 04/28/24 08:07
Troponins
04/26/24 04/26/24 04/27/24
16:41 22:46 06:01
Troponin I < 0.012 < 0.012 < 0.012
Vital Signs and I&O:
Vital Signs
Temp Pulse Resp BP Pulse Ox
98.3 F 70 16 114/63 96
04/28/24 07:00 04/28/24 08:03 04/28/24 07:00 04/28/24 08:03 04/28/24 07:00
Vital Signs
Temp Pulse Resp BP Pulse Ox
98.3 F 70 16 114/63 96
04/28/24 07:00 04/28/24 08:03 04/28/24 07:00 04/28/24 08:03 04/28/24 07:00
Intake & Output
04/26/24 04/27/24 04/28/24 04/29/24
06:59 06:59 06:59 06:59
Intake Total 1620 / 1620
Output Total 1500 / 3650 6550 / 6550
Balance -1500 / -3170 -4930 / -4930
Physical Exam
Physical Exam
GEN: NAD. AAOx3
HEENT: EOMI, MMM
LUNGS: No audible wheeze
CV: Reg, S1/S2, 1/6 syst LSB, no gallop
ABD: soft, BS+, NT, ND
EXT: +1-2 left worse than right LE edema
NEURO: Gross non-focal
SKIN: No rash
[2024-04-28] MEDS: PROSCAR 5 MG PO (17:54)
[2024-04-28] MEDS: LEXAPRO 10 MG PO (17:54)
[2024-04-28] MEDS: LIPITOR 80 MG PO (17:54)
[2024-04-28] MEDS: NEURONTIN 300 MG PO (21:05)
[2024-04-29] VITALS (7 sets, daily range): BP systolic 102–132; BP diastolic 55–91; BMI 31.3
[2024-04-29] MEDS: TYLENOL 1000 MG PO (02:56)
--- NOTE | 2024-04-29 03:22 | PTCARENOTE ---
Pt. noted with fever during 0300 VS. PRN tylenol administered. DAVID Gallagher notified. New orders rec'd for Covid swab, UA, cxr in AM. Pt. offers no complaints. Plan of care ongoing.
[2024-04-29 03:42] LABS: COVID-19 Antigen Negative (Negative)
[2024-04-29] MEDS: TOPROL XL 12.5 MG PO (07:45)
[2024-04-29] MEDS: ZYLOPRIM 100 MG PO (07:45)
[2024-04-29] MEDS: FLOMAX 0.4 MG PO ×2 (07:45→21:19)
[2024-04-29] MEDS: LASIX 40 MG IV ×2 (07:46→15:54)
[2024-04-29] MEDS: ELIQUIS 5 MG PO ×2 (07:46→21:19)
[2024-04-29 08:36] LABS: Hematocrit 32.5 % (39.0-52.0); Hemoglobin 10.9 g/dL (13.0-18.0); Mean Corp Hgb Conc. 33.5 g/dL (33.0-37.0); Mean Corpuscular Hgb 33.4 pg (27.0-31.0); Mean Corpuscular Volume 99.7 fL (80.0-94.0); Mean Platelet Volume 8.9 fL (7.4-10.4); Platelet Count 108 10^3/uL (130-400); Red Blood Cell Count 3.26 10^6/uL (4.70-6.10); White Blood Cell Count 5.1 10^3/uL (4.8-10.8)
--- NOTE | 2024-04-29 09:07 | W.PN.HOSP.TC ---
Today's Communication/Plan
-
dc
Assessment / Plan
Assessment / Plan
Physical Exam
General: Chronically ill-appearing, no acute distress
HEENT: Normocephalic, Atraumatic, EOMI, MMM
Respiratory: Clear to Auscultation bilaterally
Cardiac: Normal S1/S2, irregularly irregular
GI: Soft, Nontender, Nondistended, Normal Bowel Sounds
Extremities: No Clubbing, Cyanosis Lower ext edema improved
Musculoskeletal: Left knee incision is clean, dry, intact
Neuro: AWake Alert Conversant
Psych: Calm, Cooperative
The patient is an 88-year-old male with past medical history of paroxysmal atrial fibrillation on Eliquis, recent acute left lower extremity DVT, recent left knee replacement on 11/13/2023, BPH, stroke, stage III chronic kidney disease, and
interstitial lung disease, presenting to the ED due to worsening bilateral LE edema that has been getting worse since early March, currently weeping clear liquid. He was vacationing in his house in [place] for the month of March, and drove there early
March with frequent stops along the way.
#Acute on chronic HFpEF
He feels better, loosing weight, less leg edema
Weight was 128 Kg from 104 back in November this year
-echo on 08/21/23 normal LV size, mild concentric LV, EF 60-65%, dilated RV, moderate TR
-Tele monitoring
-I/O, daily weights
-cont Lasix IV 40 mg BID
-echo 04/27 showed LVEF 60-65%, mild to moderate MR, mild to moderate AR, mild to moderate TR.
-cont BB, hold parameters
- Appreciate cardiology input
# Hyponatremia
Mild
No confusion
#Extensive b/l LE edema up to thighs
-cont IV Lasix BID =
- US : No sonographic evidence for lower extremity venous thrombosis
#Persistent atrial fibrillation
#History of atrial flutter
Eliquis resumed 12/04
Continue metoprolol for rate control
# Primary hyperparathyroidism
#Near Syncope. Known Transient hypotension
-check orthostatics, was not charted, will d/w nursing staff
#Chronic blood loss anemia exacerbated by Eliquis use, stable hgb 10.9
#Thrombocytopenia-platelets 105 (from 238 on 12/16)
-no active bleeding, monitor
#Reported Chronic dysphagia secondary to esophageal stricture
#Non-obstructing Schatzki noted on EGD
previously required mechanical soft diet with pills in applesauce
# known Stage IIIa Kidney disease
Creatinine stable
# Gout
c/w Allopurinol
Total time spent to see the patient, examine the patient on the floor, review data and lab results, discuss treatment plan with patient, nursing staff around 55 minutes.
Anticipated Discharge: Today
Subjective/Interval History
-
Date of Service: April 29, 2024
He denies chest pain or sob
Objective Data
-
Labs:
Laboratory Results
04/29/24
08:08
WBC 5.1
Hgb 10.9 L
Hct 32.5 L
Plt Count 108 L
Sodium Pending
Potassium Pending
Chloride Pending
Carbon Dioxide Pending
BUN Pending
Creatinine Pending
Glucose Pending
Calcium Pending
Total Bilirubin Pending
AST Pending
ALT Pending
Alkaline Phosphatase Pending
Vital Signs:
Vital Signs
Temp Pulse Resp BP Pulse Ox
97.6 F 79 18 117/68 96
04/29/24 07:00 04/29/24 07:45 04/29/24 07:00 04/29/24 07:45 04/29/24 07:00
I&O
04/28/24 04/29/24 04/30/24
06:59 06:59 06:59
Intake Total 1620 / 1620 990 / 990
Output Total 6550 / 6550 4375 / 4375
Balance -4930 / -4930 -3385 / -3385
--- NOTE | 2024-04-29 09:23 | W.PN.CARDCBS ---
Addendum entered and electronically signed by Aaron Kwan DO 04/29/24 13:41:
I saw and examined the patient.
The Biofuels Product Development Manager's note was reviewed and I agree with the note.
Comment:
Plan:
Cont IV diuresis with lasxi 40 mg IV BID
Wt remains up from dry wt
Wt gain and HF from outpt dietary indiscretion which has been discussed with pt.
EF is preserved by last echo Apr 27.
AFib is persistent, cont Toprol and Eliquis.
Original Note:
Today's Communication / Plan
-
Cont Lasix 40 mg IV BID
He is still 20 lbs up from previous dry weight
Impression / Plan
-
PCP: Dr. Nichols
Primary Area Coordinator: Dr. Shields
Pulm: Dr. Hutchinson
Assessment:
Acute HFpEF
Hyponatremia
Recent admission for left TKA complicated by persistent Afib with increased HRs and orthostasis 11/13/23 until 11/18/23
Recent admission for anemia, LLE DVT, hyponatremia and COVID 12/02/23 until 12/17/23
Persistent atrial fibrillation
History of atrial flutter
Chronic anticoagulation with Eliquis
History of stroke in 2018
Interstitial lung disease
Chronic mild anemia
GERD
BPH
Primary hyperparathyroidism
Coronary artery calcifications noted by imaging
Echo 08/21/23: EF 60 to 65%, mild concentric LVH, moderately dilated right ventricle, mild to moderate MR, mild AR, moderate TR, PAP 35 mmHg mild dilation of ascending aorta, 4.0 cm
Echo 04/27/24: EF 60-65%,, mild to mod MR, mild to mod aortic regurgitation,, mild to mod TR with PAP 43 mmHg, enlarged RV size with normal function, mildly dilated aortic root. 3.9 cm at sinus of Valsalva, ascending aorta is 4.3 cm.
Plan:
-Weight is down another 8 lbs overnight with Lasix 40 mg IV BID. Lasix PO was stopped during his 12/02/23 until 12/17/23 admission due to hyponatremia.
-Dry weight at last d/c 12/17/23 was 230 lbs.
-Labs pending for 04/29/24. Follow labs, patient has chronic hyponatremia. Lexapro was also held last admission, but was restarted by PCP 03/12/24 due to recurrent symptoms.
-EF preserved by repeat echo this admission.
-Cont Toprol XL 12.5 mg daily.
-Lisinopril stopped during 10/2023 admission due to hypotension.
-Afib is persistent and HRs are controlled on Toprol XL 12.5 mg daily as of now.
-Cont Eliquis 5 mg BID (age 88, Cre 1.2, wt 120 kg)
-Hgb stable at 10.9
HPI: Patient came to [facility] yesterday with increase LE edema and SOB and is now admitted with acute HF with a consultation to cardiology. Patient had a TKA 10/2023 that was complicated by post-op orthostasis and elevated HRs of his persistent Afib. His
lisinopril was stopped and Toprol XL was continued at that time. Eliquis was changed to 2.5 mg BID for the post-op TKA period. Patient was discharged to home and readmitted about 2 weeks later with anemia, LLE DVT and hyponatremia. Patient had
BRBPR at that time and on colonoscopy was found to have a large colon polyp that was not able to be removed. Also during that admission he was seen by hematology and eventually his usual dose of Eliquis 5 mg BID was restarted. He had hyponatremia
that was followed by nephrology and thought to be multifactorial and it was at that time that Lasix and Lexapro were stopped. He was also diagnosed with an LLE DVT at that time. He then saw me in the office for cardiology follow-up on 01/14/24 and
at that point remained in atrial fibrillation which is persistent at this point. Heart rates were controlled with Toprol-XL 12.5 mg daily. He was tolerating his usual dose of Eliquis 5 mg twice daily and the plan was for him to follow-up with
Wilian for polypectomy understanding that we would need to make a plan for holding OAC. We elected not to resume Lasix at that point as he was feeling well. In the interim he was able to travel to his other home in [place] and while there he was
eating differently than he would have eaten at home and said that he was eating a lot of takeout food that was fried. He returned home in the last week and noticed increasing edema to the point where his left leg was weeping. His family took him
to [facility] urgent care yesterday and he was referred to the ER.
Progress Note - Area Coordinator
Subjective
Date of Service: April 29, 2024
His mouth is very dry, speech improves with a sip of water
Objective
Labs:
04/29/24 08:08
Labs
Hgb 10.9 g/dL (13.0-18.0) L 04/29/24 08:08
Hct 32.5 % (39.0-52.0) L 04/29/24 08:08
Plt Count 108 10^3/uL (130-400) L 04/29/24 08:08
Sodium 135 mmol/L (135-145) 04/28/24 08:07
Potassium 4.5 mmol/L (3.5-5.1) 04/28/24 08:07
BUN 25 mg/dl (9-20) H 04/28/24 08:07
Creatinine 1.3 mg/dL (0.7-1.3) 04/28/24 08:07
Glucose 104 mg/dl (70-99) H 04/28/24 08:07
Troponins
04/26/24 04/26/24 04/27/24
16:41 22:46 06:01
Troponin I < 0.012 < 0.012 < 0.012
Vital Signs and I&O:
Vital Signs
Temp Pulse Resp BP Pulse Ox
97.6 F 79 18 117/68 96
04/29/24 07:00 04/29/24 07:45 04/29/24 07:00 04/29/24 07:45 04/29/24 07:00
Vital Signs
Temp Pulse Resp BP Pulse Ox
97.6 F 79 18 117/68 96
04/29/24 07:00 04/29/24 07:45 04/29/24 07:00 04/29/24 07:45 04/29/24 07:00
Intake & Output
04/27/24 04/28/24 04/29/24 04/30/24
06:59 06:59 06:59 06:59
Intake Total 1620 / 1620 990 / 990
Output Total 1500 / 3650 6550 / 6550 4375 / 4375
Balance -1500 / -3170 -4930 / -4930 -3385 / -3385
Physical Exam
Physical Exam
GEN: NAD. AAOx3
HEENT: EOMI, MMM
LUNGS: No audible wheeze
CV: SR on tele
ABD: ND
EXT: +1 left worse than right LE edema
NEURO: Gross non-focal
SKIN: No rash
[2024-04-29 09:26] LABS: Urine Albumin Negative (Neg - Trace); Urine Bilirubin Negative (Negative); Urine Character Clear (Clear); Urine Color Yellow; Urine Glucose Negative (Negative); Urine Ketone Negative (Negative); Urine Leukocyte Negative (Negative); Urine Nitrite Negative (Negative); Urine Occult Blood Negative (Negative); Urine Urobilinogen Negative (Neg - 1+)
[2024-04-29 10:20] LABS: ALT (SGPT) 11 U/L (0-50); AST (SGOT) 23 U/L (17-59); Albumin 3.7 g/dl (3.5-5.0); Alkaline Phosphatase 76 U/L (38-126); Blood Urea Nitrogen 28 mg/dl (9-20); Calcium 10.4 mg/dl (8.4-10.2); Carbon Dioxide 32 mmol/L (22-30); Chloride 95 mmol/L (98-107); Direct Bilirubin 0.4 mg/dl (0.0-0.4); Estimated Creatinine Clearance 55 ml/min; Glucose 105 mg/dl (70-99); Sodium 133 mmol/L (135-145); Total Bilirubin 2.3 mg/dl (0.2-1.3)
--- NOTE | 2024-04-29 11:21 | CM ---
Case management following for discharge planning
Chart reviewed
PT recs - SNF
Discussed with pt - agreeable to SNF - prefers [facility] or [facility]
Referrals sent in [facility]
Will need auth
Plan - anticipate SNF when medically ready
[2024-04-29] MEDS: LIPITOR 80 MG PO (17:53)
[2024-04-29] MEDS: PROSCAR 5 MG PO (17:53)
[2024-04-29] MEDS: LEXAPRO 10 MG PO (17:56)
[2024-04-29] MEDS: NEURONTIN 300 MG PO (21:19)
[2024-04-30] VITALS (7 sets, daily range): BP systolic 94–125; BP diastolic 55–72; PULSE 70; BMI 31.1
[2024-04-30] MEDS: FLOMAX 0.4 MG PO ×2 (08:15→20:47)
[2024-04-30] MEDS: TOPROL XL 12.5 MG PO (08:15)
[2024-04-30] MEDS: ZYLOPRIM 100 MG PO (08:15)
[2024-04-30] MEDS: ELIQUIS 5 MG PO ×2 (08:15→20:47)
[2024-04-30] MEDS: LASIX 40 MG IV (08:16)
--- NOTE | 2024-04-30 08:49 | W.PN.CARDCBS ---
Addendum entered and electronically signed by Tomi Nicholson MD 04/30/24 12:34:
Patient offers no complaints at present.
PMH/PSH/SH/FH: Reviewed
Allergies: Demerol
Outpatient medications: Allopurinol, atorvastatin 80 mg daily, budesonide inhaler, Eliquis 5 mg twice daily, Lexapro 10 mg a day, finasteride, furosemide 20 mg a day, gabapentin, metoprolol ER 12.5 mg daily, Singulair, Protonix, Prolia, tamsulosin
Current meds allopurinol 100 mg a day, apixaban 5 mg twice daily, atorvastatin 80 mg a day, escitalopram 10 mg a day, finasteride 5 mg a day, gabapentin 300 mg at bedtime, metoprolol ER 12.5 mg a day, tamsulosin 0.4 mg twice daily furosemide 40 mg a
day
ROS: Negative except as above
125/59, pulse 66, respirate 17, afebrile, sats 96%, weight is 113 kg, if accurate was 128 kg on admission, unchanged since yesterday, intake and output -1.5 L, no distress, head neck exam unremarkable, lungs are clear JVD okay, regular rate and
rhythm, systolic murmur at apex, abdomen obese extremities without much edema musculoskeletal intact
Chest x-ray as of yesterday, cardiomegaly, possible mild vascular congestion
BMP is pending
Assessment:
Acute HFpEF
Hyponatremia
Recent admission for left TKA complicated by persistent Afib with increased HRs and orthostasis 11/13/23 until 11/18/23
Recent admission for anemia, LLE DVT, hyponatremia and COVID 12/02/23 until 12/17/23
Persistent atrial fibrillation
History of atrial flutter
Chronic anticoagulation with Eliquis
History of stroke in 2018
Interstitial lung disease
Chronic mild anemia
GERD
BPH
Primary hyperparathyroidism
Coronary artery calcifications noted by imaging
Plan:
He looks close to euvolemic and his weight is down 15 kg.
Now back on oral furosemide 40 mg a day, prior dose had been 20 mg daily
Will add Jardiance 10 mg a day if not cost prohibitive. Will ask case management to [facility].
Add spironolactone 12.5 mg daily.
.
Anticipate discharge tomorrow if all is stable.
Original Note:
Today's Communication / Plan
-
Cont Lasix 40 mg IV BID
Check standing scale weight
Check cost of Farxiga
Impression / Plan
-
PCP: Dr. Nichols
Primary Red Cap: Dr. Shields
Pulm: Dr. Hutchinson
Assessment:
Acute HFpEF
Hyponatremia
Recent admission for left TKA complicated by persistent Afib with increased HRs and orthostasis 11/13/23 until 11/18/23
Recent admission for anemia, LLE DVT, hyponatremia and COVID 12/02/23 until 12/17/23
Persistent atrial fibrillation
History of atrial flutter
Chronic anticoagulation with Eliquis
History of stroke in 2018
Interstitial lung disease
Chronic mild anemia
GERD
BPH
Primary hyperparathyroidism
Coronary artery calcifications noted by imaging
Echo 08/21/23: EF 60 to 65%, mild concentric LVH, moderately dilated right ventricle, mild to moderate MR, mild AR, moderate TR, PAP 35 mmHg mild dilation of ascending aorta, 4.0 cm
Echo 04/27/24: EF 60-65%,, mild to mod MR, mild to mod aortic regurgitation,, mild to mod TR with PAP 43 mmHg, enlarged RV size with normal function, mildly dilated aortic root. 3.9 cm at sinus of Valsalva, ascending aorta is 4.3 cm.
Plan:
-Weight is down only 1 lb overnight with Lasix 40 mg IV BID. Weighs 249 lbs on bed scale 04/30/24. Dry weight at last d/c 12/17/23 was 230 lbs. Check standing scale weight, TT to nursing 04/30/24
-Lasix PO was stopped during his 12/02/23 until 12/17/23 admission due to hyponatremia.
-Labs ordered by me and pending for 04/30/24
-Follow labs, patient has chronic hyponatremia. Lexapro was also held last admission, but was restarted by PCP 03/12/24 due to recurrent symptoms.
-EF preserved by repeat echo this admission.
-Cont Toprol XL 12.5 mg daily.
-Lisinopril stopped during 10/2023 admission due to hypotension.
-Check cost of Farxiga 10 mg daily
-Afib is persistent and HRs are controlled on Toprol XL 12.5 mg daily as of now.
-Cont Eliquis 5 mg BID (age 88, Cre 1.3, wt 113 kg)
HPI: Patient came to [facility] yesterday with increase LE edema and SOB and is now admitted with acute HF with a consultation to cardiology. Patient had a TKA 10/2023 that was complicated by post-op orthostasis and elevated HRs of his persistent Afib. His
lisinopril was stopped and Toprol XL was continued at that time. Eliquis was changed to 2.5 mg BID for the post-op TKA period. Patient was discharged to home and readmitted about 2 weeks later with anemia, LLE DVT and hyponatremia. Patient had
BRBPR at that time and on colonoscopy was found to have a large colon polyp that was not able to be removed. Also during that admission he was seen by hematology and eventually his usual dose of Eliquis 5 mg BID was restarted. He had hyponatremia
that was followed by nephrology and thought to be multifactorial and it was at that time that Lasix and Lexapro were stopped. He was also diagnosed with an LLE DVT at that time. He then saw me in the office for cardiology follow-up on 01/14/24 and
at that point remained in atrial fibrillation which is persistent at this point. Heart rates were controlled with Toprol-XL 12.5 mg daily. He was tolerating his usual dose of Eliquis 5 mg twice daily and the plan was for him to follow-up with
Wilian for polypectomy understanding that we would need to make a plan for holding OAC. We elected not to resume Lasix at that point as he was feeling well. In the interim he was able to travel to his other home in [place] and while there he was
eating differently than he would have eaten at home and said that he was eating a lot of takeout food that was fried. He returned home in the last week and noticed increasing edema to the point where his left leg was weeping. His family took him
to [facility] urgent care yesterday and he was referred to the ER.
Progress Note - Red Cap
Subjective
Date of Service: April 30, 2024
He thinks edema is unchanged from yesterday
Objective
Labs:
04/29/24 08:08
04/29/24 08:08
Labs
Hgb 10.9 g/dL (13.0-18.0) L 04/29/24 08:08
Hct 32.5 % (39.0-52.0) L 04/29/24 08:08
Plt Count 108 10^3/uL (130-400) L 04/29/24 08:08
Sodium 133 mmol/L (135-145) L 04/29/24 08:08
Potassium 4.0 mmol/L (3.5-5.1) 04/29/24 08:08
BUN 28 mg/dl (9-20) H 04/29/24 08:08
Creatinine 1.3 mg/dL (0.7-1.3) 04/29/24 08:08
Glucose 105 mg/dl (70-99) H 04/29/24 08:08
Vital Signs and I&O:
Vital Signs
Temp Pulse Resp BP Pulse Ox
97.9 F 83 16 123/72 97
04/30/24 07:50 04/30/24 08:15 04/30/24 07:50 04/30/24 08:15 04/30/24 07:50
Vital Signs
Temp Pulse Resp BP Pulse Ox
97.9 F 83 16 123/72 97
04/30/24 07:50 04/30/24 08:15 04/30/24 07:50 04/30/24 08:15 04/30/24 07:50
Intake & Output
04/28/24 04/29/24 04/30/24 05/01/24
06:59 06:59 06:59 06:59
Intake Total 1620 / 1620 990 / 990 1140 / 1140
Output Total 6550 / 6550 4375 / 4375 2700 / 2700
Balance -4930 / -4930 -3385 / -3385 -1560 / -1560
Physical Exam
Physical Exam
GEN: NAD. AAOx3
HEENT: EOMI, MMM
LUNGS: No audible wheeze
CV: SR on tele
ABD: ND
EXT: +1 left worse than right LE edema
NEURO: Gross non-focal
SKIN: No rash
--- NOTE | 2024-04-30 09:09 | W.PN.HOSP.TC ---
Today's Communication/Plan
-
d/w daughter, plan for home on Saturday with services
Change to oral Lasix
Layo treatment for constipation
Change to Pulmicort BID
Assessment / Plan
Assessment / Plan
Physical Exam
General: Chronically ill-appearing, no acute distress
HEENT: Normocephalic, Atraumatic, EOMI, MMM
Respiratory: Clear to Auscultation bilaterally
Cardiac: Normal S1/S2, irregularly irregular
GI: Soft, Nontender, Nondistended, Normal Bowel Sounds
Extremities: No Clubbing, Cyanosis Lower ext edema improved
Musculoskeletal: Left knee incision is clean, dry, intact
Neuro: AWake Alert Conversant
Psych: Calm, Cooperative
The patient is an 88-year-old male with past medical history of paroxysmal atrial fibrillation on Eliquis, recent acute left lower extremity DVT, recent left knee replacement on 11/13/2023, BPH, stroke, stage III chronic kidney disease, and
interstitial lung disease, presenting to the ED due to worsening bilateral LE edema that has been getting worse since early March, currently weeping clear liquid. He was vacationing in his house in [place] for the month of March, and drove there early
March with frequent stops along the way.
#Acute on chronic HFpEF
He feels better, loosing weight, less leg edema
Weight was 128 Kg from 104 back in November this year
-echo on 08/21/23 normal LV size, mild concentric LV, EF 60-65%, dilated RV, moderate TR
-Tele monitoring
-I/O, daily weights
-cont Lasix IV 40 mg BID
-echo 04/27 showed LVEF 60-65%, mild to moderate MR, mild to moderate AR, mild to moderate TR.
-cont BB, hold parameters
- Appreciate cardiology input
# Hyponatremia
Mild
No confusion
#Extensive b/l LE edema up to thighs
-s/p IV Lasix BID, will change to oral Lasix.
- US : No sonographic evidence for lower extremity venous thrombosis
#Persistent atrial fibrillation
#History of atrial flutter
Eliquis resumed 12/04
Continue metoprolol for rate control
# Primary hyperparathyroidism
# Chronic cough with sputum production
Per records, ILD
seems c/w bronchiectasis or bronchiolitis
I reached out to his primary sample dye mixer Dr Hutchinson to know more about the pt, c/w Pulmicort
#Near Syncope. Known Transient hypotension
-check orthostatics, was not charted, will d/w nursing staff
#Chronic blood loss anemia exacerbated by Eliquis use, stable hgb 10.9
#Thrombocytopenia-platelets
-no active bleeding, monitor
#Reported Chronic dysphagia secondary to esophageal stricture
#Non-obstructing Schatzki noted on EGD
previously required mechanical soft diet with pills in applesauce
# known Stage IIIa Kidney disease
Creatinine stable
# Gout
c/w Allopurinol
# DC planning
I talked with Estephanie the daughter and lives with him, she provided full care to him with her , they would like home care services upon discharge.
Total time spent to see the patient, examine the patient on the floor, review data and lab results, discuss treatment plan with patient, nursing staff around 55 minutes.
Anticipated Discharge: Within 24 hours
Subjective/Interval History
-
Date of Service: April 30, 2024
Objective Data
-
Vital Signs:
Vital Signs
Temp Pulse Resp BP Pulse Ox
97.9 F 83 16 123/72 97
04/30/24 07:50 04/30/24 08:15 04/30/24 07:50 04/30/24 08:15 04/30/24 07:50
I&O
04/29/24 04/30/24 05/01/24
06:59 06:59 06:59
Intake Total 990 / 990 1140 / 1140
Output Total 4375 / 4375 2700 / 2700
Balance -3385 / -3385 -1560 / -1560
--- NOTE | 2024-04-30 09:25 | CM ---
Addendum entered by Ruby Weinberg 04/30/24 15:12:
CM consult - med pricing
Farxiga 10mg daily, Jardiance 10mg daily
Each med cost
30 day cost - $47; 90 day cost - $94.86
Addendum entered by Ruby Weinberg 04/30/24 10:16:
Received call back from pts daughter Estephanie
Prefers pt to return home with VN - lives with family and has support
Prefers [facility]
TT sent to [facility] Liaison
Family will transport home at discharge
Plan - anticipate home with [facility] when medically stable
Original Note:
Case management following for discharge planning
PT - recs SNF
Accepted at [facility] pend bed availability
Nursing reporting family prefers to have pt return home with services
Called pts daughter to discuss discharge planning - Estephanie [phone] - LM with call back number
--- NOTE | 2024-04-30 11:33 | VNURNOTE ---
Home Health Liaison met with patient at bedside to discuss [facility] nurse/therapy, visits, schedule and homebound status. Patient is agreeable and understands that visits at home will be 1-3 x per week to assess and teach medical management. patient
confirms he has a two story house but will be staying on the first floor and his daughter and son in law can assist. He confirms he has a scale on the first floor. HF packet at beside. Reviewed with him obtaining and logging daily weights. [facility]
brochure provided with contact information. Patient is aware that [facility] will contact them for start of care in a few days after discharge from .
[facility] referral completed in [facility].
[2024-04-30 12:53] LABS: Blood Urea Nitrogen 33 mg/dl (9-20); Calcium 10.4 mg/dl (8.4-10.2); Carbon Dioxide 31 mmol/L (22-30); Chloride 91 mmol/L (98-107); Estimated Creatinine Clearance 55 ml/min; Glucose 120 mg/dl (70-99); Potassium 3.7 mmol/L (3.5-5.1); Sodium 134 mmol/L (135-145)
[2024-04-30] MEDS: JARDIANCE 10 MG PO (13:48)
[2024-04-30] MEDS: ALDACTONE 12.5 MG PO (13:49)
[2024-04-30] MEDS: TYLENOL 1000 MG PO (15:38)
[2024-04-30] MEDS: LEXAPRO 10 MG PO (17:42)
[2024-04-30] MEDS: LIPITOR 80 MG PO (17:42)
[2024-04-30] MEDS: PROSCAR 5 MG PO (17:42)
[2024-04-30] MEDS: PULMICORT 0.5 MG INH (19:14)
[2024-04-30] MEDS: NEURONTIN 300 MG PO (20:46)
[2024-04-30] MEDS: SENOKOT-S 2 TABLET PO (20:47)
[2024-05-01 03:05] VITALS: BP 119/56
[2024-05-01 06:10] VITALS: BMI 31.8
[2024-05-01 07:00] VITALS: BP 141/76
[2024-05-01] MEDS: PULMICORT 0.5 MG INH (07:24)
[2024-05-01] MEDS: ALDACTONE 12.5 MG PO (08:11)
[2024-05-01] MEDS: TOPROL XL 12.5 MG PO (08:11)
[2024-05-01] MEDS: LASIX 40 MG PO (08:11)
[2024-05-01] MEDS: JARDIANCE 10 MG PO (08:11)
[2024-05-01] MEDS: ZYLOPRIM 100 MG PO (08:11)
[2024-05-01] MEDS: ELIQUIS 5 MG PO (08:11)
[2024-05-01] MEDS: FLOMAX 0.4 MG PO (08:11)
--- NOTE | 2024-05-01 08:59 | W.PN.CARDCBS ---
Addendum entered and electronically signed by Tomi Nicholson MD 05/01/24 20:01:
Patient feels well, ready for discharge
PMH/PSH/SH/FH: Reviewed
Allergies: Demerol
Medications: Reviewed
ROS: Negative except as above
112/61, pulse 72, head neck exam markable, lungs are clear, regular rate and rhythm, soft apical systolic murmur, JVD okay, trace edema, musculoskeletal neuro, integumentary intact
BUN/creatinine 35 and 1.3, potassium is 4.3, sodium 133
Chest x-ray disease
Assessment:
Acute HFpEF
Hyponatremia
Recent admission for left TKA complicated by persistent Afib with increased HRs and orthostasis 11/13/23 until 11/18/23
Recent admission for anemia, LLE DVT, hyponatremia and COVID 12/02/23 until 12/17/23
Persistent atrial fibrillation
History of atrial flutter
Chronic anticoagulation with Eliquis
History of stroke in 2018
Interstitial lung disease
Chronic mild anemia
GERD
BPH
Primary hyperparathyroidism
Coronary artery calcifications noted by imaging
Plan:
Stable for discharge
Medications reviewed, spironolactone and Jardiance are new,
Furosemide increased
Follow-up arranged
BMP 1 week
Original Note:
Today's Communication / Plan
-
Continue PO lasix 40mg daily
Spironolactone and Jardiance are new this admission
Continue lisinopril and Toprol
Continue Eliquis
BMP in 1 week
Follow up arranged
Impression / Plan
-
PCP: Dr. Nichols
Primary Oral Hygienist: Dr. Shields
Pulm: Dr. Hutchinson
Assessment:
Acute HFpEF
Hyponatremia
Recent admission for left TKA complicated by persistent Afib with increased HRs and orthostasis 11/13/23 until 11/18/23
Recent admission for anemia, LLE DVT, hyponatremia and COVID 12/02/23 until 12/17/23
Persistent atrial fibrillation
History of atrial flutter
Chronic anticoagulation with Eliquis
History of stroke in 2018
Interstitial lung disease
Chronic mild anemia
GERD
BPH
Primary hyperparathyroidism
Coronary artery calcifications noted by imaging
Echo 08/21/2023: EF 60 to 65%, mild concentric LVH, moderately dilated right ventricle, mild to moderate MR, mild AR, moderate TR, PAP 35 mmHg mild dilation of ascending aorta, 4.0 cm
Echo 04/27/2024: EF 60-65%,, mild to mod MR, mild to mod aortic regurgitation,, mild to mod TR with PAP 43 mmHg, enlarged RV size with normal function, mildly dilated aortic root. 3.9 cm at sinus of Valsalva, ascending aorta is 4.3 cm.
Plan:
-Presented with increased LE edema and SOB. Admitted with acute heart failure.
-Diuresed with IV lasix 40mg BID this admission and improved symptomatically. Creat stable at 1.3.
-Transitioned to PO lasix 40mg daily 05/01. Check BMP in 1 week.
-Accuracy of weights unclear as they have been on bed scale. Weight 05/01 noted to be up at 254lbs. Dry weight at last d/c 11/2023 was 230 lbs. Will recheck weight w/ standing scale.
-EF preserved by repeat echo 04/27/2024.
-Continue Jardiance 10mg daily and spironolactone 12.5mg daily, new this admission. Continue Toprol 12.5mg daily. Lisinopril previously stopped 10/2023 due to hypotension.
-Remains in persistent atrial fibrillation. HR stable on current dose of Toprol.
-Continue Eliquis 5mg BID for anticoagulation.
-Follow up arranged.
HPI: [facility] yesterday with increase LE edema and SOB and is now admitted with acute HF with a consultation to cardiology. Patient had a TKA 10/2023 that was complicated by post-op orthostasis and elevated HRs of his persistent Afib. His
lisinopril was stopped and Toprol XL was continued at that time. Eliquis was changed to 2.5 mg BID for the post-op TKA period. Patient was discharged to home and readmitted about 2 weeks later with anemia, LLE DVT and hyponatremia. Patient had
BRBPR at that time and on colonoscopy was found to have a large colon polyp that was not able to be removed. Also during that admission he was seen by hematology and eventually his usual dose of Eliquis 5 mg BID was restarted. He had hyponatremia
that was followed by nephrology and thought to be multifactorial and it was at that time that Lasix and Lexapro were stopped. He was also diagnosed with an LLE DVT at that time. He then saw me in the office for cardiology follow-up on 01/14/24 and
at that point remained in atrial fibrillation which is persistent at this point. Heart rates were controlled with Toprol-XL 12.5 mg daily. He was tolerating his usual dose of Eliquis 5 mg twice daily and the plan was for him to follow-up with "Jonathan"Wilian for polypectomy understanding that we would need to make a plan for holding OAC. We elected not to resume Lasix at that point as he was feeling well. In the interim he was able to travel to his other home in [place] and while there he was
eating differently than he would have eaten at home and said that he was eating a lot of takeout food that was fried. He returned home in the last week and noticed increasing edema to the point where his left leg was weeping. His family took him
to [facility] urgent care yesterday and he was referred to the ER.
Progress Note - Oral Hygienist
Subjective
Date of Service: May 01, 2024
Feeling well. No SOB.
Objective
Labs:
04/29/24 08:08
Labs
Hgb 10.9 g/dL (13.0-18.0) L 04/29/24 08:08
Hct 32.5 % (39.0-52.0) L 04/29/24 08:08
Plt Count 108 10^3/uL (130-400) L 04/29/24 08:08
Sodium 134 mmol/L (135-145) L 04/30/24 11:47
Potassium 3.7 mmol/L (3.5-5.1) 04/30/24 11:47
BUN 33 mg/dl (9-20) H 04/30/24 11:47
Creatinine 1.3 mg/dL (0.7-1.3) 04/30/24 11:47
Glucose 120 mg/dl (70-99) H 04/30/24 11:47
Vital Signs and I&O:
Vital Signs
Temp Pulse Resp BP Pulse Ox
98.3 F 84 16 118/61 95
05/01/24 07:00 05/01/24 08:11 05/01/24 07:25 05/01/24 08:11 05/01/24 07:25
Vital Signs
Temp Pulse Resp BP Pulse Ox
98.3 F 84 16 118/61 95
05/01/24 07:00 05/01/24 08:11 05/01/24 07:25 05/01/24 08:11 05/01/24 07:25
Intake & Output
04/29/24 04/30/24 05/01/24 05/02/24
06:59 06:59 06:59 06:59
Intake Total 990 / 990 1140 / 1140 1080 / 1080
Output Total 4375 / 4375 2700 / 2700 1635 / 1635
Balance -3385 / -3385 -1560 / -1560 -555 / -555
Physical Exam
Physical Exam
GEN: No distress, awake, Ox3
HEENT: supple, anicteric, mmm
LUNGS: CTA b/l, no wheezes/rales
CV: Irreg, S1/S2, 1/6 syst LSB, no murmur
EXT: No clubbing or cyanosis, trace edema
NEURO: Gross non-focal
SKIN: Warm, dry, no rash
[2024-05-01 09:03] LABS: Blood Urea Nitrogen 35 mg/dl (9-20); Calcium 10.3 mg/dl (8.4-10.2); Carbon Dioxide 31 mmol/L (22-30); Chloride 93 mmol/L (98-107); Estimated Creatinine Clearance 56 ml/min; Glucose 99 mg/dl (70-99); Potassium 4.3 mmol/L (3.5-5.1); Sodium 133 mmol/L (135-145)
--- NOTE | 2024-05-01 10:29 | W.PN.HOSP.TC ---
Today's Communication/Plan
-
repeat chest x ray , no acute findings
ok to dc, daughter wants home health
Assessment / Plan
Assessment / Plan
Physical Exam
General: Chronically ill-appearing, no acute distress
HEENT: Normocephalic, Atraumatic, EOMI, MMM
Respiratory:betetr air, no crackles or wheezes.
Cardiac: Normal S1/S2, irregularly irregular
GI: Soft, Nontender, Nondistended, Normal Bowel Sounds
Extremities: No Clubbing, Cyanosis Lower ext edema improved
Musculoskeletal: Left knee incision is clean, dry, intact
Neuro: AWake Alert Conversant
Psych: Calm, Cooperative
The patient is an 88-year-old male with past medical history of paroxysmal atrial fibrillation on Eliquis, recent acute left lower extremity DVT, recent left knee replacement on 11/13/2023, BPH, stroke, stage III chronic kidney disease, and
interstitial lung disease, presenting to the ED due to worsening bilateral LE edema that has been getting worse since early March, currently weeping clear liquid. He was vacationing in his house in [place] for the month of March, and drove there early
March with frequent stops along the way.
#Acute on chronic HFpEF
He feels better, loosing weight, less leg edema
-s/p IV Lasix BID, changed to oral Lasix, cone tender added Aldactone and Farxiga .
Weight was 128 Kg from 104 back in November this year
-echo on 08/21/23 normal LV size, mild concentric LV, EF 60-65%, dilated RV, moderate TR
-Tele monitoring
- daily weights
-echo 04/27 showed LVEF 60-65%, mild to moderate MR, mild to moderate AR, mild to moderate TR.
-cont BB, hold parameters
- Appreciate cardiology input
# Low grade temp , not sure if it is fever or warm room. His HR noted to be stable during the temps?. This morning, temp is 98. repeat chest x ray no acute findings. No hypoxia. Pt reports the cough is less after resuming Pulmicort
# Hyponatremia
Mild
No confusion
#Extensive b/l LE edema up to thighs
-s/p IV Lasix BID, changed to oral Lasix, cone tender added Aldactone and Farxiga .
- US : No sonographic evidence for lower extremity venous thrombosis
#Persistent atrial fibrillation
#History of atrial flutter
Eliquis resumed 12/04
Continue metoprolol for rate control
# Primary hyperparathyroidism
# Chronic cough with sputum production
Cough is better after resuming Pulmicort
Per records, ILD
seems c/w bronchiectasis or bronchiolitis
I reached out to his primary bail bond agent Dr Hutchinson to know more about the pt, c/w Pulmicort, office will schedule a visit.
#Near Syncope. Known Transient hypotension
-check orthostatics, was not charted, will d/w nursing staff
#Chronic blood loss anemia exacerbated by Eliquis use, stable hgb 10.9
#Thrombocytopenia-platelets
-no active bleeding, monitor
#Reported Chronic dysphagia secondary to esophageal stricture
#Non-obstructing Kimberlytzki noted on EGD
previously required mechanical soft diet with pills in applesauce
# known Stage IIIa Kidney disease
Creatinine stable
# Gout
c/w Allopurinol
# DC planning
I talked with Estephanie the daughter and lives with him, she provided full care to him with her , they would like home care services upon discharge.
Total discharge time spent to see the patient, examine the patient on the floor, review data and lab results, discuss discharge plan with patient, case management rn, daughter, nursing staff around 65 minutes.
Anticipated Discharge: Today
Subjective/Interval History
-
Date of Service: May 01, 2024
He feels better, wants to go home
Objective Data
-
Labs:
Laboratory Results
05/01/24
07:44
Sodium 133 L
Potassium 4.3
Chloride 93 L
Carbon Dioxide 31 H
BUN 35 H
Creatinine 1.3
Glucose 99
Calcium 10.3 H
Vital Signs:
Vital Signs
Temp Pulse Resp BP Pulse Ox
98.3 F 84 16 118/61 95
05/01/24 07:00 05/01/24 08:11 05/01/24 07:25 05/01/24 08:11 05/01/24 07:25
I&O
04/30/24 05/01/24 05/02/24
06:59 06:59 06:59
Intake Total 1140 / 1140 1080 / 1080
Output Total 2700 / 2700 1635 / 1635
Balance -1560 / -1560 -555 / -555
[2024-05-01 11:00] VITALS: BP 112/61
--- NOTE | 2024-05-01 12:00 | CM ---
Case management following for discharge today
Pt for discharge today
Spoke with daughter Estephanie - will transport home
Discussed IMM with pt
Plan - home with VN
--- NOTE | 2024-05-01 13:11 | W.DCSUMMARY ---
Discharge Summary
Discharge Data
Date of Admission: 04/27/24
Date of Discharge: 05/01/24
-
Pending Results: No
Hospital Course
88 years old male presented with increasing leg swelling and heart failure. Patient reported shortness of breath and coughing. Patient was diagnosed with acute on chronic heart failure with preserved ejection fraction. Echocardiogram showed left
ventricular ejection fraction of 60 to 65%, mild to moderate mitral regurgitation, mild to moderate aortic regurgitation with mild to moderate tricuspid regurgitation. He was started on intravenous Lasix. He was evaluated by cultural historian. Patient
lost weight and felt better. He did not need oxygen. He was noticed to have a chronic cough with infrequent yellowish sputum. Repeat chest radiograph showed no active disease. Patient was advised to follow-up with his primary disability attorney.
Primary disability attorney Dr. Hutchinson was also contacted to make an appointment for the patient. Patient was started on oral Lasix 40 mg. Low-dose Aldactone and Farxiga were added to his regimen. Patient remained hemodynamically stable and was
discharged home with home care services. Family declined SNF placement and was able to provide care at home. Patient was discharged in a stable condition.
Discharge Plan
-
Patient Disposition: Home with Home Care
Discharge Diagnosis/Procedures: Heart failure, volume overload
Lasix was increased to 40 mg daily, added another diuretic called Aldactone. Potential side effects of diuretics include kidney injury, potassium level disturbances.
New medicine called Farxiga: if taken, potential side effects include: low glucose, renal injury.
You will need to do blood work in one week.
You will need to see your primary care doctor in 1-2 weeks.
Contact your lung doctor Dr. Hutchinson for an appointment ( he was made aware of this admission).
Condition: Good
Diet: 2 Gram Sodium
Blood Work: bmp in one week
Specialty Instructions: Weigh Daily- Call MD for wt gain/loss 3 lbs overnight/5 lbs in 1 week
Instructions: *[facility] Heart Failure Instructions
Referrals:
Melanie Hutchinson MD [Active] - in two to four weeks
Sandra Shields DO [Active] - 05/06/24 3:20 pm (You have a follow up visit with Dr. Shields at the [facility] office. Please call with questions. )
UNKNOWN - PT DOES,NOT KNOW [Family Provider] -
Prescriptions:
New
furosemide 40 mg Tablet
40 mg PO DAILY Qty: 30 0RF
spironolactone 25 mg Tablet
12.5 mg PO DAILY Qty: 30 0RF
Jardiance 10 mg Tablet
10 mg PO DAILY Qty: 30 0RF
Continued
tamsulosin 0.4 MG capsule
0.4 mg PO BID
allopurinol 100 MG tablet
100 mg PO DAILY
escitalopram oxalate 10 MG tablet
10 mg PO QPM
montelukast 10 MG tablet
10 mg PO QPM
Prolia 60 MG/ML syringe
60 mg SC [id number]
ferrous sulfate [FeroSul] 325 MG tablet
325 mg PO QPM
pantoprazole 40 MG tablet,delayed release (DR/EC)
40 mg PO DAILY
finasteride 5 mg Tablet
5 mg PO QPM
metoprolol succinate [Toprol XL] 25 mg tablet extended release 24 hr
12.5 mg PO DAILY Qty: 30 0RF
gabapentin 300 mg capsule
300 mg PO HS Qty: 10 0RF
atorvastatin 80 MG tablet
80 mg PO QPM Qty: 0 0RF
Eliquis 5 MG tablet
5 mg PO BID Qty: 0 0RF
cyanocobalamin (vitamin B-12) 500 mcg Tablet
500 mcg PO DAILY
budesonide 0.5 mg/2 mL Suspension For Nebulization
0.5 mg INHALATION R BIDPRN PRN (Reason: sob)
vitamin B complex Tablet
1 tab PO DAILY
sodium chloride 0.65 % Aerosol,[place]
1 spray INTRANASAL BIDPRN PRN (Reason: dry nares)
cholecalciferol (vitamin D3) 25 mcg (1,000 unit) Tablet
25 mcg PO DAILY
azelastine 137 mcg (0.1 %) Aerosol,Stratton
1 spray INTRANASAL BID
fluticasone propionate 50 mcg/actuation Strat[place],Suspension
1 spray INTRANASAL BID
acetaminophen [Tylenol Extra Strength] 500 mg Tablet
1,000 mg PO Q6HPRN PRN (Reason: MILD pain or fever) Qty: 0 0RF
polyethylene glycol 3350 [HealthyLax] 17 gram powder in packet
17 g PO DAILY
sennosides-docusate sodium [Stool Softener-Stimulant Laxat] 8.6-50 mg tablet
2 tab PO BID
miconazole nitrate [Miconazorb AF] 2 % powder
1 applic topical BID
Discontinued
furosemide 20 mg tablet
20 mg PO DAILY
Discharge Orders:
Discharge Patient (As Directed); Ordered 05/01/24
Ordered By: Grady Chris
Discharge Date and Time
Discharge Date/Time: 05/01/24 13:40
Print Language: GEORGIAN
[2024-05-01] MEDS: TYLENOL 1000 MG PO (13:18)
--- NOTE | 2024-05-04 11:21 | W.HF.CON ---
Heart Failure
- LV Function
Left ventricular function study result: LV Ejection fraction >40%
Ejection Fraction Percentage: 60-65
- ARNI
Patient already on ARNI: No
Heart Failure ARNI Not Indicated: LV Ejection Fraction >/= 40%
- ACEI/ARB
Patient already on ACEI/ARB: No
Heart Failure ACEI/ARB Not Indicated: LV Ejection Fraction > 40%
- Beta Rachid
Patient already on Evidence Based Beta Rachid: Yes
- Mineralocorticord Receptor Antagonist
Patient already on MRA: Yes
- SGLT-2 Inhibitor
Patient already on SGLT-2 Inhibitor: Yes
- Afib Anticoagulation
Patient already on Anticoagulation for Afib: Yes
- NYHA CHF Classification
NYHA CHF Classification Level: Class III - Symptoms w/ min exertion, interferes w/ nml daily activity
- ACC/AHA Stage
ACC/AHA Stage: Stage C: Symptomatic Heart Failure
== END 2024-05-01 13:40 | disposition home health service (06) | DRG 291 ==
LOC: 3 WEST ACU 11:54
PROVIDERS: Nurse Practitioner Gerontology; Physician Assistant; Physician Assistant Medical; ADMITTING PHYSICIAN Internal Medicine; ATTENDING PHYSICIAN Internal Medicine; CONSULT PHYSICIAN Nuclear Medicine Nuclear Cardiology; EMERGENCY PHYSICIAN Emergency Medicine
DX: I13.0 Hypertensive heart and chronic kidney disease with heart failure and stage 1 through stage 4 chronic kidney disease, or unspecified chronic kidney disease (principal); I50.33 Acute on chronic diastolic (congestive) heart failure; E87.1 Hypo-osmolality and hyponatremia; I48.19 Other persistent atrial fibrillation; D68.32 Hemorrhagic disorder due to extrinsic circulating anticoagulants; I08.3 Combined rheumatic disorders of mitral, aortic and tricuspid valves; R05.3 Chronic cough; E66.9 Obesity, unspecified; N18.31 Chronic kidney disease, stage 3a; Z68.31 Body mass index [BMI] 31.0-31.9, adult; Z79.01 Long term (current) use of anticoagulants; Z86.73 Personal history of transient ischemic attack (TIA), and cerebral infarction without residual deficits
CPT/HCPCS: 71045; 71046; 80048; 80053; 80061; 81003; 82248; 83735; 83880; 84443; 84484; 85025; 85027; 87070; 87147; 87811; 93005; 93306; 93970; 94640; 96374; 97163; 97167; 97530; 97535; 99285

== ENCOUNTER 2024-08-13 00:34 | Inpatient (IN) | payer OTHER, SELFPAY ==
[2024-08-12] VITALS (7 sets, daily range): BP systolic 118–144; BP diastolic 79–98; BMI 32.9
[2024-08-12 16:09] LABS: % Basophils 1.1 % (0-2); % Immature Granulocytes 0.2 % (0-0.5); % Lymphocytes 21.1 % (20.5-51.1); % Neutrophils 46.6 % (42.2-75.2); Absolute Basophils 0.1 10^3/uL (0-0.2); Absolute Eosinophils 0.8 10^3/uL (0-0.7); Absolute Monocytes 0.6 10^3/uL (0.1-0.6); Absolute Neutrophils 2.1 10^3/uL (1.4-6.5); Hematocrit 35.1 % (39.0-52.0); Hemoglobin 11.1 g/dL (13.0-18.0); Mean Corp Hgb Conc. 31.6 g/dL (33.0-37.0); Mean Corpuscular Hgb 34.2 pg (27.0-31.0); Nucleated Red Blood Cells % 0 % (-); Red Blood Cell Count 3.25 10^6/uL (4.70-6.10); Red Cell Dist. Width 16.5 % (11.5-14.5); White Blood Cell Count 4.6 10^3/uL (4.8-10.8)
[2024-08-12 16:10] LABS: ALT (SGPT) 16 U/L (0-50); AST (SGOT) 27 U/L (17-59); Albumin 4.1 g/dl (3.5-5.0); Alkaline Phosphatase 86 U/L (38-126); Blood Urea Nitrogen 31 mg/dl (9-20); Calcium 9.3 mg/dl (8.4-10.2); Carbon Dioxide 26 mmol/L (22-30); Chloride 100 mmol/L (98-107); Glucose 107 mg/dl (70-99); Potassium 4.4 mmol/L (3.5-5.1); Sodium 138 mmol/L (135-145); Total Bilirubin 1.6 mg/dl (0.2-1.3); Total Protein 7.5 g/dl (6.3-8.2); eGFR 35.98
[2024-08-12 16:46] LABS: Mean Platelet Volume 9.7 fL (7.4-10.4); Platelet Count 78 10^3/uL (130-400)
[2024-08-12 18:27] LABS: NT-proBNP 5670 pg/ml
--- NOTE | 2024-08-12 21:51 | ED.GENMED ---
History of Present Illness
<Lesly Benavidez NP - Last Filed: 08/13/24 15:31>
General
Chief Complaint: Dizziness
Source: patient and family (daughter)
Exam Limitations: none
Time Seen by Provider: 08/12/24 17:48
History of Present Illness
History of Present Illness:
Patient to ED with complaint of worsening SMITH, weight gain. Hx CHF. PCP increased his Lasix to 40mg bid x 3days (last sat, sat, ). Saturday Daughter spoke with his certified residential medication aide about his symptoms. Lasix was then increased to 40mg AM, 20mg PM
x 3 days. No improvement in symptoms. Denies fever/chills, cough, cp/pressure. No edema. Reporst 7lb weight gain in 2 mos. Reports that his abdomen looks larger to himm Brought to ED by family for eval.
Past History
<Lesly Benavidez NP - Last Filed: 08/13/24 15:31>
Past History
ED Past Medical History: Arrthythmia (Atrial fib), CVA (TIA), GERD, HTN, Hypercholesterolemia, Psychiatric (Anxiety, Depression) and Other (Back pain, PNA, Peptic ulcer, Gout, Sinusitis)
ED Past Surgical History: Cholecystectomy, Orthopedic (Right second toe amputation, Bilateral foot surgery with plates, Right knee replacement, Left knee replacement), Tonsilectomy and Other ( varicocele, vein stripping right and left, cellulitis,
umbilical hernia, Nasal surgery, Cataracts with lens implants, )
Social History
Tobacco: Non-smoker
Alcohol: None
Personal:
Living: with family (Daughter)
Review of Systems
<Lesly Benavidez NP - Last Filed: 08/13/24 15:31>
Review of Systems
Allergies reviewed?: Yes
All Other Systems: ROS reviewed and negative except as documented in HPI and ROS
Constitutional: Reports no symptoms
EENT: Reports no symptoms
Respiratory: Reports trouble breathing and other (SMITH with minimal activity)
Cardiac: Reports no symptoms
ABD/GI: Reports no symptoms
: Reports no symptoms
Musculoskeletal: Reports no symptoms
Skin: Reports no symptoms
Neurological: Reports weakness
Psychiatric: Reports no symptoms
Phy Exam
<Lesly Benavidez [employer] - Last Filed: 08/13/24 15:31>
General Physical Exam
General Presentation: moderate distress (SMITH with minimal activity)
General Skin: warm and dry
General Habitus: normal
General Mental: alert
Cardiovascular Exam
Cardiovascular Exam: regular rate/rhythm
Pulmonary Exam
Pulmonary Exam: lungs clear, chest non tender and other (SMITH wtih minimal activity)
Gastrointestinal Exam
Gastrointestinal Exam: normal bowel sounds, non tender, soft and no organomegaly
Musculoskeletal Exam
Musculoskeletal Exam: full ROM and neuro vasc intact
Skin Exam
Skin Exam: normal color, warm/dry and no rash
Psychiatric Exam
Psychiatric Exam: normal mood/affect
Course
<Lesly Benavidez [employer] - Last Filed: 08/13/24 15:31>
Orders/Labs/Results
Orders:
Orders
08/12/24 15:25
Electrocardiogram (*1) Urgent
Reason for Study: Vertigo / Dizzy
EKG- Treatment ONCE
08/12/24 15:43
CMP [Comprehensive Metabolic Panel] Urgent
Complete Blood Count/With Diff Urgent
08/12/24 17:50
NT-proBNP Urgent
08/12/24 17:59
CR Chest - 2 Views Urgent
Comment:
Reason For Exam: SMITH
US Abdomen Complete/Upper Urgent
Comment:
Reason For Exam: distention
08/12/24 22:01
Furosemide [Lasix] 20 mg IV NOW STA
08/12/24 23:00
Flush (0.9% Sodium Chloride) [Flush (Nss)] See Dose Instructions IV PER PROTOCOL
08/12/24 23:27
COVID-19 Antigen Urgent
Source: Nasal Swab
08/13/24 00:11
Admit/Transfer Patient As Directed
Co-Sign Provider:
Level of Care: Inpatient admission
Assign to:: Telemetry
Physician / Group: kaylynn guevara
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
Reason for Telemetry: Subacute Heart Failure
Date to Stop Telemetry: 08/15/24
Time to Stop Telemetry: 11:00
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
Expected length of stay greater than two midnights?: Yes
ELOS- Estimated Length of Stay in days: 5
I certify the patient meets the requirements for IP care: Yes
Code Status As Directed
Resuscitation Status: Full Code
08/13/24 00:18
PRN Pain Medication Management As Directed
May give lesser potent ordered pain med per pt: Yes
preference::
Protocol:: Medication orders for pain may be administered in a
manner that supports deferring to patient preference
when the pt is:
- Requesting an ordered lesser potent pain medication.
Least to most potent pain medications are defined
as: acetaminophen < NSAID < tramadol < opioids
(morphine, oxycodone, hydromorphone).
- Requesting a lesser dose of the same medication IF
ORDERED.
- Requesting a less intrusive route of administration
if both routes are prescribed by the provider (PO <
IV).
08/13/24 00:24
CARDIOLOGY CONSULT Routine
Consulting Provider: Marta Rhodes
Was physician already notified: No
Reason for consult: acute on chronic chf
08/13/24 01:18
Acetaminophen [Tylenol] 1,000 mg PO Q6HPRN PRN
Budesonide [Pulmicort] 0.5 mg INH R BIDPRN PRN
Sodium Chloride [Jenkins, Saline Mist] 1 sprays NASAL BIDPRN PRN
08/13/24 01:18
VTE Contraindication Routine
VTE Mechanical Device Contraindication: Medical Contraindication
Pharmocologic Contraindication: Medical Contraindication
Comment: Patient on Eliquis
Activity As Directed
Activity Level: With Assistance
Bladder Scan As Directed
Follow Bladder Retention/Intermittent Cath Algorithm?: Yes
PRN if no void in __ hours: 6
Frequency: Per Retention Algorithm
If Bladder Scan Result >: 400
then:: Straight cath
Intake/ Output As Directed
Frequency: Per unit guidelines
Nursing to Place Non Medication Order As Directed
Physician Order: all pills with applesauce , elevated head of bed 30 to sleep
Above order entered?: Yes
Straight Cath As Directed
Frequency: Per Retention Algorithm
Additional Instructions: straight cath as needed per acute urinary retention algorithm for 24 hrs
Additional Instructions: for bladder scan greater than 400 mL
Vital Signs As Directed
Frequency: Per unit guidelines
Weight As Directed
Frequency: Daily
Pulse Ox/spot Check [RESP] Routine
Quantity: 1
Ot Eval And Treat Routine
Pt Eval And Treat Routine
Activity Level: With Assistance
08/13/24 05:31
Cardiovascular Evaluation IN AM
Complete Blood Count/With Diff IN AM
Comprehensive Metabolic Panel IN AM
08/13/24 08:00
Allopurinol [Zyloprim] 100 mg PO DAILY
Apixaban [Eliquis] 5 mg PO BID
Cholecalciferol (Vitamin D3) [VITAMIN D3 (cholecalciferol)] 25 mcg PO DAILY
Cyanocobalamin [Vitamin B-12] 500 mcg PO DAILY
Dapagliflozin [Farxiga] 10 mg PO DAILY
Furosemide [Lasix] 40 mg IV BID AT 0800,1600
Metoprolol Xl [Toprol Xl] 12.5 mg PO DAILY
Pantoprazole [Protonix] 40 mg PO DAILY
Spironolactone [Aldactone] 12.5 mg PO DAILY
Tamsulosin [Flomax] 0.4 mg PO BID
fluticasone propionate 1 spray NASAL BID
08/13/24 10:30
Consult Notification Routine
Specialty to Notify: Cardiology
Date consulting provider notified: 08/20/24
Time consulting provider notified: 09:00
Notified:: Provider
08/13/24 18:00
Atorvastatin [Lipitor] 80 mg PO QPM
Escitalopram Oxalate [Lexapro] 10 mg PO QPM
Ferrous Sulfate [Feosol] 325 mg PO QPM
Finasteride [Proscar] 5 mg PO QPM
Montelukast Sodium [Singulair] 10 mg PO QPM
08/14/24 06:00
Complete Blood Count/With Diff IN AM
Comprehensive Metabolic Panel IN AM
08/15/24 06:00
Complete Blood Count/With Diff IN AM
Comprehensive Metabolic Panel IN AM
08/15/24 11:00
DC Protocol for Telemetry ONCE
08/16/24 06:00
Complete Blood Count/With Diff IN AM
Comprehensive Metabolic Panel IN AM
Abnormal Lab Results
08/12/24
15:43
WBC 4.6 L 10^3/uL
(4.8-10.8)
RBC 3.25 L 10^6/uL
(4.70-6.10)
Hgb 11.1 L g/dL
(13.0-18.0)
Hct 35.1 L %
(39.0-52.0)
MCV 108.0 H fL
(80.0-94.0)
MCH 34.2 H pg
(27.0-31.0)
MCHC 31.6 L g/dL
(33.0-37.0)
RDW 16.5 H %
(11.5-14.5)
Plt Count 78 L 10^3/uL
(130-400)
Absolute Lymphs (auto) 1.0 L 10^3/uL
(1.2-3.4)
Absolute Eos (auto) 0.8 H 10^3/uL
(0-0.7)
Monocytes % 13.0 H %
(1.7-9.3)
Eosinophils % 18.0 H %
(0-6)
BUN 31 H mg/dl
(9-20)
Creatinine 1.8 H mg/dL
(0.7-1.3)
Glucose 107 H mg/dl
(70-99)
Total Bilirubin 1.6 H mg/dl
(0.2-1.3)
08/12/24 15:43
08/12/24 15:43
Vital Signs
Initial and Last Documented VS:
Initial Vital Signs
Temp Pulse Resp BP Pulse Ox
97.9 F 80 18 119/79 98
08/12/24 15:20 08/12/24 15:20 08/12/24 15:20 08/12/24 15:20 08/12/24 15:20
Last Documented Vital Signs
Temp Pulse Resp BP Pulse Ox
97.9 F 77 17 119/64 95
08/13/24 11:28 08/13/24 11:28 08/13/24 11:28 08/13/24 11:28 08/13/24 11:28
<Alex Jones MD - Last Filed: 08/12/24 22:03>
Orders/Labs/Results
Orders:
Orders
08/12/24 15:25
Electrocardiogram (*1) Urgent
Reason for Study: Vertigo / Dizzy
EKG- Treatment ONCE
08/12/24 15:43
CMP [Comprehensive Metabolic Panel] Urgent
Complete Blood Count/With Diff Urgent
08/12/24 17:50
NT-proBNP Urgent
08/12/24 17:59
CR Chest - 2 Views Urgent
Comment:
Reason For Exam: SMITH
US Abdomen Complete/Upper Urgent
Comment:
Reason For Exam: distention
08/12/24 22:01
Furosemide [Lasix] 20 mg IV NOW STA
08/12/24 23:00
Flush (0.9% Sodium Chloride) [Flush (Nss)] See Dose Instructions IV PER PROTOCOL
08/12/24 23:27
COVID-19 Antigen Urgent
Source: Nasal Swab
08/13/24 00:11
Admit/Transfer Patient As Directed
Co-Sign Provider:
Level of Care: Inpatient admission
Assign to:: Telemetry
Physician / Group: kaylynn guevara
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
Reason for Telemetry: Subacute Heart Failure
Date to Stop Telemetry: 08/15/24
Time to Stop Telemetry: 11:00
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
Expected length of stay greater than two midnights?: Yes
ELOS- Estimated Length of Stay in days: 5
I certify the patient meets the requirements for IP care: Yes
Code Status As Directed
Resuscitation Status: Full Code
08/13/24 00:18
PRN Pain Medication Management As Directed
May give lesser potent ordered pain med per pt: Yes
preference::
Protocol:: Medication orders for pain may be administered in a
manner that supports deferring to patient preference
when the pt is:
- Requesting an ordered lesser potent pain medication.
Least to most potent pain medications are defined
as: acetaminophen < NSAID < tramadol < opioids
(morphine, oxycodone, hydromorphone).
- Requesting a lesser dose of the same medication IF
ORDERED.
- Requesting a less intrusive route of administration
if both routes are prescribed by the provider (PO <
IV).
08/13/24 00:24
CARDIOLOGY CONSULT Routine
Consulting Provider: Marta Rhodes
Was physician already notified: No
Reason for consult: acute on chronic chf
08/13/24 01:18
Acetaminophen [Tylenol] 1,000 mg PO Q6HPRN PRN
Budesonide [Pulmicort] 0.5 mg INH R BIDPRN PRN
Sodium Chloride [Jenkins, Saline Mist] 1 sprays NASAL BIDPRN PRN
08/13/24 01:18
VTE Contraindication Routine
VTE Mechanical Device Contraindication: Medical Contraindication
Pharmocologic Contraindication: Medical Contraindication
Comment: Patient on Eliquis
Activity As Directed
Activity Level: With Assistance
Bladder Scan As Directed
Follow Bladder Retention/Intermittent Cath Algorithm?: Yes
PRN if no void in __ hours: 6
Frequency: Per Retention Algorithm
If Bladder Scan Result >: 400
then:: Straight cath
Intake/ Output As Directed
Frequency: Per unit guidelines
Nursing to Place Non Medication Order As Directed
Physician Order: all pills with applesauce , elevated head of bed 30 to sleep
Above order entered?: Yes
Straight Cath As Directed
Frequency: Per Retention Algorithm
Additional Instructions: straight cath as needed per acute urinary retention algorithm for 24 hrs
Additional Instructions: for bladder scan greater than 400 mL
Vital Signs As Directed
Frequency: Per unit guidelines
Weight As Directed
Frequency: Daily
Pulse Ox/spot Check [RESP] Routine
Quantity: 1
Ot Eval And Treat Routine
Pt Eval And Treat Routine
Activity Level: With Assistance
08/13/24 05:31
Cardiovascular Evaluation IN AM
Complete Blood Count/With Diff IN AM
Comprehensive Metabolic Panel IN AM
08/13/24 08:00
Allopurinol [Zyloprim] 100 mg PO DAILY
Apixaban [Eliquis] 5 mg PO BID
Cholecalciferol (Vitamin D3) [VITAMIN D3 (cholecalciferol)] 25 mcg PO DAILY
Cyanocobalamin [Vitamin B-12] 500 mcg PO DAILY
Dapagliflozin [Farxiga] 10 mg PO DAILY
Furosemide [Lasix] 40 mg IV BID AT 0800,1600
Metoprolol Xl [Toprol Xl] 12.5 mg PO DAILY
Pantoprazole [Protonix] 40 mg PO DAILY
Spironolactone [Aldactone] 12.5 mg PO DAILY
Tamsulosin [Flomax] 0.4 mg PO BID
fluticasone propionate 1 spray NASAL BID
08/13/24 10:30
Consult Notification Routine
Specialty to Notify: Cardiology
Date consulting provider notified: 08/20/24
Time consulting provider notified: 09:00
Notified:: Provider
08/13/24 18:00
Atorvastatin [Lipitor] 80 mg PO QPM
Escitalopram Oxalate [Lexapro] 10 mg PO QPM
Ferrous Sulfate [Feosol] 325 mg PO QPM
Finasteride [Proscar] 5 mg PO QPM
Montelukast Sodium [Singulair] 10 mg PO QPM
08/14/24 06:00
Complete Blood Count/With Diff IN AM
Comprehensive Metabolic Panel IN AM
08/15/24 06:00
Complete Blood Count/With Diff IN AM
Comprehensive Metabolic Panel IN AM
08/15/24 11:00
DC Protocol for Telemetry ONCE
08/16/24 06:00
Complete Blood Count/With Diff IN AM
Comprehensive Metabolic Panel IN AM
Abnormal Lab Results
08/12/24
15:43
WBC 4.6 L 10^3/uL
(4.8-10.8)
RBC 3.25 L 10^6/uL
(4.70-6.10)
Hgb 11.1 L g/dL
(13.0-18.0)
Hct 35.1 L %
(39.0-52.0)
MCV 108.0 H fL
(80.0-94.0)
MCH 34.2 H pg
(27.0-31.0)
MCHC 31.6 L g/dL
(33.0-37.0)
RDW 16.5 H %
(11.5-14.5)
Plt Count 78 L 10^3/uL
(130-400)
Absolute Lymphs (auto) 1.0 L 10^3/uL
(1.2-3.4)
Absolute Eos (auto) 0.8 H 10^3/uL
(0-0.7)
Monocytes % 13.0 H %
(1.7-9.3)
Eosinophils % 18.0 H %
(0-6)
BUN 31 H mg/dl
(9-20)
Creatinine 1.8 H mg/dL
(0.7-1.3)
Glucose 107 H mg/dl
(70-99)
Total Bilirubin 1.6 H mg/dl
(0.2-1.3)
08/12/24 15:43
08/12/24 15:43
Vital Signs
Initial and Last Documented VS:
Initial Vital Signs
Temp Pulse Resp BP Pulse Ox
97.9 F 80 18 119/79 98
08/12/24 15:20 08/12/24 15:20 08/12/24 15:20 08/12/24 15:20 08/12/24 15:20
Last Documented Vital Signs
Temp Pulse Resp BP Pulse Ox
97.9 F 77 17 119/64 95
08/13/24 11:28 08/13/24 11:28 08/13/24 11:28 08/13/24 11:28 08/13/24 11:28
<Lesly Benavidez NP - Last Filed: 08/13/24 15:31>
MDM/Problems Addressed
Differential Diagnosis Includes:
Patient to ED with complaint of increaseing SMITH. States his symptoms started a few weeks ago. This past week his lasix was increased to 40mg bid x 3 days, then 40mg AM and 20mg PM for 3 days. He does not feel there has been any improvement in his
symptoms Reports 7lb weight gain in past month. No increase in lower exxtremity edema. VSS, remains afebrile. Labs reviewed. Creat now 1.8 after lasix increase. BNP 5600 noted. CXR and EKG reviewed. SMITH with minimal activity. Pulse ox 96%
RA. Will admit to hsopitalist for SMITH. Additional 20mg lasix given.
<Lesly Benavidez NP - Last Filed: 08/13/24 15:31>
*Radiology
Radiology exam reviewed: radiology read reviewed
*Pulse Oximetry
Patient hypoxic: no
*Critical Care Note
Total Time (30-74mins, 75-104mins- exclusive of procedures): Not Applicable
ED Attending Note
<Lesly Benavidez NP - Last Filed: 08/13/24 15:31>
-
Portions of this chart may have been created with voice recognition software.� Occasional wrong word or��sound alike� substitutions may have occurred due to the inherent limitations of voice recognition software.
<Alex Jones MD - Last Filed: 08/12/24 22:03>
ED Attending Note
Patient seen and examined by attending physician: Yes
I performed the substantive portion of visit, reviewed & personally made and approve the management plan that is documented in note by myself or MAURICE.: Yes
ED Attending Note:
89-year-old male with progressive shortness of breath with exertion dyspnea lightheadedness and near syncope with exertion. Progressive over weeks. Significant weight gain recently. Has increased his diuretics with no benefit. Become cyanotic
going upstairs.
On exam patient is nontoxic in no distress. Mild rales in both bases. Heart regular rate and rhythm. Abdomen benign. Extremities with mild edema. Both legs are wrapped. Warm and dry. Perfusing well.
Weight gain elevated proBNP and history all consistent with CHF. Some progressive renal insufficiency. Balancing act between over and under diuresis. However given his symptom complex progression of symptoms failed outpatient management patient
warrants further inpatient care
Discharge Plan
Departure
Patient Disposition: Admit
Date of Disposition: 08/12/24
Time of Disposition: 21:59
Presentation/result/management discussed w/ accepting MD/DO: Hospitalist
Condition: Fair
Covid-19: Not Applicable
Discharge Problem:
SMITH (dyspnea on exertion), CHF (congestive heart failure), Acute renal insufficiency
Interventions
Interventions:
*Risk Screen - Suicide Last Done: 08/13/24 01:27
*General Assessment Last Done: 08/12/24 15:20
*Neglect/Abuse Screening Last Done: 08/12/24 17:45
ED- Fall Risk Assessment Last Done: 08/12/24 17:45
*ED COVID-19 Vaccine History Last Done: 08/12/24 15:20
*Nursing Disposition Last Done: 08/13/24 01:00
ED- Cardiac Assessment Last Done: 08/12/24 17:51
ED- Neurological Assessment Last Done: 08/12/24 17:45
ED Swallowing Screen Last Done: 08/12/24 18:43
Discharge Date and Time
Discharge Date/Time: 08/13/24 01:27
[2024-08-12] MEDS: LASIX 20 MG IV (22:25)
--- NOTE | 2024-08-12 23:04 | HPS.HSE ---
Addendum entered and electronically signed by Jasper Saha DO 08/13/24 00:54:
Patient seen and examined independently. Agree with findings and plan as set forth by DAVID Moreno.
Patient is an 89y M with PMH significant for A-Fib, hypertension and CHF who presents to ED complaining of increased swelling in the LE and abdomen and lightheadedness / dyspnea with activity x several weeks. Patient notes that he gets
'lightheaded' mostly when he is exerting himself and he describes this as being very SOB to the point of lightheadedness. He denies any chest pain. He states that his symptoms have continued to progress - despite increase in his outpatient Lasix
dosing. Patient presented to the ED for further evaluation and treatment.
Ass:
Acute on Chronic HFpEF
SMITH / 'Lightheadedness'
ARMINDA on CKD III
Thrombocytopenia
Paroxysmal A-Fib / Flutter
History of Cardioembolic CVA
Benign Hypertension
1st Degree AV Block
Anemia of Chronic Disease
Pulmonary Fibrosis
Primary Hypoparathyroidism
GERD / Esophageal Stricture
Peripheral Neuropathy
BPH
Plan:
Admit for further evaluation and treatment.
IV Lasix BID and follow daily weights, I/Os, etc.
Monitor for improvement in renal function, dyspnea, etc with diuresis.
Cardiology evaluation for additional recommendations.
PT / OT evaluations.
Continue other outpatient medications.
Reinforce with patient the importance of salt / fluid restriction (notes that 'some people' have told him to drink lots of fluids).
Original Note:
Family Physician
-
Family Physician: Reymundo Nichols
Chief Complaint
-
Shortness of breath, SMITH, dizziness x 1.5 weeks, 2-day history of watery explosive diarrhea x 2 days resolved today
History of Present Illness
89-year-old male complaining of worsening dyspnea on exertion, dizziness and weight gain with a history of CHF over the past 1 to 1.5 weeks he reports his PCP increase his Lasix to 40 mg twice daily x 3 days last Saturday and on
Saturday his daughter spoke with his corrosion control fitter about his symptoms and his Lasix was changed to 40 mg in the a.m. and 20 mg in the p.m. x 3 days despite adjustments in his furosemide he had no improvement in his symptoms. The patient tells me his
daughter Ondina kept trying to get him to drink more liquids to help improve his symptoms of dizziness and shortness of breath I explained to the patient when you have heart failure and are overloaded with fluid you do not increase your fluid intake
and take a diuretic at the same time. He states to me he and his family need some education regarding this. He also reports brown watery explosive diarrhea for 2 days on Saturday and Saturday but none today. He denies any blood or mucus in the stool
or abdominal pain. He reports he had a sensation of having to pass gas but had explosive diarrhea instead. He denies current headache, sore throat, fever, chills, chest pain, palpitations, abdominal pain, nausea, vomiting, diarrhea, urinary
symptoms.
He has PMH iron deficiency anemia, B12 anemia, chronic pain, CKD stage IIIb, HTN, HLD, chronic CHF with preserved EF, A-fib paroxysmal atrial flutter, first-degree AV block, mild pulm HTN, interstitial fibrosis, GERD, BPH, anxiety, depression,
osteoporosis, gout, seasonal allergies.MRSA positive nasal screen preop, Left hemispheric CVA October 2017 cardioembolic, Peripheral neuropathy, Hx aspiration pneumonia 08/20/2023, left leg DVT gastrocnemius Dx 11/29/2023 status post left knee
replacement,Hypercalcemia/primary hyperparathyroidism hx, iron deficiency anemia,Chronic ambulatory dysfunction,Peripheral neuropathy,Right lower lobe pulmonary nodule
Aspiration pneumonia 08/12/2023, Multilevel level DDD,Psoriatic arthritis, Chronic dry eyes, Osteopenia,Hearing impaired bilaterally, Pancreatic cyst, Renal cysts.
Medical History
Past Medical History
Past Medical History: Reports Other
Additional Past Medical History:
1. Osteoarthritis, status post right total knee arthroplasty, 09/2018, by Dr. Christos Ndiaye.
2. Hypertension.
3. Hyperlipidemia.
4. Coronary artery calcifications on chest CT.
5. Aorta atherosclerosis.
6. Paroxysmal atrial fibrillation/atrial flutter, oral anticoagulation with Eliquis.
7. First degree AV block.
8. Mild-moderate valvular disease.
9. Mild pulmonary hypertension.
10. Venous varicosities, status post remote bilateral vein stripping.
11. Chronic peripheral edema.
12. Chronic interstitial fibrosis.
13. Right lower lobe pulmonary nodule, stable on serial imaging.
14. Aspiration pneumonia 08/20/2023.
15. Chronic dyspnea on exertion.
16. Chronic kidney disease stage 3.
17. GERD.
18. Mild dysphagia secondary to esophageal stricture.
19. Redundant colon.
20. Colon polyps.
21. Bilateral renal cysts.
22. Pancreatic cyst.
23. 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
24. Balance difficulties.
25. Peripheral neuropathy.
26. Multilevel degenerative disc disease.
27. BPH with difficult urination.
28. Multifactorial anemia.
29. Psoriatic arthritis.
30. Primary hyperparathyroidism.
31. Gout.
32. Anxiety.
33. Depression.
34. Chronic postnasal drip.
35. Bilateral dry eyes.
36. Osteopenia.
37. Hearing impairment bilaterally.
38. MRSA positive nasal screen pre-operatively.
39. Mild hyponatremia.
40. Mild hypercalcemia.
41. Prediabetes, A1c 5.8.
42. Obesity, BMI 32.9.
Past Surgical History: Reports Other
Additional Past Surgical History:
1. Right total knee arthroplasty, 09/2018, by Dr. Christos Ndiaye.
2. Right elbow surgery.
3. Left foot 4th metatarsal shaving.
4. Left foot excision of bone and soft tissue.
5. Varicose vein stripping bilaterally.
6. Umbilical hernia repair.
7. Laparoscopic cholecystectomy.
8. ERCP, bile stone extraction, and sphincterotomy.
9. Varicocele surgery.
10. Sinus surgery.
11. Bilateral cataract extraction.
12. Tonsillectomy.
13. Colonoscopy.
14. Endoscopy.
Social History
Tobacco: Non-smoker
Alcohol: Occasional
Personal: Single
Living: With Family (in a 2 story home. His daughter Ondina and his son-in-law have been staying with him for the past month or so)
Employment: Retired
Family History
Family History: Not pertinent
Allergies / Home Medications
Allergies reflects when Allergies were last updated in [employer].
Home Medications with original date entered in [employer]
Allergy/Medication List:
Allergies
Allergy/AdvReac Type Severity Reaction Status Date / Time
meperidine Allergy oversedation,passed Verified 08/12/24 15:25
out
Home Medications
allopurinol 100 mg tablet 100 mg PO DAILY Gout 09/17/18
escitalopram oxalate 10 mg tablet 10 mg PO QPM Depression 09/17/18
tamsulosin 0.4 mg capsule 0.4 mg PO BID Urinary issue 09/17/18
denosumab 60 mg/mL subcutaneous syringe (Prolia) 60 mg SC [id number] OSTEOPOROSIS 02/22/21
montelukast 10 mg tablet 10 mg PO QPM Allergies 02/22/21
ferrous sulfate 325 mg (65 mg iron) tablet (FeroSul) 325 mg PO QPM Supplement 10/03/21
pantoprazole 40 mg tablet,delayed release 40 mg PO DAILY Gastrointestinal Issue 07/24/23
apixaban 5 mg tablet (Eliquis) 5 mg PO BID Blood clot prevention/tx #0 tabs 08/22/23
atorvastatin 80 mg tablet 80 mg PO QPM High cholesterol #0 tabs 08/22/23
finasteride 5 mg tablet 5 mg PO QPM Urinary Issue 10/21/23
gabapentin 300 mg capsule 300 mg PO HS sleep/pain #10 caps 11/18/23
metoprolol succinate 25 mg tablet,extended release 24 hr (Toprol XL) 12.5 mg (1/2 x 25 mg) PO DAILY #30 tabs 11/18/23
budesonide 0.5 mg/2 mL suspension for nebulization 0.5 mg inhalation R BIDPRN PRN sob 12/02/23
cholecalciferol (vitamin D3) 25 mcg (1,000 unit) tablet 25 mcg PO DAILY Supplement 12/02/23
cyanocobalamin (vitamin B-12) 500 mcg tablet 500 mcg PO DAILY Supplement 12/02/23
sodium chloride 0.65 % nasal spray aerosol 1 spray intranasal BIDPRN PRN dry nares 12/02/23
vitamin B complex 1 tab PO DAILY Supplement 12/02/23
azelastine 137 mcg (0.1 %) nasal spray 1 spray intranasal BID Allergies 12/03/23
fluticasone propionate 50 mcg/actuation nasal spray,suspension 1 spray intranasal BID Allergies 12/03/23
acetaminophen 500 mg tablet (Tylenol Extra Strength) 1,000 mg (2 x 500 mg) PO Q6HPRN PRN MILD pain or fever #0 tabs 12/17/23
polyethylene glycol 3350 17 gram oral powder packet (HealthyLax) 17 g PO DAILYPRN PRN constipation 04/27/24
sennosides 8.6 mg-docusate sodium 50 mg tablet (Stool Softener-Stimulant Laxative) 2 tab PO BIDPRN PRN Constipation 04/27/24
empagliflozin 10 mg tablet (Jardiance) 10 mg PO DAILY #30 tabs 05/01/24
furosemide 40 mg tablet 40 mg PO DAILY #30 tabs 05/01/24
spironolactone 25 mg tablet 12.5 mg (1/2 x 25 mg) PO DAILY #30 tabs 05/01/24
Review of Systems
-
History Source: Patient
A 12 point ROS was completed and negative except as noted: Yes
Constitutional: Reports Fatigue; Denies Fever or Chills
EENT: Denies Sore Throat or Runny Nose
Respiratory: Reports Cough (Chronic) and Trouble Breathing (SOB/SMITH)
Cardiac: Denies Chest Pain, Diaphoresis, Palpitations or Syncope
Abdomen/GI: Reports Diarrhea (2 days of watery brown diarrhea Saturday and Saturday stopped today 08/13/2024); Denies Abdominal Pain, Nausea, Vomiting, Constipated, Bloody Stools or Black Stools
: Denies Dysuria, Frequency, Flank Pain, Incontinence, Difficulty Voiding or Urgency
Musculoskeletal: Reports Edema (+2 from feet extending up into abdomen with JVD distention); Denies Joint Pain
Skin: Denies Itching or Rash
Neurological: Reports Dizzy; Denies Headache or Weakness
Endocrine: Reports No Symptoms
Hematologic/Lymphatic: Reports No Symptoms
Psych: Reports Calm
Physical Exam
Vital Signs
Vital Signs
Temp Pulse Resp BP Pulse Ox
97.9 F 72 20 144/98 100
08/12/24 15:20 08/12/24 22:25 08/12/24 22:15 08/12/24 22:25 08/12/24 21:15
Physical Exam
General: Comfortable, Conversant and Obese; No Pain, Fever or Chills
HEENT: NormoCephalic, Anicteric, Moist mucous membranes, PERRLA, [place] Conjunctivae and No Ptosis
Respiratory: Wheezes (Expiratory throughout both lung lance); No Rales or Rhonchi
Cardiac: S1/S2, Regular Rhythm, Peripheral Edema (+3 edema from lower legs extending to upper thighs and abdomen) and JVD; No Murmur, Rub or Gallop
Breast: Deferred by me
GI: Soft, Non Tender, Normal Bowel Sounds and Distended (Generalized tympany)
Rectal: Deferred by Provider
Genito-urinary: Deferred by me
Musculoskeletal: No Clubbing, No Cyanosis, Edema, Left Lower Extremity (+3 lower legs extending to thighs into the stomach) and Edema, Right Lower Extremity (+3 lower legs extending to thighs into the stomach); No Edema, Left Upper Extremity or
Edema, Right Upper Extremity
Skin: Warm and Dry; No Rash
Neuro: AO x 3 (Is oriented x 3 but poor historian regarding past medical history and knowledge of his medical problems), Cranial Nerves Intact and No Sensory Deficits; No Slurred Speech, Facial Droop, Tremors or Sedated
Psych: Calm
Laboratory Results
-
08/12/24 15:43
08/12/24 15:43
Laboratory Results
Total Bilirubin 1.6 mg/dl (0.2-1.3) H 08/12/24 15:43
AST 27 U/L (17-59) 08/12/24 15:43
ALT 16 U/L (0-50) 08/12/24 15:43
Alkaline Phosphatase 86 U/L (38-126) 08/12/24 15:43
Data Reviewed
-
Diagnostic Radiology: Report Reviewed by me
Lab Data: Labs Reviewed by me
Impression/Plan
-
Impression/plan:
Admit to telemetry
# Acute on chronic diastolic CHF preserved EF
#Chronic peripheral edema to be
Check COVID swab
BNP 5670
Past week had increase of Lasix to 40 mg twice daily x 3 days then 40 mg in a.m./20 mg p.m. x 3 days- with no improvement in symptoms of SOB/SMITH/dizziness
-I/O, daily weights
-IV Lasix 40 mg twice daily
-Consult [facility] cardiology
2D echo 04/27/2024: EF 60 to 65%, no wall abnormalities, diastolic dysfunction indeterminate due to A-fib, mild to moderate MR.
Mild to moderate aortic regurg. Mild to moderate TR. Pulmonary artery pressure 43 mmHg.
Moderately dilated right atrium. Enlarged right ventricular size.
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
CXR: Cardiomegaly. No acute cardiopulmonary process
Abdominal ultrasound: No sonographic evidence for an acute process in the abdomen
# ARMINDA on CKD stage IIIb 2/2 recent increase in diuretics
Creat 1.8 from prior 1.25 April 2024
-Patient had recent increase of Lasix to 40 mg twice daily x 3 days then 40 mg in a.m./20 mg p.m. x 3 days
-Will need to diurese patient due to CHF exacerbation follow BMP closely
- follow bmp
#Acute thrombocytopenia unclear etiology
Plt 78, most recent PLT 105�108 on 04/26- 04/29/2024
-Follow CBC
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
#BPH
- bladder scan
-Continue Flomax 0.4 mg twice daily, finasteride 5 mg every afternoon
#HTN�benign
BP 144/98
-Continue Toprol-XL 12.5 mg daily
#A-fib/atrial flutter paroxysmal
-Continue Toprol XL 12.5 mg daily
-Continue Eliquis 5 mg twice daily
#First-degree AV block
#Mild pulmonary HTN
#Hx hyponatremia
NA 138
-Had Lexapro DC'd in November and was put on 48 ounce fluid restriction as well as Lasix by nephrology
#Left leg DVT gastrocnemius dx 11/29/23 s/p Left knee replacement 11/13/23
-This was treated with Eliquis after negative bleeding on endoscopy/colonoscopy by GI and clearance on 12/05/2023
#Chronic pain post op Left knee replacement 11/13/[address] ndiaye
#MRSA positive nasal screen preop
# Anemia macrocytic- concern for GI bleed vs post op blood loss
#Iron deficiency anemia
-Had blood transfusion November 2023 admission due to anemia
-Hgb 11.1
12/04/23 EGD shows 2 cm hiatal hernia, nonobstructing Schatzki ring, normal stomach, normal duodenum
12/05/23 colonoscopy shows 15 mm polyp at the appendiceal orifice
#Chronic interstitial fibrosis
#Hypercalcemia/primary hyperparathyroidism hx
--Patient received pamidronate in November 2 continue to January and follow-up with Dr. Shepherd in office
#Chronic dysphagia secondary to esophageal stricture Hx
#Hx Aspiration pneumonia 08/20/2023
#Hx Gallstones with ercp in
- on Mech soft with pills with applesauce
-must sit upright 30 degrees to sleep
#GERD
-IV Protonix 40 mg daily
#HLD
-Continue atorvastatin 80 mg every afternoon
#Anxiety/depression
-Continue Lexapro 10 mg every afternoon
#Osteoporosis
-Patient on Prolia 60 mg every 6 months
#Gout
-Continue allopurinol 100 mg daily
#Seasonal allergies
Continue montelukast 10 mg every afternoon
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
cont statin
# Peripheral neuropathy chronic
#Hx COVID-19 infection 12/17/2023 did not require any treatment
#Obesity due to excess calorie consumption�BMI 32.9
Affects all aspects of care
Weight loss recommended, healthy heart diabetic diet
Other PMH:
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
Chronic ambulatory dysfunction
Peripheral neuropathy
Right lower lobe pulmonary nodule
Aspiration pneumonia 08/12/2023
Multilevel level DDD
Psoriatic arthritis
Chronic dry eyes
Osteopenia
Hearing impaired bilaterally
Pancreatic cyst
Renal cysts
DVT prophylaxis
Continue Eliquis 5 mg twice daily
Full code
[2024-08-13] VITALS (9 sets, daily range): BP systolic 104–133; BP diastolic 58–96; PULSE 77–84; O2SAT 95–96; BMI 32.8
[2024-08-13 01:26] LABS: COVID-19 Antigen Negative (Negative)
--- NOTE | 2024-08-13 02:49 | PTCARENOTE ---
Pt admitted to [facility]. Pt able to stand on scale and walk to bedroom with assistance. Pt is [place] of hearing but able to make needs known. VSS. call king within reach.
[2024-08-13 06:41] LABS: % Basophils 1.1 % (0-2); % Eosinophils 22.6 % (0-6); % Immature Granulocytes 0.2 % (0-0.5); % Lymphocytes 20.7 % (20.5-51.1); % Monocytes 16.3 % (1.7-9.3); % Neutrophils 39.1 % (42.2-75.2); Absolute Basophils 0.1 10^3/uL (0-0.2); Absolute Monocytes 0.8 10^3/uL (0.1-0.6); Absolute Neutrophils 1.8 10^3/uL (1.4-6.5); Hematocrit 31.9 % (39.0-52.0); Hemoglobin 10.6 g/dL (13.0-18.0); Mean Corp Hgb Conc. 33.2 g/dL (33.0-37.0); Mean Corpuscular Hgb 35.3 pg (27.0-31.0); Mean Corpuscular Volume 106.3 fL (80.0-94.0); Mean Platelet Volume 9.9 fL (7.4-10.4); Nucleated Red Blood Cells % 0 % (-); Platelet Count 83 10^3/uL (130-400); Red Cell Dist. Width 16.3 % (11.5-14.5); White Blood Cell Count 4.6 10^3/uL (4.8-10.8)
[2024-08-13 07:02] LABS: ALT (SGPT) 14 U/L (0-50); AST (SGOT) 25 U/L (17-59); Albumin 3.7 g/dl (3.5-5.0); Alkaline Phosphatase 84 U/L (38-126); Blood Urea Nitrogen 30 mg/dl (9-20); Calcium 9.1 mg/dl (8.4-10.2); Carbon Dioxide 28 mmol/L (22-30); Chloride 102 mmol/L (98-107); Estimated Creatinine Clearance 44 ml/min; Glucose 92 mg/dl (70-99); HDL Cholesterol 37 mg/dl; LDL Cholesterol, Calculated 34 mg/dl; Sodium 140 mmol/L (135-145); Total Bilirubin 1.8 mg/dl (0.2-1.3); Total Cholesterol 84 mg/dl (50-199); Total Protein 6.9 g/dl (6.3-8.2); Triglyceride 65 mg/dl (10-149); Very Low Density Lipoprotein 13 mg/dl (0-30); eGFR 38.53
--- NOTE | 2024-08-13 08:16 | CON.CAR ---
Addendum entered and electronically signed by Fazal Arriaza MD 08/13/24 16:47:
I saw and examined the patient.
The Production Ski Repairer's note was reviewed and I agree with the note.
Comment: Briefly, 89-year-old man past medical history of heart failure with preserved ejection fraction who presents with progressive weight gain found to have significant lower extremity edema and elevated proBNP consistent with acute heart failure
IV diuresis with Lasix twice daily
Cont SGLT2 and spironolactone
Follow daily standing weights as well as renal function and creatinine
Reviewed salt and fluid restriction
Would benefit from leg elevation and Tubigrip's
Recent echo with preserved left ventricular systolic function and mild-mod MR/TR, no need to repeat at this time
Rest per Anjelica Michel
Original Note:
Consultation
Consultation Request
Date/Time Consultation Requested: 08/13/24 at 0024
Date/Time Consultation Performed: 08/13/24 at 0816
Requesting Provider: Dr. Tobias
Performing Provider: Dr. Arriaza
Reason for Consultation: Acute HFrEF
Medical History
-
History of Present Illness:
Patient came to ER yesterday with weight gain at home that was unresponsive to increasing doses of Lasix and was admitted with acute HF and consult to cardiology today. Patient has chronic HFpEF and EF 60 to 65% by last echo 04/27/2024. His last
HF admission was 04/2024 and his dry weight at time of discharge was 254 lbs. Patient was seen in the office on 05/06/2024 and was on a regimen of Lasix 40 mg daily. Patient and daughter noticed weight gain and so on 07/21/2024 they called their PCP
and were advised to increase Lasix to 40 mg twice daily for a few days. The patient did not notice any appreciable difference in his edema and his weight was still going up so he called the cardiology office on 08/06/2024 and was told to take an
extra Lasix 20 mg daily, 40 regimen of 40 mg a.m. and 20 mg p.m. daily, for 3 days and again he saw no difference in weight gain or edema. Additionally his daughter called our office 08/10/2024 to report that he had been feeling lightheaded with
activity and that his personal health coach had advised that he should start drinking Gatorade and increase fluids. Coming in now his proBNP is elevated at 5670 and his weight is up to 269 lbs. He also has anasarca to his hips. He is not hypoxic.
PMH:
Chronic HFpEF
Persistent atrial fibrillation
History of atrial flutter
Chronic anticoagulation with Eliquis
History of stroke in 2018
Interstitial lung disease
Chronic mild anemia
GERD
BPH
Primary hyperparathyroidism
Coronary artery calcifications noted by imaging
Admission for left TKA complicated by persistent Afib with increased HRs and orthostasis 11/13/23 until 11/18/23
Admission for anemia, LLE DVT, hyponatremia and COVID 12/02/23 until 12/17/23
Admission for acute HF 04/27/24 until 05/01/24
Past Medical History
Past Medical History: Other (in HPI)
Past Surgical History: Cholecystectomy and Orthopedic
Social History
Tobacco: Non-Smoker
Alcohol: Occasional
Drug: None
Personal:
Living: Alone
Family History
Family History: Cancer and Other (CVA, CHF)
Allergies / Home Medications
Allergy/AdvReac Type Severity Reaction Status Date / Time
meperidine Allergy oversedation,passed Verified 08/12/24 15:25
out
�Medication �Instructions �Recorded �Confirmed �Type
allopurinol 100 mg tablet 100 mg PO DAILY Gout 09/17/18 08/12/24 History
escitalopram oxalate 10 mg tablet 10 mg PO QPM Depression 09/17/18 08/12/24 History
tamsulosin 0.4 mg capsule 0.4 mg PO BID Urinary issue 09/17/18 08/12/24 History
denosumab 60 mg/mL subcutaneous 60 mg SC [id number] OSTEOPOROSIS 02/22/21 08/12/24 History
syringe (Prolia)
montelukast 10 mg tablet 10 mg PO QPM Allergies 02/22/21 08/12/24 History
ferrous sulfate 325 mg (65 mg 325 mg PO QPM Supplement 10/03/21 08/12/24 History
iron) tablet (FeroSul)
pantoprazole 40 mg tablet,delayed 40 mg PO DAILY Gastrointestinal 07/24/23 08/12/24 History
release Issue
apixaban 5 mg tablet (Eliquis) 5 mg PO BID Blood clot 08/22/23 08/12/24 Rx
prevention/tx #0 tabs
atorvastatin 80 mg tablet 80 mg PO QPM High cholesterol #0 08/22/23 08/12/24 Rx
tabs
finasteride 5 mg tablet 5 mg PO QPM Urinary Issue 10/21/23 08/12/24 History
gabapentin 300 mg capsule 300 mg PO HS sleep/pain #10 caps 11/18/23 08/12/24 Rx
metoprolol succinate 25 mg 12.5 mg (1/2 x 25 mg) PO DAILY #30 11/18/23 08/12/24 Rx
tablet,extended release 24 hr tabs
(Toprol XL)
budesonide 0.5 mg/2 mL suspension 0.5 mg inhalation R BIDPRN PRN sob 12/02/23 08/12/24 History
for nebulization
cholecalciferol (vitamin D3) 25 25 mcg PO DAILY Supplement 12/02/23 08/12/24 History
mcg (1,000 unit) tablet
cyanocobalamin (vitamin B-12) 500 500 mcg PO DAILY Supplement 12/02/23 08/12/24 History
mcg tablet
sodium chloride 0.65 % nasal spray 1 spray intranasal BIDPRN PRN dry 12/02/23 08/12/24 History
aerosol nares
vitamin B complex 1 tab PO DAILY Supplement 12/02/23 08/12/24 History
azelastine 137 mcg (0.1 %) nasal 1 spray intranasal BID Allergies 12/03/23 08/12/24 History
spray
fluticasone propionate 50 1 spray intranasal BID Allergies 12/03/23 08/12/24 History
mcg/actuation nasal
spray,suspension
acetaminophen 500 mg tablet 1,000 mg (2 x 500 mg) PO Q6HPRN 12/17/23 08/12/24 Rx
(Tylenol Extra Strength) PRN MILD pain or fever #0 tabs
polyethylene glycol 3350 17 gram 17 g PO DAILYPRN PRN constipation 04/27/24 08/12/24 History
oral powder packet (HealthyLax)
sennosides 8.6 mg-docusate sodium 2 tab PO BIDPRN PRN Constipation 04/27/24 08/12/24 History
50 mg tablet (Stool
Softener-Stimulant Laxative)
empagliflozin 10 mg tablet 10 mg PO DAILY #30 tabs 05/01/24 08/12/24 Rx
(Jardiance)
furosemide 40 mg tablet 40 mg PO DAILY #30 tabs 05/01/24 08/12/24 Rx
spironolactone 25 mg tablet 12.5 mg (1/2 x 25 mg) PO DAILY #30 05/01/24 08/12/24 Rx
tabs
Review of Systems
-
History Source: Patient
All other systems: Negative unless noted
Physical Exam
Vital Signs
Temp Pulse Resp BP Pulse Ox
97.6 F 66 17 123/69 94
08/13/24 07:47 08/13/24 07:47 08/13/24 07:47 08/13/24 07:47 08/13/24 07:47
GEN: NAD. AAOx3
HEENT: EOMI, MMM
LUNGS: CTA B/L. No audible wheeze
CV: AFib on tele. Irreg irreg, 2/6 systolic murmur
ABD: +BS, ND, NT, soft
EXT: B/L LE tubigrips in place. +1 left worse than right LE edema
NEURO: Gross non-focal
SKIN: Warm, dry and pink. No rash
Lab Results
08/13/24 05:31
08/13/24 05:31
Lkj-M-Sbqxkldzgmp Pept 5670 pg/ml 08/12/24 17:50
Impression / Plan
-
PCP: Dr. Nichols
Primary Secure Software Assessor: Dr. Shields
Pulm: Dr. Hutchinson
Assessment:
Acute on chronic HFpEF
ARMINDA
Persistent atrial fibrillation
History of atrial flutter
Chronic anticoagulation with Eliquis
History of stroke in 2018
Interstitial lung disease
Chronic mild anemia
GERD
BPH
Primary hyperparathyroidism
Coronary artery calcifications noted by imaging
Admission for left TKA complicated by persistent Afib with increased HRs and orthostasis 11/13/23 until 11/18/23
Admission for anemia, LLE DVT, hyponatremia and COVID 12/02/23 until 12/17/23
Admission for acute HF 04/27/24 until 05/01/24
Echo 08/21/23: EF 60 to 65%, mild concentric LVH, moderately dilated right ventricle, mild to moderate MR, mild AR, moderate TR, PAP 35 mmHg mild dilation of ascending aorta, 4.0 cm
Echo 04/27/24: EF 60-65%,, mild to mod MR, mild to mod aortic regurgitation,, mild to mod TR with PAP 43 mmHg, enlarged RV size with normal function, mildly dilated aortic root. 3.9 cm at sinus of Valsalva, ascending aorta is 4.3 cm.
Plan:
-Patient came to ER yesterday with weight gain at home that was unresponsive to increasing doses of Lasix and was admitted with acute HF and consult to cardiology today. Patient has chronic HFpEF and EF 60 to 65% by last echo 04/27/2024. His last
HF admission was 04/2024 and his dry weight at time of discharge was 254 lbs. Patient was seen in the office on 05/06/2024 and was on a regimen of Lasix 40 mg daily. Patient and daughter noticed weight gain and so on 07/21/2024 they called their PCP
and were advised to increase Lasix to 40 mg twice daily for a few days. The patient did not notice any appreciable difference in his edema and his weight was still going up so he called the cardiology office on 08/06/2024 and was told to take an
extra Lasix 20 mg daily, 40 regimen of 40 mg a.m. and 20 mg p.m. daily, for 3 days and again he saw no difference in weight gain or edema. Additionally his daughter called our office 08/10/2024 to report that he had been feeling lightheaded with
activity and that his personal health coach had advised that he should start drinking Gatorade and increase fluids. Coming in now his proBNP is elevated at 5670 and his weight is up to 269 lbs. He also has anasarca to his hips. He is not hypoxic.
-Agree with Lasix 40 mg IV twice daily, this was effective for diuresis during his last admission. Dry weight previously reported as low as 230 lbs, but we were only able to get his dry weight down as low as 254 lbs last admission. Weight on
admission this time was 270 lb.
-EF preserved at last check 04/2024, will not repeat at this time.
-Cont LE tubigrips to help with chronic edema.
-Outpatient dose of Toprol XL 12.5 mg daily has been continued
-Lisinopril stopped during 10/2023 admission due to hypotension.
-Outpatient dose of Farxiga 10 mg daily has been continued
-Outpatient dose of spironolactone 12.5 mg daily has been continued
-Follow labs, patient has chronic hyponatremia. Lexapro was also held during 11/2023 admission, but was restarted by PCP 03/12/24 due to recurrent symptoms and sodium has been acceptable.
-ECG reviewed by me and shows Afib
-Afib is persistent and HRs are controlled on Toprol XL 12.5 mg daily as of now.
-Outpatient dose of Eliquis 5 mg BID should be lowered to 2.5 mg BID due to ARMINDA and Cre greater than 1.5. Age 89, Cre 1.7, wt 122 kg. Cre is usually less than 1.5 so once Cre normalizes the dose should be increased back to 5 mg BID.
[2024-08-13] MEDS: PROTONIX 40 MG PO (08:55)
[2024-08-13] MEDS: FLOMAX 0.4 MG PO ×2 (08:55→21:04)
[2024-08-13] MEDS: ALDACTONE 12.5 MG PO (08:55)
[2024-08-13] MEDS: LASIX 40 MG IV ×2 (08:56→17:48)
[2024-08-13] MEDS: VITAMIN D3 (cholecalciferol) 25 MCG PO (08:56)
[2024-08-13] MEDS: FARXIGA 10 MG PO (08:56)
[2024-08-13] MEDS: ZYLOPRIM 100 MG PO (08:56)
[2024-08-13] MEDS: ELIQUIS 5 MG PO (08:56)
[2024-08-13] MEDS: VITAMIN B-12 500 MCG PO (08:57)
[2024-08-13] MEDS: TOPROL XL 12.5 MG PO (08:57)
--- NOTE | 2024-08-13 11:55 | W.PN.HOSP.TC ---
Today's Communication/Plan
-
maintain on IV diuretics
f/u weight/cr
Assessment / Plan
Assessment / Plan
1. Acute on chronic diastolic congestive heart failure
-TTE in May 16 showing EF 60 to 65%. Moderate MR/AR/TR. Pulmonary artery pressure of 43 mmHg.
-Patient been having worsening leg swelling/weight gain despite being on higher dose oral Lasix.
-Patient dry weight of 113 kg in April, this admission weight of 122 EKG
-Chest x-ray showing cardiomegaly, no significant pulmonary edema.
-Patient not hypoxic , able to work with physical therapy
-Maintain patient on IV Lasix 40mg/BID, f/u weight/cr
2. 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
-Baseline creatinine 1.3 in May 16, at admission 1.8
-Monitor renal function post IV diuretics
-Bladder scan and straight cath protocol ordered
-Will hold Aldactone for time being, resume one renal function allows
3. Recurrent thrombocytopenia
Macrocytic anemia
-B12/folate/ferritin check earlier in the year was normal
-Questioning if have component of MDS
-Will require follow-up with hematology office
12/04/23 EGD shows 2 cm hiatal hernia, nonobstructing Schatzki ring, normal stomach, normal duodenum
12/05/23 colonoscopy shows 15 mm polyp at the appendiceal orifice
4. Paroxysmal atrial fibrillation
-Maintained on Eliquis 5 mg twice daily and Toprol-XL 12.5 mg/d
5. Left leg DVT 11/29/23 s/p Left knee replacement 11/13/23
-This was treated with Eliquis after negative bleeding on endoscopy/colonoscopy by GI and clearance on 12/05/2023
6.Hypercalcemia/primary hyperparathyroidism hx
-Patient received pamidronate in November 2 continue to January and follow-up with Dr. Shepherd in office
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
BPH
Essential HTN
First-degree AV block
Mild pulmonary HTN
Hx hyponatremia
Chronic pain post op Left knee replacement 11/13/[address] ndiaye
Chronic interstitial fibrosis
Chronic dysphagia secondary to esophageal stricture Hx
Hx Aspiration pneumonia 08/20/2023
History of cholelithiasis
GERD
HLD
Anxiety/depression
Osteoporosis
Gout
Seasonal allergies
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
Peripheral neuropathy chronic
Hx COVID-19 infection 12/17/2023 did not require any treatment
Obesity due to excess calorie consumption�BMI 32.9
Peripheral neuropathy
Right lower lobe pulmonary nodule
Multilevel level DDD
Psoriatic arthritis
Chronic dry eyes
Hearing impaired bilaterally
Pancreatic cyst
Renal cysts
DVT prophylaxis -Continue Eliquis 5 mg twice daily
Full code
Total time spent : 52 mins
Anticipated Discharge: 24 - 48 hours
Subjective/Interval History
-
Date of Service: August 13, 2024
Resting comfortably in bed
Denies chest pain/shortness of breath/palpitation
Objective Data
-
Labs:
Laboratory Results
08/13/24
05:31
WBC 4.6 L
Hgb 10.6 L
Hct 31.9 L
Plt Count 83 L
Sodium 140
Potassium 4.0
Chloride 102
Carbon Dioxide 28
BUN 30 H
Creatinine 1.7 H
Glucose 92
Calcium 9.1
Total Bilirubin 1.8 H
AST 25
ALT 14
Alkaline Phosphatase 84
Vital Signs:
Vital Signs
Temp Pulse Resp BP Pulse Ox
97.9 F 77 17 119/64 95
08/13/24 11:28 08/13/24 11:28 08/13/24 11:28 08/13/24 11:28 08/13/24 11:28
I&O
08/12/24 08/13/24 08/14/24
06:59 06:59 06:59
Intake Total 480 / 480
Output Total 1200 / 1200 550 / 550
Balance -720 / -720 -550 / -550
Review of Systems
-
Respiratory: Reports No Symptoms
Cardiac: Reports No Symptoms
Abdomen/GI: Reports No Symptoms
Physical Exam
-
General: Well Developed, Well Nourished, No Apparent Distress and Obese
HEENT: Normocephalic and Atraumatic; Negative Oxygen
Respiratory: Crackles
Cardiac: Regular Rhythm and S1/S2; Negative Murmur
GI: Soft, Nontender, Nondistended and Normal Bowel Sounds
Musculoskeletal: No Clubbing, No Cyanosis, Edema, Right Lower Extrem and Edema, Left Lower Extrem
Neuro: Awake, AO x 3 and No Motor Deficits
--- NOTE | 2024-08-13 13:37 | W.PN.UPDATE ---
Update Note
Progress Note Update
Updated patient's daughter, Ondina, by phone for 23 minutes. Reviewed hospital course thus far and situation leading up to admission including increased salt intake in the form of food and also Gatorade. Discussed increasing Lasix p.o. dose at home
at time of discharge versus adding metolazone once a week to reduce risk of readmission. Talked about checking daily weights at home. Patient's daughter also concerned about hypercalcemia and primary hyperparathyroidism with previous pamidronate
dosing back in November of this year and will ask the hospitalist attending to follow-up with the patient's daughter regarding this concern.
[2024-08-13] MEDS: SINGULAIR 10 MG PO (17:48)
[2024-08-13] MEDS: LIPITOR 80 MG PO (17:48)
[2024-08-13] MEDS: FEOSOL 325 MG PO (17:48)
[2024-08-13] MEDS: PROSCAR 5 MG PO (17:48)
[2024-08-13] MEDS: LEXAPRO 10 MG PO (17:48)
[2024-08-13] MEDS: ELIQUIS 2.5 MG PO (21:04)
[2024-08-14] VITALS (8 sets, daily range): BP systolic 94–140; BP diastolic 53–72; BMI 32.9
[2024-08-14 08:16] LABS: ALT (SGPT) 14 U/L (0-50); AST (SGOT) 24 U/L (17-59); Albumin 3.6 g/dl (3.5-5.0); Alkaline Phosphatase 78 U/L (38-126); Blood Urea Nitrogen 28 mg/dl (9-20); Calcium 9.5 mg/dl (8.4-10.2); Carbon Dioxide 31 mmol/L (22-30); Chloride 102 mmol/L (98-107); Estimated Creatinine Clearance 44 ml/min; Glucose 103 mg/dl (70-99); Potassium 4.6 mmol/L (3.5-5.1); Sodium 143 mmol/L (135-145); Total Bilirubin 2.4 mg/dl (0.2-1.3); eGFR 38.53
[2024-08-14 08:20] LABS: % Basophils 0.8 % (0-2); % Eosinophils 20.9 % (0-6); % Immature Granulocytes 0.4 % (0-0.5); % Lymphocytes 17.3 % (20.5-51.1); % Neutrophils 44.6 % (42.2-75.2); Absolute Eosinophils 1.1 10^3/uL (0-0.7); Absolute Lymphocytes 0.9 10^3/uL (1.2-3.4); Absolute Monocytes 0.9 10^3/uL (0.1-0.6); Absolute Neutrophils 2.4 10^3/uL (1.4-6.5); Hematocrit 32.1 % (39.0-52.0); Hemoglobin 10.6 g/dL (13.0-18.0); Mean Corpuscular Hgb 35.2 pg (27.0-31.0); Mean Corpuscular Volume 106.6 fL (80.0-94.0); Mean Platelet Volume 9.3 fL (7.4-10.4); Nucleated Red Blood Cells % 0 % (-); Platelet Count 84 10^3/uL (130-400); Red Blood Cell Count 3.01 10^6/uL (4.70-6.10); Red Cell Dist. Width 16.3 % (11.5-14.5); White Blood Cell Count 5.3 10^3/uL (4.8-10.8)
[2024-08-14] MEDS: PROTONIX 40 MG PO (08:37)
[2024-08-14] MEDS: ELIQUIS 2.5 MG PO ×2 (08:37→20:33)
[2024-08-14] MEDS: FARXIGA 10 MG PO (08:37)
[2024-08-14] MEDS: TOPROL XL 12.5 MG PO (08:37)
[2024-08-14] MEDS: FLOMAX 0.4 MG PO ×2 (08:38→20:33)
[2024-08-14] MEDS: VITAMIN B-12 500 MCG PO (08:38)
[2024-08-14] MEDS: ZYLOPRIM 100 MG PO (08:39)
[2024-08-14] MEDS: VITAMIN D3 (cholecalciferol) 25 MCG PO (08:39)
[2024-08-14] MEDS: LASIX 40 MG IV ×2 (08:39→17:16)
--- NOTE | 2024-08-14 08:42 | PN.CDI ---
CDI
- -
CDI:
Physician Documentation Request
Admit Date: 08/13/24 00:34
Dear Doctor Jatinder,
Please review the following and provide your response in the progress notes.
Clinical Indicators:
Laboratory Tests
08/12/24 08/13/24 08/14/24
15:43 05:31 07:36
Total Bilirubin 1.6 H 1.8 H 2.4 H
Based on the above, please clarify in the progress notes, the appropriate diagnosis, if significant, that supports the above abnormalities and additional evaluation, monitoring and/or treatment rendered:
Elevated total bilirubin
Abnormal lab value, clinically insignificant
Other(please specify)
Use of terms such as suspected, likely, concern for, or probable (associated with a specific diagnosis that is being evaluated, monitored, or treated as if it exists) are acceptable and can be coded in the inpatient setting, when documented at the
time of discharge.
Thank you,
Mariposa Cobb RN BSN CCDS
CDI Specialist
please contact via tiger text
Please use your independent medical judgment in providing your response.
--- NOTE | 2024-08-14 10:51 | CM ---
Patient seen at bedside.
IA completed
Lives with daughter & son in law in a 2 story home, 4 steps to enter, 14 steps to 2nd floor
PLOF: Ambulates with walker
DME: Walker, w/c commode, chair lift, grab bars, shower chair
Denies VN although says Tandipreet periodically will visit - [facility] in past
Denies food/housing/transportation/utilities insecurities
await PT/OT evals
PCP: Reymundo Nichols
Pharmacy: [facility]
PLAN: Await PT/OT evals
--- NOTE | 2024-08-14 13:00 | W.PN.HOSP.TC ---
Today's Communication/Plan
-
f/u weigh/cr
continue diuretics
Assessment / Plan
Assessment / Plan
1. Acute on chronic diastolic congestive heart failure
-TTE in May 16 showing EF 60 to 65%. Moderate MR/AR/TR. Pulmonary artery pressure of 43 mmHg.
-Patient been having worsening leg swelling/weight gain despite being on higher dose oral Lasix.
-Chest x-ray showing cardiomegaly, no significant pulmonary edema.
-Patient not hypoxic , able to work with physical therapy
-Maintain patient on IV Lasix 40mg/BID, f/u weight/cr
-Weight remains close to 122kg, not much change, may need dose of metolazone vs increasing lasix if not improved.
2. 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
-Baseline creatinine 1.3 in May 16, at admission 1.8
-Monitor renal function post IV diuretics
-Bladder scan and straight cath protocol ordered
-Will hold Aldactone for time being, resume one renal function allows
3. Recurrent thrombocytopenia
Macrocytic anemia
-B12/folate/ferritin check earlier in the year was normal
-Questioning if have component of MDS
-Will require follow-up with hematology office
12/04/23 EGD shows 2 cm hiatal hernia, nonobstructing Schatzki ring, normal stomach, normal duodenum
12/05/23 colonoscopy shows 15 mm polyp at the appendiceal orifice
-Patient with normal WBC count although have eosinophilia/monocytosis on differential.
-Multiple cell line abnormalities, discussed with on-call laborer plumbing Dr. Randall, who recommended patient to be seen in office and likely will require bone marrow aspiration
4. Paroxysmal atrial fibrillation
-Maintained on Eliquis 5 mg twice daily and Toprol-XL 12.5 mg/d
5. Left leg DVT 11/29/23 s/p Left knee replacement 11/13/23
-This was treated with Eliquis after negative bleeding on endoscopy/colonoscopy by GI and clearance on 12/05/2023
6.Hypercalcemia
primary hyperparathyroidism hx
-Patient received pamidronate in November 2 continue to January and follow-up with Dr. Shepherd in office
-Ca wnl
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
BPH
Essential HTN
First-degree AV block
Mild pulmonary HTN
Hx hyponatremia
Chronic pain post op Left knee replacement 11/13/[address] ndiaye
Chronic interstitial fibrosis
Chronic dysphagia secondary to esophageal stricture Hx
Hx Aspiration pneumonia 08/20/2023
History of cholelithiasis
GERD
HLD
Anxiety/depression
Osteoporosis
Gout
Seasonal allergies
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
Peripheral neuropathy chronic
Hx COVID-19 infection 12/17/2023 did not require any treatment
Obesity due to excess calorie consumption�BMI 32.9
Peripheral neuropathy
Right lower lobe pulmonary nodule
Multilevel level DDD
Psoriatic arthritis
Chronic dry eyes
Hearing impaired bilaterally
Pancreatic cyst
Renal cysts
DVT prophylaxis -Continue Eliquis 5 mg twice daily
Full code
08/14 Daughter claudio updated over the phone
Anticipated Discharge: > 48 hours
Subjective/Interval History
-
Date of Service: August 14, 2024
No dyspnea/chest discomfort/palpitation episode
no other reported problems
Objective Data
-
Labs:
Laboratory Results
08/14/24
07:36
WBC 5.3
Hgb 10.6 L
Hct 32.1 L
Plt Count 84 L
Sodium 143
Potassium 4.6
Chloride 102
Carbon Dioxide 31 H
BUN 28 H
Creatinine 1.7 H
Glucose 103 H
Calcium 9.5
Total Bilirubin 2.4 H
AST 24
ALT 14
Alkaline Phosphatase 78
Vital Signs:
Vital Signs
Temp Pulse Resp BP Pulse Ox
97.9 F 68 18 137/61 96
08/14/24 11:15 08/14/24 11:15 08/14/24 11:15 08/14/24 11:15 08/14/24 11:15
I&O
08/13/24 08/14/24 08/15/24
06:59 06:59 06:59
Intake Total 480 / 480 1050 / 1050
Output Total 1200 / 1200 3960 / 3960 1050 / 1050
Balance -720 / -720 -2910 / -2910 -1050 / -1050
Review of Systems
-
Respiratory: Reports No Symptoms
Cardiac: Reports No Symptoms
Abdomen/GI: Reports No Symptoms
Physical Exam
-
General: No Apparent Distress and Obese
HEENT: Normocephalic and Atraumatic; Negative Oxygen
Respiratory: Crackles
Cardiac: Regular Rhythm and S1/S2; Negative Murmur
GI: Soft, Nontender and Nondistended
Musculoskeletal: No Clubbing, No Cyanosis, Edema, Right Lower Extrem and Edema, Left Lower Extrem
Neuro: Awake, AO x 3 and No Motor Deficits
--- NOTE | 2024-08-14 13:23 | W.PN.CARDCBS ---
Addendum entered and electronically signed by Fazal Arriaza MD 08/14/24 18:03:
I saw and examined the patient.
The Student Affairs Vice President's note was reviewed and I agree with the note.
Comment: Briefly, 89-year-old man past medical history of heart failure with preserved ejection fraction who presents with progressive weight gain found to have significant lower extremity edema and elevated proBNP consistent with acute heart
failure
Cont IV diuresis with Lasix twice daily
Cont SGLT2
Aldactone on hold
Not much improvement in his weight, cont daily standing weights
Cr elevated, but stable
Recent echo with preserved left ventricular systolic function and mild-mod MR/TR, no need to repeat at this time
Original Note:
Today's Communication / Plan
-
Continue diuresis. Follow daily weights, I&O's.
May need to increase Lasix dose in AM
Continue Toprol, Farxiga, spironolactone
Impression / Plan
-
PCP: Dr. Nichols
Primary Flight Engineer Helicopter: Dr. Shields
Pulm: Dr. Hutchinson
Assessment:
Acute on chronic HFpEF
ARMINDA
Persistent atrial fibrillation
History of atrial flutter
Chronic anticoagulation with Eliquis
History of stroke in 2018
Interstitial lung disease
Chronic mild anemia
GERD
BPH
Primary hyperparathyroidism
Coronary artery calcifications noted by imaging
Admission for left TKA complicated by persistent Afib with increased HRs and orthostasis 11/13/23 until 11/18/23
Admission for anemia, LLE DVT, hyponatremia and COVID 12/02/23 until 12/17/23
Admission for acute HF 04/27/24 until 05/01/24
Echo 08/21/23: EF 60 to 65%, mild concentric LVH, moderately dilated right ventricle, mild to moderate MR, mild AR, moderate TR, PAP 35 mmHg mild dilation of ascending aorta, 4.0 cm
Echo 04/27/24: EF 60-65%, mild to mod MR, mild to mod aortic regurgitation,, mild to mod TR with PAP 43 mmHg, enlarged RV size with normal function, mildly dilated aortic root. 3.9 cm at sinus of Valsalva, ascending aorta is 4.3 cm.
Plan:
-Presented with weight gain thought unresponsive to outpatient increases in Lasix.
-Weight on arrival was 270 pounds. During prior admission 04/2024, weight as low as 254 pounds.
-He has been diuresing with IV Lasix 40 mg twice daily, however has not had any significant weight loss despite being -3 L on I&Os.
-Will follow-up in AM and may need to increase dose of Lasix. Creat stable at 1.7.
-Echo 04/2024 with EF 60 to 65% with mild to moderate valvular disease as noted above. No need to repeat at this time.
-Continue Toprol 12.5 mg daily, spironolactone 12.5 mg daily, and Farxiga 10 mg daily.
-Remains in persistent atrial fibrillation on review of telemetry. Heart rate is stable.
-Continue Eliquis at lower dose 2.5 mg twice daily (age, creatinine). May need to adjust dose back to 5 mg twice once renal function returns to baseline
-LDL 34. Continue Lipitor 80 mg daily.
HPI: Patient came to ER yesterday with weight gain at home that was unresponsive to increasing doses of Lasix and was admitted with acute HF and consult to cardiology today. Patient has chronic HFpEF and EF 60 to 65% by last echo 04/27/2024. His
last HF admission was 04/2024 and his dry weight at time of discharge was 254 lbs. Patient was seen in the office on 05/06/2024 and was on a regimen of Lasix 40 mg daily. Patient and daughter noticed weight gain and so on 07/21/2024 they called
their PCP and were advised to increase Lasix to 40 mg twice daily for a few days. The patient did not notice any appreciable difference in his edema and his weight was still going up so he called the cardiology office on 08/06/2024 and was told to
take an extra Lasix 20 mg daily, 40 regimen of 40 mg a.m. and 20 mg p.m. daily, for 3 days and again he saw no difference in weight gain or edema. Additionally his daughter called our office 08/10/2024 to report that he had been feeling lightheaded
with activity and that his personal lines appraiser had advised that he should start drinking Gatorade and increase fluids. Coming in now his proBNP is elevated at 5670 and his weight is up to 269 lbs. He also has anasarca to his hips. He is not hypoxic.
Progress Note - Flight Engineer Helicopter
Subjective
Date of Service: August 14, 2024
Objective
Labs:
08/14/24 07:36
08/14/24 07:36
Labs
Hgb 10.6 g/dL (13.0-18.0) L 08/14/24 07:36
Hct 32.1 % (39.0-52.0) L 08/14/24 07:36
Plt Count 84 10^3/uL (130-400) L 08/14/24 07:36
Sodium 143 mmol/L (135-145) 08/14/24 07:36
Potassium 4.6 mmol/L (3.5-5.1) 08/14/24 07:36
BUN 28 mg/dl (9-20) H 08/14/24 07:36
Creatinine 1.7 mg/dL (0.7-1.3) H 08/14/24 07:36
Glucose 103 mg/dl (70-99) H 08/14/24 07:36
Vital Signs and I&O:
Vital Signs
Temp Pulse Resp BP Pulse Ox
97.9 F 68 18 137/61 96
08/14/24 11:15 08/14/24 11:15 08/14/24 11:15 08/14/24 11:15 08/14/24 11:15
Vital Signs
Temp Pulse Resp BP Pulse Ox
97.9 F 68 18 137/61 96
08/14/24 11:15 08/14/24 11:15 08/14/24 11:15 08/14/24 11:15 08/14/24 11:15
Intake & Output
08/12/24 08/13/24 08/14/24 08/15/24
06:59 06:59 06:59 06:59
Intake Total 480 / 480 1050 / 1050
Output Total 1200 / 1200 3960 / 3960 1050 / 1050
Balance -720 / -720 -2910 / -2910 -1050 / -1050
Physical Exam
Physical Exam
GEN: No distress, awake, Ox3
HEENT: supple, anicteric, mmm
LUNGS: CTA b/l, no wheezes/rales
CV: Irreg, S1/S2, 2/6 syst murmur
EXT: No clubbing or cyanosis, trace edema
NEURO: Gross non-focal
SKIN: Warm, dry, no rash
--- NOTE | 2024-08-14 16:34 | PTOTSP ---
Dysphagia Evaluation
Patient is appropriate to resume baseline regular, thin liquid diet with strategies below. He has a history of WFL oral and WFL-mild pharyngeal dysphagia based on video swallow study in February of 2023.
Recommend:
1. Regular, Thin Liquids
2. Strategies: pick soft/moist foods or use sauces/gravies, alternate solids and liquids, intermittent throat clear to clear voice box
any penetration
3. Oral care 3-5x daily
4. Reflux precautions
[2024-08-14] MEDS: LIPITOR 80 MG PO (17:16)
[2024-08-14] MEDS: LEXAPRO 10 MG PO (17:16)
[2024-08-14] MEDS: PROSCAR 5 MG PO (17:16)
[2024-08-14] MEDS: SINGULAIR 10 MG PO (17:17)
[2024-08-14] MEDS: FEOSOL 325 MG PO (17:18)
[2024-08-14] MEDS: COLACE 100 MG PO (20:33)
[2024-08-15] VITALS (7 sets, daily range): BP systolic 98–122; BP diastolic 54–67; PULSE 63; O2SAT 96; BMI 30.5; BMI 30.4
[2024-08-15 07:18] LABS: % Eosinophils 20.4 % (0-6); % Immature Granulocytes 0.3 % (0-0.5); % Lymphocytes 20.4 % (20.5-51.1); % Monocytes 16.1 % (1.7-9.3); % Neutrophils 41.8 % (42.2-75.2); Absolute Basophils 0.1 10^3/uL (0-0.2); Absolute Eosinophils 1.2 10^3/uL (0-0.7); Absolute Lymphocytes 1.2 10^3/uL (1.2-3.4); Absolute Neutrophils 2.5 10^3/uL (1.4-6.5); Hematocrit 31.3 % (39.0-52.0); Hemoglobin 10.5 g/dL (13.0-18.0); Mean Corp Hgb Conc. 33.5 g/dL (33.0-37.0); Mean Corpuscular Hgb 36.1 pg (27.0-31.0); Mean Corpuscular Volume 107.6 fL (80.0-94.0); Mean Platelet Volume 9.9 fL (7.4-10.4); Nucleated Red Blood Cells % 0 % (-); Platelet Count 98 10^3/uL (130-400); Red Blood Cell Count 2.91 10^6/uL (4.70-6.10); Red Cell Dist. Width 16.1 % (11.5-14.5)
[2024-08-15] MEDS: PROTONIX 40 MG PO (07:53)
[2024-08-15] MEDS: ELIQUIS 2.5 MG PO ×2 (07:53→20:54)
[2024-08-15] MEDS: VITAMIN B-12 500 MCG PO (07:53)
[2024-08-15] MEDS: VITAMIN D3 (cholecalciferol) 25 MCG PO (07:53)
[2024-08-15] MEDS: FLOMAX 0.4 MG PO ×2 (07:53→20:54)
[2024-08-15] MEDS: COLACE 100 MG PO ×2 (07:53→20:54)
[2024-08-15] MEDS: LASIX 40 MG IV ×2 (07:56→15:49)
[2024-08-15 07:57] LABS: ALT (SGPT) 14 U/L (0-50); AST (SGOT) 24 U/L (17-59); Albumin 3.8 g/dl (3.5-5.0); Alkaline Phosphatase 76 U/L (38-126); Blood Urea Nitrogen 30 mg/dl (9-20); Calcium 9.6 mg/dl (8.4-10.2); Carbon Dioxide 32 mmol/L (22-30); Chloride 97 mmol/L (98-107); Estimated Creatinine Clearance 42 ml/min; Glucose 102 mg/dl (70-99); Potassium 4.2 mmol/L (3.5-5.1); Sodium 141 mmol/L (135-145); Total Bilirubin 2.9 mg/dl (0.2-1.3); Total Protein 7.2 g/dl (6.3-8.2); eGFR 38.53
[2024-08-15] MEDS: FLUSH (NSS) 2 FLUSH IV ×2 (07:58→15:52)
[2024-08-15] MEDS: TOPROL XL 12.5 MG PO (08:08)
[2024-08-15] MEDS: FARXIGA 10 MG PO (08:08)
[2024-08-15] MEDS: ZYLOPRIM 100 MG PO (08:08)
--- NOTE | 2024-08-15 10:08 | W.PN.CARDCBS ---
Addendum entered and electronically signed by Aaron Kwan DO 08/15/24 13:16:
I saw and examined the patient.
The Hose Coupling Joiner's note was reviewed and I agree with the note.
Comment:
Plan:
Cont IV lasix, potential transition to oral lasix next 24 hrs
Cont Toprol and Farxiga
Aldactone held due to ARMINDA.
Cont lower dose Eliquis due to renal function. May need to adjust Eliquis if renal function improves.
Outpt follow up arranged.
Original Note:
Today's Communication / Plan
-
Continue IV lasix 40mg BID. May be able to transition to PO in the next 24 hours.
Continue Toprol, Farxiga.
Spironolactone on hold due to ARMINDA
Continue lower dose Eliquis 2.5mg BID, may need to increase dose if renal function improves.
Follow up arranged.
Impression / Plan
-
PCP: Dr. Nichols
Primary Municipal [address] Magistrate: Dr. Shields
Pulm: Dr. Hutchinson
Assessment:
Acute on chronic HFpEF
ARMINDA
Persistent atrial fibrillation
History of atrial flutter
Chronic anticoagulation with Eliquis
History of stroke in 2018
Interstitial lung disease
Chronic mild anemia
GERD
BPH
Primary hyperparathyroidism
Coronary artery calcifications noted by imaging
Admission for left TKA complicated by persistent Afib with increased HRs and orthostasis 11/13/23 until 11/18/23
Admission for anemia, LLE DVT, hyponatremia and COVID 12/02/23 until 12/17/23
Admission for acute HF 04/27/24 until 05/01/24
Echo 08/21/23: EF 60 to 65%, mild concentric LVH, moderately dilated right ventricle, mild to moderate MR, mild AR, moderate TR, PAP 35 mmHg mild dilation of ascending aorta, 4.0 cm
Echo 04/27/24: EF 60-65%, mild to mod MR, mild to mod aortic regurgitation,, mild to mod TR with PAP 43 mmHg, enlarged RV size with normal function, mildly dilated aortic root. 3.9 cm at sinus of Valsalva, ascending aorta is 4.3 cm.
Plan:
-Presented with weight gain that was unresponsive to outpatient increases in Lasix.
-Diuresing with IV lasix 40mg BID. Unclear accuracy of weights, as weight noted to be down 20 lbs overnight, down to 250 lbs 08/15.
-Weight on arrival was 270 pounds. During prior admission 04/2024, weight as low as 254 pounds.
-Creat remains stable at 1.7 which is above prior baseline. Would continue diuresis for now and may be able to transition to PO in AM.
-Echo 04/2024 with EF 60 to 65% with mild to moderate valvular disease as noted above. No need to repeat at this time.
-Continue Toprol 12.5 mg daily and Farxiga 10 mg daily. Spironolactone on hold due to ARMINDA.
-Remains in persistent atrial fibrillation on review of telemetry. Heart rate is stable.
-Continue Eliquis at lower dose 2.5 mg twice daily (age, creatinine). May need to adjust dose back to 5 mg twice once renal function returns to baseline
-LDL 34. Continue Lipitor 80 mg daily.
-Cardiology follow up arranged.
HPI: Patient came to ER yesterday with weight gain at home that was unresponsive to increasing doses of Lasix and was admitted with acute HF and consult to cardiology today. Patient has chronic HFpEF and EF 60 to 65% by last echo 04/27/2024. His
last HF admission was 04/2024 and his dry weight at time of discharge was 254 lbs. Patient was seen in the office on 05/06/2024 and was on a regimen of Lasix 40 mg daily. Patient and daughter noticed weight gain and so on 07/21/2024 they called
their PCP and were advised to increase Lasix to 40 mg twice daily for a few days. The patient did not notice any appreciable difference in his edema and his weight was still going up so he called the cardiology office on 08/06/2024 and was told to
take an extra Lasix 20 mg daily, 40 regimen of 40 mg a.m. and 20 mg p.m. daily, for 3 days and again he saw no difference in weight gain or edema. Additionally his daughter called our office 08/10/2024 to report that he had been feeling lightheaded
with activity and that his first aid trainer had advised that he should start drinking Gatorade and increase fluids. Coming in now his proBNP is elevated at 5670 and his weight is up to 269 lbs. He also has anasarca to his hips. He is not hypoxic.
Progress Note - Municipal Court Magistrate
Subjective
Date of Service: August 15, 2024
Feeling well. No complaints this AM.
Objective
Labs:
08/15/24 06:37
08/15/24 06:37
Labs
Hgb 10.5 g/dL (13.0-18.0) L 08/15/24 06:37
Hct 31.3 % (39.0-52.0) L 08/15/24 06:37
Plt Count 98 10^3/uL (130-400) L 08/15/24 06:37
Sodium 141 mmol/L (135-145) 08/15/24 06:37
Potassium 4.2 mmol/L (3.5-5.1) 08/15/24 06:37
BUN 30 mg/dl (9-20) H 08/15/24 06:37
Creatinine 1.7 mg/dL (0.7-1.3) H 08/15/24 06:37
Glucose 102 mg/dl (70-99) H 08/15/24 06:37
Vital Signs and I&O:
Vital Signs
Temp Pulse Resp BP Pulse Ox
98.7 F 75 21 99/64 97
08/15/24 08:32 08/15/24 08:32 08/15/24 08:32 08/15/24 08:32 08/15/24 08:32
Vital Signs
Temp Pulse Resp BP Pulse Ox
98.7 F 75 21 99/64 97
08/15/24 08:32 08/15/24 08:32 08/15/24 08:32 08/15/24 08:32 08/15/24 08:32
Intake & Output
08/13/24 08/14/24 08/15/24 08/16/24
06:59 06:59 06:59 06:59
Intake Total 480 / 480 1050 / 1050 1500 / 1500
Output Total 1200 / 1200 3960 / 3960 3425 / 3425
Balance -720 / -720 -2910 / -2910 -1925 / -1925
Physical Exam
Physical Exam
GEN: No distress, awake, Ox3
HEENT: supple, anicteric, mmm
LUNGS: CTA b/l, no wheezes/rales
CV: Irreg, S1/S2, 2/6 syst murmur
EXT: No clubbing or cyanosis, trace edema
NEURO: Gross non-focal
SKIN: Warm, dry, no rash
--- NOTE | 2024-08-15 11:22 | W.PN.HOSP.TC ---
Today's Communication/Plan
-
continue current Tx
recheck labs and wt in morning
Assessment / Plan
Assessment / Plan
1. Acute on chronic diastolic congestive heart failure
-TTE in May 16 showing EF 60 to 65%. Moderate MR/AR/TR. Pulmonary artery pressure of 43 mmHg.
-Patient been having worsening leg swelling/weight gain despite being on higher dose oral Lasix.
-Chest x-ray showing cardiomegaly, no significant pulmonary edema.
-Patient not hypoxic , able to work with physical therapy
-Maintain patient on IV Lasix 40mg/BID, f/u weight/cr
-Weight 122-->122-->113kg
drop in wt possibly related to change in how wt was measured. will recheck wt tomorrow and consideration for change to oral Lasix as per Cardio
2. 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
-Baseline creatinine 1.3 in May 16, at admission 1.8-->1.7-->1.7
-Monitor renal function post IV diuretics
-Bladder scan and straight cath protocol ordered
-Will hold Aldactone for time being, resume when renal function allows
3. Recurrent thrombocytopenia
Macrocytic anemia
-B12/folate/ferritin check earlier in the year was normal
-Questioning if have component of MDS
-Will require follow-up with hematology office
12/04/23 EGD shows 2 cm hiatal hernia, nonobstructing Schatzki ring, normal stomach, normal duodenum
12/05/23 colonoscopy shows 15 mm polyp at the appendiceal orifice
-Patient with normal WBC count although have eosinophilia/monocytosis on differential.
-Multiple cell line abnormalities, discussed with on-call reproductive endocrinologist Dr. Randall, who recommended patient to be seen in office and likely will require bone marrow aspiration
4. Paroxysmal atrial fibrillation
-Maintained on Eliquis, dose now changed to 2.5 mg twice daily, due to renal aspects and Toprol-XL 12.5 mg/d
5. Left leg DVT 11/29/23 s/p Left knee replacement 11/13/23
-This was treated with Eliquis after negative bleeding on endoscopy/colonoscopy by GI and clearance on 12/05/2023
6.Hypercalcemia
primary hyperparathyroidism hx
-Patient received pamidronate in November 2 continue to January and follow-up with Dr. Shepherd in office
-Ca wnl
7. Hyperbilirubinemia
2.9, apparently chronic with nl AST/ALT. ?Gilbert's
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
BPH
Essential HTN
First-degree AV block
Mild pulmonary HTN
Hx hyponatremia
Chronic pain post op Left knee replacement 11/13/[address] ndiaye
Chronic interstitial fibrosis
Chronic dysphagia secondary to esophageal stricture Hx
Hx Aspiration pneumonia 08/20/2023
History of cholelithiasis
GERD
HLD
Anxiety/depression
Osteoporosis
Gout
Seasonal allergies
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
Peripheral neuropathy chronic
Hx COVID-19 infection 12/17/2023 did not require any treatment
Obesity due to excess calorie consumption�BMI 32.9
Peripheral neuropathy
Right lower lobe pulmonary nodule
Multilevel level DDD
Psoriatic arthritis
Chronic dry eyes
Hearing impaired bilaterally
Pancreatic cyst
Renal cysts
DVT prophylaxis -Continue Eliquis 2.5 mg twice daily
Full code
08/14 Daughter claudio updated over the phone
Anticipated Discharge: > 48 hours
Subjective/Interval History
-
Date of Service: August 15, 2024
Awake, alert, generally feels better
Objective Data
-
Labs:
Laboratory Results
08/15/24
06:37
WBC 6.0
Hgb 10.5 L
Hct 31.3 L
Plt Count 98 L
Sodium 141
Potassium 4.2
Chloride 97 L
Carbon Dioxide 32 H
BUN 30 H
Creatinine 1.7 H
Glucose 102 H
Calcium 9.6
Total Bilirubin 2.9 H
AST 24
ALT 14
Alkaline Phosphatase 76
Vital Signs:
Vital Signs
Temp Pulse Resp BP Pulse Ox
98.7 F 75 21 99/64 97
08/15/24 08:32 08/15/24 08:32 08/15/24 08:32 08/15/24 08:32 08/15/24 08:32
I&O
08/14/24 08/15/24 08/16/24
06:59 06:59 06:59
Intake Total 1050 / 1050 1500 / 1500
Output Total 3960 / 3960 3425 / 3425
Balance -2910 / -2910 -1925 / -1925
Review of Systems
-
History Source: Patient and Coordinated Provider
Constitutional: Denies Fever
EENT: Reports No Symptoms Reported
Respiratory: Reports No Symptoms (denies sob)
Cardiac: Denies Chest Pain
Musculoskeletal: Reports No Symptoms and Joint Pain (chronic arthritis)
Physical Exam
-
General: No Apparent Distress and Obese
HEENT: Normocephalic and Atraumatic; Negative Oxygen
Respiratory: Crackles (primarily left base)
Cardiac: Regular Rhythm and S1/S2; Negative Murmur
GI: Soft, Nontender and Nondistended
Musculoskeletal: No Clubbing, No Cyanosis, Edema, Right Lower Extrem and Edema, Left Lower Extrem
Neuro: Awake, Alert, Oriented, AO x 3 and No Motor Deficits
[2024-08-15] MEDS: LIPITOR 80 MG PO (18:18)
[2024-08-15] MEDS: PROSCAR 5 MG PO (18:18)
[2024-08-15] MEDS: SINGULAIR 10 MG PO (18:18)
[2024-08-15] MEDS: LEXAPRO 10 MG PO (18:18)
[2024-08-15] MEDS: FEOSOL 325 MG PO (18:18)
[2024-08-15] MEDS: TYLENOL 1000 MG PO (23:28)
[2024-08-16 00:59] LABS: % Basophils 0.3 % (0-2); % Immature Granulocytes 0.3 % (0-0.5); % Lymphocytes 8.9 % (20.5-51.1); % Monocytes 7.7 % (1.7-9.3); % Neutrophils 71.8 % (42.2-75.2); Absolute Eosinophils 0.7 10^3/uL (0-0.7); Absolute Lymphocytes 0.6 10^3/uL (1.2-3.4); Absolute Monocytes 0.5 10^3/uL (0.1-0.6); Absolute Neutrophils 4.7 10^3/uL (1.4-6.5); Hematocrit 36.3 % (39.0-52.0); Hemoglobin 11.7 g/dL (13.0-18.0); Mean Corp Hgb Conc. 32.2 g/dL (33.0-37.0); Mean Corpuscular Hgb 34.3 pg (27.0-31.0); Mean Corpuscular Volume 106.5 fL (80.0-94.0); Mean Platelet Volume 9.2 fL (7.4-10.4); Nucleated Red Blood Cells % 0 % (-); Platelet Count 107 10^3/uL (130-400); Red Blood Cell Count 3.41 10^6/uL (4.70-6.10); Red Cell Dist. Width 15.9 % (11.5-14.5); White Blood Cell Count 6.5 10^3/uL (4.8-10.8)
[2024-08-16 01:11] LABS: D-Dimer 1.26 ug/mlFEU (0.00-0.50)
--- NOTE | 2024-08-16 02:51 | PTCARENOTE ---
Addendum entered by Nini Mota RN 08/16/24 03:03:
U/s lower ext and cxr ordered by DOCUMENT CONTROL COORDINATOR
Original Note:
2330 temp 102.4, tylenol 100mg given, deliverer merchandise notified, labs drawn cbc, d-dimer. temp decreased to 101.7, ice placed under pt arms.
[2024-08-16 03:01] VITALS: BP 134/66
[2024-08-16 05:13] LABS: COVID-19 Antigen Negative (Negative)
[2024-08-16 05:18] LABS: Urine Albumin Trace (Neg - Trace); Urine Bilirubin Negative (Negative); Urine Character Clear (Clear); Urine Color Yellow; Urine Glucose 3+ (Negative); Urine Ketone Negative (Negative); Urine Leukocyte Negative (Negative); Urine Nitrite Negative (Negative); Urine Occult Blood Trace (Negative); Urine Specific Gravity 1.005 (<1.030); Urine Urobilinogen 3+ (Neg - 1+)
[2024-08-16 05:47] LABS: % Basophils 0.6 % (0-2); % Eosinophils 5.2 % (0-6); % Immature Granulocytes 0.2 % (0-0.5); % Lymphocytes 8.7 % (20.5-51.1); % Monocytes 5.8 % (1.7-9.3); % Neutrophils 79.5 % (42.2-75.2); Absolute Eosinophils 0.3 10^3/uL (0-0.7); Absolute Lymphocytes 0.5 10^3/uL (1.2-3.4); Absolute Monocytes 0.3 10^3/uL (0.1-0.6); Absolute Neutrophils 4.1 10^3/uL (1.4-6.5); Hematocrit 36.1 % (39.0-52.0); Hemoglobin 11.6 g/dL (13.0-18.0); Mean Corp Hgb Conc. 32.1 g/dL (33.0-37.0); Mean Corpuscular Hgb 34.4 pg (27.0-31.0); Mean Corpuscular Volume 107.1 fL (80.0-94.0); Mean Platelet Volume 9.5 fL (7.4-10.4); Nucleated Red Blood Cells % 0 % (-); Platelet Count 107 10^3/uL (130-400); Red Blood Cell Count 3.37 10^6/uL (4.70-6.10); Red Cell Dist. Width 15.9 % (11.5-14.5); White Blood Cell Count 5.2 10^3/uL (4.8-10.8)
[2024-08-16 06:10] LABS: ALT (SGPT) 15 U/L (0-50); AST (SGOT) 26 U/L (17-59); Albumin 4.1 g/dl (3.5-5.0); Alkaline Phosphatase 81 U/L (38-126); Blood Urea Nitrogen 38 mg/dl (9-20); Calcium 9.8 mg/dl (8.4-10.2); Carbon Dioxide 31 mmol/L (22-30); Chloride 97 mmol/L (98-107); Estimated Creatinine Clearance 40 ml/min; Glucose 131 mg/dl (70-99); Potassium 4.4 mmol/L (3.5-5.1); Sodium 141 mmol/L (135-145); Total Bilirubin 4.1 mg/dl (0.2-1.3); Total Protein 7.7 g/dl (6.3-8.2); eGFR 35.98
[2024-08-16 06:36] LABS: Urine Bacteria Few (Negative)
[2024-08-16 06:38] VITALS: BMI 29.9
[2024-08-16] MEDS: TYLENOL 1000 MG PO (08:02)
[2024-08-16] MEDS: VITAMIN B-12 500 MCG PO (08:03)
[2024-08-16] MEDS: TOPROL XL 12.5 MG PO (08:06)
[2024-08-16] MEDS: ZYLOPRIM 100 MG PO (08:06)
[2024-08-16] MEDS: PROTONIX 40 MG PO (08:06)
[2024-08-16] MEDS: FARXIGA 10 MG PO (08:06)
[2024-08-16] MEDS: COLACE 100 MG PO ×2 (08:07→21:39)
[2024-08-16] MEDS: VITAMIN D3 (cholecalciferol) 25 MCG PO (08:07)
[2024-08-16] MEDS: LASIX 40 MG IV (08:07)
[2024-08-16] MEDS: FLOMAX 0.4 MG PO ×2 (08:07→21:39)
[2024-08-16] MEDS: ELIQUIS 2.5 MG PO ×2 (08:07→21:39)
[2024-08-16 08:39] VITALS: BP 112/59
--- NOTE | 2024-08-16 10:54 | W.PN.CARDCBS ---
Today's Communication / Plan
-
Transition to lasix 40 mg PO BID starting Aug 17.
Cr slightly higher. His wt is down another 5 lbs.
He is now having urinary and stool incontinence and is febrile.
No need to repeat echo at this time. Last echo Apr 2024 with preserved EF.
Aldactone held due to ARMINDA.
Remains in persistent atrial fibrillation on review of telemetry. Heart rate is stable.
Cont lower dose Eliquis due to renal function. May need to adjust Eliquis if renal function improves.
Impression / Plan
-
.
PCP: Dr. Nichols
Primary Group Fitness Department Head: Dr. Shields
Pulm: Dr. Hutchinson
Impression:
Acute on chronic HFpEF
ARMINDA
Persistent atrial fibrillation
History of atrial flutter
Chronic anticoagulation with Eliquis
History of stroke in 2018
Interstitial lung disease
Chronic mild anemia
GERD
BPH
Primary hyperparathyroidism
Coronary artery calcifications noted by imaging
Admission for left TKA complicated by persistent Afib with increased HRs and orthostasis 11/13/23 until 11/18/23
Admission for anemia, LLE DVT, hyponatremia and COVID 12/02/23 until 12/17/23
Admission for acute HF 04/27/24 until 05/01/24
Echo 08/21/23: EF 60 to 65%, mild concentric LVH, moderately dilated right ventricle, mild to moderate MR, mild AR, moderate TR, PAP 35 mmHg mild dilation of ascending aorta, 4.0 cm
Echo 04/27/24: EF 60-65%, mild to mod MR, mild to mod aortic regurgitation,, mild to mod TR with PAP 43 mmHg, enlarged RV size with normal function, mildly dilated aortic root. 3.9 cm at sinus of Valsalva, ascending aorta is 4.3 cm.
Plan:
Transition to lasix 40 mg PO BID starting Aug 17.
Cr slightly higher. His wt is down another 5 lbs.
He is now having urinary and stool incontinence and is febrile.
No need to repeat echo at this time. Last echo Apr 2024 with preserved EF.
Aldactone held due to ARMINDA.
Remains in persistent atrial fibrillation on review of telemetry. Heart rate is stable.
Cont lower dose Eliquis due to renal function. May need to adjust Eliquis if renal function improves.
LDL 34. Continue Lipitor 80 mg daily.
Outpt follow up arranged.
Discussed with nursing.
HPI: Patient came to ER yesterday with weight gain at home that was unresponsive to increasing doses of Lasix and was admitted with acute HF and consult to cardiology today. Patient has chronic HFpEF and EF 60 to 65% by last echo 04/27/2024. His
last HF admission was 04/2024 and his dry weight at time of discharge was 254 lbs. Patient was seen in the office on 05/06/2024 and was on a regimen of Lasix 40 mg daily. Patient and daughter noticed weight gain and so on 07/21/2024 they called
their PCP and were advised to increase Lasix to 40 mg twice daily for a few days. The patient did not notice any appreciable difference in his edema and his weight was still going up so he called the cardiology office on 08/06/2024 and was told to
take an extra Lasix 20 mg daily, 40 regimen of 40 mg a.m. and 20 mg p.m. daily, for 3 days and again he saw no difference in weight gain or edema. Additionally his daughter called our office 08/10/2024 to report that he had been feeling lightheaded
with activity and that his skills trainer had advised that he should start drinking Gatorade and increase fluids. Coming in now his proBNP is elevated at 5670 and his weight is up to 269 lbs. He also has anasarca to his hips. He is not hypoxic.
Progress Note - Group Fitness Department Head
Subjective
Date of Service: August 16, 2024
Pt seen and examined. No cp.
Objective
Labs:
08/16/24 05:20
08/16/24 05:20
Labs
Hgb 11.6 g/dL (13.0-18.0) L 08/16/24 05:20
Hct 36.1 % (39.0-52.0) L 08/16/24 05:20
Plt Count 107 10^3/uL (130-400) L 08/16/24 05:20
Sodium 141 mmol/L (135-145) 08/16/24 05:20
Potassium 4.4 mmol/L (3.5-5.1) 08/16/24 05:20
BUN 38 mg/dl (9-20) H 08/16/24 05:20
Creatinine 1.8 mg/dL (0.7-1.3) H 08/16/24 05:20
Glucose 131 mg/dl (70-99) H 08/16/24 05:20
Vital Signs and I&O:
Vital Signs
Temp Pulse Resp BP Pulse Ox
101.4 F H 72 18 112/59 92
08/16/24 08:39 08/16/24 08:39 08/16/24 08:39 08/16/24 08:39 08/16/24 08:39
Vital Signs
Temp Pulse Resp BP Pulse Ox
101.4 F H 72 18 112/59 92
08/16/24 08:39 08/16/24 08:39 08/16/24 08:39 08/16/24 08:39 08/16/24 08:39
Intake & Output
08/14/24 08/15/24 08/16/24 08/17/24
06:59 06:59 06:59 06:59
Intake Total 1050 / 1050 1500 / 1500 1440 / 1440
Output Total 3960 / 3960 3425 / 3425 2840 / 2840
Balance -2910 / -2910 -1925 / -1925 -1400 / -1400
Physical Exam
Physical Exam
General: No acute distress, AAOX3
Neck: Negative JVD
Heart: Irregularly irregular, Negative S3 positive S1/S2, Negative S4, No murmur
Lungs: CTA b/l, negative wheezes/rales/rhonchi
Abd: Positive BS, NT/ND, neg rebound/rigidity/guarding
Ext: Negative cyanosis/clubbing/edema
Neuro: nonfocal
[2024-08-16 12:50] VITALS: BP 121/70
--- NOTE | 2024-08-16 14:29 | W.PN.HOSP.TC ---
Today's Communication/Plan
-
Lasix changed to oral
infection work up ordered
reviewed extensively with dgt in room
Assessment / Plan
Assessment / Plan
1. Acute on chronic diastolic congestive heart failure
-TTE in May 16 showing EF 60 to 65%. Moderate MR/AR/TR. Pulmonary artery pressure of 43 mmHg.
-Patient been having worsening leg swelling/weight gain despite being on higher dose oral Lasix.
-Chest x-ray showing cardiomegaly, no significant pulmonary edema.
-Patient not hypoxic , able to work with physical therapy
-Maintain patient on IV Lasix 40mg/BID, f/u weight/cr
-Weight 122-->122-->113-->111.2kg
excellent progressive decrease in wt with resolution of edema
2. 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
-Baseline creatinine 1.3 in May 16, at admission 1.8-->1.7-->1.7-->1.8
-Monitor renal function post IV diuretics, pt now transitioned to oral Lasix, Aldactone remains on hold
-Bladder scan and straight cath protocol ordered
3. Recurrent thrombocytopenia
Macrocytic anemia
-B12/folate/ferritin check earlier in the year was normal
-Questioning if have component of MDS
-Will require follow-up with hematology office
12/04/23 EGD shows 2 cm hiatal hernia, nonobstructing Schatzki ring, normal stomach, normal duodenum
12/05/23 colonoscopy shows 15 mm polyp at the appendiceal orifice
-Patient with normal WBC count although have eosinophilia/monocytosis on differential.
-Multiple cell line abnormalities, discussed with on-call copier repair technician Dr. Randall, who recommended patient to be seen in office and likely will require bone marrow aspiration
4. Paroxysmal atrial fibrillation
-Maintained on Eliquis, dose now changed to 2.5 mg twice daily, due to renal aspects and Toprol-XL 12.5 mg/d
5. Left leg DVT 11/29/23 s/p Left knee replacement 11/13/23
-This was treated with Eliquis after negative bleeding on endoscopy/colonoscopy by GI and clearance on 12/05/2023
6.Hypercalcemia
primary hyperparathyroidism hx
-Patient received pamidronate in November 2 continue to January and follow-up with Dr. Shepherd in office
-Ca wnl
7. Hyperbilirubinemia
2.9, apparently chronic with nl AST/ALT. ?Gilbert's
8. Fever new issue, as of 08/16
temp up to 102.4. No obvious etiologies. WBC has remained nl. Pt though with possible hematologic impairment. Will check UA, CXR and CBC. Possibly related to atelectasis, will check cxr and order IS
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
BPH
Essential HTN
First-degree AV block
Mild pulmonary HTN
Hx hyponatremia
Chronic pain post op Left knee replacement 11/13/[address] ndiaye
Chronic interstitial fibrosis
Chronic dysphagia secondary to esophageal stricture Hx
Hx Aspiration pneumonia 08/20/2023
History of cholelithiasis
GERD
HLD
Anxiety/depression
Osteoporosis
Gout
Seasonal allergies
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
Peripheral neuropathy chronic
Hx COVID-19 infection 12/17/2023 did not require any treatment
Obesity due to excess calorie consumption�BMI 32.9
Peripheral neuropathy
Right lower lobe pulmonary nodule
Multilevel level DDD
Psoriatic arthritis
Chronic dry eyes
Hearing impaired bilaterally
Pancreatic cyst
Renal cysts
DVT prophylaxis -Continue Eliquis 2.5 mg twice daily
Full code
08/16 Daughter Zoë updated in room. Questions and concerns discussed
Anticipated Discharge: 24 - 48 hours
Subjective/Interval History
-
Date of Service: August 16, 2024
Awake, alert, answering questions
Objective Data
-
Labs:
Laboratory Results
08/16/24
05:20
WBC 5.2
Hgb 11.6 L
Hct 36.1 L
Plt Count 107 L
Sodium 141
Potassium 4.4
Chloride 97 L
Carbon Dioxide 31 H
BUN 38 H
Creatinine 1.8 H
Glucose 131 H
Calcium 9.8
Total Bilirubin 4.1 H
AST 26
ALT 15
Alkaline Phosphatase 81
Vital Signs:
Vital Signs
Temp Pulse Resp BP Pulse Ox
98.6 F 70 19 121/70 93
08/16/24 12:50 08/16/24 12:50 08/16/24 12:50 08/16/24 12:50 08/16/24 12:50
I&O
08/15/24 08/16/24 08/17/24
06:59 06:59 06:59
Intake Total 1500 / 1500 1440 / 1440
Output Total 3425 / 3425 2840 / 2840
Balance -1925 / -1925 -1400 / -1400
Review of Systems
-
History Source: Patient and Coordinated Provider
Constitutional: Denies Fever
EENT: Reports No Symptoms Reported
Respiratory: Reports No Symptoms (denies sob)
Cardiac: Denies Chest Pain
Musculoskeletal: Reports No Symptoms and Joint Pain (chronic arthritis)
Physical Exam
-
General: No Apparent Distress and Obese
HEENT: Normocephalic and Atraumatic; Negative Oxygen
Respiratory: Crackles (primarily left base)
Cardiac: Regular Rhythm and S1/S2; Negative Murmur
GI: Soft, Nontender and Nondistended
Musculoskeletal: No Clubbing, No Cyanosis and No Edema (edema fully resolved)
Neuro: Awake, Alert, Oriented, AO x 3 and No Motor Deficits
[2024-08-16] MEDS: PROSCAR 5 MG PO (16:24)
[2024-08-16] MEDS: LIPITOR 80 MG PO (16:24)
[2024-08-16] MEDS: FEOSOL 325 MG PO (16:24)
[2024-08-16] MEDS: LEXAPRO 10 MG PO (16:24)
[2024-08-16] MEDS: SINGULAIR 10 MG PO (16:27)
[2024-08-16 16:39] VITALS: BP 122/54
[2024-08-16 19:00] VITALS: BP 109/53
[2024-08-16 19:56] LABS: Urine Albumin Trace (Neg - Trace); Urine Bilirubin Negative (Negative); Urine Character Clear (Clear); Urine Color Yellow; Urine Glucose 3+ (Negative); Urine Ketone Negative (Negative); Urine Leukocyte Negative (Negative); Urine Nitrite Negative (Negative); Urine Occult Blood Negative (Negative); Urine Specific Gravity 1.015 (<1.030); Urine Urobilinogen 2+ (Neg - 1+)
[2024-08-16 23:00] VITALS: BP 119/60
[2024-08-17] VITALS (7 sets, daily range): BP systolic 100–134; BP diastolic 54–66; PULSE 60; O2SAT 97; BMI 29.6
[2024-08-17] MEDS: COLACE 100 MG PO ×2 (07:54→19:57)
[2024-08-17] MEDS: VITAMIN B-12 500 MCG PO (07:54)
[2024-08-17] MEDS: ELIQUIS 2.5 MG PO ×2 (07:54→19:57)
[2024-08-17] MEDS: VITAMIN D3 (cholecalciferol) 25 MCG PO (07:54)
[2024-08-17] MEDS: PROTONIX 40 MG PO (07:54)
[2024-08-17] MEDS: FLOMAX 0.4 MG PO ×2 (07:55→19:57)
[2024-08-17] MEDS: LASIX 40 MG PO ×2 (07:55→15:17)
[2024-08-17] MEDS: FARXIGA 10 MG PO (07:57)
[2024-08-17] MEDS: TOPROL XL 12.5 MG PO (07:57)
[2024-08-17] MEDS: ZYLOPRIM 100 MG PO (07:57)
[2024-08-17 09:46] LABS: ALT (SGPT) 15 U/L (0-50); AST (SGOT) 28 U/L (17-59); Albumin 3.7 g/dl (3.5-5.0); Alkaline Phosphatase 77 U/L (38-126); Blood Urea Nitrogen 44 mg/dl (9-20); Calcium 9.1 mg/dl (8.4-10.2); Carbon Dioxide 33 mmol/L (22-30); Chloride 97 mmol/L (98-107); Estimated Creatinine Clearance 40 ml/min; Glucose 102 mg/dl (70-99); Potassium 4.2 mmol/L (3.5-5.1); Sodium 140 mmol/L (135-145); Total Bilirubin 2.7 mg/dl (0.2-1.3); Total Protein 7.3 g/dl (6.3-8.2); eGFR 41.44
--- NOTE | 2024-08-17 11:35 | PN.CDI ---
CDI
- -
CDI:
Physician Documentation Request
Admit Date: 08/13/24 00:34
Dear Doctor Ruthie,
Please review the following and provide your response in the progress notes.
The purpose of this query is to ensure the accuracy of the conditions reported for your patient.
Clinical Indicators:
Cardiology PN, 08/16
#Remains in persistent atrial fibrillation on review of telemetry. Heart rate is stable.
#Cont lower dose Eliquis due to renal function.
PN, 08/16
#4. Paroxysmal atrial fibrillation
#...-Maintained on Eliquis, dose now changed to 2.5 mg twice daily,
#...due to renal aspects and Toprol-XL 12.5 mg/d
Due to conflicting documentation, please clarify the specificity of the atrial fibrillation:
Persistent atrial fibrillation - episodes of continuous AF that last more than 7 days and do not self-terminate
Paroxysmal atrial fibrillation - terminates spontaneously or with intervention within 7 days of onset
Other - please specify
Use of terms such as suspected, likely, concern for, or probable (associated with a specific diagnosis that is being evaluated, monitored, or treated as if it exists) are acceptable and can be coded in the inpatient setting, when documented at the
time of discharge.
Thank you,
Mariposa Cobb RN BSN CCDS
CDI Specialist
please contact via tiger text
Please use your independent medical judgment in providing your response.
--- NOTE | 2024-08-17 13:39 | W.PN.HOSP.TC ---
Today's Communication/Plan
-
recheck BMP in AM
will review with cardio, planned diuretic dosing
potential dc tomorrow
Assessment / Plan
Assessment / Plan
1. Acute on chronic diastolic congestive heart failure
-TTE in May 16 showing EF 60 to 65%. Moderate MR/AR/TR. Pulmonary artery pressure of 43 mmHg.
-Patient been having worsening leg swelling/weight gain despite being on higher dose oral Lasix.
-Chest x-ray showing cardiomegaly, no significant pulmonary edema.
-Patient not hypoxic , able to work with physical therapy
-Maintain patient on IV Lasix 40mg/BID, f/u weight/cr
-Weight 122-->122-->113-->111.2-->110.3kg
excellent progressive decrease in wt with resolution of edema
2. 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
-Baseline creatinine 1.3 in May 16, at admission 1.8-->1.7-->1.7-->1.8-->1.6
-Monitor renal function post IV diuretics, pt now transitioned to oral Lasix, Aldactone remains on hold
-Bladder scan and straight cath protocol ordered
3. 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
Macrocytic anemia
-B12/folate/ferritin check earlier in the year was normal
-Questioning if have component of MDS
-Will require follow-up with hematology office
12/04/23 EGD shows 2 cm hiatal hernia, nonobstructing Schatzki ring, normal stomach, normal duodenum
12/05/23 colonoscopy shows 15 mm polyp at the appendiceal orifice
-Patient with normal WBC count although have eosinophilia/monocytosis on differential.
-Multiple cell line abnormalities, discussed with on-call caravan park and camping ground manager Dr. Randall, who recommended patient to be seen in office and likely will require bone marrow aspiration
4. Persistent atrial fibrillation (as per Cardiology)
-Maintained on Eliquis, dose now changed to 2.5 mg twice daily, due to renal aspects and Toprol-XL 12.5 mg/d
5. Left leg DVT 11/29/23 s/p Left knee replacement 11/13/23
-This was treated with Eliquis after negative bleeding on endoscopy/colonoscopy by GI and clearance on 12/05/2023
6.Hypercalcemia
primary hyperparathyroidism hx
-Patient received pamidronate in November 2 continue to January and follow-up with Dr. Shepherd in office
-Ca wnl
7. Hyperbilirubinemia
2.9, apparently chronic with nl AST/ALT. ?Gilbert's
8. Fever new issue, as of 08/16
temp up to 102.4. No obvious etiologies. WBC has remained nl. Pt though with possible hematologic impairment. Will check UA-nl, CXR-NAPD and CBC - stable. Lungs are clearer with resolution of the atelectasis. Fever now resolved for 24 hrs
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
BPH
Essential HTN
First-degree AV block
Mild pulmonary HTN
Hx hyponatremia
Chronic pain post op Left knee replacement 11/13/[address] ndiaye
Chronic interstitial fibrosis
Chronic dysphagia secondary to esophageal stricture Hx
Hx Aspiration pneumonia 08/20/2023
History of cholelithiasis
GERD
HLD
Anxiety/depression
Osteoporosis
Gout
Seasonal allergies
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
Peripheral neuropathy chronic
Hx COVID-19 infection 12/17/2023 did not require any treatment
Obesity due to excess calorie consumption�BMI 32.9
Peripheral neuropathy
Right lower lobe pulmonary nodule
Multilevel level DDD
Psoriatic arthritis
Chronic dry eyes
Hearing impaired bilaterally
Pancreatic cyst
Renal cysts
DVT prophylaxis -Continue Eliquis 2.5 mg twice daily
Full code
11/24 Daughter Zoë updated in room. Questions and concerns discussed
08/17 call placed and discussed with dgt Estephanie, extensive review, 35 minutes
Anticipated Discharge: Within 24 hours
Subjective/Interval History
-
Date of Service: August 17, 2024
Awake, alert, answering questions
Objective Data
-
Labs:
Laboratory Results
08/17/24
09:24
Sodium 140
Potassium 4.2
Chloride 97 L
Carbon Dioxide 33 H
BUN 44 H
Creatinine 1.6 H
Glucose 102 H
Calcium 9.1
Total Bilirubin 2.7 H
AST 28
ALT 15
Alkaline Phosphatase 77
Vital Signs:
Vital Signs
Temp Pulse Resp BP Pulse Ox
97.9 F 72 17 107/61 96
08/17/24 11:16 08/17/24 11:16 08/17/24 11:16 08/17/24 11:16 08/17/24 11:16
I&O
08/16/24 08/17/24 08/18/24
06:59 06:59 06:59
Intake Total 1440 / 1440 1470 / 1470 240 / 240
Output Total 2840 / 2840 1350 / 1350 550 / 550
Balance -1400 / -1400 120 / 120 -310 / -310
Review of Systems
-
History Source: Patient and Coordinated Provider
Constitutional: Denies Fever
EENT: Reports No Symptoms Reported
Respiratory: Reports No Symptoms (denies sob)
Cardiac: Denies Chest Pain
Musculoskeletal: Reports No Symptoms and Joint Pain (chronic arthritis)
Physical Exam
-
General: No Apparent Distress and Obese
HEENT: Normocephalic and Atraumatic; Negative Oxygen
Respiratory: Negative Crackles (resolved)
Cardiac: Regular Rhythm and S1/S2; Negative Murmur
GI: Soft, Nontender and Nondistended
Musculoskeletal: No Clubbing, No Cyanosis and No Edema (edema fully resolved)
Neuro: Awake, Alert, Oriented, AO x 3 and No Motor Deficits
--- NOTE | 2024-08-17 15:54 | CM ---
Addendum entered by Maricel Vega 08/17/24 15:57:
Call to dtr/Estephanie with update
Original Note:
CM reviewed chart and ADC tomorrow
Bedside meeting with pt
VN recs by therapy and pt in agreement
Referral made to [facility]
Discharge Disposition- home with [facility]
--- NOTE | 2024-08-17 16:02 | W.PN.CARDCBS ---
Addendum entered and electronically signed by Tomi Nicholson MD 08/17/24 19:31:
89-year-old man admitted with acute on chronic HFpEF and ARMINDA with creatinine up to 1.8. Last admission April 2024 with discharge weight 254 pounds. Recently with creatinine up to 1.8 from baseline 1.3, hydration had been increased by his personal
canine service instructor trainer, proBNP 5670, weight 269 pounds
PMH: Persistent/permanent atrial fibrillation, CVA in 2018, interstitial lung disease, GERD, BPH, incidentally detected coronary artery calcifications, recent left total knee arthroplasty, DVT 2023
Allergies: Demerol
Outpatient meds reviewed: Eliquis 5 twice daily, Jardiance 10 mg a day, escitalopram, furosemide 40 mg a day, metoprolol ER 12.5 daily, spironolactone 12.5 daily
Current meds: Allopurinol, atorvastatin 80 mg a day, vitamin D, vitamin B, Farxiga 10 mg a day, escitalopram 10 mg a day, iron, Proscar 5 mg a day, metoprolol ER 12.5 mg daily, Singulair 10 mg daily, Protonix 40 mg daily, spironolactone 12.5 mg
daily on hold, tamsulosin 0.4 mg twice daily, Eliquis 2.5 twice daily, Colace, and furosemide 40 milligrams p.o. twice daily
134/54, pulse 67, respirate 17, afebrile, weight is 110.3 kg, down roughly 1 kg from yesterday. Admission weight was 122.7 kg, no longer febrile Tmax had been 39.1
Chest x-ray yesterday, essentially clear, possible minimal blunting and minimal vascular congestion
BUN and creatinine were 38 and 1.8 yesterday, bilirubin was 4.1 yesterday
Impression:
Acute on chronic HFpEF
ARMINDA
Persistent atrial fibrillation
History of atrial flutter
Chronic anticoagulation with Eliquis
History of stroke in 2018
Interstitial lung disease
Chronic mild anemia
GERD
BPH
Primary hyperparathyroidism
Coronary artery calcifications noted by imaging
Admission for left TKA complicated by persistent Afib with increased HRs and orthostasis 11/13/23 until 11/18/23
Admission for anemia, LLE DVT, hyponatremia and COVID 12/02/23 until 12/17/23
Admission for acute HF 04/27/24 until 05/01/24
Plan:
He seems relatively compensated from the standpoint of HFpEF.
Spironolactone is still on hold given ARMINDA. He is on Farxiga and furosemide 40 mg p.o. twice daily.
Creatinine is improved, if continues to improve we will need to increase Eliquis to 5 mg twice daily.
He is relatively bradycardic, on low-dose metoprolol. At this point metoprolol probably not of value. Will discontinue.
From my standpoint okay to proceed with discharge planning. We will arrange for cardiac follow-up.
Original Note:
Today's Communication / Plan
-
Diuresing on Lasix PO
Consider increasing Eliquis back to 5 mg BID if Cre less than 1.5 tomorrow morning
Impression / Plan
-
PCP: Dr. Nichols
Primary Incinerator Attendant: Dr. Shields
Pulm: Dr. Hutchinson
Impression:
Acute on chronic HFpEF
ARMINDA
Persistent atrial fibrillation
History of atrial flutter
Chronic anticoagulation with Eliquis
History of stroke in 2018
Interstitial lung disease
Chronic mild anemia
GERD
BPH
Primary hyperparathyroidism
Coronary artery calcifications noted by imaging
Admission for left TKA complicated by persistent Afib with increased HRs and orthostasis 11/13/23 until 11/18/23
Admission for anemia, LLE DVT, hyponatremia and COVID 12/02/23 until 12/17/23
Admission for acute HF 04/27/24 until 05/01/24
Echo 08/21/23: EF 60 to 65%, mild concentric LVH, moderately dilated right ventricle, mild to moderate MR, mild AR, moderate TR, PAP 35 mmHg mild dilation of ascending aorta, 4.0 cm
Echo 04/27/24: EF 60-65%, mild to mod MR, mild to mod aortic regurgitation,, mild to mod TR with PAP 43 mmHg, enlarged RV size with normal function, mildly dilated aortic root. 3.9 cm at sinus of Valsalva, ascending aorta is 4.3 cm.
Plan:
-Weight is down another 2 lbs overnight with Lasix 40 mg PO BID. Patient was also diuresed with Lasix IV earlier this admission. Of note patient was taking Lasix 40 mg PO daily prior to admission
-Cre improved to 1.6 on 08/17/24
EF preserved at 60-65% on echo in April
-Outpatient dose of Toprol XL 12.5 mg daily placed on hold for bradycardia on 08/17/2024
-Outpatient dose of spironolactone on hold since admission due to ARMINDA
-Outpatient dose of Jardiance 10 mg daily has been continued in the form of Farxiga 10 mg daily due to formulary changes, but Jardiance should be resumed upon discharge
-Patient with persistent to permanent Afib and remains on Eliquis 2.5 mg BID. Outpatient dose of Eliquis 5 mg BID was lowered to 2.5 mg BID due to ARMINDA and Cre greater than 1.5. Age 89, Cre 1.7, wt 122 kg. Cre is usually less than 1.5 so once Cre
normalizes the dose should be increased back to 5 mg BID.
HPI: Patient came to ER yesterday with weight gain at home that was unresponsive to increasing doses of Lasix and was admitted with acute HF and consult to cardiology today. Patient has chronic HFpEF and EF 60 to 65% by last echo 04/27/2024. His
last HF admission was 04/2024 and his dry weight at time of discharge was 254 lbs. Patient was seen in the office on 05/06/2024 and was on a regimen of Lasix 40 mg daily. Patient and daughter noticed weight gain and so on 07/21/2024 they called
their PCP and were advised to increase Lasix to 40 mg twice daily for a few days. The patient did not notice any appreciable difference in his edema and his weight was still going up so he called the cardiology office on 08/06/2024 and was told to
take an extra Lasix 20 mg daily, 40 regimen of 40 mg a.m. and 20 mg p.m. daily, for 3 days and again he saw no difference in weight gain or edema. Additionally his daughter called our office 08/10/2024 to report that he had been feeling lightheaded
with activity and that his personalized living manager nurse had advised that he should start drinking Gatorade and increase fluids. Coming in now his proBNP is elevated at 5670 and his weight is up to 269 lbs. He also has anasarca to his hips. He is not hypoxic.
Progress Note - Incinerator Attendant
Subjective
Date of Service: August 17, 2024
Feeling less edematous
Objective
Labs:
08/16/24 05:20
08/17/24 09:24
Labs
Hgb 11.6 g/dL (13.0-18.0) L 08/16/24 05:20
Hct 36.1 % (39.0-52.0) L 08/16/24 05:20
Plt Count 107 10^3/uL (130-400) L 08/16/24 05:20
Sodium 140 mmol/L (135-145) 08/17/24 09:24
Potassium 4.2 mmol/L (3.5-5.1) 08/17/24 09:24
BUN 44 mg/dl (9-20) H 08/17/24 09:24
Creatinine 1.6 mg/dL (0.7-1.3) H 08/17/24 09:24
Glucose 102 mg/dl (70-99) H 08/17/24 09:24
Vital Signs and I&O:
Vital Signs
Temp Pulse Resp BP Pulse Ox
98.3 F 82 18 108/62 99
08/17/24 15:15 08/17/24 15:15 08/17/24 15:15 08/17/24 15:15 08/17/24 15:15
Vital Signs
Temp Pulse Resp BP Pulse Ox
98.3 F 82 18 108/62 99
08/17/24 15:15 08/17/24 15:15 08/17/24 15:15 08/17/24 15:15 08/17/24 15:15
Intake & Output
08/15/24 08/16/24 08/17/24 08/18/24
06:59 06:59 06:59 06:59
Intake Total 1500 / 1500 1440 / 1440 1470 / 1470 240 / 240
Output Total 3425 / 3425 2840 / 2840 1350 / 1350 550 / 550
Balance -1925 / -1925 -1400 / -1400 120 / 120 -310 / -310
Physical Exam
Physical Exam
GEN: NAD. AAOx3
HEENT: EOMI, MMM
LUNGS: No audible wheeze
CV: AFib on tele.
ABD: +BS, ND, NT, soft
EXT: B/L LE tubigrips in place
NEURO: Gross non-focal
SKIN: No rash
--- NOTE | 2024-08-17 16:06 | VNURNOTE ---
Home Health Liaison spoke with patient to discuss [facility] nurse/therapy, visits, schedule and homebound status. Patient is agreeable and understands that visits at home will be 2-3 x per week to assess and teach medical management. He confirms he has
a scale at home. He states daughter Estephanie is staying with him temporarily. Per records, patient has had [facility] a few months ago. Patient is aware that [facility] will contact them for start of care in 1-2 days after discharge from . [facility] referral
completed in [facility].
[2024-08-17] MEDS: FEOSOL 325 MG PO (17:05)
[2024-08-17] MEDS: PROSCAR 5 MG PO (17:05)
[2024-08-17] MEDS: LEXAPRO 10 MG PO (17:05)
[2024-08-17] MEDS: LIPITOR 80 MG PO (17:05)
[2024-08-17] MEDS: SINGULAIR 10 MG PO (17:05)
[2024-08-18 03:09] VITALS: BP 110/59
[2024-08-18 06:00] VITALS: BMI 29.7
[2024-08-18 07:02] LABS: Blood Urea Nitrogen 50 mg/dl (9-20); Calcium 8.8 mg/dl (8.4-10.2); Carbon Dioxide 28 mmol/L (22-30); Chloride 100 mmol/L (98-107); Estimated Creatinine Clearance 43 ml/min; Glucose 90 mg/dl (70-99); Potassium 4.1 mmol/L (3.5-5.1); Sodium 139 mmol/L (135-145); eGFR 44.78
[2024-08-18 07:55] VITALS: BP 117/65
[2024-08-18] MEDS: COLACE 100 MG PO (07:55)
[2024-08-18] MEDS: FLOMAX 0.4 MG PO (07:55)
[2024-08-18] MEDS: ELIQUIS 2.5 MG PO (07:55)
[2024-08-18] MEDS: VITAMIN D3 (cholecalciferol) 25 MCG PO (07:55)
[2024-08-18] MEDS: PROTONIX 40 MG PO (07:55)
[2024-08-18] MEDS: ZYLOPRIM 100 MG PO (07:55)
[2024-08-18] MEDS: VITAMIN B-12 500 MCG PO (07:55)
[2024-08-18] MEDS: LASIX 40 MG PO ×2 (07:56→15:28)
[2024-08-18] MEDS: FARXIGA 10 MG PO (07:56)
--- NOTE | 2024-08-18 10:54 | CM ---
CM reviewed chart
Bedside meeting with pt
Pt has been accepted for service by [facility]
IMM verbally reviewed- copy provided
Discharge Disposition- home with [facility], family transport
[2024-08-18 11:45] VITALS: BP 114/68
--- NOTE | 2024-08-18 12:53 | W.PN.CARDCBS ---
Addendum entered and electronically signed by Sandra Shields DO 08/18/24 19:54:
I saw and examined the patient.
The Contracts Director's note was reviewed and I agree with the note.
Comment: Patient seen and examined this morning. Chart and telemetry reviewed. Sitting out of bed to chair, feeling well and anxious to go home. Offers no complaints.
GEN: NAD. AAOx3
LUNGS: Bronchovesicular breath sounds, clear bilaterally
CV: Irregularly irregular. Positive S1-S2 2/6 SM
ABD: +BS, ND, NT, soft
EXT: B/L LE tubigrips in place
Plan:
Volume status appears improved following IV diuresis
-Discharge on Lasix 40 mg twice daily
-Outpatient dose of Toprol XL 12.5 mg daily stopped for bradycardia on 08/17/2024
-Outpatient dose of spironolactone on hold since admission due to ARMINDA
-Outpatient dose of Jardiance 10 mg daily has been continued in the form of Farxiga 10 mg daily due to formulary changes, but Jardiance should be resumed upon discharge
-Persistent to permanent Asymptomatic Afib
-Outpatient dose of Eliquis 5 mg BID was lowered to 2.5 mg BID due to ARMINDA and Cre greater than 1.5 on admission.
-Cre is usually less than 1.5 so once Cre normalizes the dose should be increased back to 5 mg BID, but patient should go home on Eliquis 2.5 mg BID and pending outpatient labs we can adjust the dose.
-Patient is stable for d/c to home from a cardiac standpoint and will arrange f/u
Original Note:
Today's Communication / Plan
-
Cont Eliquis 2.5 mg BID, can adjust dose as an outpatient pending follow up labs
Cont Lasix 40 mg PO BID
Impression / Plan
-
PCP: Dr. Nichols
Primary Employee Benefits Administrator: Dr. Shields
Pulm: Dr. Evangelina
Impression:
Acute on chronic HFpEF
ARMINDA
Persistent atrial fibrillation
History of atrial flutter
Chronic anticoagulation with Eliquis
History of stroke in 2018
Interstitial lung disease
Chronic mild anemia
GERD
BPH
Primary hyperparathyroidism
Coronary artery calcifications noted by imaging
Admission for left TKA complicated by persistent Afib with increased HRs and orthostasis 11/13/23 until 11/18/23
Admission for anemia, LLE DVT, hyponatremia and COVID 12/02/23 until 12/17/23
Admission for acute HF 04/27/24 until 05/01/24
Echo 08/21/23: EF 60 to 65%, mild concentric LVH, moderately dilated right ventricle, mild to moderate MR, mild AR, moderate TR, PAP 35 mmHg mild dilation of ascending aorta, 4.0 cm
Echo 04/27/24: EF 60-65%, mild to mod MR, mild to mod aortic regurgitation,, mild to mod TR with PAP 43 mmHg, enlarged RV size with normal function, mildly dilated aortic root. 3.9 cm at sinus of Valsalva, ascending aorta is 4.3 cm.
Plan:
-Weight is up 1 lb overnight, but overall down 26 lbs this admission with Lasix IV. Cont Lasix 40 mg PO BID. Of note patient was taking Lasix 40 mg PO daily prior to admission
-Cre peaked at 1.8 and improved to 1.5 on 08/18/24
-EF preserved at 60-65% on echo in April
-Outpatient dose of Toprol XL 12.5 mg daily stopped for bradycardia on 08/17/2024
-Outpatient dose of spironolactone on hold since admission due to ARMINDA
-Outpatient dose of Jardiance 10 mg daily has been continued in the form of Farxiga 10 mg daily due to formulary changes, but Jardiance should be resumed upon discharge
-Patient with persistent to permanent Afib
-Outpatient dose of Eliquis 5 mg BID was lowered to 2.5 mg BID due to ARMINDA and Cre greater than 1.5 on admission. Cre is usually less than 1.5 so once Cre normalizes the dose should be increased back to 5 mg BID, but patient should go home on Eliquis
2.5 mg BID and pending outpatient labs we can adjust the dose.
-Patient is stable for d/c to home from a cardiac standpoint and will arrange f/u
HPI: Patient came to ER yesterday with weight gain at home that was unresponsive to increasing doses of Lasix and was admitted with acute HF and consult to cardiology today. Patient has chronic HFpEF and EF 60 to 65% by last echo 04/27/2024. His
last HF admission was 04/2024 and his dry weight at time of discharge was 254 lbs. Patient was seen in the office on 05/06/2024 and was on a regimen of Lasix 40 mg daily. Patient and daughter noticed weight gain and so on 07/21/2024 they called
their PCP and were advised to increase Lasix to 40 mg twice daily for a few days. The patient did not notice any appreciable difference in his edema and his weight was still going up so he called the cardiology office on 08/06/2024 and was told to
take an extra Lasix 20 mg daily, 40 regimen of 40 mg a.m. and 20 mg p.m. daily, for 3 days and again he saw no difference in weight gain or edema. Additionally his daughter called our office 08/10/2024 to report that he had been feeling lightheaded
with activity and that his personalized living assistant had advised that he should start drinking Gatorade and increase fluids. Coming in now his proBNP is elevated at 5670 and his weight is up to 269 lbs. He also has anasarca to his hips. He is not hypoxic.
Progress Note - Employee Benefits Administrator
Subjective
Date of Service: August 18, 2024
No chest pain
Objective
Labs:
08/16/24 05:20
08/18/24 05:53
Labs
Hgb 11.6 g/dL (13.0-18.0) L 08/16/24 05:20
Hct 36.1 % (39.0-52.0) L 08/16/24 05:20
Plt Count 107 10^3/uL (130-400) L 08/16/24 05:20
Sodium 139 mmol/L (135-145) 08/18/24 05:53
Potassium 4.1 mmol/L (3.5-5.1) 08/18/24 05:53
BUN 50 mg/dl (9-20) H 08/18/24 05:53
Creatinine 1.5 mg/dL (0.7-1.3) H 08/18/24 05:53
Glucose 90 mg/dl (70-99) 08/18/24 05:53
Vital Signs and I&O:
Vital Signs
Temp Pulse Resp BP Pulse Ox
98.0 F 80 14 114/68 97
08/18/24 11:45 08/18/24 11:45 08/18/24 11:45 08/18/24 11:45 08/18/24 11:45
Vital Signs
Temp Pulse Resp BP Pulse Ox
98.0 F 80 14 114/68 97
08/18/24 11:45 08/18/24 11:45 08/18/24 11:45 08/18/24 11:45 08/18/24 11:45
Intake & Output
08/16/24 08/17/24 08/18/24 08/19/24
06:59 06:59 06:59 06:59
Intake Total 1440 / 1440 1470 / 1470 1860 / 1860
Output Total 2840 / 2840 1350 / 1350 1800 / 1800
Balance -1400 / -1400 120 / 120 60 / 60
Physical Exam
Physical Exam
GEN: NAD. AAOx3
HEENT: EOMI, MMM
LUNGS: No audible wheeze
CV: AFib on tele.
ABD: +BS, ND, NT, soft
EXT: B/L LE tubigrips in place
NEURO: Gross non-focal
SKIN: No rash
--- NOTE | 2024-08-18 14:47 | W.PN.HOSP.TC ---
Today's Communication/Plan
-
dc now
Assessment / Plan
Assessment / Plan
1. Acute on chronic diastolic congestive heart failure
-TTE in May 16 showing EF 60 to 65%. Moderate MR/AR/TR. Pulmonary artery pressure of 43 mmHg.
-Patient been having worsening leg swelling/weight gain despite being on higher dose oral Lasix.
-Chest x-ray showing cardiomegaly, no significant pulmonary edema.
-Patient not hypoxic , able to work with physical therapy
-Maintain patient on IV Lasix 40mg/BID, f/u weight/cr
-Weight 122-->122-->113-->111.2-->110.3kg
excellent progressive decrease in wt with resolution of edema
2. 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
-Baseline creatinine 1.3 in May 16, at admission 1.8-->1.7-->1.7-->1.8-->1.6-->1.5
-Monitor renal function post IV diuretics, pt now transitioned to oral Lasix, Aldactone remains on hold
-Bladder scan and straight cath protocol ordered, as per nursing, has been urinating well, had large BM today
3. 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
Macrocytic anemia
-B12/folate/ferritin check earlier in the year was normal
-Questioning if have component of MDS
-Will require follow-up with hematology office
12/04/23 EGD shows 2 cm hiatal hernia, nonobstructing Schatzki ring, normal stomach, normal duodenum
12/05/23 colonoscopy shows 15 mm polyp at the appendiceal orifice
-Patient with normal WBC count although have eosinophilia/monocytosis on differential.
-Multiple cell line abnormalities, discussed with on-call quarrying specialist Dr. Randall, who recommended patient to be seen in office and likely will require bone marrow aspiration
4. Persistent atrial fibrillation (as per Cardiology)
-Maintained on Eliquis, dose now changed to 2.5 mg twice daily, due to renal aspects and Toprol-XL 12.5 mg/d
5. Left leg DVT 11/29/23 s/p Left knee replacement 11/13/23
-This was treated with Eliquis after negative bleeding on endoscopy/colonoscopy by GI and clearance on 12/05/2023, with improved Creat will resume prior Eliquis dosing
6.Hypercalcemia
primary hyperparathyroidism hx
-Patient received pamidronate in November 2 continue to January and follow-up with Dr. Shepherd in office
-Ca wnl
7. Hyperbilirubinemia
2.9, apparently chronic with nl AST/ALT. ?Gilbert's
8. Fever new issue, as of 08/16
temp up to 102.4. No obvious etiologies. WBC has remained nl. Pt though with possible hematologic impairment. Will check UA-nl, CXR-NAPD and CBC - stable. Lungs are clearer with resolution of the atelectasis. Fever now resolved for 24 hrs
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
BPH
Essential HTN
First-degree AV block
Mild pulmonary HTN
Hx hyponatremia
Chronic pain post op Left knee replacement 11/13/[address] ndiaye
Chronic interstitial fibrosis
Chronic dysphagia secondary to esophageal stricture Hx
Hx Aspiration pneumonia 08/20/2023
History of cholelithiasis
GERD
HLD
Anxiety/depression
Osteoporosis
Gout
Seasonal allergies
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
Peripheral neuropathy chronic
Hx COVID-19 infection 12/17/2023 did not require any treatment
Obesity due to excess calorie consumption�BMI 32.9
Peripheral neuropathy
Right lower lobe pulmonary nodule
Multilevel level DDD
Psoriatic arthritis
Chronic dry eyes
Hearing impaired bilaterally
Pancreatic cyst
Renal cysts
DVT prophylaxis -Continue Eliquis 2.5 mg twice daily
Full code
08/16 Daughter Zoë updated in room. Questions and concerns discussed
08/17 call placed and discussed with any Hummel, extensive review, 35 minutes
08/18 call placed and discussed with any Hummel
dc to home
More than 30 minutes spent in discharge including
Final examination of the patient
Summarizing hospital stay
Instructions for continuing care to all relevant caregivers
Preparation of discharge records, prescriptions, and referral forms
Total time spent (in minutes): 45
Anticipated Discharge: Today
Subjective/Interval History
-
Date of Service: August 18, 2024
Feels well, looking forward to dc to home
Objective Data
-
Labs:
Laboratory Results
08/18/24
05:53
Sodium 139
Potassium 4.1
Chloride 100
Carbon Dioxide 28
BUN 50 H
Creatinine 1.5 H
Glucose 90
Calcium 8.8
Vital Signs:
Vital Signs
Temp Pulse Resp BP Pulse Ox
98.0 F 80 14 114/68 97
08/18/24 11:45 08/18/24 11:45 08/18/24 11:45 08/18/24 11:45 08/18/24 11:45
I&O
08/17/24 08/18/24 08/19/24
06:59 06:59 06:59
Intake Total 1470 / 1470 1860 / 1860
Output Total 1350 / 1350 1800 / 1800
Balance 120 / 120 60 / 60
Review of Systems
-
History Source: Patient and Coordinated Provider
Constitutional: Denies Fever
EENT: Reports No Symptoms Reported
Respiratory: Reports No Symptoms (denies sob)
Cardiac: Denies Chest Pain
Musculoskeletal: Reports No Symptoms and Joint Pain (chronic arthritis)
Physical Exam
-
General: No Apparent Distress and Obese
HEENT: Normocephalic and Atraumatic; Negative Oxygen
Respiratory: Negative Crackles (resolved)
Cardiac: Regular Rhythm and S1/S2; Negative Murmur
GI: Soft, Nontender and Nondistended
Musculoskeletal: No Clubbing, No Cyanosis and No Edema (edema fully resolved)
Neuro: Awake, Alert, Oriented, AO x 3 and No Motor Deficits
[2024-08-18 15:25] VITALS: BP 129/78
--- NOTE | 2024-08-18 18:48 | W.DS.TRANS ---
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
-
Discharge Instructions:
Sleep Apnea Risk Intermediate
Discharge Diagnosis/Procedures CHF
Diet 2 Gram Sodium,Restrict fluids to 64 oz
Activity No strenuous activity
Driving Restrictions No driving
Bathing Restrictions None
Other Services VN
Specialty Instructions Weigh Daily
Instructions: *DCA Heart Failure Instructions
Stand-Alone Forms:
Changes to Home Medications: Yes
Discharge Medications:
DC Medications w/original date entered in [facility] [address]
allopurinol 100 mg tablet 100 mg PO DAILY Gout 09/17/18
escitalopram oxalate 10 mg tablet 10 mg PO QPM Depression 09/17/18
tamsulosin 0.4 mg capsule 0.4 mg PO BID Urinary issue 09/17/18
denosumab 60 mg/mL subcutaneous syringe (Prolia) 60 mg SC [id number] OSTEOPOROSIS 02/22/21
montelukast 10 mg tablet 10 mg PO QPM Allergies 02/22/21
ferrous sulfate 325 mg (65 mg iron) tablet (FeroSul) 325 mg PO QPM Supplement 10/03/21
pantoprazole 40 mg tablet,delayed release 40 mg PO DAILY Gastrointestinal Issue 07/24/23
apixaban 5 mg tablet (Eliquis) 5 mg PO BID Blood clot prevention/tx #0 tabs 08/22/23
atorvastatin 80 mg tablet 80 mg PO QPM High cholesterol #0 tabs 08/22/23
finasteride 5 mg tablet 5 mg PO QPM Urinary Issue 10/21/23
gabapentin 300 mg capsule 300 mg PO HS sleep/pain #10 caps 11/18/23
budesonide 0.5 mg/2 mL suspension for nebulization 0.5 mg inhalation R BIDPRN PRN sob 12/02/23
cholecalciferol (vitamin D3) 25 mcg (1,000 unit) tablet 25 mcg PO DAILY Supplement 12/02/23
cyanocobalamin (vitamin B-12) 500 mcg tablet 500 mcg PO DAILY Supplement 12/02/23
sodium chloride 0.65 % nasal spray aerosol 1 spray intranasal BIDPRN PRN dry nares 12/02/23
vitamin B complex 1 tab PO DAILY Supplement 12/02/23
azelastine 137 mcg (0.1 %) nasal spray 1 spray intranasal BID Allergies 12/03/23
fluticasone propionate 50 mcg/actuation nasal spray,suspension 1 spray intranasal BID Allergies 12/03/23
acetaminophen 500 mg tablet (Tylenol Extra Strength) 1,000 mg (2 x 500 mg) PO Q6HPRN PRN MILD pain or fever #0 tabs 12/17/23
polyethylene glycol 3350 17 gram oral powder packet (HealthyLax) 17 g PO DAILYPRN PRN constipation 04/27/24
sennosides 8.6 mg-docusate sodium 50 mg tablet (Stool Softener-Stimulant Laxative) 2 tab PO BIDPRN PRN Constipation 04/27/24
empagliflozin 10 mg tablet (Jardiance) 10 mg PO DAILY #30 tabs 05/01/24
furosemide 40 mg tablet 40 mg PO BID AT 0800,1600 #60 tabs 08/18/24
Home Medication Changes
Lasix increased to 40 mg bid
Toprol stopped
Aldactone stopped
Pending Results: No
== END 2024-08-18 17:12 | disposition home health service (06) | DRG 291 ==
LOC: 3 WEST ACU 00:34
PROVIDERS: Clinical Nurse Specialist Family Health; Emergency Medicine; Internal Medicine Cardiovascular Disease; Nurse Practitioner; Nurse Practitioner Gerontology; ADMITTING PHYSICIAN Hospitalist; ATTENDING PHYSICIAN Internal Medicine; EMERGENCY PHYSICIAN Emergency Medicine; FAMILY PHYSICIAN Internal Medicine; OTHER PHYSICIAN Internal Medicine Cardiovascular Disease
DX: I13.0 Hypertensive heart and chronic kidney disease with heart failure and stage 1 through stage 4 chronic kidney disease, or unspecified chronic kidney disease (principal); I50.43 Acute on chronic combined systolic (congestive) and diastolic (congestive) heart failure; I48.19 Other persistent atrial fibrillation; N17.9 Acute kidney failure, unspecified; N18.32 Chronic kidney disease, stage 3b; D69.6 Thrombocytopenia, unspecified; E83.52 Hypercalcemia; E66.09 Other obesity due to excess calories; Z68.32 Body mass index [BMI] 32.0-32.9, adult; N28.1 Cyst of kidney, acquired; K21.9 Gastro-esophageal reflux disease without esophagitis; Z11.52 Encounter for screening for COVID-19
CPT/HCPCS: 71046; 76700; 80048; 80053; 80061; 81003; 81015; 83880; 85025; 85379; 87040; 87502; 87811; 92610; 93005; 93970; 96374; 97116; 97162; 97167; 97530; 99285

== ENCOUNTER → 2024-11-30 16:29 | Outpatient (REF) | payer OTHER, SELFPAY | LOC: RAD 16:29 | PROVIDERS: ATTENDING PHYSICIAN Internal Medicine Cardiovascular Disease; FAMILY PHYSICIAN Internal Medicine | DX: R06.02 Shortness of breath (principal) | CPT/HCPCS: 71046 ==

== ENCOUNTER → 2024-12-22 14:09 | Outpatient (REF) | payer OTHER, SELFPAY | LOC: HWRAD 14:09 | PROVIDERS: ATTENDING PHYSICIAN Otolaryngology; FAMILY PHYSICIAN Internal Medicine | DX: R22.1 Localized swelling, mass and lump, neck (principal) | CPT/HCPCS: 76536 ==

== ENCOUNTER → 2025-01-22 10:01 | Outpatient (REF) | payer OTHER, SELFPAY | LOC: RAD 10:01 | PROVIDERS: ATTENDING PHYSICIAN Nurse Practitioner Family | DX: M54.2 Cervicalgia (principal) | CPT/HCPCS: 72052 ==

== ENCOUNTER → 2025-01-25 11:02 | Outpatient (REF) | payer OTHER, SELFPAY | LOC: EMG 11:02 | PROVIDERS: ATTENDING PHYSICIAN Nurse Practitioner Family | DX: G62.89 Other specified polyneuropathies (principal); R20.2 Paresthesia of skin; G56.03 Carpal tunnel syndrome, bilateral upper limbs | CPT/HCPCS: 95886; 95911 ==

== ENCOUNTER → 2025-01-27 11:07 | Outpatient (REF) | payer OTHER, SELFPAY | LOC: RAD 11:07 | PROVIDERS: ATTENDING PHYSICIAN Internal Medicine Rheumatology; FAMILY PHYSICIAN Internal Medicine | DX: M81.0 Age-related osteoporosis without current pathological fracture (principal); Z13.820 Encounter for screening for osteoporosis | CPT/HCPCS: 77080; 77081 ==